=== PATIENT | female | born 1960 | race Caucasian/White ===

== ENCOUNTER 2016-09-14 15:24 | Emergency (ER) | payer OTHER ==
[2015-09-04 14:25] VITALS: BMI 18.5
[~2016-09-14 15:24] MED LIST: ALBUTEROL0.63 MG/3 INH; ELIQUIS5 MG PO; FLUTICASONE PRO16 GM NASAL
[2016-09-14 16:34] LABS: BASOPHILS 0.1 % (0.0-2.0); EOSINOPHILS 1.1 % (0-7); HEMATOCRIT 51.7 % (36.0-48.0); HEMOGLOBIN 17.2 g/dL (12-16); IMMATURE GRANULOCYTES 0.2 % (0-5); LYMPHOCYTES 18.3 % (15-50); MCH 31.3 pg (26.0-34.0); MCHC 33.3 g/dL (31.0-37.0); MCV 94.2 fL (80.0-100.0); MEAN PLATELET VOLUME 12.6 fL (7.4-10.4); MONOCYTES 5.4 % (2-11); NEUTROPHILS 74.9 % (40-80); RBC 5.49 10x6/uL (4.00-5.40); RDW 12.5 % (11.5-14.5); WBC 14.1 10x3/uL (4.8-10.8)
[2016-09-14 16:52] LABS: PLATELET COUNT 153 10x3/uL (130-400)
[2016-09-14 17:09] LABS: ALBUMIN 3.9 g/dL (3.4-5.0); ALKALINE PHOSPHATASE 82 U/L (46-116); ALT (SGPT) 25 U/L (10-68); BILIRUBIN - TOTAL 0.54 mg/dL (0.2-1.3); CALC OSMOLALITY 279 mosm/kg (275-300); CALCIUM 8.9 mg/dL (8.5-10.1); CARBON DIOXIDE 28.8 mmol/L (21.0-32.0); CHLORIDE - SERUM 103 mmol/L (98-107); CREATININE - SERUM 0.7 mg/dL (0.6-1.3); GLUCOSE 82 mg/dL (74-106); POTASSIUM - SERUM 4.7 mmol/L (3.5-5.1); PROTEIN - SERUM 7.4 g/dL (6.4-8.2); SODIUM 141 mmol/L (136-145); UREA NITROGEN 13 mg/dL (7-18); eGFR NON AFRICAN AMERICAN > 90 mL/min (90-120)
[2016-09-14 17:18] LABS: CKMB 1.8 U/L (0.0-3.6); CREATINE KINASE 126 UL (21-215)
[2016-09-14 17:28] LABS: TROPONIN-I < 0.017 ng/mL (0.000-0.060)
[2016-09-14 17:40] LABS: APPEARANCE CLEAR (CLEAR); BACTERIA MODERATE /hpf (NONE SEEN); BILIRUBIN NEGATIVE (NEGATIVE); COLOR YELLOW (YELLOW); GLUCOSE NEGATIVE (NEGATIVE); KETONE NEGATIVE (NEGATIVE); LEUKOCYTE ESTERASE 1+ (NEGATIVE); NITRITE NEGATIVE (NEGATIVE); PROTEIN NEGATIVE (NEGATIVE); RED CELLS - URINE 0-5 /hpf (0-5); SPECIFIC GRAVITY 1.025 (1.005-1.020); UROBILINOGEN NORMAL (NORMAL); WHITE CELLS - URINE 0-5 /hpf (0-5)
[2016-09-14 17:41] LABS: MUCUS <1+ /lpf (NONE SEEN)
== END 2016-09-14 18:50 | disposition home or self-care (01) ==
LOC: D.ER 15:24
PROVIDERS: Emergency Medicine; Nurse Practitioner Family
DX: R07.9 Chest pain, unspecified (principal); J44.9 Chronic obstructive pulmonary disease, unspecified; F17.200 Nicotine dependence, unspecified, uncomplicated

== ENCOUNTER 2016-12-10 15:29 | Emergency (ER) | payer OTHER ==
[2016-12-10 16:26] LABS: BASOPHILS 0.3 % (0-2); EOSINOPHILS 0.3 % (0-7); HEMATOCRIT 45.6 % (36.0-48.0); HEMOGLOBIN 14.9 g/dL (12-16); IMMATURE GRANULOCYTES 0.3 % (0-5); MCH 30.3 pg (26.0-34.0); MCHC 32.7 g/dL (31.0-37.0); MCV 92.9 fL (80.0-100.0); MEAN PLATELET VOLUME 13.4 fL (7.4-10.4); MONOCYTES 5.4 % (2-11); NEUTROPHILS 82.7 % (40-80); PLATELET COUNT 130 10x3/uL (130-400); RBC 4.91 10x6/uL (4.00-5.40); WBC 7.7 10x3/uL (4.8-10.8)
[2016-12-10 16:47] LABS: ALBUMIN 3.4 g/dL (3.4-5.0); ALKALINE PHOSPHATASE 79 U/L (46-116); ALT (SGPT) 14 U/L (10-68); BILIRUBIN - TOTAL 0.58 mg/dL (0.2-1.3); CALCIUM 8.6 mg/dL (8.5-10.1); CARBON DIOXIDE 23.4 mmol/L (21.0-32.0); CHLORIDE - SERUM 103 mmol/L (98-107); CREATININE - SERUM 0.8 mg/dL (0.6-1.3); POTASSIUM - SERUM 4.7 mmol/L (3.5-5.1); PROTEIN - SERUM 6.4 g/dL (6.4-8.2); SODIUM 141 mmol/L (136-145); UREA NITROGEN 14 mg/dL (7-18); eGFR NON AFRICAN AMERICAN 78 mL/min (90-120)
[2016-12-10 16:49] LABS: CALC OSMOLALITY 283 mosm/kg (275-300); GLUCOSE 126 mg/dL (74-106); TROPONIN-I < 0.017 ng/mL (0.000-0.060)
== END 2016-12-10 18:20 | disposition home or self-care (01) ==
LOC: D.ER 15:29
PROVIDERS: Emergency Medicine
DX: R06.00 Dyspnea, unspecified (principal); J20.9 Acute bronchitis, unspecified; J44.9 Chronic obstructive pulmonary disease, unspecified; J45.909 Unspecified asthma, uncomplicated; F17.200 Nicotine dependence, unspecified, uncomplicated

== ENCOUNTER → 2016-12-22 09:39 | Outpatient (CLI) | payer OTHER ==
[2015-09-04 14:25] VITALS: BMI 18.5
[2016-12-22 11:03] LABS: CREATININE - SERUM 0.9 mg/dL (0.6-1.3)
== END | disposition home or self-care (01) ==
LOC: D.RT 09:39
PROVIDERS: Internal Medicine Pulmonary Disease
DX: I26.99 Other pulmonary embolism without acute cor pulmonale (principal); R91.8 Other nonspecific abnormal finding of lung field

== ENCOUNTER → 2017-04-21 10:11 | Outpatient (CLI) | payer OTHER ==
[2015-09-04 14:25] VITALS: BMI 18.5
[2017-04-21 11:00] LABS: ALBUMIN 4.2 g/dL (3.4-5.0); BILIRUBIN - DIRECT 0.07 mg/dL (0.00-0.30); BILIRUBIN - INDIRECT 0.43 mg/dL (0.00-1.00); BILIRUBIN - TOTAL 0.5 mg/dL (0.2-1.3); PROTEIN - SERUM 7.8 g/dL (6.4-8.2)
== END | disposition home or self-care (01) ==
LOC: D.NM 09:00 → D.LAB 10:00 → D.US 10:30 → D.LAB 04-30 08:30
PROVIDERS: Internal Medicine Gastroenterology
DX: R10.9 Unspecified abdominal pain (principal); R11.0 Nausea

== ENCOUNTER 2017-07-16 06:06 | Day surgery (SDC) | payer OTHER ==
[~2017-07-16] VITALS: Ht 167.6 cm; Wt 45.4 kg
[~2017-07-16 06:06] MED LIST changes: +BREO ELLIPTA 21 EACH; +INCRUSE ELLI62.5 MCG INH
[2017-07-16 06:47] LABS: HEMOGLOBIN 15.1 g/dL (12-16); MCH 31.4 pg (26.0-34.0); MCHC 33.6 g/dL (31.0-37.0); MCV 93.6 fL (80.0-100.0); MEAN PLATELET VOLUME 12.1 fL (7.4-10.4); RBC 4.81 10x6/uL (4.00-5.40); RDW 12.7 % (11.5-14.5); WBC 6.2 10x3/uL (4.8-10.8)
[2017-07-16] MEDS ORDERED: ALBUTEROL0.63 MG/3 INH (08:15)
[2017-07-16 08:21] VITALS: BP 136/62; Ht 167.6 cm; Wt 45.4 kg
--- NOTE | 2017-07-16 12:21 | NUR ---
1215--IV DC'D, PT UP TO DRESS AT THIS TIME. EPIFANIO RN
--- NOTE | 2017-07-16 12:54 | NUR ---
1240--DISCHARGE INSTRUCTIONS GIVEN, PT VERBALIZES UNDERSTANDING. PT OFF UNIT VIA MELINDA. EPIFANIO ARNOLD
--- NOTE | 2017-09-01 13:13 | OP ---
PATIENT NAME: SHARON BLANTON MEDICAL RECORD: [id number] :58 LOCATION:[facility] ADMISSION DATE: SURGEON: BRONSON KANG MD DATE OF OPERATION: 07/16/2017 PREOPERATIVE DIAGNOSIS: Hyperpharyngeal mass. POSTOPERATIVE DIAGNOSIS: Hyperpharyngeal mass. PROCEDURE: Direct laryngoscopy with biopsy. SURGEON: Bronson Kang MD ANESTHESIA: General orotracheal. BLOOD LOSS: 1 cc. SPECIMENS: Multiple biopsies from the left side of hypopharynx. DESCRIPTION OF PROCEDURE: She was brought to the operating room and placed in supine position, sedated and intubated by anesthesia with a 6.0 tube. The table was turned to 90 degrees. Head drape was applied and she was positioned for laryngoscopy. Plastic tooth guard was used to protect the maxilla. Kleinsasser J laryngoscope was used to examine the hypopharynx. The oral cavity, lateral pharyngeal whittington, palate, base of tongue, vallecula, epiglottis down to the supraglottic larynx and cords, laryngeal surface of the epiglottis and the piriforms and post-cricoid area, everything was unremarkable except the left piriform. The mass was at the superior aspect of the left piriform and appeared to be originating laterally on my exam in the clinic and indeed it did appear to be. She did not have much tonsil tissue superiorly, but this really appeared to be almost lingual tonsillar tissue laterally, it was pedunculated down into the superior piriform on the left side, she did not have the same thing on the right side at all, but careful examination in that area showed that this was the soft mass that had seen in the clinic. Multiple biopsies were taken with biting a 4 mm cup forceps. There was minimal bleeding there and I took several biopsies debulking the area and the biopsy seemed consistent with that as well. The laryngoscope was removed and the plastic tooth guard was removed over the maxilla and she was repositioned, table was turned back. She was awakened, extubated, and transported to recovery in good condition. COMPLICATIONS: No complications. TRANSINT:[id number] Voice Confirmation ID: [id number] DOCUMENT ID: [id number] BRONSON KANG MD at 1313 CC: [id number] DICTATION DATE: 07/20/17 1432 OPERATIONS AND MAINTENANCE TECHNICIAN: 07/20/17 1542 [facility] 07/16/17 [place] [address] [place] [address]
--- NOTE | 2017-09-01 13:13 | HP ---
PATIENT: CHERI BLANTON MEDICAL RECORD: [id number] ACCOUNT: [id number] LOCATION:D.ALEN : 58 ADMISSION DATE: 07/16/17 HISTORY AND PHYSICAL EXAMINATION HISTORY: Cheri is a 56-year-old female who has been noted to have a left-sided hypopharyngeal mass. She is being admitted for laryngoscopy and possible biopsy. PAST MEDICAL HISTORY: Includes reactive airway disease and reflux. PAST SURGICAL HISTORY: Includes EGD. CURRENT MEDICATIONS: Albuterol, famotidine, and tramadol. ALLERGIES: No known drug allergies. PHYSICAL EXAMINATION: FACE: Normal and symmetric. No lesions. EYES: Sclerae and conjunctivae are normal. EARS: Canals and TMs are normal. NOSE: No mass, polyps, or drainage. ORAL CAVITY AND OROPHARYNX: Normal. NECK: No masses. No adenopathy. CHEST: Clear. CARDIOVASCULAR: Regular rate and rhythm. No murmur. EXTREMITIES: Normal. Laryngoscopy reveals soft-appearing fullness in the left superior piriform and lateral pharyngeal wall area. CT of the neck shows the same asymmetry, but no indication if this is vascular. IMPRESSION: Left hypopharyngeal mass. PLAN: Direct laryngoscopy and possible biopsy depending on findings. TRANSINT:[id number] Voice Confirmation ID: [id number] DOCUMENT ID: [id number] SARAHI GRAY MD at 1313 CC: [id number] DICTATION DATE: 07/15/17 1349 CERTIFIED GENETIC COUNSELOR: 07/15/17 1634 [facility] 07/16/17 [place] [address]
== END 2017-07-16 12:40 | disposition home or self-care (01) ==
LOC: D.OPS 06:06 → D.PAN 08:45 → D.OPS 09:30 → D.PAN 09:30 → D.OPS 12:40
PROVIDERS: Anesthesiology
DX: J39.2 Other diseases of pharynx (principal); K21.9 Gastro-esophageal reflux disease without esophagitis; J45.909 Unspecified asthma, uncomplicated; Z01.812 Encounter for preprocedural laboratory examination; F17.200 Nicotine dependence, unspecified, uncomplicated; J44.9 Chronic obstructive pulmonary disease, unspecified

== ENCOUNTER 2017-09-06 05:05 | Day surgery (SDC) | payer OTHER ==
[~2017-09-06] VITALS: Ht 167.6 cm; Wt 44.5 kg
[2017-09-06 05:49] LABS: HEMATOCRIT 44.4 % (36.0-48.0); HEMOGLOBIN 14.7 g/dL (12-16); MCH 31.7 pg (26.0-34.0); MCHC 33.1 g/dL (31.0-37.0); MCV 95.9 fL (80.0-100.0); MEAN PLATELET VOLUME 12.9 fL (7.4-10.4); RBC 4.63 10x6/uL (4.00-5.40); RDW 12.5 % (11.5-14.5); WBC 6.7 10x3/uL (4.8-10.8)
[2017-09-06 06:19] VITALS: BP 99/51; Ht 167.6 cm; Wt 44.5 kg
[2017-09-06] MEDS ORDERED: HYDROCODON-ACE1 EAC7 PO (08:44)
== END 2017-09-06 13:00 | disposition home or self-care (01) ==
LOC: D.OPS 05:05 → D.PAN 08:00 → D.OPS 13:00
PROVIDERS: Anesthesiology
DX: K82.8 Other specified diseases of gallbladder (principal); K80.20 Calculus of gallbladder without cholecystitis without obstruction; J44.9 Chronic obstructive pulmonary disease, unspecified; K21.9 Gastro-esophageal reflux disease without esophagitis; Z01.812 Encounter for preprocedural laboratory examination

== ENCOUNTER 2017-10-28 17:32 | Inpatient (IN) | payer OTHER ==
[~2017-10-28] VITALS: Ht 167.6 cm; Wt 45.4 kg
--- NOTE | ~2017-10-28 | CN ---
PATIENT NAME:SHARON BLANTON MEDICAL RECORD: [id number] : 58 LOCATION:D.MS Heart2213 ADMIT DATE: 10/28/17 ACCOUNT: [id number] CONSULTING PHYSICIAN: SHAWNA LANDRUM MD REFERRING PHYSICIAN: DIMAS KRAFT DO DATE OF CONSULTATION: 10/30/2017 CARDIOLOGY CONSULTATION ADMITTING DIAGNOSES: 1. Chest pain. 2. COPD. 3. Pneumonia. 4. Shortness of breath, dyspnea on exertion. HISTORY OF PRESENT ILLNESS: Ms. Blanton presents with shortness of breath, dyspnea on exertion, has severe COPD, found to have pneumonia as well. She is having episodes of chest pain. Her EKG is with no changes. Troponin is normal. Her chest pain is atypical. It is in the center of her chest radiating to her right upper abdominal area, some pain in her right arm, worsening with cough, worsening with deep inspiration. PHYSICAL EXAMINATION: GENERAL APPEARANCE: Well-nourished, well-developed, appears stated age. Level of distress, comfortable. PSYCHIATRIC: Mental status, alert, normal affect. Orientation, oriented to time, place and person. EYES: Lids and conjunctiva, noninjected. No discharge, no pallor. ENT: Lips, teeth, gums, normal dentition. Oropharynx, no cyanosis, no pallor. NECK: Carotid arteries, bilateral normal upstroke, no bruits, no thrills. JUGULAR VEINS: No jugular venous pressure or distention. CERVICAL LYMPH NODES: Nontender, nonenlarged. THYROID: Not enlarged. Nontender. No nodules. LUNGS: Respiratory effort, unlabored. CHEST: Normal curvature. No thoracic deformity. No chest wall tenderness. Percussion, resonant. Auscultation, clear. No wheezes, no rales, no rhonchi. CARDIOVASCULAR: Precordial exam, nondisplaced. No heaves or pericardial thrills. Rate and rhythm, regular. Heart sounds, normal S1, normal S2. No S3, no gallop, no rub. Systolic murmur, not heard. Diastolic murmur, not heard. EXTREMITIES: No cyanosis, no edema. Peripheral pulses, full and equal in all extremities, except as noted. No bruits appreciated. ABDOMEN: Soft, nondistended. Normal aorta. No bruit. Nontender. No masses. Liver, nontender, no hepatomegaly. Spleen, nontender, no splenomegaly. MUSCULOSKELETAL: No joint tenderness. No joint swelling. No erythema. NEUROLOGICAL: Normal gait, normal strength, normal tone. SKIN: Warm and dry. OVERALL IMPRESSION: Chest pain is noncardiac in etiology, most likely musculoskeletal secondary to her coughing. No other cardiac workup treatment is necessary. TRANSINT:[id number] Voice Confirmation ID: [id number] DOCUMENT ID: [id number] CONSULT REPORT [id number] SHARON BLANTON, SHAWNA BILLINGSLEY at 1202 CC: [id number] DICTATION DATE: 10/30/17 0847 DIE CAST ENGINEER: 10/30/17 1118 ADM IN [place] [id number] [place] [address]
--- NOTE | ~2017-10-28 | EC ---
PATIENT:SHARON BLANTON DATE OF SERVICE: 10/28/17 SEX: F MEDICAL RECORD: [id number] DATE OF : 58 LOCATION:D.MS [place] AGE OF PATIENT: 56 ADMISSION DATE: 10/28/17 REFERRING PHYSICIAN: INTERPRETING PHYSICIAN: SHAWNA STARK MD ECHOCARDIOGRAM REPORT ECHO CHARGES 5 ECHO LIMITED DATE: CLINICAL DIAGNOSIS: SOB/PNEUMONIA HX OF COPD AND ASTHMA ECHOCARDIOGRAPHIC MEASUREMENTS (adult normal given) AC root (d.<3.7cm) 3.3 cm LV Septum d (<1.2 cm> 1.3 cm Valve Excursion 1.6 cm LV Septum (systole) 1.5 cm Left Atria (s.<4.0cm> 3.9 cm LVPW d(<1.2cm) 1.3 cm RV (d.<2.3cm) 3.8 cm LVPW (sytole) 1.9 cm LV diastole(<5.6CM) 3.6 cm MV E-F(>70mm/sec) cm LV systole 1.9 cm LVOT Diameter cm MV exc.(>10mm) cm Est.ejection fraction (50-75%) % DOPPLER: LVIT cm/sec A cm/sec E cm/sec LA cm/sec RVSP mmHg LVOT cm/sec AOP1/2T m/s Asc. Ao cm/sec RVOT cm/sec RA cm/sec PA cm/sec AV Gradient Peak mmHg AV Mean mmHg AV Area cm MV Gradient Peak mmHg MV Mean mmHg MV Area cm COMMENTS: Parimutuel Cashier: Candi BURGOS Daily Sales Audit Clerk: 1 Dr. Stark TAPE# PACS Pericardial Effusion N DATE OF SERVICE: 10/30/2017 FINDINGS: 1. Left ventricular chamber size is within normal limits. Left ventricular systolic function is normal. Overall ejection fraction is estimated at 65%. 2. Left atrium is within normal limits at 3.9 cm. Right atrium and right ventricle chamber sizes are mildly dilated. 3. Valvular structures have normal structure and motion. 4. Doppler interrogation only reveals mild tricuspid regurgitation. No other valvular insufficiency or stenosis. Pulmonary systolic pressure is normal, ECHOCARDIOGRAM REPORT [id number] SHARON BLANTON estimated at 30 mmHg. 5. No evidence of pericardial effusion or left ventricular thrombus. TRANSINT:[id number] Voice Confirmation ID: [id number] DOCUMENT ID: [id number] 11/04/2017 Edited to correct date of service, dmmelania. SHAWNA STARK MD at 1140 CC: [id number] DICTATION DATE: 10/31/17 1219 MULTIFOLD OPERATOR: 10/31/17 1745 [facility] IN 11/02/17 [place] [id number] [place] [id number]
[~2017-10-28 17:32] MED LIST changes: +HYDROCODON-ACE1 EAC7 PO
[2017-10-28 18:28] LABS: HEMATOCRIT 45.3 % (36.0-48.0); HEMOGLOBIN 14.7 g/dL (12-16); MCH 30.9 pg (26.0-34.0); MCHC 32.5 g/dL (31.0-37.0); MCV 95.4 fL (80.0-100.0); MEAN PLATELET VOLUME 12.6 fL (7.4-10.4); PLATELET COUNT 185 10x3/uL (130-400); RBC 4.75 10x6/uL (4.00-5.40); RDW 12.6 % (11.5-14.5)
[2017-10-28 18:43] LABS: ALBUMIN 2.5 g/dL (3.4-5.0); ANION GAP 7.9 mmol/L (8-16); BILIRUBIN - TOTAL 0.53 mg/dL (0.2-1.3); CALCIUM 8.5 mg/dL (8.5-10.1); CREATININE - SERUM 0.9 mg/dL (0.6-1.3)
[2017-10-28 18:45] LABS: POTASSIUM - SERUM 2.9 mmol/L (3.5-5.1)
[2017-10-28 18:59] LABS: LYMPHOCYTES 5 % (15-50); MONOCYTES 1 % (2-11); NEUTROPHILS 90 % (40-80); PLATELET ESTIMATE NORMAL
[2017-10-28 19:31] LABS: MAGNESIUM - SERUM 1.8 mg/dL (1.8-2.4); TROPONIN-I 0.023 ng/mL (0.000-0.060)
[2017-10-28 19:59] LABS: APPEARANCE CLEAR (CLEAR); BILIRUBIN NEGATIVE (NEGATIVE); COLOR DK YELLOW (YELLOW); GLUCOSE NEGATIVE (NEGATIVE); KETONE SMALL mg/dL (NEGATIVE); NITRITE NEGATIVE (NEGATIVE); PROTEIN TRACE mg/dL (NEGATIVE); UROBILINOGEN NORMAL (NORMAL)
[2017-10-28 20:01] LABS: BACTERIA FEW /hpf (NONE SEEN); MUCUS <1+ /lpf (NONE SEEN); RED CELLS - URINE 0-5 /hpf (0-5); WHITE CELLS - URINE 0-5 /hpf (0-5)
[2017-10-29] VITALS (7 sets, daily range): BP systolic 94–134; BP diastolic 54–78; Ht 167.6 cm; Wt 45.4 kg
[2017-10-29] MEDS ORDERED: IBUPROFEN800 MG PO (00:15)
[2017-10-30 00:32] VITALS: BP 106/48
[2017-10-30 04:00] VITALS: BP 94/44
[2017-10-30 06:27] LABS: BASOPHILS 0.1 % (0-2); EOSINOPHILS 0 % (0-7); HEMOGLOBIN 12.6 g/dL (12-16); IMMATURE GRANULOCYTES 3.2 % (0-5); LYMPHOCYTES 5.7 % (15-50); MCH 30.4 pg (26.0-34.0); MCHC 31.5 g/dL (31.0-37.0); MCV 96.6 fL (80.0-100.0); MEAN PLATELET VOLUME 12.7 fL (7.4-10.4); MONOCYTES 4.3 % (2-11); NEUTROPHILS 86.7 % (40-80); PLATELET COUNT 178 10x3/uL (130-400); RBC 4.14 10x6/uL (4.00-5.40); RDW 12.8 % (11.5-14.5)
[2017-10-30 06:33] LABS: WBC 13.7 10x3/uL (4.8-10.8)
[2017-10-30 06:54] LABS: ALBUMIN 2.3 g/dL (3.4-5.0); ALKALINE PHOSPHATASE 87 U/L (46-116); ALT (SGPT) 11 U/L (10-68); BILIRUBIN - TOTAL 0.19 mg/dL (0.2-1.3); CALCIUM 8.6 mg/dL (8.5-10.1); CARBON DIOXIDE 36.7 mmol/L (21.0-32.0); CHLORIDE - SERUM 97 mmol/L (98-107); CREATININE - SERUM 0.8 mg/dL (0.6-1.3); GLUCOSE 135 mg/dL (74-106); MAGNESIUM - SERUM 1.7 mg/dL (1.8-2.4); PHOSPHOROUS 3.6 mg/dL (2.5-4.9); POTASSIUM - SERUM 3.6 mmol/L (3.5-5.1); SODIUM 140 mmol/L (136-145); eGFR NON AFRICAN AMERICAN 78 mL/min (90-120)
[2017-10-30 06:56] LABS: CALC OSMOLALITY 282 mosm/kg (275-300); PROTEIN - SERUM 2.7 g/dL (6.4-8.2); TROPONIN-I < 0.017 ng/mL (0.000-0.060); UREA NITROGEN 17 mg/dL (7-18)
[2017-10-30 08:03] VITALS: BP 107/50
[2017-10-30 12:16] VITALS: BP 101/51
[2017-10-30 16:14] VITALS: BP 117/57
[2017-10-30 21:40] VITALS: BP 110/53
[2017-10-31 02:38] VITALS: BP 119/61
[2017-10-31 05:22] LABS: BASOPHILS 0.1 % (0-2); EOSINOPHILS 0 % (0-7); HEMATOCRIT 39.7 % (36.0-48.0); HEMOGLOBIN 12.6 g/dL (12-16); IMMATURE GRANULOCYTES 4.4 % (0-5); LYMPHOCYTES 4.5 % (15-50); MCH 30.9 pg (26.0-34.0); MCHC 31.7 g/dL (31.0-37.0); MCV 97.3 fL (80.0-100.0); MEAN PLATELET VOLUME 12.3 fL (7.4-10.4); MONOCYTES 3.9 % (2-11); NEUTROPHILS 87.1 % (40-80); PLATELET COUNT 164 10x3/uL (130-400); RBC 4.08 10x6/uL (4.00-5.40); WBC 15.4 10x3/uL (4.8-10.8)
[2017-10-31 05:26] LABS: ALBUMIN 2.1 g/dL (3.4-5.0); ALKALINE PHOSPHATASE 81 U/L (46-116); CALC OSMOLALITY 284 mosm/kg (275-300); CALCIUM 8.4 mg/dL (8.5-10.1); CHLORIDE - SERUM 101 mmol/L (98-107); CREATININE - SERUM 0.6 mg/dL (0.6-1.3); GLUCOSE 119 mg/dL (74-106); MAGNESIUM - SERUM 1.6 mg/dL (1.8-2.4); PHOSPHOROUS 3.5 mg/dL (2.5-4.9); POTASSIUM - SERUM 3.9 mmol/L (3.5-5.1); SODIUM 142 mmol/L (136-145); UREA NITROGEN 16 mg/dL (7-18); eGFR NON AFRICAN AMERICAN > 90 mL/min (90-120)
[2017-10-31 05:29] VITALS: BP 116/66
[2017-10-31 05:30] LABS: ALT (SGPT) 18 U/L (10-68)
[2017-10-31 08:06] VITALS: BP 113/63
[2017-10-31 12:12] VITALS: BP 99/45
[2017-10-31 16:27] VITALS: BP 105/58
[2017-10-31 20:00] VITALS: BP 114/57
[2017-11-01] VITALS: BP 116/55
[2017-11-01 04:59] LABS: BASOPHILS 0.2 % (0-2); EOSINOPHILS 0 % (0-7); HEMATOCRIT 40.5 % (36.0-48.0); HEMOGLOBIN 12.9 g/dL (12-16); IMMATURE GRANULOCYTES 5.2 % (0-5); LYMPHOCYTES 4.8 % (15-50); MCH 30.7 pg (26.0-34.0); MCHC 31.9 g/dL (31.0-37.0); MCV 96.4 fL (80.0-100.0); MEAN PLATELET VOLUME 12.2 fL (7.4-10.4); MONOCYTES 3.4 % (2-11); NEUTROPHILS 86.4 % (40-80); PLATELET COUNT 160 10x3/uL (130-400); RDW 13.2 % (11.5-14.5); WBC 12.2 10x3/uL (4.8-10.8)
[2017-11-01 06:00] VITALS: BP 116/63
[2017-11-01 08:45] VITALS: BP 121/61
[2017-11-01 13:11] VITALS: BP 115/49
[2017-11-01 16:44] VITALS: BP 103/47
[2017-11-01 20:00] VITALS: BP 117/54
[2017-11-02 04:00] VITALS: BP 115/62
[2017-11-02] MEDS ORDERED: IPRAT-ALBUT 0.5-3 ML INH (06:37)
[2017-11-02] MEDS ORDERED: ALBUTEROL2.5 MG/3 M INH (06:37)
[2017-11-02] MEDS ORDERED: BROVANA15 MCG/2 M INH (06:37)
[2017-11-02] MEDS ORDERED: DALIRESP500 MCG PO (06:38)
[2017-11-02] MEDS ORDERED: PULMICORT0.5 MG/21 UPD (06:38)
[2017-11-02] MEDS ORDERED: XANAX0.25 MG PO (06:38)
[2017-11-02] MEDS ORDERED: SINGULAIR10 MG PO (06:38)
[2017-11-02] MEDS ORDERED: STERAPRED DS 1210 MG PO (06:39)
[2017-11-02] MEDS ORDERED: LEVAQUIN750 MG PO (06:40)
[2017-11-02 08:55] VITALS: BP 93/48
== END 2017-11-02 17:51 | disposition home or self-care (01) | DRG 194 ==
LOC: D.ER 17:32 → D.MS 21:51 → D.EDHOLD 21:51 → D.MS 22:56
PROVIDERS: Emergency Medicine; Family Medicine; Internal Medicine Pulmonary Disease; Nurse Practitioner Family
DX: J18.9 Pneumonia, unspecified organism (principal); J44.1 Chronic obstructive pulmonary disease with (acute) exacerbation; Z68.1 Body mass index [BMI] 19.9 or less, adult; I27.20 Pulmonary hypertension, unspecified; I08.1 Rheumatic disorders of both mitral and tricuspid valves; E87.6 Hypokalemia; F41.9 Anxiety disorder, unspecified; J32.9 Chronic sinusitis, unspecified; Z87.891 Personal history of nicotine dependence; R63.6 Underweight

== ENCOUNTER → 2018-03-31 13:45 | Outpatient (CLI) | payer OTHER ==
[2017-10-29 14:07] VITALS: BMI 16.1
[~2018-03-31 13:45] MED LIST changes: +ALBUTEROL2.5 MG/3 M INH; +BROVANA15 MCG/2 M INH; +DALIRESP500 MCG PO; +IBUPROFEN800 MG PO; +IPRAT-ALBUT 0.5-3 ML INH; +LEVAQUIN750 MG PO; +PULMICORT0.5 MG/21 UPD; +SINGULAIR10 MG PO; +STERAPRED DS 1210 MG PO; +XANAX0.25 MG PO
== END | disposition home or self-care (01) ==
LOC: D.RT 13:45
DX: Z87.01 Personal history of pneumonia (recurrent) (principal); J44.9 Chronic obstructive pulmonary disease, unspecified

== ENCOUNTER 2018-10-07 21:34 | Inpatient (IN) | payer OTHER ==
[~2018-10-07] VITALS: Ht 167.6 cm; Wt 45.4 kg
[2018-10-07 22:15] LABS: BASOPHILS 0 % (0-2); EOSINOPHILS 0 % (0-7); HEMATOCRIT 46.4 % (36.0-48.0); HEMOGLOBIN 15.6 g/dL (12-16); IMMATURE GRANULOCYTES 0.7 % (0-5); LYMPHOCYTES 5.5 % (15-50); MCH 31.4 pg (26.0-34.0); MCHC 33.6 g/dL (31.0-37.0); MCV 93.4 fL (80.0-100.0); MEAN PLATELET VOLUME 12.7 fL (7.4-10.4); MONOCYTES 8.9 % (2-11); NEUTROPHILS 84.9 % (40-80); RBC 4.97 10x6/uL (4.00-5.40); RDW 12.7 % (11.5-14.5); WBC 8.7 10x3/uL (4.8-10.8)
[2018-10-07 22:18] LABS: PLATELET COUNT 88 10x3/uL (130-400)
[2018-10-07 22:28] LABS: PLATELET ESTIMATE DECREASED
[2018-10-07 22:51] LABS: ALBUMIN 3.5 g/dL (3.4-5.0); ALKALINE PHOSPHATASE 81 U/L (46-116); ALT (SGPT) 30 U/L (10-68); BILIRUBIN - TOTAL 0.38 mg/dL (0.2-1.3); CALC OSMOLALITY 279 mosm/kg (275-300); CALCIUM 8.1 mg/dL (8.5-10.1); CARBON DIOXIDE 26.5 mmol/L (21.0-32.0); CHLORIDE - SERUM 100 mmol/L (98-107); CREATININE - SERUM 0.5 mg/dL (0.6-1.3); GLUCOSE 95 mg/dL (74-106); PRO BNP 1161 pg/mL (0-125); PROTEIN - SERUM 7.2 g/dL (6.4-8.2); SODIUM 139 mmol/L (136-145); UREA NITROGEN 18 mg/dL (7-18); eGFR NON AFRICAN AMERICAN > 90 mL/min (90-120)
[2018-10-07 22:55] LABS: TROPONIN-I < 0.017 ng/mL (0.000-0.060)
[2018-10-07 23:26] VITALS: BP 111/54
[2018-10-07 23:45] LABS: APPEARANCE CLEAR (CLEAR); BILIRUBIN NEGATIVE (NEGATIVE); COLOR YELLOW (YELLOW); GLUCOSE NEGATIVE (NEGATIVE); KETONE LARGE mg/dL (NEGATIVE); NITRITE NEGATIVE (NEGATIVE); PROTEIN TRACE mg/dL (NEGATIVE); UDS - AMPHET NEGATIVE QUAL (NEGATIVE); UDS - BARB NEGATIVE QUAL (NEGATIVE); UDS - BENZO NEGATIVE QUAL (NEGATIVE); UDS - COCAINE NEGATIVE QUAL (NEGATIVE); UDS - OPIATE NEGATIVE QUAL (NEGATIVE); UDS - PCP NEGATIVE QUAL (NEGATIVE); UDS - THC POSITIVE QUAL (NEGATIVE); UROBILINOGEN NORMAL (NORMAL); WHITE CELLS - URINE NSEEN /hpf (0-5)
--- NOTE | 2018-10-08 | NUR ---
2ND IV 20 GA TO LEFT AC
[2018-10-08 00:27] VITALS: BP 104/47
--- NOTE | 2018-10-08 00:27 | NUR ---
REPORT CALLED TO KALYAN NULL, CALL LIGHT WITHIN REACH, WILL CONTINUE TO MONITOR.
--- NOTE | 2018-10-08 00:36 | NUR ---
PT TO CTA AND CT TO TRANSPORT PT TO ROOM. PT STABLE AT THIS TIME.
--- NOTE | 2018-10-08 01:10 | NUR ---
PT ARRIVED TO FLOOR FROM ER VIA STRETCHER, ACCOMPANIED BY STAFF FROM CT. VITAL SIGNS STABLE. OXYGEN 3L/NC. REVIEWED HISTORY AND HOME MEDS. ASSESSMENT COMPLETE PER FLOW-SHEET. PT RESTING QUIETLY. ZITHROMAX INFUSING. TELEMETRY PLACED ON PT. NO OTHER NEEDS. WILL CONTINUE TO MONITOR.
[2018-10-08 01:55] VITALS: BP 134/54; BMI 16.1
[2018-10-08] MEDS ORDERED: INCRUSE ELLI62.5 MCG INH (02:07)
[2018-10-08] MEDS ORDERED: ALBUTEROL SULF8.5 GM INH (02:10)
[2018-10-08] MEDS ORDERED: ZOFRAN ODT4 MG/UDTAB PO (02:12)
[2018-10-08 05:10] VITALS: BP 110/50
--- NOTE | 2018-10-08 08:02 | NUR ---
PT AAOX4 RESP EVEN AND NONLABORED, NO SIGNS OF DISTRESS NOTED, SITTING UP EATING BREAKFAST, NO NEEDS EXPRESSED AT THIS TIME, CL IN REACH
[2018-10-08 08:37] VITALS: BMI 16.1
--- NOTE | 2018-10-08 10:00 | NUR ---
CABLE WIRER SHOWING ST 107 PER TECH.
--- NOTE | 2018-10-08 12:00 | NUR ---
PT UPSET YELLING OUT THE ROOM "THESE BLACK PEOPLE LAZY" PT UPSET ABOUT THE DR NOT PRESCIBING HER WHAT SHE WANTS
--- NOTE | 2018-10-08 13:07 | MORECARE ---
CASE MANAGEMENT DISCHARGE SUMMARY PATIENT: SHARON BLANTON UNIT: [id number] ADM DATE: 10/07/18 AGE: 57 : 58 SEX: F ROOM/BED: D.1204 AUTHOR: ERICKA WARREN PHYSICIAN: REFERRING PHYSICIAN: LAVINIA ABBOTT MD DATE OF SERVICE: 10/08/18 Discharge Plan Patient Name: SHARON BLANTON Facility: [facility]:[place] : 1960 Planned Disposition: Anticipated Discharge Date: Discharge Date: Expected LOS: Initial Reviewer: [email or web address] Initial Review Date: 10/08/2018 Generated: 10/08/18 2:06 pm Patient Name: SHARON BLANTON Page [phone] at 1307 All edits/amendments must be made on the electronic document DICTATION DATE: 10/08/18 1306 BUSPERSON: MAGNO 10/08/18 1306 RPT#: [id number] DC DATE: STATUS: ADM IN [facility] [address] [place] [address] END OF REPORT
[2018-10-08 13:39] VITALS: Ht 167.6 cm; Wt 45.4 kg
[2018-10-08 18:55] VITALS: BP 125/74; BP 134/74
[2018-10-08 20:00] VITALS: BP 112/61
--- NOTE | 2018-10-08 20:47 | NUR ---
PATIENT RESTING IN BED WITH NO S/S OF DISTRESS. ADMINISTERED MEDS PER ORDERS. PATIENT DENIES NEEDS AT THIS TIME. BED IN LOWEST POSITION AND CALL LIGHT WITHIN REACH. WILL CONTINUE TO MONITOR.
[2018-10-09] VITALS: BP 103/51
[2018-10-09 04:00] VITALS: BP 103/50
[2018-10-09 05:41] LABS: BASOPHILS 0 % (0-2); EOSINOPHILS 0 % (0-7); HEMATOCRIT 42.6 % (36.0-48.0); IMMATURE GRANULOCYTES 0.3 % (0-5); MCH 30.7 pg (26.0-34.0); MCHC 32.9 g/dL (31.0-37.0); MCV 93.4 fL (80.0-100.0); MEAN PLATELET VOLUME 12.7 fL (7.4-10.4); MONOCYTES 6.4 % (2-11); NEUTROPHILS 89.3 % (40-80); PLATELET COUNT 92 10x3/uL (130-400); RBC 4.56 10x6/uL (4.00-5.40); RDW 12.6 % (11.5-14.5); WBC 7.5 10x3/uL (4.8-10.8)
[2018-10-09 06:33] LABS: ALBUMIN 2.9 g/dL (3.4-5.0); ALKALINE PHOSPHATASE 79 U/L (46-116); BILIRUBIN - TOTAL 0.15 mg/dL (0.2-1.3); CALC OSMOLALITY 288 mosm/kg (275-300); CALCIUM 8.2 mg/dL (8.5-10.1); CHLORIDE - SERUM 104 mmol/L (98-107); CREATININE - SERUM 0.6 mg/dL (0.6-1.3); GLUCOSE 105 mg/dL (74-106); POTASSIUM - SERUM 3.7 mmol/L (3.5-5.1); PROTEIN - SERUM 6.1 g/dL (6.4-8.2); SODIUM 144 mmol/L (136-145); UREA NITROGEN 17 mg/dL (7-18); eGFR NON AFRICAN AMERICAN > 90 mL/min (90-120)
[2018-10-09 06:37] LABS: ALT (SGPT) 41 U/L (10-68); CARBON DIOXIDE 34.1 mmol/L (21.0-32.0)
--- NOTE | 2018-10-09 08:09 | NUR ---
PT AAOX4 RESP EVEN AND NONALBORED, NO SIGNS OF DISTRESS NOTED, SITTING UP IN BED EATIN BREAKFAST, NO QUESTIONS OR CONCERNS EXPRESSED AT THIS TIME, CL IN REACH
[2018-10-09 09:10] VITALS: BP 106/53
--- NOTE | 2018-10-09 12:39 | NUR ---
DROPLET ISOLATION PRECAUTIONS IN PLACE. RESTING QUIETLY IN BED. CALL LIGHT WITHIN REACH.
[2018-10-09 19:35] VITALS: BP 130/55
--- NOTE | 2018-10-09 19:45 | NUR ---
ASSITED THE PATIENT WITH PUTTING ON CLEAN GOWN AND FIXED ALARM ON IV PUMP. GUEST AT BEDSIDE. PATIENT DENIES OTHER NEEDS AT THIS TIME. BED IN LOWEST POSITION AND CALL LIGHT WITHIN REACH. ENCOURAGED THE PATIENT TO CALL IF SHE HAS NEEDS. WILL CONTINUE TO MONITOR.
[2018-10-09 20:23] VITALS: BP 105/52
[2018-10-10] VITALS: BP 95/40
[2018-10-10 05:51] VITALS: BP 97/51
[2018-10-10 06:26] LABS: ALBUMIN 2.6 g/dL (3.4-5.0); ALKALINE PHOSPHATASE 89 U/L (46-116); ALT (SGPT) 34 U/L (10-68); CALC OSMOLALITY 292 mosm/kg (275-300); CALCIUM 7.6 mg/dL (8.5-10.1); CARBON DIOXIDE 34.1 mmol/L (21.0-32.0); CHLORIDE - SERUM 107 mmol/L (98-107); CREATININE - SERUM 0.6 mg/dL (0.6-1.3); GLUCOSE 128 mg/dL (74-106); POTASSIUM - SERUM 3.5 mmol/L (3.5-5.1); PROTEIN - SERUM 5.5 g/dL (6.4-8.2); SODIUM 147 mmol/L (136-145); UREA NITROGEN 11 mg/dL (7-18); eGFR NON AFRICAN AMERICAN > 90 mL/min (90-120)
[2018-10-10 06:29] LABS: BASOPHILS 0.2 % (0-2); EOSINOPHILS 0 % (0-7); HEMOGLOBIN 12.9 g/dL (12-16); IMMATURE GRANULOCYTES 0.2 % (0-5); LYMPHOCYTES 6.8 % (15-50); MCH 30.6 pg (26.0-34.0); MCHC 32.3 g/dL (31.0-37.0); MEAN PLATELET VOLUME 12.5 fL (7.4-10.4); MONOCYTES 4.8 % (2-11); PLATELET COUNT 88 10x3/uL (130-400); RBC 4.21 10x6/uL (4.00-5.40); RDW 12.9 % (11.5-14.5)
[2018-10-10 08:44] VITALS: BP 113/51
[2018-10-10 09:05] LABS: PLATELET ESTIMATE DECREASED
--- NOTE | 2018-10-10 12:32 | MORECARE ---
CASE MANAGEMENT DISCHARGE SUMMARY PATIENT: SHARON BLANTON UNIT: [id number] ADM DATE: 10/08/18 AGE: 57 : 58 SEX: F ROOM/BED: D.1204 AUTHOR: ERICKA WARREN PHYSICIAN: REFERRING PHYSICIAN: LAVINIA ABBOTT MD DATE OF SERVICE: 10/10/18 Discharge Plan Patient Name: SHARON BLANTON Facility: [facility]:[place] : 1960 Planned Disposition: Home Anticipated Discharge Date: Discharge Date: Expected LOS: Initial Reviewer: [email or web address] Initial Review Date: 10/08/2018 Generated: 10/10/18 1:31 pm Comments DCP- Discharge Planning Updated by [email or web address]: Nichole Jacobo on 10/10/18 11:[address] Patient Name: SHARON BLANTON Admission Status: ER Accout number: [id number] Admission Date: 10-08-2018 : 1960 Admission Diagnosis: Attending: LAVINIA ABBOTT Current LOS: 2 Anticipated DC Date: Planned Disposition: Home Primary Insurance: [employer] MANAGED MEDICAID Discharge Planning Comments: CM MET WITH PATIENT ABOUT DC PLANNING/NEEDS. STATES HAS 02 AND NEBULIZER AT HOME. PLANS TO DC TO HOME. OFFERED HH BUT PATIENT DECLINES AT THIS TIME. SHE SAID SHE COULD USE A CANE OR WALKER IF SHE QUALIFIES. CM WILL FOLLOW AND ASSIST NEEDED WITH DC PLANNING/NEEDS. Commercial Subcontractor: Nichole Jacobo DCPIA - Discharge Planning Initial Assessment Updated by [email or web address]: Nichole Jacobo on 10/10/18 12:24 pm * Is the patient Alert and Oriented? Yes * PCP GUZMAN * Pharmacy [facility] * Preadmission Environment Home Alone * ADLs Independent * Equipment Nebulizer Oxygen * List name and contact numbers for known caregivers / representatives who currently or will assist patient after discharge: SISTER CHAMBERS, * Community resources currently utilized None * Additional services required to return to the preadmission environment? No * Can the patient safely return to the preadmission environment? Yes * Has this patient been hospitalized within the prior 30 days at any hospital? No Last DP export: 10/08/18 12:06 p Patient Name: SHARON BLANTON Page [id number] at 1232 All edits/amendments must be made on the electronic document DICTATION DATE: 10/10/18 123 DEALERSHIP MANAGER: MAGNO 10/10/18 1231 RPT#: [id number] DC DATE: STATUS: ADM IN [facility] [address] [place] [address] END OF REPORT
[2018-10-10 13:00] VITALS: BP 117/65
[2018-10-10 15:57] VITALS: BP 115/59
[2018-10-10 20:00] VITALS: BP 118/53
--- NOTE | 2018-10-10 20:11 | NUR ---
PATIENT RESTING IN BED AND DENIES NEEDS AT THIS TIME. ADMINISTERED MEDS PER ORDERS. NO S/S OF DISTRESS. BED IN LOWEST POSITION AND CALL LIGHT WITHIN REACH. ENCOURAGED THE PATIENT TO CALL IF SHE HAS NEEDS. WILL CONTINUE TO MONITOR.
[2018-10-11] VITALS: BP 123/64
[2018-10-11 04:30] VITALS: BP 125/58
[2018-10-11 07:24] LABS: BASOPHILS 0.4 % (0-2); EOSINOPHILS 0 % (0-7); HEMOGLOBIN 13.8 g/dL (12-16); IMMATURE GRANULOCYTES 1.1 % (0-5); MCH 30.5 pg (26.0-34.0); MCHC 32.1 g/dL (31.0-37.0); MCV 95.1 fL (80.0-100.0); NEUTROPHILS 69.5 % (40-80); PLATELET COUNT 95 10x3/uL (130-400); RBC 4.52 10x6/uL (4.00-5.40); RDW 12.8 % (11.5-14.5); WBC 4.5 10x3/uL (4.8-10.8)
[2018-10-11 07:51] LABS: ALBUMIN 3.1 g/dL (3.4-5.0); ALKALINE PHOSPHATASE 84 U/L (46-116); ALT (SGPT) 83 U/L (10-68); AMYLASE - SERUM 85 U/L (25-115); BILIRUBIN - TOTAL 0.18 mg/dL (0.2-1.3); CALC OSMOLALITY 289 mosm/kg (275-300); CALCIUM 7.6 mg/dL (8.5-10.1); CARBON DIOXIDE 33.2 mmol/L (21.0-32.0); CHLORIDE - SERUM 102 mmol/L (98-107); CREATININE - SERUM 0.8 mg/dL (0.6-1.3); GLUCOSE 116 mg/dL (74-106); LIPASE 178 U/L (73-393); POTASSIUM - SERUM 3.5 mmol/L (3.5-5.1); PROTEIN - SERUM 6.5 g/dL (6.4-8.2); SODIUM 145 mmol/L (136-145); UREA NITROGEN 13 mg/dL (7-18); eGFR NON AFRICAN AMERICAN 78 mL/min (90-120)
[2018-10-11 09:01] VITALS: BP 142/71
--- NOTE | 2018-10-11 10:11 | NUR ---
Regular diet with 79% average po intake Pt reporting abd pain Plans for CT A/P today per GI Will follow up
--- NOTE | 2018-10-11 11:18 | EC ---
PATIENT:SHARON BLANTON DATE OF SERVICE: 10/08/18 SEX: F MEDICAL RECORD: [id number] DATE OF : 58 LOCATION:D.M3 D.120 AGE OF PATIENT: 57 ADMISSION DATE: 10/08/18 REFERRING PHYSICIAN: INTERPRETING PHYSICIAN: SHAWNA STARK MD ECHOCARDIOGRAM REPORT ECHO CHARGES 4 ECHO COMPLETE Date: 10/09/18 CLINICAL DIAGNOSIS: DYSPNEA HX OF COPD ECHOCARDIOGRAPHIC MEASUREMENTS (adult normal given) AC root (d.<3.7cm) 3.2 cm LV Septum d (<1.2 cm> 1.0 cm Valve Excursion 1.3 cm LV Septum (systole) 1.2 cm Left Atria (s.<4.0cm> 3.9 cm LVPW d(<1.2cm) 1.2 cm RV (d.<2.3cm) 4.0 cm LVPW (sytole) 1.4 cm LV diastole(<5.6CM) 3.5 cm MV E-F(>70mm/sec) cm LV systole 2.4 cm LVOT Diameter 1.6 cm MV exc.(>10mm) 1.4 cm Est.ejection fraction (50-75%) % DOPPLER: LVIT cm/sec A 84.0 cm/sec E 98.0 cm/sec LA cm/sec RVSP 27 mmHg LVOT 118 cm/sec AOP1/2T m/s Asc. Ao 191 cm/sec RVOT cm/sec RA cm/sec PA cm/sec AV Gradient Peak 14.65mmHg AV Mean 6.99 mmHg AV Area 1.4 cm MV Gradient Peak 5.60 mmHg MV Mean 1.69 mmHg MV Area cm COMMENTS: Spiral Binder: Candi BURGOS Frozen Yogurt Maker: 1 Dr. Stark TAPE# PACS Pericardial Effusion N DATE OF SERVICE: 10/09/2018 FINDINGS: 1. Left ventricular chamber size is within normal limits. Left ventricular systolic function is normal. Overall ejection fraction is estimated at 60%. 2. Left atrium, right atrium, and right ventricular chamber sizes are within normal limit. 3. Valvular structures have normal structure and motion. 4. Doppler interrogation reveals [id number] tricuspid regurgitation. No other valvular insufficiency or stenosis. ECHOCARDIOGRAM REPORT [id number] SHARON BLANTON 5. No evidence of pericardial effusion or left ventricular thrombus. TRANSINT:[id number] Voice Confirmation ID: [id number] DOCUMENT ID: [id number] SHAWNA STARK MD at 1118 CC: [id number] DICTATION DATE: 10/09/18 1319 GRIPPER MACHINE OPERATOR: 10/09/18 1352 ADM IN [facility] [address] [place] [address]
[2018-10-11 12:08] VITALS: BP 85/52
[2018-10-11 15:26] VITALS: BP 144/60
--- NOTE | 2018-10-11 19:50 | NUR ---
PATIENT RESTING IN BED AND DENIES NEEDS AT THIS TIME. BED IN LOWEST POSITION AND CALL LIGHT WITHIN REACH. ENCOURAGED THE PATIENT TO CALL IF SHE HAS NEEDS. WILL CONTINUE TO MONITOR.
[2018-10-11 20:31] VITALS: BP 90/63
[2018-10-12] VITALS: BP 116/62
[2018-10-12 05:42] VITALS: BP 125/60
--- NOTE | 2018-10-12 07:00 | NUR ---
RESTING QUIETLY IN BED, ALERT, DENIES PAIN AT THIS TIME, NO S/S DISTRESS. CALL LIGHT AT HAND, INSTRUCTED TO CALL WITH NEEDS.
[2018-10-12 08:14] LABS: HEMATOCRIT 41.1 % (36.0-48.0); HEMOGLOBIN 13.3 g/dL (12-16); MCH 30.5 pg (26.0-34.0); MCHC 32.4 g/dL (31.0-37.0); MCV 94.3 fL (80.0-100.0); MEAN PLATELET VOLUME 12.6 fL (7.4-10.4); PLATELET COUNT 82 10x3/uL (130-400); RBC 4.36 10x6/uL (4.00-5.40); RDW 12.7 % (11.5-14.5); WBC 4.9 10x3/uL (4.8-10.8)
[2018-10-12 08:27] LABS: ALBUMIN 2.9 g/dL (3.4-5.0); ALKALINE PHOSPHATASE 83 U/L (46-116); ALT (SGPT) 93 U/L (10-68); BILIRUBIN - TOTAL 0.23 mg/dL (0.2-1.3); CALC OSMOLALITY 289 mosm/kg (275-300); CALCIUM 7.7 mg/dL (8.5-10.1); CARBON DIOXIDE 36.9 mmol/L (21.0-32.0); CHLORIDE - SERUM 103 mmol/L (98-107); CREATININE - SERUM 0.6 mg/dL (0.6-1.3); GLUCOSE 85 mg/dL (74-106); SODIUM 146 mmol/L (136-145); UREA NITROGEN 13 mg/dL (7-18); eGFR NON AFRICAN AMERICAN > 90 mL/min (90-120)
[2018-10-12 08:29] LABS: POTASSIUM - SERUM 2.9 mmol/L (3.5-5.1)
[2018-10-12 09:08] LABS: LYMPHOCYTES 53 % (15-50); MONOCYTES 9 % (2-11); NEUTROPHILS 32 % (40-80); PLATELET ESTIMATE DECREASED; ROULEAUX OCC
[2018-10-12 09:21] VITALS: BP 123/67
[2018-10-12] MEDS ORDERED: TAMIFLU75 MG PO (10:38)
[2018-10-12] MEDS ORDERED: LEVAQUIN750 MG PO (10:39)
[2018-10-12] MEDS ORDERED: PREDNISONE20 MG PO (10:39)
--- NOTE | 2018-10-12 12:47 | MORECARE ---
CASE MANAGEMENT DISCHARGE SUMMARY PATIENT: SHARON BLANTON UNIT: [id number] ADM DATE: 10/08/18 AGE: 57 : 58 SEX: F ROOM/BED: D.1204 AUTHOR: ERICKA WARREN PHYSICIAN: REFERRING PHYSICIAN: LAVINIA ABBOTT MD DATE OF SERVICE: 10/12/18 Discharge Plan Patient Name: SHARON BLANTON Facility: [facility]:[place] : 1960 Planned Disposition: Home Anticipated Discharge Date: Discharge Date: Expected LOS: Initial Reviewer: [email or web address] Initial Review Date: 10/08/2018 Generated: 10/12/18 1:47 pm Comments DCP- Discharge Planning Updated by [email or web address]: Nichole Jacobo on 10/12/18 11:[address] Patient Name: SHARON BLANTON Admission Status: ER Accout number: [id number] Admission Date: 10-08-2018 : 1960 Admission Diagnosis:SHORTNESS OF BREATH Attending: LAVINIA ABBOTT Current LOS: 4 Anticipated DC Date: Planned Disposition: Home Primary Insurance: [employer] MANAGED MEDICAID Discharge Planning Comments: WHEN PATIENT IS READY FOR DISHCARGE I WILL CALL [employer] SERVICE AT [phone]. PAYMENT HAS BEEN APPROVED BY [employer]. PATIENT AD[address]ESS [address] [place] [id number] CM WILL FOLLOW AND ASSISTAS NEEDED WITH DC PLANNING/NEEDS. Flight Control Specialist: Nichole Jacobo DCP- Discharge Planning Updated by [email or web address]: Nichole Jacobo on 10/10/18 11:[address] Patient Name: SHARON BLANTON Admission Status: ER Accout number: [id number] Admission Date: 10-08-2018 : 1960 Admission Diagnosis: Attending: LAVINIA ABBOTT Current LOS: 2 Anticipated DC Date: Planned Disposition: Home Primary Insurance: [employer] MANAGED MEDICAID Discharge Planning Comments: CM MET WITH PATIENT ABOUT DC PLANNING/NEEDS. STATES HAS 02 AND NEBULIZER AT HOME. PLANS TO DC TO HOME. OFFERED HH BUT PATIENT DECLINES AT THIS TIME. SHE SAID SHE COULD USE A CANE OR WALKER IF SHE QUALIFIES. CM WILL FOLLOW AND ASSIST NEEDED WITH DC PLANNING/NEEDS. Flight Control Specialist: Nichole Jacobo DCPIA - Discharge Planning Initial Assessment Updated by [email or web address]: Nichole Jacobo on 10/10/18 12:24 pm * Is the patient Alert and Oriented? Yes * PCP THOMAS * Pharmacy [facility] * Preadmission Environment Home Alone * ADLs Independent * Equipment Nebulizer Oxygen * List name and contact numbers for known caregivers / representatives who currently or will assist patient after discharge: SISTER CHAMBERS, * Community resources currently utilized None * Additional services required to return to the preadmission environment? No * Can the patient safely return to the preadmission environment? Yes * Has this patient been hospitalized within the prior 30 days at any hospital? No Last DP export: 10/10/18 11:32 a Patient Name: SHARON BLANTON Page 51789 at 1247 All edits/amendments must be made on the electronic document DICTATION DATE: 10/12/186 ESTATE TAX EXAMINER: MAGNO 10/12/18 1246 RPT#: [id number] DC DATE: STATUS: ADM IN [facility] [address] [place] [address] END OF REPORT
[2018-10-12 13:59] VITALS: BP 151/84
--- NOTE | 2018-10-12 14:41 | NUR ---
MORNING LABS REVEALED K+ OF 2.9, 20 MEQ KCL ADMIN X [address] AKERS NOTIFIED, NO NEW ORDERS NOTED AND TO CONTINUE WITH DISCHARGE ORDERED.
--- NOTE | 2018-10-12 15:17 | NUR ---
DISCHARGE TEACHING DONE, PATIENT INSTRUCTED TO MAKE F/U APPT WITH PCP FOR 1 WEEK AND TO REMIND PCP TO CHECK POTASSIUM LEVEL. SALINE LOCK DC'D, TELEMETRY REMOVED. NEW MED TEACHING DONE, NEW RX CALLED TO PHARMACY, PT INSTRUCTED TO GO TO PHARMACY TO GET MEDS, PT VOICED UNDERSTANDING. [facility] CALLED FOR TRANSPORT HOME.
[2018-10-14 14:20] LABS: PLT AB - HLA CLASS 1 Negative (Negative); PLT AB - IIb IIIa Positive (Negative); PLT AB - Ia IIa Negative (Negative); PLT AB - Ib IX Negative (Negative)
--- NOTE | 2018-10-14 16:48 | MORECARE ---
CASE MANAGEMENT DISCHARGE SUMMARY PATIENT: SHARON BLANTON UNIT: [id number] ADM DATE: 10/08/18 AGE: 57 : 58 SEX: F ROOM/BED: D.1204 AUTHOR: ERICKA WARREN PHYSICIAN: REFERRING PHYSICIAN: LAVINIA ABBOTT MD DATE OF SERVICE: 10/14/18 Discharge Plan Patient Name: SHARON BLANTON Facility: [facility]:[place] : 1960 Planned Disposition: Home Anticipated Discharge Date: Discharge Date: 10/12/2018 Expected LOS: Initial Reviewer: [email or web address] Initial Review Date: 10/08/2018 Generated: 10/14/18 5:48 pm Comments DCP- Discharge Planning Updated by [email or web address]: Nichole Jacobo on 10/12/18 11:[address] Patient Name: SHARON BLANTON Admission Status: ER Accout number: [id number] Admission Date: 10-08-2018 : 1960 Admission Diagnosis:SHORTNESS OF BREATH Attending: LAVINIA ABBOTT Current LOS: 4 Anticipated DC Date: Planned Disposition: Home Primary Insurance: [employer] MANAGED MEDICAID Discharge Planning Comments: WHEN PATIENT IS READY FOR DISHCARGE I WILL CALL [employer] SERVICE AT [phone]. PAYMENT HAS BEEN APPROVED BY [employer]. PATIENT AD[address]ESS [address] [address] CM WILL FOLLOW AND ASSISTAS NEEDED WITH DC PLANNING/NEEDS. Sofa Cover Inspector: Nichole Jacobo DCP- Discharge Planning Updated by [email or web address]: Nichole Jacobo on 10/10/18 11:[address] Patient Name: SHARON BLANTON Admission Status: ER Accout number: [id number] Admission Date: 10-08-2018 : 1960 Admission Diagnosis: Attending: LAVINIA ABBOTT Current LOS: 2 Anticipated DC Date: Planned Disposition: Home Primary Insurance: [employer] MANAGED MEDICAID Discharge Planning Comments: CM MET WITH PATIENT ABOUT DC PLANNING/NEEDS. STATES HAS 02 AND NEBULIZER AT HOME. PLANS TO DC TO HOME. OFFERED HH BUT PATIENT DECLINES AT THIS TIME. SHE SAID SHE COULD USE A CANE OR WALKER IF SHE QUALIFIES. CM WILL FOLLOW AND ASSIST NEEDED WITH DC PLANNING/NEEDS. Sofa Cover Inspector: Nichole Odalis DCPIA - Discharge Planning Initial Assessment Updated by [email or web address]: Nichole Jacobo on 10/10/18 12:24 pm * Is the patient Alert and Oriented? Yes * PCP THOMAS * Pharmacy [facility] * Preadmission Environment Home Alone * ADLs Independent * Equipment Nebulizer Oxygen * List name and contact numbers for known caregivers / representatives who currently or will assist patient after discharge: SISTER CHAMBERS, * Community resources currently utilized None * Additional services required to return to the preadmission environment? No * Can the patient safely return to the preadmission environment? Yes * Has this patient been hospitalized within the prior 30 days at any hospital? No Last DP export: 10/12/18 11:47 a Patient Name: SHARON BLANTON Page [id number] at 1648 All edits/amendments must be made on the electronic document DICTATION DATE: 10/14/181647 COORDINATOR SKILL TRAINING PROGRAM: MAGNO 10/14/181647 RPT#: [id number] DC DATE:10/12/18 STATUS: DIS IN [facility] [address] [place] [address] END OF REPORT
== END 2018-10-12 15:20 | disposition home or self-care (01) | DRG 190 ==
LOC: D.ER 21:34 → OBSVTIME 23:10 → D.EDHOLD 23:10 → D.M3 23:22
PROVIDERS: Family Medicine; Family Medicine Adult Medicine; Internal Medicine Gastroenterology; ADMIT Family Medicine
DX: J44.0 Chronic obstructive pulmonary disease with (acute) lower respiratory infection (principal); J18.9 Pneumonia, unspecified organism; F17.213 Nicotine dependence, cigarettes, with withdrawal; B37.0 Candidal stomatitis; J10.1 Influenza due to other identified influenza virus with other respiratory manifestations; J20.9 Acute bronchitis, unspecified; F41.9 Anxiety disorder, unspecified; F32.9 Major depressive disorder, single episode, unspecified; D69.6 Thrombocytopenia, unspecified; I27.20 Pulmonary hypertension, unspecified; J30.9 Allergic rhinitis, unspecified; N30.90 Cystitis, unspecified without hematuria

== ENCOUNTER 2018-10-14 14:35 | Inpatient (IN) | payer OTHER ==
[2018-10-14] VITALS: BP 145/60
[~2018-10-14] VITALS: Ht 167.6 cm; Wt 45.4 kg
[~2018-10-14 14:35] MED LIST changes: +ALBUTEROL SULF8.5 GM INH; +PREDNISONE20 MG PO; +TAMIFLU75 MG PO; +ZOFRAN ODT4 MG/UDTAB PO
[2018-10-14 15:29] LABS: BASOPHILS 0 % (0-2); EOSINOPHILS 0 % (0-7); HEMATOCRIT 46.2 % (36.0-48.0); HEMOGLOBIN 15.3 g/dL (12-16); IMMATURE GRANULOCYTES 0.9 % (0-5); LYMPHOCYTES 8.2 % (15-50); MCH 30.9 pg (26.0-34.0); MCHC 33.1 g/dL (31.0-37.0); MCV 93.3 fL (80.0-100.0); MEAN PLATELET VOLUME 12.5 fL (7.4-10.4); MONOCYTES 5.4 % (2-11); NEUTROPHILS 85.5 % (40-80); RBC 4.95 10x6/uL (4.00-5.40); RDW 12.7 % (11.5-14.5)
[2018-10-14 15:30] LABS: PLATELET COUNT 161 10x3/uL (130-400)
[2018-10-14 15:39] LABS: APTT 26.7 SECONDS (22.8-39.4); PROTIME 12.7 SECONDS (11.6-15.0)
[2018-10-14 15:40] LABS: D-DIMER-QUANTITATIVE 0.42 ug/mLFEU (0.20-0.54)
[2018-10-14 15:46] LABS: ALBUMIN 3.4 g/dL (3.4-5.0); ALKALINE PHOSPHATASE 76 U/L (46-116); ALT (SGPT) 123 U/L (10-68); BILIRUBIN - TOTAL 0.41 mg/dL (0.2-1.3); CALC OSMOLALITY 282 mosm/kg (275-300); CALCIUM 8.5 mg/dL (8.5-10.1); CARBON DIOXIDE 38.2 mmol/L (21.0-32.0); CHLORIDE - SERUM 99 mmol/L (98-107); CREATININE - SERUM 0.6 mg/dL (0.6-1.3); GLUCOSE 121 mg/dL (74-106); POTASSIUM - SERUM 3.9 mmol/L (3.5-5.1); SODIUM 142 mmol/L (136-145); UREA NITROGEN 9 mg/dL (7-18); eGFR NON AFRICAN AMERICAN > 90 mL/min (90-120)
[2018-10-14 15:59] LABS: CKMB 2.1 U/L (0.0-3.6); CREATINE KINASE 63 UL (21-215); LIPASE 102 U/L (73-393); PRO BNP 445 pg/mL (0-125); TROPONIN-I < 0.017 ng/mL (0.000-0.060)
[2018-10-14 16:20] VITALS: BP 127/48
[2018-10-14 16:44] LABS: APPEARANCE CLEAR (CLEAR); BILIRUBIN NEGATIVE (NEGATIVE); COLOR YELLOW (YELLOW); GLUCOSE NEGATIVE (NEGATIVE); KETONE NEGATIVE (NEGATIVE); NITRITE NEGATIVE (NEGATIVE); PROTEIN NEGATIVE (NEGATIVE); SPECIFIC GRAVITY 1.005 (1.005-1.020); UROBILINOGEN NORMAL (NORMAL)
[2018-10-14 17:46] VITALS: BP 101/81
--- NOTE | 2018-10-14 18:55 | MORECARE ---
CASE MANAGEMENT DISCHARGE SUMMARY PATIENT: SHARON BLANTON UNIT: [id number] ADM DATE: 10/14/18 AGE: 57 : 58 SEX: F [facility] AUTHOR: ERICKA WARREN PHYSICIAN: REFERRING PHYSICIAN: LARS AKERS MD DATE OF SERVICE: 10/14/18 Discharge Plan Patient Name: SHARON BLANTON Facility: [facility]:[place] : 1960 Planned Disposition: Anticipated Discharge Date: 10/16/18 Discharge Date: Expected LOS: 2 Initial Reviewer: [email or web address] Initial Review Date: 10/14/2018 Generated: 10/14/18 7:55 pm Patient Name: SHARON BLANTON Page 86504 at 1855 All edits/amendments must be made on the electronic document DICTATION DATE: 10/14/181853 AIRPORT MAINTENANCE LABORER: MAGNO 10/14/181853 RPT#: [id number] DC DATE: STATUS: ADM IN [facility] [address] [place] [address] END OF REPORT
--- NOTE | 2018-10-14 19:12 | MORECARE ---
CASE MANAGEMENT DISCHARGE SUMMARY PATIENT: SHARON BLANTON UNIT: [id number] ADM DATE: 10/14/18 AGE: 57 : 58 SEX: F ROOM/BED: D.1207 AUTHOR: ERICKA WARREN PHYSICIAN: REFERRING PHYSICIAN: LARS AKERS MD DATE OF SERVICE: 10/14/18 Discharge Plan Patient Name: SHARON BLANTON Facility: [facility]:[place] : 1960 Planned Disposition: Anticipated Discharge Date: 10/16/18 Discharge Date: Expected LOS: 2 Initial Reviewer: [email or web address] Initial Review Date: 10/14/2018 Generated: 10/14/18 8:12 pm DCPIA - Discharge Planning Initial Assessment Updated by [email or web address]: Odessa Shepard on 10/14/18 7:09 pm * Is the patient Alert and Oriented? Yes * How many steps to enter\exit or inside your home? 19 * PCP Goes to [facility]. Dr. Romero is listed on her card but she stated she has never seen him before. * Preadmission Environment Home Alone * ADLs Independent * Equipment Nebulizer Oxygen * List name and contact numbers for known caregivers / representatives who currently or will assist patient after discharge: Juliette Amador - [facility] [phone] * Verbal permission to speak to the caregivers and representatives has been obtained from the patient. Yes * Community resources currently utilized None * Additional services required to return to the preadmission environment? No * Can the patient safely return to the preadmission environment? Yes * Has this patient been hospitalized within the prior 30 days at any hospital? Yes Last DP export: 10/14/18 5:55 pm Patient Name: SHARON BLANTON Page [id number] at 1912 All edits/amendments must be made on the electronic document DICTATION DATE: 10/14/181910 VENDOR MANAGEMENT SPECIALIST: MAGNO 10/14/181910 RPT#: [id number] DC DATE: STATUS: ADM IN [facility] [address] [place] [address] END OF REPORT
--- NOTE | 2018-10-14 19:21 | MORECARE ---
CASE MANAGEMENT DISCHARGE SUMMARY PATIENT: SHARON BLANTON UNIT: [id number] ADM DATE: 10/14/18 AGE: 57 : 58 SEX: F ROOM/BED: D.1207 AUTHOR: ERICKA WARREN PHYSICIAN: REFERRING PHYSICIAN: LARS AKERS MD DATE OF SERVICE: 10/14/18 Discharge Plan Patient Name: SHARON BLANTON Facility: [facility]:[place] : 1960 Planned Disposition: Anticipated Discharge Date: 10/16/18 Discharge Date: Expected LOS: 2 Initial Reviewer: [email or web address] Initial Review Date: 10/14/2018 Generated: 10/14/18 8:21 pm DCP- Discharge Planning Updated by [email or web address]: Odessa Shepard on 10/14/18 6:[address] Patient Name: SHARON BLANTON Admission Status: ER Accout number: [id number] Admission Date: 10-14-2018 : 1960 Admission Diagnosis: Attending: LARS AKERS Current LOS: 1 Anticipated DC Date: 10-16-2018 Planned Disposition: Primary Insurance: [employer] MANAGED MEDICAID Discharge Planning Comments: CM met with patient to complete initial dc planning assessment. CM educated patient on the CM role and verbal consent given by patient to complete assessment. Patient lives at home alone. At discharge patient plans to return home alone and feels this is a safe discharge. CM discussed availability of home health, rehab services, and medical equipment. She would like a walker at discharge. She also requested multiple times for a ride home and kept saying we paid for her taxi on Wednesday to get her home. CM explained to her that she needed to try to find a way home prior to discharge. She said she didn't have anyone to help her and that she gets around by the [employer] bus. She also stated the [employer] bus goes close to her apartment. Cm will notify floor case packer that transportation will be an issue at discharge. CM will continue to follow and will assist as needed with dc plans/needs. Plant Operations Manager: Odessa Shepard RN, [facility] DCPIA - Discharge Planning Initial Assessment Updated by [email or web address]: Odessa Shepard on 10/14/18 7:09 pm * Is the patient Alert and Oriented? Yes * How many steps to enter\exit or inside your home? 19 * [facility]ero is listed on her card but she stated she has never seen him before. * Preadmission Environment Home Alone * ADLs Independent * Equipment Nebulizer Oxygen * List name and contact numbers for known caregivers / representatives who currently or will assist patient after discharge: Juliette Amador - [facility] [phone] * Verbal permission to speak to the caregivers and representatives has been obtained from the patient. Yes * Community resources currently utilized None * Additional services required to return to the preadmission environment? No * Can the patient safely return to the preadmission environment? Yes * Has this patient been hospitalized within the prior 30 days at any hospital? Yes Last DP export: 10/14/18 6:12 pm Patient Name: SHARON BLANTON Page 45570 at 192 All edits/amendments must be made on the electronic document DICTATION DATE: 10/14/181919 PRODUCT SUPPORT SALES REPRESENTATIVE: MAGNO 10/14/181919 RPT#: [id number] DC DATE: STATUS: ADM IN [facility] [address] [place] [address] END OF REPORT
--- NOTE | 2018-10-14 19:34 | MORECARE ---
CASE MANAGEMENT DISCHARGE SUMMARY PATIENT: SHARON BLANTON UNIT: [id number] ADM DATE: 10/14/18 AGE: 57 : 58 SEX: F ROOM/BED: D.1207 AUTHOR: ERICKA WARREN PHYSICIAN: REFERRING PHYSICIAN: LARS AKERS MD DATE OF SERVICE: 10/14/18 Discharge Plan Patient Name: SHARON BLANTON Facility: [facility]:[place] : 1960 Planned Disposition: Anticipated Discharge Date: 10/16/18 Discharge Date: Expected LOS: 2 Initial Reviewer: [email or web address] Initial Review Date: 10/14/2018 Generated: 10/14/18 8:33 pm DCP- Discharge Planning Updated by [email or web address]: Odessa Shepard on 10/14/18 6:[address] Patient Name: SHARON BLANTON Admission Status: ER Accout number: [id number] Admission Date: 10-14-2018 : 1960 Admission Diagnosis: Attending: LARS AKERS Current LOS: 1 Anticipated DC Date: 10-16-2018 Planned Disposition: Primary Insurance: [employer] MANAGED MEDICAID Discharge Planning Comments: CM met with patient to complete initial dc planning assessment. CM educated patient on the CM role and verbal consent given by patient to complete assessment. Patient lives at home alone. At discharge patient plans to return home alone and feels this is a safe discharge. CM discussed availability of home health, rehab services, and medical equipment. She would like a walker at discharge. She also requested multiple times for a ride home and kept saying we paid for her taxi on Wednesday to get her home. CM explained to her that she needed to try to find a way home prior to discharge. She said she didn't have anyone to help her and that she gets around by the [employer] bus. She also stated the [employer] bus goes close to her apartment. Cm will notify floor casework manager that transportation will be an issue at discharge. CM will continue to follow and will assist as needed with dc plans/needs. Tire Bagger: Odessa Shepard RN, [facility] DCPIA - Discharge Planning Initial Assessment Updated by [email or web address]: Odessa Shepard on 10/14/18 7:09 pm * Is the patient Alert and Oriented? Yes * How many steps to enter\exit or inside your home? 19 * [facility] Romero is listed on her card but she stated she has never seen him before. * Preadmission Environment Home Alone * ADLs Independent * Equipment Nebulizer Oxygen * List name and contact numbers for known caregivers / representatives who currently or will assist patient after discharge: Juliette Amador - [facility] [phone] * Verbal permission to speak to the caregivers and representatives has been obtained from the patient. Yes * Community resources currently utilized None * Additional services required to return to the preadmission environment? No * Can the patient safely return to the preadmission environment? Yes * Has this patient been hospitalized within the prior 30 days at any hospital? Yes Last DP export: 10/14/18 6:21 pm Patient Name: SHARON BLANTON Page 70341 at 1934 All edits/amendments must be made on the electronic document DICTATION DATE: 10/14/181932 EQUIPMENT LEAD: MAGNO 10/14/181932 RPT#: [id number] DC DATE: STATUS: ADM IN [facility] [address] [place] [address] END OF REPORT
--- NOTE | 2018-10-14 19:45 | NUR ---
PT ARRIVED TO FLOOR VIA WHEELCHAIR FROM ER. PT ON 3L NC. RR-EVEN AND UNLABORED. CRACKLES HEARD IN UPPER LOBES. PT ALERT AND ORIENTED X4 NO S/S OF DISTRESS. PT SITTING UP IN BEDSIDE RECLINER. BED LOW CALL LIGHT WITHIN REACH. WILL CONTINUE TO MONITOR.
[2018-10-14 20:00] VITALS: BP 150/62
[2018-10-14 21:41] VITALS: BP 100/50
[2018-10-15 04:00] VITALS: BP 139/69
[2018-10-15 07:12] LABS: BASOPHILS 0 % (0-2); EOSINOPHILS 0 % (0-7); HEMATOCRIT 43.6 % (36.0-48.0); HEMOGLOBIN 14.3 g/dL (12-16); IMMATURE GRANULOCYTES 1.2 % (0-5); LYMPHOCYTES 9.8 % (15-50); MCH 30.4 pg (26.0-34.0); MCHC 32.8 g/dL (31.0-37.0); MCV 92.6 fL (80.0-100.0); MEAN PLATELET VOLUME 12.1 fL (7.4-10.4); MONOCYTES 3.8 % (2-11); NEUTROPHILS 85.2 % (40-80); PLATELET COUNT 168 10x3/uL (130-400); RBC 4.71 10x6/uL (4.00-5.40); RDW 12.4 % (11.5-14.5)
[2018-10-15 07:23] LABS: WBC 6.5 10x3/uL (4.8-10.8)
[2018-10-15 07:50] LABS: CALC OSMOLALITY 280 mosm/kg (275-300); CALCIUM 8.5 mg/dL (8.5-10.1); CARBON DIOXIDE 34.5 mmol/L (21.0-32.0); CHLORIDE - SERUM 100 mmol/L (98-107); CREATININE - SERUM 0.6 mg/dL (0.6-1.3); GLUCOSE 122 mg/dL (74-106); POTASSIUM - SERUM 4.1 mmol/L (3.5-5.1); SODIUM 140 mmol/L (136-145); eGFR NON AFRICAN AMERICAN > 90 mL/min (90-120)
--- NOTE | 2018-10-15 07:50 | NUR ---
RECIEVED BEDSIDE REPORT. AM ROUNDS COMPLETED. VSS, AAOX3. PT SITTING UP IN CHAIR WITH EYES OPEN. NO S/S OF DISTRESS, RR EVEN AND UNLABORED. PT REQUESTED FOR BANANA. BANANA ORDERED. PT DENIES ANY FURTHER NEEDS AT THIS TIME. WILL CPOC. CL IN REACH.
[2018-10-15 07:51] LABS: UREA NITROGEN 15 mg/dL (7-18)
[2018-10-15 07:58] VITALS: BP 150/79
--- NOTE | 2018-10-15 09:00 | NUR ---
PT REFUSED TELEMETRY. STATES HER HEART IS FINE AND IT MAKES HER UNCOMFORTABLE.
[2018-10-15 13:00] VITALS: Ht 167.6 cm; Wt 45.4 kg
[2018-10-15 13:34] VITALS: BP 148/73
--- NOTE | 2018-10-15 14:00 | NUR ---
PT STATES SHE HAS BEEN 'POOPING" ALL DAY. STATES SHE HAD THREE BM IN THE PAST 4 HRS. NOTIFIED PT PICKING TABLE WORKER, STEFFANY. STEFFANY ORDERED C-DIFF AND TOXIN. PT CURRENTLY SITTING IN COUCH. DENIES ANY FURTHER NEEDS AT THIS TIME. WILL CTM. CL IN REACH, BED IN LOW. SR UP X2.
[2018-10-15 16:00] VITALS: BP 148/68
--- NOTE | 2018-10-15 18:00 | NUR ---
PT C/O HEADACHE. PO MOTRIN GIVEN AT THIS TIME. WILL CTM. CL IN REACH, BED IN LOW. SR UP X2.
--- NOTE | 2018-10-15 19:00 | NUR ---
PT OUT OF ROON AMBULATING
--- NOTE | 2018-10-15 19:25 | NUR ---
PT IN ROOM UP TO CHAIR WITH NO NOTED DISTRESS LUNGS CLEAR DENIES PAIN SKIN WARM AND DRY AND PULSES ARE PEDALLY PRESENT. PT PRESENTS WITH NUMEROUS QUESTIONS AND I ANSWERED THEM AND PROVIDED EDUCATION ON POTASSIUM TREATMENTS. CALL LIGHT IS IN REACH
[2018-10-15 20:20] VITALS: BP 109/63
[2018-10-15 22:19] LABS: APPEARANCE CLEAR (CLEAR); BILIRUBIN NEGATIVE (NEGATIVE); COLOR YELLOW (YELLOW); GLUCOSE 250 mg/dL (NEGATIVE); KETONE NEGATIVE (NEGATIVE); NITRITE NEGATIVE (NEGATIVE); PROTEIN NEGATIVE (NEGATIVE); SPECIFIC GRAVITY 1.015 (1.005-1.020); UROBILINOGEN NORMAL (NORMAL)
--- NOTE | 2018-10-15 22:57 | NUR ---
PT NOTED SLEEPING IN CHAIR .. BED OFFERED AND PT REFUSED
[2018-10-16 00:36] VITALS: BP 123/75
--- NOTE | 2018-10-16 02:26 | NUR ---
I AGREE WITH AGRICULTURAL ENGINEERING TEACHER ASSESSMENT THIS SHIFT.
[2018-10-16 04:57] VITALS: BP 100/62
[2018-10-16 06:53] LABS: BASOPHILS 0.1 % (0-2); EOSINOPHILS 0 % (0-7); HEMATOCRIT 41.8 % (36.0-48.0); HEMOGLOBIN 13.7 g/dL (12-16); IMMATURE GRANULOCYTES 1.4 % (0-5); LYMPHOCYTES 11.2 % (15-50); MCH 30.2 pg (26.0-34.0); MCHC 32.8 g/dL (31.0-37.0); MCV 92.1 fL (80.0-100.0); MEAN PLATELET VOLUME 11.3 fL (7.4-10.4); MONOCYTES 9.8 % (2-11); NEUTROPHILS 77.5 % (40-80); PLATELET COUNT 173 10x3/uL (130-400); RBC 4.54 10x6/uL (4.00-5.40); RDW 12.6 % (11.5-14.5)
[2018-10-16 06:56] LABS: WBC 10.7 10x3/uL (4.8-10.8)
--- NOTE | 2018-10-16 07:10 | NUR ---
INITIAL ROUNDING, PATIENT AWAKE AND SITTING IN BEDSIDE CHAIR, ALERT AND ON ROOM AIR AT THIS TIME. SHE COMPLAINS OF A HEADACHE AND "CONGESTION IN MY CHEST FEELING". PATIENT IS SHORT OF BREATH WHEN TALKING, SHE WAS ENCOURAGED TO PUT HER O2 BACK ON, SHE STATES "I WILL IN A LITTLE WHILE"
[2018-10-16 07:17] LABS: CALC OSMOLALITY 279 mosm/kg (275-300); CALCIUM 7.9 mg/dL (8.5-10.1); CARBON DIOXIDE 32.9 mmol/L (21.0-32.0); CHLORIDE - SERUM 102 mmol/L (98-107); CREATININE - SERUM 0.5 mg/dL (0.6-1.3); GLUCOSE 119 mg/dL (74-106); SODIUM 139 mmol/L (136-145); UREA NITROGEN 15 mg/dL (7-18); eGFR NON AFRICAN AMERICAN > 90 mL/min (90-120)
[2018-10-16] MEDS ORDERED: PREDNISONE20 MG PO (07:39)
[2018-10-16 08:51] VITALS: BP 121/74
[2018-10-16] MEDS ORDERED: MUCINEX DM ER1 EAC1 PO (09:06)
[2018-10-16] MEDS ORDERED: TESSALON PERLE100 MG PO (09:06)
--- NOTE | 2018-10-16 10:01 | NUR ---
CALLED AND SPOKE TO [facility] IN THE PHARMACY, REQUESTING ALL THE MORNING MEDS FOR THE PATIENT THAT WERE DUE AT 0900
--- NOTE | 2018-10-16 10:16 | NUR ---
REMOVED THE PATIENTS IV FROM HER LOWER LEFT ARM, CATH TIP INTACT. PATIENT IS CALLING FOR A RIDE HOME
--- NOTE | 2018-10-16 11:46 | NUR ---
THE PATIENT WAS SEEN IN THE NUTRITION ROOM GATHERING SODAS, AND JELLOS AND PUTTING THEM IN HER TO GO BAG, SHE WAS INSTRUCTED NOT TO GO BACK IN THERE THAT IT WAS FOR STAFF ONLY.
--- NOTE | 2018-10-16 11:53 | MORECARE ---
CASE MANAGEMENT DISCHARGE SUMMARY PATIENT: SHARON BLANTON UNIT: [id number] ADM DATE: 10/14/18 AGE: 57 : 58 SEX: F ROOM/BED: D.1207 AUTHOR: ERICKA WARREN PHYSICIAN: REFERRING PHYSICIAN: LARS AKERS MD DATE OF SERVICE: 10/16/18 Discharge Plan Patient Name: SHARON BLANTON Facility: [facility]:[place] : 1960 Planned Disposition: Home Anticipated Discharge Date: 10/16/18 Discharge Date: Expected LOS: 2 Initial Reviewer: [email or web address] Initial Review Date: 10/14/2018 Generated: 10/16/18 12:52 pm DCP- Discharge Planning Updated by [email or web address]: Odessa Shepard on 10/14/18 6:[address] Patient Name: SHARON BLANTON Admission Status: ER Accout number: [id number] Admission Date: 10-14-2018 : 1960 Admission Diagnosis: Attending: LARS AKERS Current LOS: 1 Anticipated DC Date: 10-16-2018 Planned Disposition: Primary Insurance: [employer] MANAGED MEDICAID Discharge Planning Comments: CM met with patient to complete initial dc planning assessment. CM educated patient on the CM role and verbal consent given by patient to complete assessment. Patient lives at home alone. At discharge patient plans to return home alone and feels this is a safe discharge. CM discussed availability of home health, rehab services, and medical equipment. She would like a walker at discharge. She also requested multiple times for a ride home and kept saying we paid for her taxi on Wednesday to get her home. CM explained to her that she needed to try to find a way home prior to discharge. She said she didn't have anyone to help her and that she gets around by the [employer] bus. She also stated the [employer] bus goes close to her apartment. Cm will notify floor case managers that transportation will be an issue at discharge. CM will continue to follow and will assist as needed with dc plans/needs. Production Lead: Odessa Shepard RN, [facility] DCPIA - Discharge Planning Initial Assessment Updated by [email or web address]: Odessa Shepard on 10/14/18 7:09 pm * Is the patient Alert and Oriented? Yes * How many steps to enter\exit or inside your home? 19 * [facility] Romero is listed on her card but she stated she has never seen him before. * Preadmission Environment Home Alone * ADLs Independent * Equipment Nebulizer Oxygen * List name and contact numbers for known caregivers / representatives who currently or will assist patient after discharge: Juliette Amador - [facility] - [phone] * Verbal permission to speak to the caregivers and representatives has been obtained from the patient. Yes * Community resources currently utilized None * Additional services required to return to the preadmission environment? No * Can the patient safely return to the preadmission environment? Yes * Has this patient been hospitalized within the prior 30 days at any hospital? Yes Last DP export: 10/14/18 6:34 pm Patient Name: SHARON BLANTON Page 45608 at 1153 All edits/amendments must be made on the electronic document DICTATION DATE: 10/16/18 1152 BELLHOP CAPTAIN: MAGNO 10/16/18 1152 RPT#: [id number] DC DATE: STATUS: ADM IN [facility] [address] [place] [address] END OF REPORT
--- NOTE | 2018-10-16 11:59 | MORECARE ---
CASE MANAGEMENT DISCHARGE SUMMARY PATIENT: SHARON BLANTON UNIT: [id number] ADM DATE: 10/14/18 AGE: 57 : 58 SEX: F ROOM/BED: D.1207 AUTHOR: ERICKA WARREN PHYSICIAN: REFERRING PHYSICIAN: LARS AKERS MD DATE OF SERVICE: 10/16/18 Discharge Plan Patient Name: SHARON BLANTON Facility: [facility]:[place] : 1960 Planned Disposition: Home Anticipated Discharge Date: 10/16/18 Discharge Date: Expected LOS: 2 Initial Reviewer: [email or web address] Initial Review Date: 10/14/2018 Generated: 10/16/18 12:59 pm Comments DCP- Discharge Planning Updated by [email or web address]: Aura Kaur on 10/16/18 10:[address] PRIMARY NURSE REPORTS THE PATIENT'S MULTIPLE DRUM SANDER WILL BE PROVIDING TRANSPORTATION TO HOME. DCP- Discharge Planning Updated by [email or web address]: Odessa Shepard on 10/14/18 6:[address] Patient Name: SHARON BLANTON Admission Status: ER Accout number: [id number] Admission Date: 10-14-2018 : 1960 Admission Diagnosis: Attending: LARS AKERS Current LOS: 1 Anticipated DC Date: 10-16-2018 Planned Disposition: Primary Insurance: [employer] MANAGED MEDICAID Discharge Planning Comments: CM met with patient to complete initial dc planning assessment. CM educated patient on the CM role and verbal consent given by patient to complete assessment. Patient lives at home alone. At discharge patient plans to return home alone and feels this is a safe discharge. CM discussed availability of home health, rehab services, and medical equipment. She would like a walker at discharge. She also requested multiple times for a ride home and kept saying we paid for her taxi on Wednesday to get her home. CM explained to her that she needed to try to find a way home prior to discharge. She said she didn't have anyone to help her and that she gets around by the [employer] bus. She also stated the [employer] bus goes close to her apartment. Cm will notify floor director of casework services that transportation will be an issue at discharge. CM will continue to follow and will assist as needed with dc plans/needs. Rough Planer Tender: Odessa Shepard RN, [facility] DCPIA - Discharge Planning Initial Assessment Updated by [email or web address]: Odessa Shepard on 10/14/18 7:09 pm * Is the patient Alert and Oriented? Yes * How many steps to enter\exit or inside your home? 19 * [facility] Romero is listed on her card but she stated she has never seen him before. * Preadmission Environment Home Alone * ADLs Independent * Equipment Nebulizer Oxygen * List name and contact numbers for known caregivers / representatives who currently or will assist patient after discharge: Juliette Amador - [facility] [phone] * Verbal permission to speak to the caregivers and representatives has been obtained from the patient. Yes * Community resources currently utilized None * Additional services required to return to the preadmission environment? No * Can the patient safely return to the preadmission environment? Yes * Has this patient been hospitalized within the prior 30 days at any hospital? Yes Last DP export: 10/16/18 10:52 am Patient Name: SHARON BLANTON Page 01255 at 1159 All edits/amendments must be made on the electronic document DICTATION DATE: 10/16/18 1159 GRILL COOK: MAGNO 10/16/18 1159 RPT#: [id number] DC DATE: STATUS: ADM IN [facility] [address] [place] [address] END OF REPORT
--- NOTE | 2018-10-16 12:48 | NUR ---
THE PATIENT WAS ESCORTED DOWNSTAIRS WHERE HER [employer] AIRCRAFT STRUCTURAL REPAIRER PICKED HER UP. I REQESTED THAT THE PATIENT LEAVE THE BAG OF LINENS HERE, EXPLAINED TO HER THEY WERE NOT DISPOSABLE, AND REUSED. SHE AGREED AND LEFT THEM HERE.
--- NOTE | 2018-10-18 09:53 | MORECARE ---
CASE MANAGEMENT DISCHARGE SUMMARY PATIENT: SHARON BLANTON UNIT: [id number] ADM DATE: 10/14/18 AGE: 57 : 58 SEX: F ROOM/BED: D.1207 AUTHOR: ERICKA WARREN PHYSICIAN: REFERRING PHYSICIAN: LARS AKERS MD DATE OF SERVICE: 10/18/18 Discharge Plan Patient Name: SHARON BLANTON Facility: [facility]:[place] : 1960 Planned Disposition: Home Anticipated Discharge Date: 10/16/18 Discharge Date: 10/16/2018 Expected LOS: 2 Initial Reviewer: [email or web address] Initial Review Date: 10/14/2018 Generated: 10/18/18 10:52 am Comments DCP- Discharge Planning Updated by [email or web address]: Aura Kaur on 10/16/18 10:[address] PRIMARY NURSE REPORTS THE PATIENT'S CIVIL DRAFTING TECHNICIAN WILL BE PROVIDING TRANSPORTATION TO HOME. DCP- Discharge Planning Updated by [email or web address]: Odessa Shepard on 10/14/18 6:[address] Patient Name: SHARON BLANTON Admission Status: ER Accout number: [id number] Admission Date: 10-14-2018 : 1960 Admission Diagnosis: Attending: LARS AKERS Current LOS: 1 Anticipated DC Date: 10-16-2018 Planned Disposition: Primary Insurance: [facility] [employer] MEDICA[employer] Discharge Planning Comments: CM met with patient to complete initial dc planning assessment. CM educated patient on the CM role and verbal consent given by patient to complete assessment. Patient lives at home alone. At discharge patient plans to return home alone and feels this is a safe discharge. CM discussed availability of home health, rehab services, and medical equipment. She would like a walker at discharge. She also requested multiple times for a ride home and kept saying we paid for her taxi on Wednesday to get her home. CM explained to her that she needed to try to find a way home prior to discharge. She said she didn't have anyone to help her and that she gets around by the [employer] bus. She also stated the [employer] bus goes close to her apartment. Cm will notify floor disability case manager that transportation will be an issue at discharge. CM will continue to follow and will assist as needed with dc plans/needs. Recording Studio Intern: Odessa Shepard RN, [facility] DCPIA - Discharge Planning Initial Assessment Updated by [email or web address]: Odessa Shepard on 10/14/18 7:09 pm * Is the patient Alert and Oriented? Yes * How many steps to enter\exit or inside your home? 19 * [facility] Romero is listed on her card but she stated she has never seen him before. * Preadmission Environment Home Alone * ADLs Independent * Equipment Nebulizer Oxygen * List name and contact numbers for known caregivers / representatives who currently or will assist patient after discharge: Juliette Amador - [facility] [phone] * Verbal permission to speak to the caregivers and representatives has been obtained from the patient. Yes * Community resources currently utilized None * Additional services required to return to the preadmission environment? No * Can the patient safely return to the preadmission environment? Yes * Has this patient been hospitalized within the prior 30 days at any hospital? Yes Last DP export: 10/16/18 10:59 am Patient Name: SHARON BLANTON Page 78907 at 0953 All edits/amendments must be made on the electronic document DICTATION DATE: 10/18/18951 NEW AUTOS DELIVERY DRIVER: MAGNO 10/18/18951 RPT#: [id number] DC DATE:10/16/18 STATUS: DIS IN [facility] [address] [place] [address] END OF REPORT
== END 2018-10-16 14:32 | disposition home or self-care (01) | DRG 202 ==
LOC: D.ER 14:35 → D.EDHOLD 18:14 → D.M3 18:54
PROVIDERS: Family Medicine; ADMIT Internal Medicine Nephrology; ATTEND Internal Medicine Nephrology
DX: J20.9 Acute bronchitis, unspecified (principal); J44.1 Chronic obstructive pulmonary disease with (acute) exacerbation; F17.213 Nicotine dependence, cigarettes, with withdrawal; B37.0 Candidal stomatitis; J44.0 Chronic obstructive pulmonary disease with (acute) lower respiratory infection; J10.1 Influenza due to other identified influenza virus with other respiratory manifestations; R91.8 Other nonspecific abnormal finding of lung field; F32.9 Major depressive disorder, single episode, unspecified; F41.9 Anxiety disorder, unspecified; I27.20 Pulmonary hypertension, unspecified; J30.9 Allergic rhinitis, unspecified; I08.1 Rheumatic disorders of both mitral and tricuspid valves; Z86.711 Personal history of pulmonary embolism

== ENCOUNTER → 2019-04-13 15:01 | Outpatient (CLI) | payer OTHER ==
[2018-10-15 13:00] VITALS: BMI 16.1
[~2019-04-13 15:01] MED LIST changes: +MUCINEX DM ER1 EAC1 PO; +TESSALON PERLE100 MG PO
== END | disposition home or self-care (01) ==
LOC: D.RT 03-16 13:00 → D.RAD 03-16 14:00
PROVIDERS: ATTEND Internal Medicine Pulmonary Disease
DX: J44.9 Chronic obstructive pulmonary disease, unspecified (principal)

== ENCOUNTER 2019-05-30 14:14 | Inpatient (IN) | payer OTHER ==
[~2019-05-30] VITALS: Ht 167.6 cm; Wt 42.6 kg
[2019-05-30 14:35] VITALS: BP 119/42
[2019-05-30 14:59] VITALS: BP 123/66
[2019-05-30 15:05] LABS: BASOPHILS 0.2 % (0-2); EOSINOPHILS 0.1 % (0-7); HEMATOCRIT 42.6 % (36.0-48.0); HEMOGLOBIN 13.4 g/dL (12-16); IMMATURE GRANULOCYTES 0.9 % (0-5); LYMPHOCYTES 7.4 % (15-50); MCHC 31.5 g/dL (31.0-37.0); MCV 95.5 fL (80.0-100.0); MEAN PLATELET VOLUME 12.1 fL (7.4-10.4); MONOCYTES 3.7 % (2-11); NEUTROPHILS 87.7 % (40-80); RBC 4.46 10x6/uL (4.00-5.40); RDW 13.4 % (11.5-14.5); WBC 18.6 10x3/uL (4.8-10.8)
[2019-05-30 15:11] LABS: PLATELET COUNT 212 10x3/uL (130-400)
[2019-05-30 15:19] LABS: INR 1.13 (0.85-1.17)
[2019-05-30 15:20] LABS: APTT 34.7 SECONDS (22.8-39.4)
[2019-05-30 15:25] LABS: ALKALINE PHOSPHATASE 116 U/L (46-116); ALT (SGPT) 14 U/L (10-68); CALC OSMOLALITY 290 mosm/kg (275-300); CALCIUM 9.1 mg/dL (8.5-10.1); CHLORIDE - SERUM 95 mmol/L (98-107); CREATININE - SERUM 0.7 mg/dL (0.6-1.3); GLUCOSE 101 mg/dL (74-106); POTASSIUM - SERUM 3.1 mmol/L (3.5-5.1); PROTEIN - SERUM 8.2 g/dL (6.4-8.2); SODIUM 145 mmol/L (136-145); UREA NITROGEN 18 mg/dL (7-18); eGFR NON AFRICAN AMERICAN > 90 mL/min (90-120)
[2019-05-30 15:28] LABS: CARBON DIOXIDE 48.1 mmol/L (21.0-32.0)
[2019-05-30 15:37] LABS: CKMB 0.6 U/L (0.0-3.6); CREATINE KINASE 24 UL (21-215); PRO BNP 229 pg/mL (0-125); TROPONIN-I < 0.017 ng/mL (0.000-0.060)
[2019-05-30 16:27] VITALS: BP 126/60
--- NOTE | 2019-05-30 16:28 | NUR ---
RESTING UPRIGHT IN BED. WATCHING TV. NAD NOTED.
[2019-05-30 17:48] VITALS: BP 121/62
--- NOTE | 2019-05-30 17:48 | NUR ---
C/O HECTOR. MED WITH PRN ORDERS
--- NOTE | 2019-05-30 18:03 | NUR ---
REPORT CALLED TO CATALINA LEWIS BY SBAR FORMAT
--- NOTE | 2019-05-30 18:30 | NUR ---
TRANSPORTED TO ROOM # 2239, CONDITION STABLE
--- NOTE | 2019-05-30 18:36 | NUR ---
RECEIVED FROM ER, ALERT AND ORIENTED. NO C/O PAIN. NO S/S OF ACUTE DISTRESS NOTED. IV TO LEFT HAND, SL. SITE PATENT WITHOUT REDNESS OR SWELLING. DENIES ANY NEEDS AT THIS TIME. CALL LIGHT IN REACH. WILL CONTINUE TO MONITOR.
--- NOTE | 2019-05-30 19:30 | NUR ---
IN BED WITH TELEVISION ON, NO S/S OF ANY ACUTE DISTRESS. ABLE TO VOICE ALL NEEDS. IV TO LEFT HAND IS NO LONGER PATENT, RESITED TO RIGHT FOREARM WITH FLUIDS AT KVO, DENIES ANY PAIN AT THIS TIME. WILL NOTE ANY CHANGE.
--- NOTE | 2019-05-30 20:30 | NUR ---
NURSING STAFF TIMES TWO ATTEMPTED TO GET PLACE TELEMETRY UNIT ON PT, SHE WAS ADAMANT THAT SHE WOULD NOT WEAR IT UNTIL SHE GOT ONE FULL NIGHTS REST, THE UNIT WAS TOO HEAVY FOR HER EVEN AFTER ATTEMPTS TO GIVE HER THE KO AND GOWN WITH POCKET FOR IT.
[2019-05-30 21:13] VITALS: BP 98/48
[2019-05-31] VITALS (7 sets, daily range): BP systolic 89–109; BP diastolic 47–84; Ht 167.6 cm; Wt 42.6 kg
--- NOTE | 2019-05-31 02:41 | NUR ---
I have reviewed this patient and I concur with the Shift Assessment completed by the Licensed Practical Nurse today this shift.
--- NOTE | 2019-05-31 05:10 | NUR ---
HAS NOT SLEPT THIS SHIFT, COMPLAINED OF SLIGHT HEADACHE, WHEN STAFF APPROACHED ABOUT TURNING LIGHTS OFF AND MAYBE TRYING TO GET SOME REST, SHE SMILED BIG AND SAID "NO THANK YOU, IM OK NOW". TRIED TO EDUCATE ON THE IMPORTANCE OF REST, BUT WAS UNSUCCESSFUL. WILL NOTE ANY CHANGE.
[2019-05-31 06:03] LABS: BASOPHILS 0.1 % (0-2); EOSINOPHILS 0.1 % (0-7); HEMATOCRIT 37.3 % (36.0-48.0); HEMOGLOBIN 11.6 g/dL (12-16); IMMATURE GRANULOCYTES 1.1 % (0-5); LYMPHOCYTES 5.3 % (15-50); MCH 29.4 pg (26.0-34.0); MCHC 31.1 g/dL (31.0-37.0); MCV 94.7 fL (80.0-100.0); MEAN PLATELET VOLUME 11.7 fL (7.4-10.4); MONOCYTES 2.2 % (2-11); NEUTROPHILS 91.2 % (40-80); PLATELET COUNT 188 10x3/uL (130-400); RBC 3.94 10x6/uL (4.00-5.40); RDW 13.3 % (11.5-14.5); WBC 15.7 10x3/uL (4.8-10.8)
[2019-05-31 06:21] LABS: ALBUMIN 2.6 g/dL (3.4-5.0); ALKALINE PHOSPHATASE 99 U/L (46-116); ALT (SGPT) 13 U/L (10-68); BILIRUBIN - TOTAL 0.28 mg/dL (0.2-1.3); CALC OSMOLALITY 281 mosm/kg (275-300); CALCIUM 8.2 mg/dL (8.5-10.1); CHLORIDE - SERUM 96 mmol/L (98-107); GLUCOSE 135 mg/dL (74-106); PROTEIN - SERUM 6.7 g/dL (6.4-8.2); SODIUM 140 mmol/L (136-145); UREA NITROGEN 15 mg/dL (7-18)
[2019-05-31 07:11] LABS: CREATININE - SERUM 0.5 mg/dL (0.6-1.3); POTASSIUM - SERUM 4.2 mmol/L (3.5-5.1); eGFR NON AFRICAN AMERICAN > 90 mL/min (90-120)
[2019-05-31 07:16] LABS: CARBON DIOXIDE 47.9 mmol/L (21.0-32.0)
--- NOTE | 2019-05-31 16:22 | MORECARE ---
CASE MANAGEMENT DISCHARGE SUMMARY PATIENT: SHARON BLANTON UNIT: [id number] ADM DATE: 05/30/19 AGE: 58 : 58 SEX: F ROOM/BED: D.2238 AUTHOR: ERICKA WARREN PHYSICIAN: REFERRING PHYSICIAN: CARLEEN SO MD DATE OF SERVICE: 05/31/19 Discharge Plan Patient Name: SHARON BLANTON Facility: [facility]:[place] : 1960 Planned Disposition: Home Anticipated Discharge Date: Discharge Date: Expected LOS: Initial Reviewer: [email or web address] Initial Review Date: 05/31/2019 Generated: 05/31/19 5:21 pm Comments DCP- Discharge Planning Updated by [email or web address]: Etelvina Augustine on 05/31/19 3:[address] Patient Name: SHARON BLANTON Admission Status: ER Accout number: [id number] Admission Date: 05-30-2019 : 1960 Admission Diagnosis: Attending: CARLEEN SO Current LOS: 1 Anticipated DC Date: Planned Disposition: Home Primary Insurance: [employer]ED [employer]ICAID Discharge Planning Comments: CM met with patient to complete initial dc planning assessment. CM educated patient on the CM role and verbal consent given by patient to complete assessment. Patient lives at home alone. At discharge patient plans to return and feels this is a safe discharge. CM discussed availability of home health, rehab services, and medical equipment. Patient declines need for home health or DME. States she has a pamphlet for private care and will call them herself when ready. I informed her that she may qualify for Medicaid to pay some private care, she states she will call them when she is ready. States she will need a ride home. States she rides the [employer] bus, but does not have her Medicaid number. States she either rides the [employer] or walks where she needs to go. States she uses Dr. Gurrola as her primary doctor. States they have Dr. Romero listed as my doctor, but I have never seen him. CM will continue to follow and will assist as needed with dc plans/needs. Environmental Sustainability Manager: Etelvina Augustine DCPIA - Discharge Planning Initial Assessment Updated by [email or web address]: Etelvina Augustine on 05/31/19 4:17 pm * Is the patient Alert and Oriented? Yes * PCP Dr. Gurrola * Pharmacy [facility] on [place] * Preadmission Environment Home Alone * ADLs Independent * Equipment Nebulizer Other Oxygen Walker * List name and contact numbers for known caregivers / representatives who currently or will assist patient after discharge: Juliette Amador - sister [phone] * Verbal permission to speak to the caregivers and representatives has been obtained from the patient. Yes * Community resources currently utilized None * Additional services required to return to the preadmission environment? No * Can the patient safely return to the preadmission environment? Yes * Has this patient been hospitalized within the prior 30 days at any hospital? No Patient Name: SHARON BLANTON Page 61803 at 1622 All edits/amendments must be made on the electronic document DICTATION DATE: 05/31/191620 PROCESS CONTROLS TECHNICIAN: MAGNO 05/31/191620 RPT#: [id number] [place] DATE: STATUS: ADM IN [facility] [address] [place] [address] END OF REPORT
--- NOTE | 2019-05-31 17:22 | NUR ---
OT NOTE: PT COMPLETED IN ROOM AND ADL MOB WITH SBA. PT COMPLETED UE AROM. PT COMPLETED HYGIENE TASK WITH SET UP. THANK YOU, JULIA GARCIA
[2019-06-01 04:41] VITALS: BP 108/63
[2019-06-01 06:45] LABS: BASOPHILS 0.1 % (0-2); EOSINOPHILS 0 % (0-7); HEMATOCRIT 37.9 % (36.0-48.0); HEMOGLOBIN 11.6 g/dL (12-16); IMMATURE GRANULOCYTES 2.7 % (0-5); LYMPHOCYTES 3.8 % (15-50); MCH 29.4 pg (26.0-34.0); MCHC 30.6 g/dL (31.0-37.0); MCV 95.9 fL (80.0-100.0); MONOCYTES 3.9 % (2-11); NEUTROPHILS 89.5 % (40-80); PLATELET COUNT 209 10x3/uL (130-400); RBC 3.95 10x6/uL (4.00-5.40); RDW 13.5 % (11.5-14.5); WBC 18.5 10x3/uL (4.8-10.8)
[2019-06-01 07:01] LABS: ALBUMIN 2.4 g/dL (3.4-5.0); ALKALINE PHOSPHATASE 98 U/L (46-116); ALT (SGPT) 12 U/L (10-68); BILIRUBIN - TOTAL 0.23 mg/dL (0.2-1.3); CALC OSMOLALITY 282 mosm/kg (275-300); CALCIUM 8.2 mg/dL (8.5-10.1); CHLORIDE - SERUM 98 mmol/L (98-107); CREATININE - SERUM 0.6 mg/dL (0.6-1.3); GLUCOSE 125 mg/dL (74-106); POTASSIUM - SERUM 4.5 mmol/L (3.5-5.1); PROTEIN - SERUM 6.8 g/dL (6.4-8.2); SODIUM 141 mmol/L (136-145); UREA NITROGEN 16 mg/dL (7-18); eGFR NON AFRICAN AMERICAN > 90 mL/min (90-120)
[2019-06-01 07:29] LABS: CARBON DIOXIDE 43.5 mmol/L (21.0-32.0)
--- NOTE | 2019-06-01 07:35 | NUR ---
PT SITTING UP IN BED RECIEVING BREATHING TREATMENT. RESP SHALLOW AT THIS TIME. O2 @ 4L NC. DENIES PAIN AT THIS TIME. SALINE LOC TO RIGHT FOREARM, SITE WITHOUT REDNESS OR EDEMA. PT DENIES FURTHER NEEDS AT THIS TIME. CL WITHIN REACH. ENCOURAGED TO CALL WITH NEEDS. CONTINUE POC
[2019-06-01 08:43] VITALS: BP 93/42
[2019-06-01 12:54] VITALS: BP 125/55
--- NOTE | 2019-06-01 14:47 | NUR ---
PT HAS RED/PURPLE BRUISES ON HER SACRUM. RECOMMENDED PROTECTING WITH MEPILEX SACRAL DRESSING. PT IS AMBULATORY AND CAN POSITION/REPOSITION HERSELF IN BED SO SHE WAS INSTRUCTED TO DO SO FREQUENTLY. SHE VOICED UNDERSTANDING. WOUND CARE WILL MONITOR.
[2019-06-01 18:45] VITALS: BP 124/74
[2019-06-01 20:00] VITALS: BP 131/62
--- NOTE | 2019-06-01 20:00 | NUR ---
A/O WITH NO SIGNS OF ACUTE DISTRESS. IV TO THE RIGHT FOREARM WITH NO REDNESS OR SWELLING AND NC @4L. MEPILEX PAD TO THE COCCYX. DENIES PAIN OR OTHER NEEDS AT THIS TIME. CONTINUE WITH PLAN OF CARE.
[2019-06-02] VITALS: BP 95/42
[2019-06-02 04:00] VITALS: BP 106/40
[2019-06-02 06:24] LABS: BASOPHILS 0.1 % (0-2); EOSINOPHILS 0 % (0-7); HEMATOCRIT 42.7 % (36.0-48.0); HEMOGLOBIN 13.1 g/dL (12-16); LYMPHOCYTES 5.6 % (15-50); MCH 29.8 pg (26.0-34.0); MCHC 30.7 g/dL (31.0-37.0); MEAN PLATELET VOLUME 11.9 fL (7.4-10.4); MONOCYTES 4.4 % (2-11); NEUTROPHILS 84.9 % (40-80); PLATELET COUNT 210 10x3/uL (130-400); RDW 13.7 % (11.5-14.5)
[2019-06-02 06:32] LABS: WBC 11.2 10x3/uL (4.8-10.8)
[2019-06-02 06:47] LABS: ALBUMIN 2.6 g/dL (3.4-5.0); ALKALINE PHOSPHATASE 111 U/L (46-116); ALT (SGPT) 15 U/L (10-68); BILIRUBIN - TOTAL 0.16 mg/dL (0.2-1.3); CALC OSMOLALITY 282 mosm/kg (275-300); CALCIUM 8.5 mg/dL (8.5-10.1); CHLORIDE - SERUM 101 mmol/L (98-107); CREATININE - SERUM 0.6 mg/dL (0.6-1.3); GLUCOSE 107 mg/dL (74-106); POTASSIUM - SERUM 4.9 mmol/L (3.5-5.1); PROTEIN - SERUM 6.6 g/dL (6.4-8.2); SODIUM 141 mmol/L (136-145); UREA NITROGEN 17 mg/dL (7-18); eGFR NON AFRICAN AMERICAN > 90 mL/min (90-120)
[2019-06-02 06:58] LABS: CARBON DIOXIDE 43.6 mmol/L (21.0-32.0)
[2019-06-02 08:47] VITALS: BP 132/63
--- NOTE | 2019-06-02 10:05 | MORECARE ---
CASE MANAGEMENT DISCHARGE SUMMARY PATIENT: SHARON BLANTON UNIT: [id number] ADM DATE: 05/30/19 AGE: 58 : 58 SEX: F ROOM/BED: D.2238 AUTHOR: ERICKA WARREN PHYSICIAN: REFERRING PHYSICIAN: CARLEEN SO MD DATE OF SERVICE: 06/02/19 Discharge Plan Patient Name: SHARON BLANTON Facility: [facility]:[place] : 1960 Planned Disposition: Home Anticipated Discharge Date: Discharge Date: Expected LOS: Initial Reviewer: [id number] Initial Review Date: 05/31/2019 Generated: 06/02/19 11:04 am Comments DCP- Discharge Planning Updated by [email or web address]: Etelvina Augustine on 05/31/19 3:[address] Patient Name: SHARON BLANTON Admission Status: ER Accout number: [id number] Admission Date: 05-30-2019 : 1960 Admission Diagnosis: Attending: CARLEEN SO Current LOS: 1 Anticipated DC Date: Planned Disposition: Home Primary Insurance: [employer] Discharge Planning Comments: CM met with patient to complete initial dc planning assessment. CM educated patient on the CM role and verbal consent given by patient to complete assessment. Patient lives at home alone. At discharge patient plans to return and feels this is a safe discharge. CM discussed availability of home health, rehab services, and medical equipment. Patient declines need for home health or DME. States she has a pamphlet for private care and will call them herself when ready. I informed her that she may qualify for Medicaid to pay some private care, she states she will call them when she is ready. States she will need a ride home. States she rides the [employer] bus, but does not have her Medicaid number. States she either rides the [employer] or walks where she needs to go. States she uses Dr. Gurrola as her primary doctor. States they have Dr. Romero listed as my doctor, but I have never seen him. CM will continue to follow and will assist as needed with dc plans/needs. Floor Cashier: Etelvina Augustine DCPIA - Discharge Planning Initial Assessment Updated by [email or web address]: Etelvina Augustine on 05/31/19 4:17 pm * Is the patient Alert and Oriented? Yes * PCP Dr. Gurrola * Pharmacy [facility] on [place] * Preadmission Environment Home Alone * ADLs Independent * Equipment Nebulizer Other Oxygen Walker * List name and contact numbers for known caregivers / representatives who currently or will assist patient after discharge: Juliette Amador - sister [phone] * Verbal permission to speak to the caregivers and representatives has been obtained from the patient. Yes * Community resources currently utilized None * Additional services required to return to the preadmission environment? No * Can the patient safely return to the preadmission environment? Yes * Has this patient been hospitalized within the prior 30 days at any hospital? No External Providers [facility] Contact Date: Service Request Date: Service Type: Resolution: Reviewer: Comments: Last DP export: 05/31/19 3:22 Patient Name: SHARON BLANTON Page [id number] at 1005 All edits/amendments must be made on the electronic document DICTATION DATE: 06/02/19 100 COFFEE SUPERVISOR: MAGNO 06/02/191003 RPT#: [id number] DC DATE: STATUS: ADM IN [facility] [address] [place] [address] END OF REPORT
--- NOTE | 2019-06-02 12:23 | NUR ---
OT NOTE: PT PERFORMED BED MOB INDEP; AMB TO AND FROM BATHROOM WITHOUT ASSIST; TOILETING WITH SBA; ABLE TO HIRA GOWN WITH SET UP; ABLE TO HIRA SOCKS WITH SET UP; AMB WITH GAIT BELT AND CGA TO IMPROVE FUNCTIONAL ENDURANCE. PT ABLE TO AMB APPROX 120 FT WITH 2 REST BREAKS. 02 DROPPED TO MID 80S BUT PT ABLE TO RECOUP QUICKLY WITH CUES FOR PURSED LIP BREATHING. EDUCATED AND PT ABLE TO DEMONSTRATE UE/LE EXS TO IMPROVE FUNCTIONAL ENDURANCE AND STRENGTH. KATHERIN QUEVEDO, OTR/L
--- NOTE | 2019-06-02 13:03 | NUR ---
Nutrition ofllow-up: Diet: Regular as tolerated PO intake 100, 75, 80% of last 3 meals. Pt reports appetite has improved with steroids. She reports her weight was 100# about a year ago. Pt states her weight is usually ~94-95#. Labs reviewed Pt is now assessed with moderate malnutrition of chronic illness R/T COPD AEB: 1. observed loss of subcutaneous fat, muscle loss to all extremeties clavical, scapula wasting; temporal wasting. 2. weight loss of ~10% over the last year; however, pt is not a good historian and is unsure of how much weight has been lost. Will continue to provide food choices and honor food preferences. Will offer nutritional supplements. RDN following.
[2019-06-02 13:13] VITALS: BP 132/55
--- NOTE | 2019-06-02 13:24 | NUR ---
PT SITTING UP ON SIDE OF BED, ALERT AND ORIENTED WITH NO S/S OF DISTRESS AT THIS TIME. CURRENTLY RCVING 4L VIA NC. IV LOCATED TO RIGHT FOREARM CURRENTLY SL. DENIES NEEDS AT THIS TIME, WILL CONT TO MONITOR.
--- NOTE | 2019-06-02 15:00 | MORECARE ---
CASE MANAGEMENT DISCHARGE SUMMARY PATIENT: SHARON BLANTON UNIT: [id number] ADM DATE: 05/30/19 AGE: 58 : 58 SEX: F ROOM/BED: D.2238 AUTHOR: ERICKA WARREN PHYSICIAN: REFERRING PHYSICIAN: CARLEEN SO MD DATE OF SERVICE: 06/02/19 Discharge Plan Patient Name: SHARON BLANTON Facility: [facility]:[place] : 1960 Planned Disposition: Home Anticipated Discharge Date: Discharge Date: Expected LOS: Initial Reviewer: [email or web address] Initial Review Date: 05/31/2019 Generated: 06/02/19 3:59 pm Comments DCP- Discharge Planning Updated by [email or web address]: Etelvina Oleajose on 06/02/19 1:[address] CM met with patient in room per request. She has her portable oxygen in the room. She would like to have a taxi to her home. I spoke with Aura Grissom, patient lives at [address] [place] [address] and taxi is approved when ready for discharge. Patient does not have any family or friends that can pick her up or any money for a taxi. CM will cotninue to follow and assist with discharge planning/needs. DCP- Discharge Planning Updated by [email or web address]: Etelvina Augustine on 05/31/19 3:[address] Patient Name: SHARON BLANTON Admission Status: ER Accout number: [id number] Admission Date: 05-30-2019 : 1960 Admission Diagnosis: Attending: CARLEEN SO Current LOS: 1 Anticipated DC Date: Planned Disposition: Home Primary Insurance: [employer]GED MEDICA[employer] Discharge Planning Comments: CM met with patient to complete initial dc planning assessment. CM educated patient on the CM role and verbal consent given by patient to complete assessment. Patient lives at home alone. At discharge patient plans to return and feels this is a safe discharge. CM discussed availability of home health, rehab services, and medical equipment. Patient declines need for home health or DME. States she has a pamphlet for private care and will call them herself when ready. I informed her that she may qualify for Medicaid to pay some private care, she states she will call them when she is ready. States she will need a ride home. [facility] she rides the [employer] bus, but does not have her Medicaid number. States she either rides the [employer] or walks where she needs to go. States she uses Dr. Gurrola as her primary doctor. States they have Dr. Romero listed as my doctor, but I have never seen him. CM will continue to follow and will assist as needed with dc plans/needs. Nurse Ortho: Etelvina Augustine DCPIA - Discharge Planning Initial Assessment Updated by [email or web address]: Etelvina Augustine on 05/31/19 4:17 pm * Is the patient Alert and Oriented? Yes * PCP Dr. Gurrola * Pharmacy [facility] on [place] * Preadmission Environment Home Alone * ADLs Independent * Equipment Nebulizer Other Oxygen Walker * List name and contact numbers for known caregivers / representatives who currently or will assist patient after discharge: Juliette Amador - sister [phone] * Verbal permission to speak to the caregivers and representatives has been obtained from the patient. Yes * Community resources currently utilized None * Additional services required to return to the preadmission environment? No * Can the patient safely return to the preadmission environment? Yes * Has this patient been hospitalized within the prior 30 days at any hospital? No Last DP export: 06/02/19 9:05 Patient Name: SHARON BLANTON Page [id number] at 1500 All edits/amendments must be made on the electronic document DICTATION DATE: 06/02/191458 NET TRAINER: MAGNO 06/02/191458 RPT#: [id number] DC DATE: STATUS: ADM IN [facility] [address] [place] [address] END OF REPORT
--- NOTE | 2019-06-02 16:26 | NUR ---
PT REPORTS HAVING MULTIPLE LOOSE STOOLS, REQUESTING SOMETHING TO TAKE. CONTACTED FREYA BELLAMY WHO INSTRUCTED ME TO ORDER A ONE TIME DOSE OF IMMODIUM AND DC STOOL SOFTENERS. DENIES OTHER NEEDS, WILL CONT TO MONITOR.
[2019-06-02 16:57] VITALS: BP 140/53
[2019-06-02 20:00] VITALS: BP 124/56
[2019-06-03] VITALS (7 sets, daily range): BP systolic 100–170; BP diastolic 44–88
[2019-06-03 05:17] LABS: BASOPHILS 0.1 % (0-2); EOSINOPHILS 0 % (0-7); HEMATOCRIT 39.9 % (36.0-48.0); HEMOGLOBIN 12.1 g/dL (12-16); IMMATURE GRANULOCYTES 5.8 % (0-5); LYMPHOCYTES 12.1 % (15-50); MCH 29.3 pg (26.0-34.0); MCHC 30.3 g/dL (31.0-37.0); MCV 96.6 fL (80.0-100.0); MEAN PLATELET VOLUME 11.8 fL (7.4-10.4); MONOCYTES 13.5 % (2-11); NEUTROPHILS 68.5 % (40-80); PLATELET COUNT 208 10x3/uL (130-400); RBC 4.13 10x6/uL (4.00-5.40); RDW 13.9 % (11.5-14.5); WBC 9.9 10x3/uL (4.8-10.8)
[2019-06-03 05:38] LABS: ALBUMIN 2.3 g/dL (3.4-5.0); ALKALINE PHOSPHATASE 113 U/L (46-116); ALT (SGPT) 12 U/L (10-68); BILIRUBIN - TOTAL 0.14 mg/dL (0.2-1.3); CALC OSMOLALITY 283 mosm/kg (275-300); CALCIUM 8.1 mg/dL (8.5-10.1); CHLORIDE - SERUM 102 mmol/L (98-107); CREATININE - SERUM 0.6 mg/dL (0.6-1.3); GLUCOSE 92 mg/dL (74-106); POTASSIUM - SERUM 4.2 mmol/L (3.5-5.1); PROTEIN - SERUM 5.9 g/dL (6.4-8.2); SODIUM 141 mmol/L (136-145); UREA NITROGEN 21 mg/dL (7-18); eGFR NON AFRICAN AMERICAN > 90 mL/min (90-120)
[2019-06-03 05:40] LABS: CARBON DIOXIDE 43.9 mmol/L (21.0-32.0)
--- NOTE | 2019-06-03 10:01 | NUR ---
PT ALERT X 4. EXPIRATORY WHEEZES TO LEFT SIDE, 3L O2 PER NC. IV TO RIGHT WRIST, PATENT, DRESSING CDI. PT REPORTING HEADACHE, MEDICATED PER ORDERS, WILL MONITOR. BED LOW, CALL LIGHT IN REACH. NO OTHER NEEDS AT THIS TIME.
[2019-06-04 00:21] VITALS: BP 105/67
[2019-06-04 04:45] VITALS: BP 130/45
[2019-06-04 06:21] LABS: BASOPHILS 0.2 % (0-2); EOSINOPHILS 0.1 % (0-7); HEMATOCRIT 40.1 % (36.0-48.0); HEMOGLOBIN 12.1 g/dL (12-16); LYMPHOCYTES 21.6 % (15-50); MCH 28.9 pg (26.0-34.0); MCHC 30.2 g/dL (31.0-37.0); MCV 95.9 fL (80.0-100.0); MEAN PLATELET VOLUME 11.4 fL (7.4-10.4); MONOCYTES 11.6 % (2-11); NEUTROPHILS 60.5 % (40-80); PLATELET COUNT 190 10x3/uL (130-400); RBC 4.18 10x6/uL (4.00-5.40); RDW 14.3 % (11.5-14.5); WBC 9.6 10x3/uL (4.8-10.8)
[2019-06-04 06:31] LABS: ALBUMIN 2.4 g/dL (3.4-5.0); ALKALINE PHOSPHATASE 104 U/L (46-116); BILIRUBIN - TOTAL 0.21 mg/dL (0.2-1.3); CALCIUM 7.9 mg/dL (8.5-10.1); CARBON DIOXIDE 38.6 mmol/L (21.0-32.0); CHLORIDE - SERUM 102 mmol/L (98-107); CREATININE - SERUM 0.5 mg/dL (0.6-1.3); POTASSIUM - SERUM 4.4 mmol/L (3.5-5.1); PROTEIN - SERUM 5.6 g/dL (6.4-8.2); SODIUM 140 mmol/L (136-145); UREA NITROGEN 16 mg/dL (7-18); eGFR NON AFRICAN AMERICAN > 90 mL/min (90-120)
[2019-06-04 06:33] LABS: ALT (SGPT) 22 U/L (10-68); CALC OSMOLALITY 277 mosm/kg (275-300); GLUCOSE 70 mg/dL (74-106)
[2019-06-04 08:25] VITALS: BP 113/51; BP 136/72
--- NOTE | 2019-06-04 09:14 | NUR ---
PT ALERT X 4. BREATH SOUNDS CLEAR BILAT, 3L O2 PER NC. IV TO RIGHT FOREARM, PATENT, DRESSING CDI. PT REPORTING NO PAIN AT THIS TIME. BED LOW, CALL LIGHT IN REACH. NO OTHER NEEDS AT THIS TIME.
[2019-06-04 12:38] VITALS: BP 116/53
[2019-06-04 16:09] VITALS: BP 124/60
[2019-06-04 21:09] VITALS: BP 122/55
[2019-06-05 00:53] VITALS: BP 116/62
[2019-06-05 04:47] VITALS: BP 124/64
[2019-06-05 05:50] LABS: ALBUMIN 2.6 g/dL (3.4-5.0); ALKALINE PHOSPHATASE 111 U/L (46-116); BILIRUBIN - TOTAL 0.16 mg/dL (0.2-1.3); CALC OSMOLALITY 278 mosm/kg (275-300); CALCIUM 8.2 mg/dL (8.5-10.1); CHLORIDE - SERUM 99 mmol/L (98-107); CREATININE - SERUM 0.5 mg/dL (0.6-1.3); GLUCOSE 85 mg/dL (74-106); POTASSIUM - SERUM 4.8 mmol/L (3.5-5.1); PROTEIN - SERUM 5.9 g/dL (6.4-8.2); SODIUM 140 mmol/L (136-145); UREA NITROGEN 16 mg/dL (7-18); eGFR NON AFRICAN AMERICAN > 90 mL/min (90-120)
[2019-06-05 06:09] LABS: BASOPHILS 0 % (0-2); EOSINOPHILS 0.1 % (0-7); HEMATOCRIT 37.8 % (36.0-48.0); HEMOGLOBIN 11.9 g/dL (12-16); IMMATURE GRANULOCYTES 3.5 % (0-5); LYMPHOCYTES 14.7 % (15-50); MCH 30.1 pg (26.0-34.0); MCHC 31.5 g/dL (31.0-37.0); MCV 95.5 fL (80.0-100.0); MEAN PLATELET VOLUME 12.2 fL (7.4-10.4); MONOCYTES 9.5 % (2-11); NEUTROPHILS 72.2 % (40-80); PLATELET COUNT 214 10x3/uL (130-400); RBC 3.96 10x6/uL (4.00-5.40); RDW 14.4 % (11.5-14.5); WBC 11.5 10x3/uL (4.8-10.8)
[2019-06-05 06:29] LABS: ALT (SGPT) 28 U/L (10-68)
[2019-06-05 06:30] LABS: CARBON DIOXIDE 40.9 mmol/L (21.0-32.0)
--- NOTE | 2019-06-05 07:41 | NUR ---
PT RESTING IN BED. NO SIGNS OF DISTRESS. IV TO LEFT FORARM PATENT NO REDNESS OR TENDERNESS. ON 3L NC. DENIES ANY FURTHER NEED AT THIS TIME. CALL LIGHT IN REACH. BED LOW POSITION. NO FAMILY AT BEDSIDE AT THIS TIME.
[2019-06-05 08:01] VITALS: BP 127/68
[2019-06-05 09:21] LABS: APPEARANCE CLEAR (CLEAR); BILIRUBIN NEGATIVE (NEGATIVE); COLOR YELLOW (YELLOW); GLUCOSE NEGATIVE (NEGATIVE); KETONE NEGATIVE (NEGATIVE); NITRITE NEGATIVE (NEGATIVE); PROTEIN NEGATIVE (NEGATIVE); SPECIFIC GRAVITY 1.015 (1.005-1.020); UROBILINOGEN NORMAL (NORMAL)
[2019-06-05] MEDS ORDERED: DALIRESP500 MCG PO (11:49)
[2019-06-05] MEDS ORDERED: MUCINEX600 MG PO (11:49)
[2019-06-05] MEDS ORDERED: LEVAQUIN750 MG PO (11:50)
[2019-06-05] MEDS ORDERED: PREDNISONE10 MG PO (12:38)
--- NOTE | 2019-06-05 13:16 | MORECARE ---
CASE MANAGEMENT DISCHARGE SUMMARY PATIENT: SHARON BLANTON UNIT: [id number] ADM DATE: 05/30/19 AGE: 58 : 58 SEX: F ROOM/BED: D.2238 AUTHOR: ERICKA WARREN PHYSICIAN: REFERRING PHYSICIAN: CARLEEN SO MD DATE OF SERVICE: 06/05/19 Discharge Plan Patient Name: SHARON BLANTON Facility: [facility]:[place] : 1960 Planned Disposition: Home Anticipated Discharge Date: Discharge Date: Expected LOS: Initial Reviewer: [email or web address] Initial Review Date: 05/31/2019 Generated: 06/05/19 2:15 pm Comments DCP- Discharge Planning Updated by [email or web address]: Etelvina Augustine on 06/05/19 12:[address] Patient Name: SHARON BLANTON Encounter No: [id number] : 1960 Primary Insurance: [facility] MANAGED MEDICAID Anticipated DC Date: Planned Disposition: Home External Planned Provider: : DCP follow-up note: Patient and family in agreement with discharge plan. No changes to plan. She has her portable oxygen in the room. Taxi for ride home has been approved by Aura Grissom, nurse to call for taxi when ready for discharge. Case management will follow and assist as needed. Etelvina Fawn DCP- Discharge Planning Updated by [email or web address]: Etelvina Fawn on 06/02/19 1:[address] CM met with patient in room per request. She has her portable oxygen in the room. She would like to have a taxi to her home. I spoke with Aura Grissom, patient lives at [address] [place] [address] and taxi is approved when ready for discharge. Patient does not have any family or friends that can pick her up or any money for a taxi. CM will cotninue to follow and assist with discharge planning/needs. DCP- Discharge Planning Updated by [email or web address]: Etelvina Fawn on 05/31/19 3:[address] Patient Name: SHARON BLANTON Admission Status: ER Accout number: [id number] Admission Date: 05-30-2019 : 1960 Admission Diagnosis: Attending: CARLEEN SO Current LOS: 1 Anticipated DC Date: Planned Disposition: Home Primary Insurance: [employer] Discharge Planning Comments: CM met with patient to complete initial dc planning assessment. CM educated patient on the CM role and verbal consent given by patient to complete assessment. Patient lives at home alone. At discharge patient plans to return and feels this is a safe discharge. CM discussed availability of home health, rehab services, and medical equipment. Patient declines need for home health or DME. States she has a pamphlet for private care and will call them herself when ready. I informed her that she may qualify for Medicaid to pay some private care, she states she will call them when she is ready. States she will need a ride home. States she rides the [employer] bus, but does not have her Medicaid number. States she either rides the [employer] or walks where she needs to go. States she uses Dr. Gurrola as her primary doctor. States they have Dr. Romero listed as my doctor, but I have never seen him. CM will continue to follow and will assist as needed with dc plans/needs. Tenant Coordinator: Etelvina Augustine DCPIA - Discharge Planning Initial Assessment Updated by [email or web address]: Etelvina Augustine on 05/31/19 4:17 pm * Is the patient Alert and Oriented? Yes * PCP Dr. Gurrola * Pharmacy [facility] on [place] * Preadmission Environment Home Alone * ADLs Independent * Equipment Nebulizer Other Oxygen Walker * List name and contact numbers for known caregivers / representatives who currently or will assist patient after discharge: Juliette Amador - sister [phone] * Verbal permission to speak to the caregivers and representatives has been obtained from the patient. Yes * Community resources currently utilized None * Additional services required to return to the preadmission environment? No * Can the patient safely return to the preadmission environment? Yes * Has this patient been hospitalized within the prior 30 days at any hospital? No Last DP export: 06/02/19 2:00 Patient Name: SHARON BLANTON Page 68151 at 1316 All edits/amendments must be made on the electronic document DICTATION DATE: 06/05/19 1312 [place]ITH: MAGNO 06/05/19 1313 RPT#: [id number] DC DATE: STATUS: ADM IN [facility] [address] [place] [address] END OF REPORT
[2019-06-05 13:22] VITALS: BP 145/61
--- NOTE | 2019-06-05 13:48 | NUR ---
I have reviewed this patient and I concur with the Shift Assessment completed by the Licensed Practical Nurse today this shift.
--- NOTE | 2019-06-05 15:20 | NUR ---
DISCHARGE INSTRUCTIONS GIVEN. SEEMS TO UNDERSTAND INSTRUCTIONS. IV OUT TIP INTACT. LEFT WITH HOSPITAL STAFF TO GO HOME IN TAXI RIDE. NO SIGNS OF DISTRESS UPON LEAVING.
--- NOTE | 2019-06-05 20:36 | NUR ---
OT NOTE: PT COMPLETED GROOMING WITH SPV. PT COMPLETED ADL MOB WITHH SPV/SBA. PT COMPLETED TOILETING TASKS WITH SPV/SBA. THANK YOU, JULIA GARCIA
--- NOTE | 2019-06-07 09:45 | MORECARE ---
CASE MANAGEMENT DISCHARGE SUMMARY PATIENT: SHARON BLANTON UNIT: [id number] ADM DATE: 05/30/19 AGE: 58 : 58 SEX: F ROOM/BED: D.2238 AUTHOR: ERICKA WARREN PHYSICIAN: REFERRING PHYSICIAN: CARLEEN SO MD DATE OF SERVICE: 06/07/19 Discharge Plan Patient Name: SHARON BLANTON Facility: [facility]:[place] : 1960 Planned Disposition: Home Anticipated Discharge Date: Discharge Date: 06/05/2019 Expected LOS: Initial Reviewer: [email or web address] Initial Review Date: 05/31/2019 Generated: 06/07/19 10:45 am Comments DCP- Discharge Planning Updated by [email or web address]: Etelvina Augustine on 06/05/19 12:[address] Patient Name: SHARON BLANTON Encounter No: [id number] : 1960 Primary Insurance: [facility] MEDICAID Anticipated DC Date: Planned Disposition: Home External Planned Provider: : DCP follow-up note: Patient and family in agreement with discharge plan. No changes to plan. She has her portable oxygen in the room. Taxi for ride home has been approved by Aura Grissom, nurse to call for taxi when ready for discharge. Case management will follow and assist as needed. Etelvina Augustine DCP- Discharge Planning Updated by [id number]: Etelvina Augustine on 06/02/19 1:[address] CM met with patient in room per request. She has her portable oxygen in the room. She would like to have a taxi to her home. I spoke with Aura Grissom, patient lives at [address] [place] [address] and taxi is approved when ready for discharge. Patient does not have any family or friends that can pick her up or any money for a taxi. CM will cotninue to follow and assist with discharge planning/needs. DCP- Discharge Planning Updated by [email or web address]: Etelvina Augustine on 05/31/19 3:[address] Patient Name: SHARON BLANTON Admission Status: ER Accout number: [id number] Admission Date: 05-30-2019 : 1960 Admission Diagnosis: Attending: CARLEEN SO Current LOS: 1 Anticipated DC Date: Planned Disposition: Home Primary Insurance: [employer] Discharge Planning Comments: CM met with patient to complete initial dc planning assessment. CM educated patient on the CM role and verbal consent given by patient to complete assessment. Patient lives at home alone. At discharge patient plans to return and feels this is a safe discharge. CM discussed availability of home health, rehab services, and medical equipment. Patient declines need for home health or DME. States she has a pamphlet for private care and will call them herself when ready. I informed her that she may qualify for Medicaid to pay some private care, she states she will call them when she is ready. States she will need a ride home. States she rides the [employer] bus, but does not have her Medicaid number. States she either rides the [employer] or walks where she needs to go. States she uses Dr. Gurrola as her primary doctor. States they have Dr. Romero listed as my doctor, but I have never seen him. CM will continue to follow and will assist as needed with dc plans/needs. Certified Medical Biller: Etelvina Augustine DCPIA - Discharge Planning Initial Assessment Updated by [email or web address]: Etelvina Augustine on 05/31/19 4:17 pm * Is the patient Alert and Oriented? Yes * PCP Dr. Gurrola * Pharmacy [facility] on [place] * Preadmission Environment Home Alone * ADLs Independent * Equipment Nebulizer Other Oxygen Walker * List name and contact numbers for known caregivers / representatives who currently or will assist patient after discharge: Juliette Amador - sister [phone] * Verbal permission to speak to the caregivers and representatives has been obtained from the patient. Yes * Community resources currently utilized None * Additional services required to return to the preadmission environment? No * Can the patient safely return to the preadmission environment? Yes * Has this patient been hospitalized within the prior 30 days at any hospital? No Last DP export: 06/05/19 12:15 Patient Name: SHARON BLANTON Page [id number] Electronically Signed by ERICKA [facility] [place] on 06/07/19 at 0945 All edits/amendments must be made on the electronic document DICTATION DATE: 06/07/19944 PHARMACY ORDER ENTRY TECHNICIAN: MAGNO 06/07/19944 RPT#: [id number] DC DATE:06/05/19 STATUS: DIS IN [facility] [address] [place] [address] END OF REPORT
== END 2019-06-05 15:21 | disposition home or self-care (01) | DRG 177 ==
LOC: D.ER 14:14 → D.MS 17:27
PROVIDERS: Family Medicine; Internal Medicine Nephrology; ADMIT Emergency Medicine; ATTEND Emergency Medicine
DX: J15.6 Pneumonia due to other Gram-negative bacteria (principal); J96.22 Acute and chronic respiratory failure with hypercapnia; J96.21 Acute and chronic respiratory failure with hypoxia; E44.0 Moderate protein-calorie malnutrition; Z68.1 Body mass index [BMI] 19.9 or less, adult; J13 Pneumonia due to Streptococcus pneumoniae; E87.6 Hypokalemia; J43.9 Emphysema, unspecified; I27.20 Pulmonary hypertension, unspecified; I34.0 Nonrheumatic mitral (valve) insufficiency; F41.9 Anxiety disorder, unspecified; D72.829 Elevated white blood cell count, unspecified

== ENCOUNTER 2019-09-25 00:48 | Inpatient (IN) | payer OTHER ==
[~2019-09-25] VITALS: Ht 167.6 cm; Wt 45.0 kg
[2019-09-25] VITALS (7 sets, daily range): BP systolic 100–109; BP diastolic 46–71; BMI 16.1
--- NOTE | ~2019-09-25 | HEMODYNAMI ---
PATIENT:SHARON BLANTON MEDICAL RECORD: [id number] : 58 LOCATION:[facility] D.2140 [facility]# [id number] ADMISSION DATE: 09/25/19 Generatedon:09/27/201910:05 Patient name: SHARON BLANTON Patient #: [id number] : 1960 Date of study: 09/27/2019 Page: Of Hemodynamic Procedure Report Patient Data Patient Demographics Procedure consent was obtained First Name: SHARON Gender: Female Last Name: HARVINDER : 1960 Middle Initial: ANNETTA Age: 58 year(s) Patient #: [id number] Race: SSN: [id number] Additional ID: [id number] Contact details Address: [address] [place] [address] State: [place] City: [place] Zip code: [address] Past Medical History Allergies: No known allergies Admission Admission Data Admission Date: 09/25/2019 Admission Time: 12:21 Arrival Date: 09/25/2019 Arrival Time: 12:21 Admit Source: Other Insurance Payor: Private Room #: D.2140 health insurance [facility] #: [id number] Height (in.): 65.75 BSA: 1.48 (m2) Height (cm.): 167 BMI: 16.14 (kg/m2) Weight (lbs.): 99.21 Weight (kg.): 45 Lab Results Lab Result Date: 09/27/2019 Lab Result Time: 0:00 Biochemistry Name Units Result Min Max BUN mg/dl 7 --(*---)-- 7 18 Creatinine mg/dl 0.4 *-(----)-- 0.6 1.3 eGFR ml/min 90 --(*---)-- 90 120 NONAFRICAN CBC Name Units Result Min Max Hemoglobin g/dl 10.7 *-(----)-- 13.5 17.5 Procedure Procedure Types Cath Procedure Diagnostic Procedure LHC C w/Coronaries Sedation Charges Moderate Sedation up to 15 minutes Procedure Description Procedure Date Procedure Date: 09/27/2019 Procedure Start Time: 9:50 Procedure End Time: 10:03 Procedure Staff Name Function Angelito Stark MD Performing Physician Margo Chavez RT Monitor Beckie Warner RT Scrub Jame Almaraz RN Nurse Procedure Data Cath Procedure Fluoroscopy Diagnostic fluoroscopy Total fluoroscopy Time: 1.1 time: 1.1 min min Diagnostic fluoroscopy Total fluoroscopy dose: 268 dose: 268 mGy mGy Contrast Material Contrast Material Type Amount (ml) Isovue 300 38 Entry Location Entry Primary Successful Side Size Upsize Upsize Entry Closure Lyon ccessful Closure Location (Fr) 1 (Fr) 2 (Fr) Remarks Device Remarks Radial Right 6 Fr Mechanical artery Short Compression Estimated blood loss: 5 ml Diagnostic catheters Device Type Used For End Catheter Placement DIAGNOSTIC [place] 110cm 5 Multi-vessel Fr catheter ([id number]) Angiography Procedure Complications No complications Procedure Medications Medication Administration Route Dosage 0.9% NaCl I.V. 100 ml/hr Oxygen etCO2 Nasal cannula 2 l/min Heparin Flush Bag added to field 2 bags (1000units/500ml NS) Lidocaine 2% added to field 20 Radial Cocktail added to field 1 syringe (Verapamil 2mg/Nitro 400mcg/Heparin 1500units) Versed I.V. 1 mg Fentanyl I.V. 50 mcg Fentanyl I.V. 25 mcg Versed I.V. 0.5 mg Radial Cocktail I.A. 1 syringe (Verapamil 2mg/Nitro 400mcg/Heparin 1500units) Hemodynamics Rest BSA: 1.48 (m2) HGB: 10.7 (g/dl) O2 Consumption: Estimated: 153.39 (ml/min) O2 Co nsumption indexed: Estimated:103.64 (ml/min/m) Heart Rate: 93 (bpm) Pressure Samples Time Site Value (mmHg) Purpose Heart Use Rate(bpm) 9:57 LV 50/12,12 Snapshot 104 Snapshots Pre Cath Intra NCS Post Cath Vital Signs Time Heart Resp SPO2 etCO2 NIBP Rhythm Pain Sedation Rate (ipm) (%) (mmHg) (mmHg) Status Level (bpm) 9:18:57 95 34 95 0 No Cuff NSR 0 (11) 10(A) , No pain 9:22:57 90 31 93 0 No Cuff NSR 0 (11) 10(A) , No pain 9:27:13 91 30 96 0 105/53(78) NSR 0 (11) 10(A) , No pain 9:31:15 92 30 95 0 97/53(67) NSR 0 (11) 10(A) , No pain 9:35:14 89 26 95 0 86/49(63) NSR 0 (11) 10(A) , No pain 9:39:14 87 27 94 0 85/41(63) NSR 0 (11) 10(A) , No pain 9:43:11 88 30 94 0 87/49(73) NSR 0 (11) 10(A) , No pain 9:47:09 86 27 94 0 91/50(68) NSR 0 (11) 10(A) , No pain 9:51:09 87 26 94 0 87/50(70) NSR 0 (11) 9(A) , No pain 9:55:06 88 28 94 0 92/50(65) NSR 0 (11) 9(A) , No pain 9:59:06 95 24 92 0 85/45(60) NSR 0 (11) 9(A) , No pain 10:03:01 93 25 93 0 98/50(66) NSR 0 (11) 10(A) , No pain Medications Time Medication Route Dose Verified Delivered Reason Notes Effectiveness by by 9:31:14 0.9% NaCl I.V. 100 Jame Jame Per ml/hr Rufina Almaraz physician CATALINA RN 9:31:24 Oxygen etCO2 2 l/min Jame Jame for low 02 Nasal Lorigan Lorigan sats cannula RN RN 9:31:35 Heparin Flush added 2 bags Jame Jame used for Bag to Lorigan Lorigan procedure (1000units/500ml field ARNOLD RN NS) 9:31:46 Lidocaine 2% added 20ml Jame Jame for local to vial Lorigan Lorigan anesthetic field ARNOLD RN 9:31:57 Radial Cocktail added 1 Jame Jame used for (Verapamil to syringe Lorigan Lorigan procedure 2mg/Nitro field ARNOLD RN 400mcg/Heparin 1500units) 9:45:57 Versed I.V. 1 mg Jame Jame for sedation Rufina Almaraz RN, RN 9:46:05 Fentanyl I.V. 50 mcg Jame Jame for sedation Lorigan Lorigan RN RN 9:50:30 Fentanyl I.V. 25 mcg Jame Kilgore for sedation Rufina Almaraz RN RN 9:50:38 Versed I.V. 0.5 mg Jame Jame for sedation Rufina Almaraz RN RN 9:56:58 Radial Cocktail I.A. 1 Jame Eaton for (Verapamil syringe Rufina Stark MD vasodilation 2mg/Nitro RN 400mcg/Heparin 1500units) Procedure Log Time Note 8:34:16 Informed consent obtained and on chart 8:34:24 Procedure Status Urgent Heart Cath (IP). 8:34:25 Beckie Warner RT(R) sent for patient. Start room use. 8:34:25 Time tracking: Regular hours (M-F 7:00 - 5:00) 8:34:27 Plan of Care:Hemodynamics will remain stable., Cardiac rhythm will remain stable., Comfort level will be maintained., Respiratory function will remain adequate., Patient/ family verbilizes understanding of procedure., Procedure tolerated without complication., Recovers from procedure without complications.. 8:34:34 H&P Date Dictated: 09/25/2019 Within 30 days and on chart.. 8:35:17 Patient allergic to No known allergies 8:45:24 Arrival Date: 09/25/2019 12:21:00 PM 8:45:45 Insurance Payor : Private health insurance 8:45:47 Admit Source: Other 8:45:53 Patient Height : 65.75 inches 8:45:56 Patient Weight : 99.21 lbs 8:46:57 Lab Result : Hemoglobin 10.7 g/dl 8:46:57 Lab Result : eGFR NONAFRICAN 90 ml/min 8:46:57 Lab Result : BUN 7 mg/dl 8:46:57 Lab Result : Creatinine 0.4 mg/dl 9:18:03 Patient received from Med II to CCL 2 Alert and oriented. Tansferred to table in Supine position. 9:18:05 Warm blankets applied, and dorothy hugger turned on for patient comfort. 9:18:07 Correct patient and procedure confirmed by team. 9:18:07 ECG and BP/O2 sat monitors applied to patient. 9:18:08 Baseline sample Acquired. 9:18:08 Vital chart was started 9:18:15 Rhythm: sinus rhythm 9:18:16 Full Disclosure recording started 9:18:17 Pre-procedure instructions explained to patient. 9:18:18 Pre-op teaching completed and patient verbalized understanding. 9:18:20 Family in patients room. 9:18:21 Patient NPO since Midnight. 9:18:35 Is the patient allergic to Iodine/contrast media? No. 9:18:36 Was the patient premedicated? Yes 9:18:43 Is patient on blood thinner?No 9:18:44 Patient diabetic? No. 9:18:54 Previous problem with sedation/anesthesia? No ? 9:18:57 Snore? Yes 9:18:58 Sleep apnea? No 9:18:59 Deviated septum? No 9:19:10 Opens mouth fully? Yes 9:19:11 Sticks out tongue? Yes 9:19:17 Airway obstruction? Yes COPD 9:19:32 Dentures? No ? 9:24:24 Pre procedure: right dorsailis pedis pulse 1+ Palpable, but thready & weak; easily obliterated 9:24:27 Pre procedure: left dorsailis pedis pulse 1+ Palpable, but thready & weak; easily obliterated 9:24:30 Patient pain scale 0/10 ?. 9:26:16 patient states she told her nurse her IV didn't feel right; Nurse told her it was working; IV found to be infiltrated 9:27:02 IV started by Jame Almaraz RN inleft forearm with a 22 gauge IV catheter with 0.9% NaCl at KVO. 9:27:06 Lab results completed and on chart. 9:31:14 0.9% NaCl 100 ml/hr I.V. was administered by Jame Almaraz RN; Per physician; Verbal order read back and verified. 9:31:24 Oxygen 2 l/min etCO2 Nasal cannula was administered by Jame Almaraz RN; for low 02 sats; Verbal order read back and verified. 9:31:35 Heparin Flush Bag (1000units/500ml NS) 2 bags added to field was administered by Jame Almaraz RN; used for procedure; Verbal order read back and verified. 9:31:46 Lidocaine 2% 20ml vial added to field was administered by Jame Almaraz RN; for local anesthetic; Verbal order read back and verified. 9:31:57 Radial Cocktail (Verapamil 2mg/Nitro 400mcg/Heparin 1500units) 1 syringe added to field was administered by Jame Almaraz RN; used for procedure; Verbal order read back and verified. 9:33:07 Risk of Mortality: 2.4 9:33:11 Risk of blood transfusion: 8.9 9:33:15 Risk of BEAN: 4.5 9:33:19 Right Radial & Right Groin area was prepped with chlora-prep and draped in sterile fashion 9:33:20 Alarms reviewed by R. N. 9:33:20 Sharps counted by scrub and verified by R.N. 9:38:29 1) 90+ Normal kidney functon but urine findings or structural abnormalities or genetic trait point to kidney disease. 9:38:33 Maximum allowable contrast dose (3.7 X eGFR X 0.75)249 ml. 9:44:39 Physician arrived 9:44:40 --------ALL STOP TIME OUT------ 9:44:41 Final Timeout: patient, procedure, and site verified with staff and physician. All members of the team are in agreement. 9:44:46 Right Radial & Right Groin site verified by team. 9:44:49 Fire Safety Assessment: A--An alcohol-based skin anteseptic being used preoperatively., C--Open oxygen or nitrous oxide is being used., D--An ESU, laser, or fiber-optic light is being used. 9:44:52 Physical assessment completed. ASA score P 2 - A patient with mild systemic disease as per Angelito Stark MD. 9:44:56 Sedation plan: IV Moderate Sedation Medication:Versed, Fentanyl 9:45:57 Versed 1 mg I.V. was administered by Jame Almaraz RN; for sedation; Verbal order read back and verified. 9:46:05 Fentanyl 50 mcg I.V. was administered by Jame Almaraz RN; for sedation; Verbal order read back and verified. 9:50:30 Fentanyl 25 mcg I.V. was administered by Jame Almaraz RN; for sedation; Verbal order read back and verified. 9:50:38 Versed 0.5 mg I.V. was administered by Jame Almaraz RN; for sedation; Verbal order read back and verified. 9:50:53 Procedure started. 9:50:56 Local anesthetic to right radial artery with Lidocaine 2% by Angelito Stark MD.INITIAL ACCESS ONLY 9:50:58 Use device set Radial Dx or PCI 9:50:59 ACIST Syringe (81383) opened to sterile field. 9:50:59 Medline Cath Pack ([id number]) opened to sterile field. 9:51:00 Bag Decanter (2001S) opened to sterile field. 9:51:00 ACIST Hand Control (54374) opened to sterile field. 9:51:00 ACIST Manifold (81709) opened to sterile field. 9:51:01 Tegaderm 4 x 4 (1626W) opened to sterile field. 9:51:02 MBrace Wrist Support ([id number]) opened to sterile field. 9:51:04 SHEATH 6FR RAIN (8640239) opened to sterile field. 9:51:05 EMERALD Guide Wire (292-778) opened to sterile field. 9:55:46 A 6 Fr Short sheath was inserted into the Right Radial artery 9:56:14 A DIAGNOSTIC [place] 110cm 5 Fr catheter (161888) was advanced over the wire and used for Multi-vessel Angiography. 9:56:58 Radial Cocktail (Verapamil 2mg/Nitro 400mcg/Heparin 1500units) 1 syringe I.A. was administered by Angelito Stark MD; for vasodilation; Verbal order read back and verified. 9:57:15 LV hemodynamics recorded. 9:57:35 LV gram done using PEREZ 9:57:38 Injector settings: Ml/sec: 5, Volume: 15, 9:58:10 EF : 55 % 9:58:21 LCA angiography performed. 9:58:23 Injector settings: Ml/sec: 3, Volume: 6, 9:59:09 RCA angiography performed. 9:59:15 Injector settings: Ml/sec: 3, Volume: 6, 9:59:18 Catheter removed. 9:59:22 ZEPHYR REGULAR TR BAND (144460) opened to sterile field. 9:59:32 Sheath removed intact; hemostasis achieved with Mechanical Compression to the Right Radial artery. 9:59:34 Procedure ended.(Physican Out) 10:00:33 Fluoroscopy time 01.10 minutes. 10:00:37 Fluoroscopy dose: 268 mGy 10:00:37 Flurop Dose total: 268 10:00:44 Dose Area Product 65333 mGy/cm. 10:00:48 Contrast amount:Isovue 300 38ml. 10:00:58 Maximum allowable dose exceeded? No. 10:00:59 Sharps counted by scrub and verified by R.N. 10:01:01 [place] band inflated with 10cc of air. 10:01:03 Insertion/operative site no bleeding no hematoma. 10:01:09 Post right radial artery:stable 10:01:10 Post Procedure Pulses reassessed and unchanged 10:01:16 Post procedure rhythm: unchanged. 10:01:18 Estimated blood loss: 5 ml 10:01:20 Post procedure instruction explained to patient.Patient verbalizes understanding. 10:01:20 Patient needs reinforcement of post procedure teaching. 10:02:46 Procedure type changed to Cath procedure, Diagnostic procedure, LHC, [facility] w/Coronaries, Sedation Charges, Moderate Sedation up to 15 minutes 10:02:48 Procedure and supply charges have been captured, reviewed, submitted and are correct. 10:02:52 Procedure Complication : No complications 10:02:55 Vital chart was stopped 10:03:01 [facility] Findings: mild to moderate CAD (<70%) 10:03:02 Operative report dictated upon procedure completion. 10:03:03 See physician's report for complete and final results. 10:03:30 Report given to [facility] II. 10:03:33 Patient transfered to Med II with Stretcher. 10:03:35 Procedure ended. 10:03:35 Full Disclosure recording stopped 10:03:45 End room use (Document Last) 10:04:31 End room use (Document Last) 10:04:52 End room use (Document Last) Device Usage Item Name Manufacture Quantity Catalog Hospital Part Current Minima l Lot# / Number Charge Number Stock Stock Serial# Code ACIST Acist 1 02897 [id number] [id number] [id number] 20 Syringe Medical (26122) Systems Inc Medline Medline 1 [id number] 14216 679287 5 Cath Pack ([id number]) Bag Microtek 1 040525 86544 655829 5 Decanter Medical Inc. () ACIST Hand Acist 1 94449 128631 689398 762839 5 Control Medical (46363) Systems Inc ACIST Acist 1 15100 492995 070098 612933 5 Manifold Medical (90083) Systems Inc Tegaderm 4 3M 1 1626W 871260 690626 659679 5 x 4 (1626W) MBrace Advanced 1 140-0250-00 958741 81584 415124 5 Wrist Vascular Support Dynamics ([id number]) SHEATH 6FR Cardinal 1 2508184 643543 2944364 992172 5 RAIN Health (4451922) EMERALD Cardinal 1 998-672 831912 081135 540959 5 Guide Wire Health (273-883) DIAGNOSTIC Terumo 1 40-3183 242583 581735 607623 5 [place] 110cm 5 Fr catheter (965912) ZEPHYR Cardinal 1 448502 508902 7350095 444694 5 REGULAR TR Health BAND (691384) Signature Audit Galloway Stage Time Signature Unsigned Intra-Procedure 09/27/2019 Margo Chavez 10:04:31 AM RT(R) Intra-Procedure 09/27/2019 Jame 10:04:52 AM Rufina ARNOLD Intra-Procedure 09/27/2019 Angelito Stark 10:05:19 AM Signatures Performing Physician : Signature : Angelito Stark MD Date : Time : Monitor : Margo Chavez RT Signature : Date : Time : Nurse : Jame Almaraz Signature : RN Date : Time : [facility] [address] [place] [address]
[~2019-09-25 00:48] MED LIST changes: +MUCINEX600 MG PO; +PREDNISONE10 MG PO; +PROTONIX40 MG PO; +STERAPRED DS 1010 MG PO; +XANAX0.5 MG PO
[2019-09-25 01:27] LABS: BASOPHILS 0.2 % (0-2); EOSINOPHILS 0 % (0-7); HEMATOCRIT 37.9 % (36.0-48.0); HEMOGLOBIN 11.8 g/dL (12-16); IMMATURE GRANULOCYTES 0.5 % (0-5); LYMPHOCYTES 10.3 % (15-50); MCH 29.4 pg (26.0-34.0); MCHC 31.1 g/dL (31.0-37.0); MCV 94.5 fL (80.0-100.0); MEAN PLATELET VOLUME 10.2 fL (7.4-10.4); MONOCYTES 19.7 % (2-11); NEUTROPHILS 69.3 % (40-80); RBC 4.01 10x6/uL (4.00-5.40); RDW 13.9 % (11.5-14.5); WBC 4.4 10x3/uL (4.8-10.8)
[2019-09-25 01:29] LABS: PLATELET COUNT 119 10x3/uL (130-400)
[2019-09-25 01:35] LABS: APTT 27.8 SECONDS (22.8-39.4); CALC OSMOLALITY 284 mosm/kg (275-300); CALCIUM 8.1 mg/dL (8.5-10.1); CHLORIDE - SERUM 95 mmol/L (98-107); CREATININE - SERUM 0.5 mg/dL (0.6-1.3); GLUCOSE 98 mg/dL (74-106); INR 0.82 (0.85-1.17); PROTIME 11.3 SECONDS (11.6-15.0); SODIUM 142 mmol/L (136-145); UREA NITROGEN 18 mg/dL (7-18); eGFR NON AFRICAN AMERICAN > 90 mL/min (90-120)
[2019-09-25 01:54] LABS: ALBUMIN 2.3 g/dL (3.4-5.0); ALKALINE PHOSPHATASE 94 U/L (30-120); ALT (SGPT) 34 U/L (10-68); BILIRUBIN - TOTAL 0.31 mg/dL (0.2-1.3); CKMB 0.4 U/L (0.0-3.6); CREATINE KINASE 27 UL (21-215); LIPASE 112 U/L (73-393); MAGNESIUM - SERUM 1.7 mg/dL (1.8-2.4); PRO BNP 342 pg/mL (0-125); PROTEIN - SERUM 6.5 g/dL (6.4-8.2)
[2019-09-25 01:56] LABS: CARBON DIOXIDE 49.4 mmol/L (21.0-32.0); TROPONIN-I < 0.017 ng/mL (0.000-0.060)
[2019-09-25 03:14] LABS: BILIRUBIN NEGATIVE (NEGATIVE); GLUCOSE NEGATIVE (NEGATIVE); KETONE NEGATIVE (NEGATIVE); NITRITE NEGATIVE (NEGATIVE); SPECIFIC GRAVITY 1.015 (1.005-1.020); UROBILINOGEN NORMAL (NORMAL)
[2019-09-25 03:15] LABS: BACTERIA FEW /hpf (NEGATIVE); EPITHELIAL CELLS 0-5 /hpf (0-5); RED CELLS - URINE 0-5 /hpf (0-5); WHITE CELLS - URINE 0-5 /hpf (NEGATIVE); YEAST OCC /hpf (NONE SEEN)
[2019-09-25 03:16] LABS: UDS - AMPHET NEGATIVE QUAL (NEGATIVE); UDS - BARB NEGATIVE QUAL (NEGATIVE); UDS - BENZO POSITIVE QUAL (NEGATIVE); UDS - COCAINE NEGATIVE QUAL (NEGATIVE); UDS - OPIATE POSITIVE QUAL (NEGATIVE); UDS - PCP NEGATIVE QUAL (NEGATIVE); UDS - THC NEGATIVE QUAL (NEGATIVE)
--- NOTE | 2019-09-25 08:56 | NUR ---
PT WAITING FOR ADMISSION BED. SITTING UP IN BED, WAITING FOR BREAKFAST TRAY. UPDRAFT TREATMENT GIVEN PER RT. OXYGEN AT 3 LITERS. MED REC REVIEWED WITH PT.
--- NOTE | 2019-09-25 12:42 | NUR ---
REPORT CALLED TO [facility] ON [facility] 2.
--- NOTE | 2019-09-25 14:16 | NUR ---
PT'S BUTTOCK RED AND EXCORIATED. MEPILEX PLACED ON BUTTOCK.
--- NOTE | 2019-09-25 15:53 | NUR ---
RM COMPLETED ADMISSION ASSESSMENT.
--- NOTE | 2019-09-25 17:06 | NUR ---
PT WANTING TESSALON PERLE. CALLED AND SPOKE WITH DR. JUARES AND HE STATES TO ORDER TESSALON PERLE 200MG QH8P. I VERBALIZED UNDERSTANDING.
--- NOTE | 2019-09-25 19:24 | NUR ---
RECEIVED UP IN BED WITH EYES OPEN AND HOB ELEVATED. O2@ 3 LITERS PER N/C. IV TO LT FA WITH NS INFUSING AT 75CC/HR. UP AD RENALDO TO B/R. WILL BE NPO AFTER MN. DENIES ANY NEEDS AT THIS TIME.
[2019-09-26] VITALS: BP 140/50
[2019-09-26 04:21] VITALS: BP 108/53
[2019-09-26 06:09] LABS: BASOPHILS 0.5 % (0-2); EOSINOPHILS 0.5 % (0-7); HEMATOCRIT 33.8 % (36.0-48.0); HEMOGLOBIN 10.1 g/dL (12-16); LYMPHOCYTES 18.9 % (15-50); MCHC 29.9 g/dL (31.0-37.0); MEAN PLATELET VOLUME 10.7 fL (7.4-10.4); MONOCYTES 16.3 % (2-11); NEUTROPHILS 62.8 % (40-80); PLATELET COUNT 119 10x3/uL (130-400); RBC 3.48 10x6/uL (4.00-5.40); RDW 14.4 % (11.5-14.5); WBC 3.9 10x3/uL (4.8-10.8)
[2019-09-26 06:32] LABS: CALCIUM 7.1 mg/dL (8.5-10.1); CHLORIDE - SERUM 104 mmol/L (98-107); CREATININE - SERUM 0.5 mg/dL (0.6-1.3); GLUCOSE 89 mg/dL (74-106); MAGNESIUM - SERUM 1.8 mg/dL (1.8-2.4); POTASSIUM - SERUM 3.8 mmol/L (3.5-5.1); SODIUM 145 mmol/L (136-145); eGFR NON AFRICAN AMERICAN > 90 mL/min (90-120)
[2019-09-26 06:45] LABS: MCV 97.1 fL (80.0-100.0)
--- NOTE | 2019-09-26 07:14 | NUR ---
PT AWAKE AND ORIENTED, SITTING IN BED SIPPING HOT TEA. NO COMPALITNS OR COCNERNS THIS MORNING, STTATES SHE'S VERY HOPEFUL TO LEAVE FOR REHAB TODAY. ASSURED PT I WOULD KEEP HER UPDATED OF THE PROGRESS AND ASSIST HER GETTING READY SHOULD THE TIME COME FOR HER TO LEAVE TODAY. NO FAMILY AT BEDSIDE, CL IN REACH, SRX2, ALL QUESTIONS ANSWRED TO THE BES TO FMY ABILITY.
[2019-09-26 07:29] LABS: CALC OSMOLALITY 285 mosm/kg (275-300); UREA NITROGEN 8 mg/dL (7-18)
[2019-09-26 07:30] LABS: CARBON DIOXIDE 43.6 mmol/L (21.0-32.0)
[2019-09-26 10:14] VITALS: BP 101/47
--- NOTE | 2019-09-26 11:02 | CN ---
PATIENT NAME:SHARON BLANTON MEDICAL RECORD: [id number] : 58 LOCATION:D.M2 D.2140 ADMIT DATE: 09/25/19 ACCOUNT: [id number] CONSULTING PHYSICIAN: SHAWNA LANDRUM MD REFERRING PHYSICIAN: LARS AKERS MD DATE OF CONSULTATION: 09/25/2019 DIAGNOSES: 1. Chest pain. 2. Shortness of breath. 3. Smoking. 4. COPD. 5. Shortness of breath. HISTORY OF PRESENT ILLNESS: Mrs. Blanton presents with chest pain, shortness of breath. She was recently in hospital with pneumonia. She does have severe COPD. She has not had a history of ischemic heart disease, but she has not had workup for ischemic heart disease in the past. Her chest pain is fairly typical for angina, it is a dull aching pressure band-like sensation across the anterior chest radiating to her jaw. It is not positional, not worse with a deep breath. She has not had a cough or sputum production. She has felt more short of breath as well. PHYSICAL EXAMINATION: CONSTITUTIONAL/GENERAL APPEARANCE: Well nourished, well developed, appears stated age. EYES: Lids and conjunctivae noninjected. No discharge. No pallor. ENT: Lips within normal limit. No cyanosis. No pallor. NECK: Carotid arteries, bilateral normal upstroke. No bruits. No thrills. No jugular venous pressure or distention. CERVICAL LYMPH NODES: Nontender. Nonenlarged. THYROID: Not enlarged. No nodules. CARDIOVASCULAR: Precordial exam, nondisplaced. No heaves or pericardial thrills. Rate and rhythm, regular. Heart sounds, normal S1, normal S2. No S3, no gallop, no rub. Systolic murmur, not heard. Diastolic murmur, not heard. RESPIRATORY: Respiratory effort, unlabored. Normal curvature. No thoracic deformity. No chest wall tenderness. Percussion, resonant. Auscultation, clear. No wheezes, no rales, no rhonchi. ABDOMEN: Soft, nondistended, nontender. No abdominal pain, no vomiting and normal appetite. MUSCULOSKELETAL: No joint tenderness, normal gait, normal tone. SKIN: Warm and dry. OVERALL IMPRESSION: Chest pain compatible with angina. At this time, we will risk stratify with stress testing Cardiolite imaging. Further care depends upon findings of the stress test. TRANSINT:[id number] Voice Confirmation ID: [id number] DOCUMENT ID: [id number] CONSULT REPORT [id number] SHARON BLANTON JEFFREY MD at 1102 CC: [id number] DICTATION DATE: 09/25/19 0947 SODA DRIER FEEDER: 09/25/19 1435 ADM IN [place] [id number] [place] [address]
[2019-09-26 14:41] VITALS: BP 105/63
[2019-09-26 15:05] VITALS: Ht 167.6 cm; Wt 45.0 kg
[2019-09-26 17:49] VITALS: BP 111/55
--- NOTE | 2019-09-26 19:15 | NUR ---
REPORT RECEIVED, WILL CONTINUE POC. PATIENT IS AAOX4, SITTING IN HIGH FOWLERS POSITION. NO S/S OF DISTRESS OBSERVED, RR EVEN AND UNLABORED ON 3L NC. PIV TO LT FA INFUSING NS @ 75ML/HR. PATIENT DENIES NEEDS AT THIS TIME. CL IN REACH, BED LOCKED AND LOWERED. WILL CTM.
[2019-09-26 20:00] VITALS: BP 95/50
[2019-09-27 00:17] VITALS: BP 128/59
--- NOTE | 2019-09-27 03:00 | NUR ---
I have reviewed this patient and I concur with the Shift Assessment completed by the Licensed Practical Nurse today this shift.
[2019-09-27 04:00] VITALS: BP 108/60
[2019-09-27 05:54] LABS: BASOPHILS 0 % (0-2); EOSINOPHILS 1.6 % (0-7); HEMATOCRIT 36.1 % (36.0-48.0); HEMOGLOBIN 10.7 g/dL (12-16); IMMATURE GRANULOCYTES 0.8 % (0-5); LYMPHOCYTES 18.7 % (15-50); MCH 29.2 pg (26.0-34.0); MCHC 29.6 g/dL (31.0-37.0); MCV 98.4 fL (80.0-100.0); MEAN PLATELET VOLUME 10.8 fL (7.4-10.4); NEUTROPHILS 63.9 % (40-80); PLATELET COUNT 131 10x3/uL (130-400); RBC 3.67 10x6/uL (4.00-5.40); RDW 14.2 % (11.5-14.5); WBC 3.7 10x3/uL (4.8-10.8)
[2019-09-27 06:25] LABS: CALC OSMOLALITY 285 mosm/kg (275-300); CALCIUM 7.3 mg/dL (8.5-10.1); CHLORIDE - SERUM 105 mmol/L (98-107); CREATININE - SERUM 0.4 mg/dL (0.6-1.3); GLUCOSE 73 mg/dL (74-106); POTASSIUM - SERUM 3.9 mmol/L (3.5-5.1); SODIUM 145 mmol/L (136-145); UREA NITROGEN 7 mg/dL (7-18); eGFR NON AFRICAN AMERICAN > 90 mL/min (90-120)
[2019-09-27 06:45] LABS: CARBON DIOXIDE 41.4 mmol/L (21.0-32.0)
[2019-09-27 09:00] VITALS: BP 111/61
--- NOTE | 2019-09-27 15:33 | MORECARE ---
CASE MANAGEMENT DISCHARGE SUMMARY PATIENT: SHARON BLANTON UNIT: [id number] ADM DATE: 09/25/19 AGE: 58 : 58 SEX: F ROOM/BED: D.2140 AUTHOR: ERICKA WARREN PHYSICIAN: REFERRING PHYSICIAN: LARS AKERS MD DATE OF SERVICE: 09/27/19 Discharge Plan Patient Name: SHARON BLANTON Facility: [facility]:[place] : 1960 Planned Disposition: Home Anticipated Discharge Date: Discharge Date: Expected LOS: Initial Reviewer: [email or web address] Initial Review Date: 09/27/2019 Generated: 09/27/19 4:32 pm Patient Name: SHARON BLANTON Page 15518 at 1533 All edits/amendments must be made on the electronic document DICTATION DATE: 09/27/19 153 EMAIL MARKETING INTERN: MAGNO 09/27/19 1532 RPT#: [id number] DC DATE: STATUS: ADM IN [facility] [address] [place] [address] END OF REPORT
--- NOTE | 2019-09-27 15:40 | MORECARE ---
CASE MANAGEMENT DISCHARGE SUMMARY PATIENT: SHARON BLANTON UNIT: [id number] ADM DATE: 09/25/19 AGE: 58 : 58 SEX: F ROOM/BED: D.2140 AUTHOR: ERICKA WARREN PHYSICIAN: REFERRING PHYSICIAN: LARS AKERS MD DATE OF SERVICE: 09/27/19 Discharge Plan Patient Name: SHARON BLANTON Facility: [facility]:[place] : 1960 Planned Disposition: Home Anticipated Discharge Date: Discharge Date: Expected LOS: Initial Reviewer: [email or web address] Initial Review Date: 09/27/2019 Generated: 09/27/19 4:40 pm DCPIA - Discharge Planning Initial Assessment Updated by [email or web address]: Gerardo Martins on 09/27/19 3:36 pm * Is the patient Alert and Oriented? Yes * How many steps to enter\exit or inside your home? 17 * PCP [facility] REPORTS GOING TO BOTH [facility] AND [facility] LOCATIONS * Pharmacy [facility] * Preadmission Environment Home Alone * ADLs Independent * Equipment Nebulizer Oxygen Walker * Other Equipment HOME AND PORTABLE OXYGEN - [facility] * List name and contact numbers for known caregivers / representatives who currently or will assist patient after discharge: REYES PANDEY, SISTER, * Verbal permission to speak to the caregivers and representatives has been obtained from the patient. N/A * Community resources currently utilized None * Please name any agencies selected above. NONE * Additional services required to return to the preadmission environment? No * Can the patient safely return to the preadmission environment? Yes * Has this patient been hospitalized within the prior 30 days at any hospital? Yes Last DP export: 09/27/19 2:33 p Patient Name: SHARON BLANTON Page 18405 at 1540 All edits/amendments must be made on the electronic document DICTATION DATE: 09/27/19 1540 RECEIVER STOCKER: MAGNO 09/27/19 1540 RPT#: [id number] DC DATE: STATUS: ADM IN [facility] [address] [place] [address] END OF REPORT
--- NOTE | 2019-09-27 15:48 | MORECARE ---
CASE MANAGEMENT DISCHARGE SUMMARY PATIENT: SHARON BLANTON UNIT: [id number] ADM DATE: 09/25/19 AGE: 58 : 58 SEX: F ROOM/BED: D.9794 AUTHOR: KELVIN,DOC PHYSICIAN: REFERRING PHYSICIAN: LARS AKERS MD DATE OF SERVICE: 09/27/19 Discharge Plan Patient Name: SHARON BLANTON Facility: [facility]:[place] : 1960 Planned Disposition: Home Anticipated Discharge Date: Discharge Date: Expected LOS: Initial Reviewer: [id number] Initial Review Date: 09/27/2019 Generated: 09/27/19 4:48 pm Comments DCP- Discharge Planning Updated by [email or web address]: Gerardo Martins on 09/27/19 2:[address] Patient Name: SHARON BLANTON Admission Status: ER Accout number: [id number] Admission Date: 09-25-2019 : 1960 Admission Diagnosis: Attending: LARS AKERS Current LOS: 2 Anticipated DC Date: Planned Disposition: Home Primary Insurance: NOVASYS MANAGED MEDICAID Discharge Planning Comments: CM MET WITH PT IN ROOM TO DISCUSS DISCHARGE PLANNING AND NEEDS. PT REPORTS LIVING AT HOME INDEPENDENTLY AND ALONE. PT HAS NO MEDICAL EQUIPMENT AND NO OUTSIDE SERVICES ASSISTING IN THE HOME. CM DISCUSSED AVAILABILITY OF HOME HEALTH, REHAB SERVICES AND MEDICAL EQUIPMENT. PT DENIES DISCHARGE NEEDS, REPORTS SHE DOES NOT KNOW HOW SHE WILL BE GETTING HOME, STATES THE HOSPITAL HAS GIVEN HER A TAXI IN THE PAST. CM EXPLAINED THAT THE HOSPITAL HAS VERY LIMITED RESOURCES AND ASKED HOW PT GOT HOME LAST VISIT, PT STATES HER HOSPITAL ORDERLY PICKED HER UP. CM DISCUSSED DEVELOPING A PERSONAL SUPPORT SYSTEM FOR TIMES WHEN PT NEEDS ASSISTANCE. PT DENIES HAVING MONEY FOR TAXI CAB HOME. SHE MAY CALL HER HOSPITAL ORDERLY TO SEE IF THEY WILL PICK HER UP BUT STATES THE DOCTOR SAYS SHE WILL BE HERE FOR A "MINUTE". CM EXPLAINED IT IS NOT TOO EARLY TO BE PLANNING FOR PT'S DISCHARGE. PT REPORTS UNDERSTANDING. PT WOULD LIKE TO HAVE PERSONAL CARE AT HOME. CM EXPLAINED APPLICATION PROCESS AT DEPARTMENT OF HUMAN SERVICES, ALSO PROVIDED PT WITH [facility] [employer] ON AGING CONTACT INFOMATION AND DISCUSSED THAT SANG PROGRAM MAY BE AVAILABLE AND INSTRUCTED PT TO CALL THE AREA AGENCY ON AGING. PT STATES SHE WILL DO THIS. PT PROVIDED HER CUSTOMER SERVICE NUMBER FOR INSURANCE FOR CM TO CHECK TO SEE IF PT HAS TRANSPORATION BENEFIT; CM CALLED [phone], 4 TIMES AND RECEIVED NO ANSWER. PT NOTIFIED. PT PLANS TO DISCHARGE HOME, DENIES DISCHARGE NEEDS OTHER THAN TRANSPORATATION HOME. PT PLANS TO CALL HER HOSPITAL ORDERLY TO SEE IF HE WILL PICK HER UP. CM TO CONTINUE TO FOLLOW AND ASSIST NEEDED. Loadmaster: Gerardo Martins DCPIA - Discharge Planning Initial Assessment Updated by [id number]: Gerardo Martins on 09/27/19 3:36 pm * Is the patient Alert and Oriented? Yes * How many steps to enter\\exit or inside your home? 17 * PCP [facility] [place] REPORTS GOING TO BOTH [facility] AND [facility] LOCATIONS * Pharmacy [facility] * Preadmission Environment Home Alone * ADLs Independent * Equipment Nebulizer Oxygen Walker * Other Equipment HOME AND PORTABLE OXYGEN - [facility] * List name and contact numbers for known caregivers / representatives who currently or will assist patient after discharge: REYES PANDEY, SISTER, * Verbal permission to speak to the caregivers and representatives has been obtained from the patient. N/A * Community resources currently utilized None * Please name any agencies selected above. NONE * Additional services required to return to the preadmission environment? No * Can the patient safely return to the preadmission environment? Yes * Has this patient been hospitalized within the prior 30 days at any hospital? Yes Last DP export: 09/27/19 2:40 p Patient Name: SHARON BLANTON Page 52001 at 1548 All edits/amendments must be made on the electronic document DICTATION DATE: 09/27/19 1548 STORAGE MANAGEMENT CONSULTANT: MAGNO 09/27/19 1548 RPT#: [id number] SC DATE: STATUS: ADM IN [facility] [address] [place] [address] END OF REPORT
[2019-09-27 16:10] VITALS: BP 98/55
--- NOTE | 2019-09-27 16:32 | MORECARE ---
CASE MANAGEMENT DISCHARGE SUMMARY PATIENT: SHARON BLANTON UNIT: [id number] ADM DATE: 09/25/19 AGE: 58 : 58 SEX: F ROOM/BED: D.7728 AUTHOR: KELVIN,DOC PHYSICIAN: REFERRING PHYSICIAN: LARS AKERS MD DATE OF SERVICE: 09/27/19 Discharge Plan Patient Name: SHARON BLANTON Facility: [facility]:[place] : 1960 Planned Disposition: Home Anticipated Discharge Date: Discharge Date: Expected LOS: Initial Reviewer: [email or web address] Initial Review Date: 09/27/2019 Generated: 09/27/19 5:32 pm Comments DCP- Discharge Planning Updated by [email or web address]: Gerardo Lisa on 09/27/19 3:[address] Patient Name: SHARON BLANTON Admission Status: ER Accout number: [id number] Admission Date: 09-25-2019 : 1960 Admission Diagnosis: Attending: LRAS AKERS Current LOS: 2 Anticipated DC Date: Planned Disposition: Home Primary Insurance: NOVASYS MANAGED MEDICAID Discharge Planning Comments: CM MET WITH PT IN ROOM TO DISCUSS DISCHARGE PLANNING AND NEEDS. PT REPORTS LIVING AT HOME INDEPENDENTLY AND ALONE. PT HAS NO MEDICAL EQUIPMENT AND NO OUTSIDE SERVICES ASSISTING IN THE HOME. CM DISCUSSED AVAILABILITY OF HOME HEALTH, REHAB SERVICES AND MEDICAL EQUIPMENT. PT DENIES DISCHARGE NEEDS, REPORTS SHE DOES NOT KNOW HOW SHE WILL BE GETTING HOME, STATES THE HOSPITAL HAS GIVEN HER A TAXI IN THE PAST. CM EXPLAINED THAT THE HOSPITAL HAS VERY LIMITED RESOURCES AND ASKED HOW PT GOT HOME LAST VISIT, PT STATES HER DIRECTOR OF PARKS AND RECREATION PICKED HER UP. CM DISCUSSED DEVELOPING A PERSONAL SUPPORT SYSTEM FOR TIMES WHEN PT NEEDS ASSISTANCE. PT DENIES HAVING MONEY FOR TAXI CAB HOME. SHE MAY CALL HER DIRECTOR OF PARKS AND RECREATION TO SEE IF THEY WILL PICK HER UP BUT STATES THE DOCTOR SAYS SHE WILL BE HERE FOR A "MINUTE". CM EXPLAINED IT IS NOT TOO EARLY TO BE PLANNING FOR PT'S DISCHARGE. PT REPORTS UNDERSTANDING. PT WOULD LIKE TO HAVE PERSONAL CARE AT HOME. CM EXPLAINED APPLICATION PROCESS AT DEPARTMENT OF HUMAN SERVICES, ALSO PROVIDED PT WITH [facility] [employer] ON AGING CONTACT INFOMATION AND DISCUSSED THAT SANG PROGRAM MAY BE AVAILABLE AND INSTRUCTED PT TO CALL THE AREA AGENCY ON AGING. PT STATES SHE WILL DO THIS. PT PROVIDED HER CUSTOMER SERVICE NUMBER FOR INSURANCE FOR CM TO CHECK TO SEE IF PT HAS TRANSPORATION BENEFIT; CM CALLED [phone], 4 TIMES AND RECEIVED NO ANSWER. PT NOTIFIED. PT PLANS TO DISCHARGE HOME, DENIES DISCHARGE NEEDS OTHER THAN TRANSPORATATION HOME. PT PLANS TO CALL HER DIRECTOR OF PARKS AND RECREATION TO SEE IF HE WILL PICK HER UP. CM TO CONTINUE TO FOLLOW AND ASSIST NEEDED. Technical Support Representative: Gerardo Lisa Appended by Gerardo Lisa on 09/27/2019 16:26 GROUND CONTROL APPROACH TECHNICIAN: CM CALLED PT'S INSURANCE COMPANY, , SPOKE TO ROBERT WHO INFORMED CM THAT PT HAS NO TRANSPORATION BENEFITS WITH [employer]. REFERENCE # [id number]. CM CALLED MAURICE WITH [facility] [employer] WHO PROVIDED PT'S ACTIVE [place] [employer] MEDCAID NUMBER OF [id number]. CM CALLED MEDICAID TRANSPORTATION, , SPOKE TO RONALDO WHO ADVISED THAT PT DOES HAVE TRANSPORATION BENEFIT OF 4 TRIPS PER YEAR AND HAS USED NONE THIS YEAR. CM PROVIDED PT WITH HER MEDICAID NUMBER, MEDICAID TRANSPORATION NUMBER AND NOTIFED SHE HAS 4 TRIPS PER YEAR THAT SHE CAN USE. PT REPORTS UNDERSTANDING AND DENIES FURTHER DISCHARGE NEEDS AT THIS TIME. IF PT IS NOT ABLE TO GET HER DIRECTOR OF PARKS AND RECREATION TO PICK HER UP AT [facility], CM WILL CALL MEDICAID TRANSPORTATION (WEEKDAYS 8AM TO 4:30PM) TO SCHEDULE TRANSPORTATION HOME AT DISCHARGE. CM TO CONTINUE TO FOLLOW AND ASSIST IF NEEDED. GERARDO LISA, CASE MANAGEMENT DCPIA - Discharge Planning Initial Assessment Updated by [email or web address]: Gerardo Lisa on 09/27/19 3:36 pm * Is the patient Alert and Oriented? Yes * How many steps to enter\\exit or inside your home? 17 * PCP [facility] REPORTS GOING TO BOTH [facility] AND [facility] LOCATIONS * Pharmacy [place] * Preadmission Environment Home Alone * ADLs Independent * Equipment Nebulizer Oxygen Walker * Other Equipment HOME AND PORTABLE OXYGEN - [facility] * List name and contact numbers for known caregivers / representatives who currently or will assist patient after discharge: REYES PANDEY, SISTER, * Verbal permission to speak to the caregivers and representatives has been obtained from the patient. N/A * Community resources currently utilized None * Please name any agencies selected above. NONE * Additional services required to return to the preadmission environment? No * Can the patient safely return to the preadmission environment? Yes * Has this patient been hospitalized within the prior 30 days at any hospital? Yes Last DP export: 09/27/19 2:49 p Patient Name: SHARON BLANTON Page [id number] at 1632 All edits/amendments must be made on the electronic document DICTATION DATE: 09/27/191631 JEWEL STRINGER: MAGNO 09/27/19 163 RPT#: [id number] DC DATE: STATUS: ADM IN [facility] [address] [place] [address] END OF REPORT
--- NOTE | 2019-09-27 19:49 | NUR ---
EVENING ROUNDS COMPLETED. VSS, AA0X4, BED SITTING UP AT BEDSIDE. NO S/S OF RT DISTRESS. PT REFUSED ABG'S STATES SHE FEELS FINE AND SHE IS NOT IN DISTRESS. DR. AKERS NOTIFIED. PT DENIES ANY FURTHER NEEDS FOR COMFORT CARE. WILL CTM. CL WITHIN REACH.
[2019-09-27 22:20] VITALS: BP 123/64
[2019-09-28 02:08] VITALS: BP 108/57
[2019-09-28 06:41] VITALS: BP 143/64
[2019-09-28 06:41] LABS: BASOPHILS 0 % (0-2); EOSINOPHILS 1.9 % (0-7); HEMATOCRIT 35.8 % (36.0-48.0); HEMOGLOBIN 10.4 g/dL (12-16); IMMATURE GRANULOCYTES 0.7 % (0-5); LYMPHOCYTES 13.6 % (15-50); MCH 28.7 pg (26.0-34.0); MCHC 29.1 g/dL (31.0-37.0); MCV 98.9 fL (80.0-100.0); MONOCYTES 12.4 % (2-11); NEUTROPHILS 71.4 % (40-80); RBC 3.62 10x6/uL (4.00-5.40); RDW 14.2 % (11.5-14.5)
[2019-09-28 06:42] LABS: CALCIUM 7.8 mg/dL (8.5-10.1); CHLORIDE - SERUM 103 mmol/L (98-107); CREATININE - SERUM 0.4 mg/dL (0.6-1.3); GLUCOSE 82 mg/dL (74-106); SODIUM 142 mmol/L (136-145); eGFR NON AFRICAN AMERICAN > 90 mL/min (90-120)
[2019-09-28 06:46] LABS: PLATELET COUNT 175 10x3/uL (130-400); WBC 5.8 10x3/uL (4.8-10.8)
[2019-09-28 06:58] LABS: CALC OSMOLALITY 282 mosm/kg (275-300); POTASSIUM - SERUM 4.6 mmol/L (3.5-5.1); UREA NITROGEN 14 mg/dL (7-18)
[2019-09-28 07:03] LABS: CARBON DIOXIDE 42.4 mmol/L (21.0-32.0)
[2019-09-28 08:48] VITALS: BP 107/53
[2019-09-28 12:00] VITALS: BP 152/62
--- NOTE | 2019-09-28 13:00 | NUR ---
PT REQUESTED IV BE REMOVED FROM LEFT WRIST AREA DUE TO SORENESS AND ALSO PUMP STARTS ALARMING WHEN HER HAND IS BENT. IV REMOVED FROM LEFT WRIST WITHOUT DIFFICULTY. RESTARTED IN RIGHT FOREARM X 1 ATTEMPT WITH 22 GAUGE. PT TOLERATED WELL WITHOUT COMPLAINTS.
--- NOTE | 2019-09-28 15:16 | NUR ---
Nutrition Follow-up: Pt not eating well. C/o nausea and diarrhea. Spoke with nurse Floyd who reports Dr. Garcia concerned about protein and wants her on a supplements. Pt refusing supplements. Diet: Cardiac PO intake: 25-50% today No new wt; last wt: 100# (09/26) Labs noted: Ca 7.8, Alb 1.9 Meds noted: Lomitil, Zofran, Albuterol -Will provide milkshakes for additional calories/protein; continue to discuss/encourage nutrition supplements. -Monitor wt. -RD following.
[2019-09-28 16:00] VITALS: BP 122/54
[2019-09-28 20:00] VITALS: BP 101/45
--- NOTE | 2019-09-28 23:59 | NUR ---
PT STATES SHE WOKE UP FROM A BAD DREAM. PT APPEAR RESTLESS AND ANXIOUS. PRN 0.5MG XANAX GIVEN. PT VOICED THANKS. WILL CTM. CL WITHIN REACH.
[2019-09-29] VITALS: BP 101/49
[2019-09-29 07:13] LABS: BASOPHILS 0 % (0-2); HEMATOCRIT 33.8 % (36.0-48.0); HEMOGLOBIN 9.7 g/dL (12-16); IMMATURE GRANULOCYTES 0.6 % (0-5); LYMPHOCYTES 14.9 % (15-50); MCH 28.6 pg (26.0-34.0); MCHC 28.7 g/dL (31.0-37.0); MCV 99.7 fL (80.0-100.0); MEAN PLATELET VOLUME 10.4 fL (7.4-10.4); MONOCYTES 9.7 % (2-11); NEUTROPHILS 71.8 % (40-80); PLATELET COUNT 172 10x3/uL (130-400); RBC 3.39 10x6/uL (4.00-5.40); RDW 14.1 % (11.5-14.5)
[2019-09-29 09:13] LABS: CALCIUM 7.8 mg/dL (8.5-10.1); CHLORIDE - SERUM 106 mmol/L (98-107); CREATININE - SERUM 0.4 mg/dL (0.6-1.3); GLUCOSE 82 mg/dL (74-106); POTASSIUM - SERUM 4.7 mmol/L (3.5-5.1); SODIUM 149 mmol/L (136-145); eGFR NON AFRICAN AMERICAN > 90 mL/min (90-120)
[2019-09-29 09:18] LABS: CALC OSMOLALITY 293 mosm/kg (275-300); UREA NITROGEN 9 mg/dL (7-18)
[2019-09-29 09:23] LABS: CARBON DIOXIDE 45.1 mmol/L (21.0-32.0)
[2019-09-29 10:04] VITALS: BP 96/60
[2019-09-29 12:50] VITALS: BP 143/57
--- NOTE | 2019-09-29 14:36 | ST ---
PATIENT:SHARON BLANTON MEDICAL RECORD: [id number] SEX: F [facility] ORDER #: ADMISSION DATE: 09/25/19 AGE OF PATIENT: 58 REFERRING PHYSICIAN: INTERPRETING PHYSICIAN: SHAWNA LANDRUM MD DATE OF SERVICE: 09/26/2019 PROCEDURE: Nuclear stress test. INDICATION: Angina, shortness of breath. She was exercised on standard Lexiscan protocol with 33 mCi of sestamibi injected at peak stress, 11 mCi used previously for rest images. FINDINGS: Gated SPECT reveals preserved ejection fraction at 72% with good wall motioning and thickening and brightening throughout all segments. SPECT imaging: Cardiolite was used as myocardial perfusion agent. There is reversibility inferiorly, apically, and septally. This includes the basal, mid, apical, inferior segments, the apex itself, apical septal, mid septal, basal septal. The degree of reversibility is moderate. The amount of myocardium involved is large. OVERALL IMPRESSION: This is an intermediate to high risk nuclear stress test with large area of reversible ischemia inferiorly, apically, and septally suggestive of hemodynamically significant coronary artery disease. TRANSINT:[id number] Voice Confirmation ID: [id number] DOCUMENT ID: [id number] SHAWNA LANDRUM MD at 1436 CC: [id number] DICTATION DATE: 09/26/19 1122 WOOD REPATCHER: 09/27/19 0623 ADM IN [place] [id number] [place] [address]
--- NOTE | 2019-09-29 14:36 | OP ---
PATIENT NAME: SHARON BLANTON MEDICAL RECORD: [id number] :58 LOCATION:D.M2 D.2140 ADMISSION DATE:09/25/19 SURGEON: SHAWNA LANDRUM MD DATE OF OPERATION: 09/27/2019 PROCEDURES: 1. Left heart catheterization. 2. Selective coronary angiography. 3. Left ventriculogram. INDICATIONS: Chest pain and abnormal nuclear stress test. PROCEDURE IN DETAIL: After informed consent was obtained and after detailed explanation of risks, benefits as well as alternative therapies, the patient elected to proceed with angiogram and heart catheterization. The right radial area was prepped and draped in normal sterile fashion. Right radial artery was cannulated via modified Seldinger technique with placement of 5-American sheath. All catheters exchanged through this sheath. FINDINGS: Left ventriculogram was performed in standard 30-degree PEREZ view reveals good cardiac wall motion and ejection fraction of 65%. SELECTIVE CORONARY ANGIOGRAPHY: Left main, left anterior descending, left circumflex, right coronary artery are all smooth-walled vessels with no angiographic evidence of coronary artery disease. OVERALL IMPRESSION: 1. No angiographic evidence of coronary artery disease. 2. Normal left heart pressures. 3. Normal left ventricular systolic function. Chest pain is noncardiac in etiology. Stress test was false positive. TRANSINT:[id number] Voice Confirmation ID: [id number] DOCUMENT ID: [id number] SHAWNA LANDRUM MD at 1436 CC: [id number] DICTATION DATE: 09/27/19 1004 TRANSFORMER MOLDER: 09/27/19 1350 [place] [address]
--- NOTE | 2019-09-29 14:36 | EC ---
PATIENT:SHARON BLANTON DATE OF SERVICE: 09/25/19 SEX: F MEDICAL RECORD: [id number] DATE OF : 58 LOCATION:D.M2 D.214 AGE OF PATIENT: 58 ADMISSION DATE: 09/25/19 REFERRING PHYSICIAN: INTERPRETING PHYSICIAN: SHAWNA STARK MD ECHOCARDIOGRAM REPORT ECHO CHARGES 4 ECHO COMPLETE Date: 09/25/19 CLINICAL DIAGNOSIS: CP ECHOCARDIOGRAPHIC MEASUREMENTS (adult normal given) AC root (d.<3.7cm) 3.0 cm LV Septum d (<1.2 cm> 0.9 cm Valve Excursion 1.7 cm LV Septum (systole) 1.3 cm Left Atria (s.<4.0cm> 3.7 cm LVPW d(<1.2cm) 0.9 cm RV (d.<2.3cm) 3.2 cm LVPW (sytole) 1.2 cm LV diastole(<5.6CM) 4.8 cm MV E-F(>70mm/sec) cm LV systole 2.7 cm LVOT Diameter 2.0 cm MV exc.(>10mm) cm Est.ejection fraction (50-75%) % DOPPLER: LVIT cm/sec A 73 cm/sec E 114 cm/sec LA cm/sec RVSP 20.0 mmHg LVOT 115 cm/sec AOP1/2T m/s Asc. Ao 147 cm/sec RVOT cm/sec RA cm/sec PA cm/sec AV Gradient Peak 8.6 mmHg AV Mean 4.2 mmHg AV Area 2.7 cm MV Gradient Peak 4.9 mmHg MV Mean 1.9 mmHg MV Area cm COMMENTS: Advertising Account Executive: Driss [facility] Psychiatric Nurse Practitioner: 1 Dr. Stark TAPE# PACS Pericardial Effusion N DATE OF SERVICE: ECHOCARDIOGRAM FINDINGS: 1. Left ventricular chamber size is within normal limits. Left ventricular systolic function is normal at 60%. 2. Left atrium, right atrium, and right ventricular chamber sizes are within normal limits. 3. Valvular structures have normal structure and motion. ECHOCARDIOGRAM REPORT [id number] SHARON BLANTON 4. Doppler interrogation reveals mild mitral regurgitation, no other valvular insufficiency or stenosis. Pulmonary systolic pressure is normal estimated at 20 mmHg. 5. No evidence of pericardial effusion or left ventricular thrombus. TRANSINT:[id number] Voice Confirmation ID: [id number] DOCUMENT ID: [id number] SHAWNA STARK MD at 1436 CC: [id number] DICTATION DATE: 09/26/19 1045 SUPERVISOR SPECIALTY PLANT: 09/26/19 1139 ADM IN [place] [id number] [place] [id number]
--- NOTE | 2019-09-29 16:52 | MORECARE ---
CASE MANAGEMENT DISCHARGE SUMMARY PATIENT: SHARON BLANTON UNIT: [id number] ADM DATE: 09/25/19 AGE: 58 : 58 SEX: F ROOM/BED: D.5842 AUTHOR: KELVIN,DOC PHYSICIAN: REFERRING PHYSICIAN: LARS AKERS MD DATE OF SERVICE: 09/29/19 Discharge Plan Patient Name: SHARON BLANTON Facility: [facility]:[place] : 1960 Planned Disposition: Home with Home Health Anticipated Discharge Date: Discharge Date: Expected LOS: Initial Reviewer: [email or web address] Initial Review Date: 09/27/2019 Generated: 09/29/19 5:52 pm DCP- Discharge Planning Updated by [email or web address]: Gerardo Lisa on 09/27/19 3:[address] Patient Name: SHARON BLANTON Admission Status: ER Accout number: [id number] Admission Date: 09-25-2019 : 1960 Admission Diagnosis: Attending: LARS AKERS Current LOS: 2 Anticipated DC Date: Planned Disposition: Home Primary Insurance: NOVASYS MANAGED MEDICAID Discharge Planning Comments: CM MET WITH PT IN ROOM TO DISCUSS DISCHARGE PLANNING AND NEEDS. PT REPORTS LIVING AT HOME INDEPENDENTLY AND ALONE. PT HAS NO MEDICAL EQUIPMENT AND NO OUTSIDE SERVICES ASSISTING IN THE HOME. CM DISCUSSED AVAILABILITY OF HOME HEALTH, REHAB SERVICES AND MEDICAL EQUIPMENT. PT DENIES DISCHARGE NEEDS, REPORTS SHE DOES NOT KNOW HOW SHE WILL BE GETTING HOME, STATES THE HOSPITAL HAS GIVEN HER A TAXI IN THE PAST. CM EXPLAINED THAT THE HOSPITAL HAS VERY LIMITED RESOURCES AND ASKED HOW PT GOT HOME LAST VISIT, PT STATES HER TAKER OFF PICKED HER UP. CM DISCUSSED DEVELOPING A PERSONAL SUPPORT SYSTEM FOR TIMES WHEN PT NEEDS ASSISTANCE. PT DENIES HAVING MONEY FOR TAXI CAB HOME. SHE MAY CALL HER TAKER OFF TO SEE IF THEY WILL PICK HER UP BUT STATES THE DOCTOR SAYS SHE WILL BE HERE FOR A "MINUTE". CM EXPLAINED IT IS NOT TOO EARLY TO BE PLANNING FOR PT'S DISCHARGE. PT REPORTS UNDERSTANDING. PT WOULD LIKE TO HAVE PERSONAL CARE AT HOME. CM EXPLAINED APPLICATION PROCESS AT DEPARTMENT OF HUMAN SERVICES, ALSO PROVIDED PT WITH [facility] [employer] ON AGING CONTACT INFOMATION AND DISCUSSED THAT SANG PROGRAM MAY BE AVAILABLE AND INSTRUCTED PT TO CALL THE AREA AGENCY ON AGING. PT STATES SHE WILL DO THIS. PT PROVIDED HER CUSTOMER SERVICE NUMBER FOR INSURANCE FOR CM TO CHECK TO SEE IF PT HAS TRANSPORATION BENEFIT; CM CALLED [phone], 4 TIMES AND RECEIVED NO ANSWER. PT NOTIFIED. PT PLANS TO DISCHARGE HOME, DENIES DISCHARGE NEEDS OTHER THAN TRANSPORATATION HOME. PT PLANS TO CALL HER TAKER OFF TO SEE IF HE WILL PICK HER UP. CM TO CONTINUE TO FOLLOW AND ASSIST NEEDED. Bridge Painter: Gerardo Lisa Appended by Gerardo Lisa on 09/27/2019 16:26 PIGMENT MAKING SUPERVISOR: CM CALLED PT'S INSURANCE COMPANY, , SPOKE TO ROBERT WHO INFORMED CM THAT PT HAS NO TRANSPORATION BENEFITS WITH [employer]. REFERENCE # [id number]. CM CALLED MAURICE WITH [employer] WHO PROVIDED PT'S ACTIVE [place] [employer] MEDCAID NUMBER OF [id number]. CM CALLED MEDICAID TRANSPORTATION, , SPOKE TO RONALDO WHO ADVISED THAT PT DOES HAVE TRANSPORATION BENEFIT OF 4 TRIPS PER YEAR AND HAS USED NONE THIS YEAR. CM PROVIDED PT WITH HER MEDICAID NUMBER, MEDICAID TRANSPORATION NUMBER AND NOTIFED SHE HAS 4 TRIPS PER YEAR THAT SHE CAN USE. PT REPORTS UNDERSTANDING AND DENIES FURTHER DISCHARGE NEEDS AT THIS TIME. IF PT IS NOT ABLE TO GET HER TAKER OFF TO PICK HER UP AT [facility], CM WILL CALL MEDICAID TRANSPORTATION (WEEKDAYS 8AM TO 4:30PM) TO SCHEDULE TRANSPORTATION HOME AT DISCHARGE. CM TO CONTINUE TO FOLLOW AND ASSIST IF NEEDED. GERARDO LISA, CASE MANAGEMENT DCPIA - Discharge Planning Initial Assessment Updated by [email or web address]: Gerardo Lisa on 09/27/19 3:36 pm * Is the patient Alert and Oriented? Yes * How many steps to enter\\exit or inside your home? 17 * PCP [facility] [place] REPORTS GOING TO [facility]OTH [facility] AND [facility] LOCATIONS * Pharmacy [facility] * Preadmission Environment Home Alone * ADLs Independent * Equipment Nebulizer Oxygen Walker * Other Equipment HOME AND PORTABLE OXYGEN - [facility] * List name and contact numbers for known caregivers / representatives who currently or will assist patient after discharge: REYES PANDEY, SISTER, * Verbal permission to speak to the caregivers and representatives has been obtained from the patient. N/A * Community resources currently utilized None * Please name any agencies selected above. NONE * Additional services required to return to the preadmission environment? No * Can the patient safely return to the preadmission environment? Yes * Has this patient been hospitalized within the prior 30 days at any hospital? Yes Coverage Notice Reviewer: [id number] Delma Lisa Notice Issued Date-Time: 09/29/2019 13:40 Notice Type: IM Discharge Notice Notice Delivered To: Patient Relationship to Patient: Propulsion Systems Engineer Name: Delivery Method: HAND - Hand Delivered Brigette Days: Prior Verbal Notification: Recipient Understood Notice: Yes Recipient Signature: Yes Med Rec Note Co-signed by Attending: Coverage Notice Comment: ANY HOME HEALTH PROVIDER Last DP export: 09/27/19 3:32 p Patient Name: SHARON BLANTON Page [id number] at 1652 All edits/amendments must be made on the electronic document DICTATION DATE: 09/29/191651 PLANT PRODUCTION MANAGER: MAGNO 09/29/191651 RPT#: [id number] DC DATE: STATUS: ADM IN [facility] [address] [place] [address] END OF REPORT
--- NOTE | 2019-09-29 17:02 | MORECARE ---
CASE MANAGEMENT DISCHARGE SUMMARY PATIENT: SHARON BLANTON UNIT: [id number] ADM DATE: 09/25/19 AGE: 58 : 58 SEX: F ROOM/BED: D.2142 AUTHOR: ERICKA WARREN PHYSICIAN: REFERRING PHYSICIAN: LARS AKERS MD DATE OF SERVICE: 09/29/19 Discharge Plan Patient Name: SHARON BLANTON Facility: [facility]:[place] : 1960 Planned Disposition: Home with Home Health Anticipated Discharge Date: Discharge Date: Expected LOS: Initial Reviewer: [id number] Initial Review Date: 09/27/2019 Generated: 09/29/19 6:02 pm DCP- Discharge Planning Updated by [id number]: Gerardo Lisa on 09/29/19 3:[address] Patient Name: SHARON BLANTON Encounter No: [id number] : 1960 Primary Insurance: [facility] MANAGED MEDICAID Anticipated DC Date: Planned Disposition: Home with Home Health External Planned Provider: ANY HOME HEALTH PROVIDER DCP follow-up note: CM SPOKE TO PT ABOUT GOING TO REHAB. CM EXPLAINED REHAB PROVIDERS, LOCATIONS AND SERVICES. PT REFUSES INPATIENT AND HALF-WAY REHAB. PT STATES SHE WILL GO HOME AND WILL ACCEPT HOME HEALTH WITH NO PROVIDER PREFERENCE. CHOICE SIGNED WITH REFUSAL OF REHAB SERVICES NOTED. CM PROVIDED PT WITH [facility] ON AGING PHONE NUMBER AND BROCHURE TO CONTACT FOR POSSIBLE MEDICAID COVERED CAREGIVER SERVICES IN THE HOME. PT DENIES FURTHER NEEDS. PT REFUSES REHAB, WILL ACCEPT HOME HEALTH. CM TO ARRANGE HOME HEALTH FOR PT'S DISCHARGE HOME WITH PHYSICIAN AGREEMENT AND HOME HEALTH ORDERS. IF PT IS NOT ABLE TO GET HER POWER OPERATOR TO PICK HER UP AT [facility], CM WILL CALL MEDICAID TRANSPORTATION (WEEKDAYS 8AM TO 4:30PM) TO SCHEDULE TRANSPORTATION HOME AT DISCHARGE. CM TO CONTINUE TO FOLLOW AND ASSIST IF NEEDED. VADIM GALAN DCP- Discharge Planning Updated by [id number]: Gerardo Lisa on 09/27/19 3:[address] Patient Name: SHARON BLANTON Admission Status: ER Accout number: [id number] Admission Date: 09-25-2019 : 1960 Admission Diagnosis: Attending: LARS AKERS Current LOS: 2 Anticipated DC Date: Planned Disposition: Home Primary Insurance: [employer] MANAGED MEDICAID Discharge Planning Comments: CM MET WITH PT IN ROOM TO DISCUSS DISCHARGE PLANNING AND NEEDS. PT REPORTS LIVING AT HOME INDEPENDENTLY AND ALONE. PT HAS NO MEDICAL EQUIPMENT AND NO OUTSIDE SERVICES ASSISTING IN THE HOME. CM DISCUSSED AVAILABILITY OF HOME HEALTH, REHAB SERVICES AND MEDICAL EQUIPMENT. PT DENIES DISCHARGE NEEDS, REPORTS SHE DOES NOT KNOW HOW SHE WILL BE GETTING HOME, STATES THE HOSPITAL HAS GIVEN HER A TAXI IN THE PAST. CM EXPLAINED THAT THE HOSPITAL HAS VERY LIMITED RESOURCES AND ASKED HOW PT GOT HOME LAST VISIT, PT STATES HER POWER OPERATOR PICKED HER UP. CM DISCUSSED DEVELOPING A PERSONAL SUPPORT SYSTEM FOR TIMES WHEN PT NEEDS ASSISTANCE. PT DENIES HAVING MONEY FOR TAXI CAB HOME. SHE MAY CALL HER POWER OPERATOR TO SEE IF THEY WILL PICK HER UP BUT STATES THE DOCTOR SAYS SHE WILL BE HERE FOR A "MINUTE". CM EXPLAINED IT IS NOT TOO EARLY TO BE PLANNING FOR PT'S DISCHARGE. PT REPORTS UNDERSTANDING. PT WOULD LIKE TO HAVE PERSONAL CARE AT HOME. CM EXPLAINED APPLICATION PROCESS AT DEPARTMENT OF HUMAN SERVICES, ALSO PROVIDED PT WITH [facility] ON AGING CONTACT INFOMATION AND DISCUSSED THAT SANG PROGRAM MAY BE AVAILABLE AND INSTRUCTED PT TO CALL THE AREA AGENCY ON AGING. PT STATES SHE WILL DO THIS. PT PROVIDED HER CUSTOMER SERVICE NUMBER FOR INSURANCE FOR CM TO CHECK TO SEE IF PT HAS TRANSPORATION BENEFIT; CM CALLED [phone], 4 TIMES AND RECEIVED NO ANSWER. PT NOTIFIED. PT PLANS TO DISCHARGE HOME, DENIES DISCHARGE NEEDS OTHER THAN TRANSPORATATION HOME. PT PLANS TO CALL HER POWER OPERATOR TO SEE IF HE WILL PICK HER UP. CM TO CONTINUE TO FOLLOW AND ASSIST NEEDED. Broadcast Systems Engineer: Gerardo Lisa Appended by Gerardo Lisa on 09/27/2019 16:26 TRUANT OFFICER: CM CALLED PT'S INSURANCE COMPANY, , SPOKE TO ROBERT WHO INFORMED CM THAT PT HAS NO TRANSPORATION BENEFITS WITH [employer]. REFERENCE # [id number]. CM CALLED MAURICE WITH [employer] WHO PROVIDED PT'S ACTIVE AR WORKS MEDCAID NUMBER OF [id number]. CM CALLED MEDICAID TRANSPORTATION, , SPOKE TO RONALDO WHO ADVISED THAT PT DOES HAVE TRANSPORATION BENEFIT OF 4 TRIPS PER YEAR AND HAS USED NONE THIS YEAR. CM PROVIDED PT WITH HER MEDICAID NUMBER, MEDICAID TRANSPORATION NUMBER AND NOTIFED SHE HAS 4 TRIPS PER YEAR THAT SHE CAN USE. PT REPORTS UNDERSTANDING AND DENIES FURTHER DISCHARGE NEEDS AT THIS TIME. IF PT IS NOT ABLE TO GET HER POWER OPERATOR TO PICK HER UP AT [facility], CM WILL CALL MEDICAID TRANSPORTATION (WEEKDAYS 8AM TO 4:30PM) TO SCHEDULE TRANSPORTATION HOME AT DISCHARGE. CM TO CONTINUE TO FOLLOW AND ASSIST IF NEEDED. GERARDO LISA, CASE MANAGEMENT DCPIA - Discharge Planning Initial Assessment Updated by [id number]: Gerardo Lisa on 09/27/19 3:36 pm * Is the patient Alert and Oriented? Yes * How many steps to enter\\exit or inside your home? 17 * PCP [facility], [place] REPORTS GOING TO BOTH [facility] LOCATIONS * Pharmacy [place] * Preadmission Environment Home Alone * ADLs Independent * Equipment Nebulizer Oxygen Walker * Other Equipment HOME AND PORTABLE OXYGEN - [facility] * List name and contact numbers for known caregivers / representatives who currently or will assist patient after discharge: REYES PANDEY, SISTER, * Verbal permission to speak to the caregivers and representatives has been obtained from the patient. N/A * Community resources currently utilized None * Please name any agencies selected above. NONE * Additional services required to return to the preadmission environment? No * Can the patient safely return to the preadmission environment? Yes * Has this patient been hospitalized within the prior 30 days at any hospital? Yes Coverage Notice Reviewer: [id number] - Gerardo Lisa Notice Issued Date-Time: 09/29/2019 13:40 Notice Type: IM Discharge Notice Notice Delivered To: Patient Relationship to Patient: Inspector Screen Printing Name: Delivery Method: HAND - Hand Delivered Brigette Days: Prior Verbal Notification: Recipient Understood Notice: Yes Recipient Signature: Yes Med Rec Note Co-signed by Attending: Coverage Notice Comment: ANY HOME HEALTH PROVIDER Last DP export: 09/29/19 3:52 p Patient Name: SHARON BLANTON Page 10831 at 1702 All edits/amendments must be made on the electronic document DICTATION DATE: 09/29/191701 WELDER APPRENTICE GAS: MAGNO 09/29/191701 RPT#: [id number] DC DATE: STATUS: ADM IN [facility] [address] [facility] [place] [address] END OF REPORT
[2019-09-29 17:34] VITALS: BP 108/58
--- NOTE | 2019-09-29 19:10 | NUR ---
BEDSIDE REPORT RECEIVED FROM DAY SHIFT, PT CARE ASSUMED. INTRODUCED SELF AND WROTE NAME ON BOARD. ASSISTED PT OFF BEDSIDE COMMODE AND BACK INTO BED. AAOX4, DENIES ANY NEEDS AT THIS TIME. BED IN LOWEST POSITION, SR X2, CALL LIGHT WITHIN REACH. WILL CONTINUE TO MONITOR.
[2019-09-29 20:00] VITALS: BP 107/49
[2019-09-30] VITALS: BP 105/56
[2019-09-30 04:30] VITALS: BP 114/58
[2019-09-30 06:12] LABS: BASOPHILS 0.2 % (0-2); EOSINOPHILS 2.3 % (0-7); HEMATOCRIT 33.4 % (36.0-48.0); HEMOGLOBIN 9.6 g/dL (12-16); IMMATURE GRANULOCYTES 0.3 % (0-5); LYMPHOCYTES 10.7 % (15-50); MCH 28.7 pg (26.0-34.0); MCHC 28.7 g/dL (31.0-37.0); MEAN PLATELET VOLUME 10.6 fL (7.4-10.4); MONOCYTES 9.5 % (2-11); PLATELET COUNT 172 10x3/uL (130-400); RBC 3.34 10x6/uL (4.00-5.40); RDW 14.2 % (11.5-14.5)
[2019-09-30 06:21] LABS: WBC 6.6 10x3/uL (4.8-10.8)
[2019-09-30 06:37] LABS: CALC OSMOLALITY 281 mosm/kg (275-300); CALCIUM 8.2 mg/dL (8.5-10.1); CHLORIDE - SERUM 104 mmol/L (98-107); CREATININE - SERUM 0.4 mg/dL (0.6-1.3); GLUCOSE 83 mg/dL (74-106); POTASSIUM - SERUM 5.2 mmol/L (3.5-5.1); SODIUM 143 mmol/L (136-145); UREA NITROGEN 8 mg/dL (7-18); eGFR NON AFRICAN AMERICAN > 90 mL/min (90-120)
[2019-09-30 06:38] LABS: CARBON DIOXIDE 42.6 mmol/L (21.0-32.0)
--- NOTE | 2019-09-30 07:20 | NUR ---
pt received awake and alert in bed. fresh blankets given per request. bsc emptied and charted.
[2019-09-30 09:12] VITALS: BP 105/53; BP 159/83
[2019-09-30 13:23] VITALS: BP 104/48
[2019-09-30 17:06] VITALS: BP 127/56
--- NOTE | 2019-09-30 19:10 | NUR ---
BEDSIDE REPORT RECEIVED FROM DAY SHIFT, PT CARE ASSUMED. WROTE NAME ON BOARD. PT SITTING UP IN BED, WATCHING TV, AAOX4. REQUESTING CUP OF ICE, PROVIDED. DENIES ANY OTHER NEEDS AT THIS TIME. BED IN LOWEST POSITION, SR X2, CALL LIGHT WITHIN REACH. WILL CONTINUE TO MONITOR.
[2019-09-30 20:00] VITALS: BP 127/65
[2019-10-01] VITALS (7 sets, daily range): BP systolic 99–118; BP diastolic 36–59
--- NOTE | 2019-10-01 07:53 | NUR ---
PT LAYING SUPINE. RR EVEN AND UNLABORED.DENIES NEEDS OR PAIN AT THIS TIME. BED IN LOWEST POSTITION. CALL LIGHT WITHIN REACH. WILL CONTINUE TO MONITOR.
--- NOTE | 2019-10-01 14:59 | NUR ---
I have reviewed this patient and I concur with the Shift Assessment completed by the Licensed Practical Nurse today this shift.
[2019-10-01 17:14] LABS: BASOPHILS 0.1 % (0-2); EOSINOPHILS 1.3 % (0-7); HEMATOCRIT 35.4 % (36.0-48.0); HEMOGLOBIN 10.4 g/dL (12-16); IMMATURE GRANULOCYTES 0.3 % (0-5); LYMPHOCYTES 11.6 % (15-50); MCH 28.9 pg (26.0-34.0); MCHC 29.4 g/dL (31.0-37.0); MCV 98.3 fL (80.0-100.0); MEAN PLATELET VOLUME 10.8 fL (7.4-10.4); MONOCYTES 11.4 % (2-11); NEUTROPHILS 75.3 % (40-80); PLATELET COUNT 174 10x3/uL (130-400); RDW 14.2 % (11.5-14.5)
[2019-10-01 17:39] LABS: CALCIUM 8.2 mg/dL (8.5-10.1); CHLORIDE - SERUM 99 mmol/L (98-107); GLUCOSE 97 mg/dL (74-106); MAGNESIUM - SERUM 1.9 mg/dL (1.8-2.4); POTASSIUM - SERUM 5.1 mmol/L (3.5-5.1); SODIUM 140 mmol/L (136-145)
[2019-10-01 17:40] LABS: CALC OSMOLALITY 279 mosm/kg (275-300); CREATININE - SERUM 0.6 mg/dL (0.6-1.3); UREA NITROGEN 15 mg/dL (7-18); eGFR NON AFRICAN AMERICAN > 90 mL/min (90-120)
[2019-10-01 17:46] LABS: CARBON DIOXIDE 45.8 mmol/L (21.0-32.0)
[2019-10-02 01:21] VITALS: BP 102/47
[2019-10-02 05:21] VITALS: BP 99/48
[2019-10-02 06:35] LABS: BASOPHILS 0 % (0-2); EOSINOPHILS 1.7 % (0-7); HEMATOCRIT 32.5 % (36.0-48.0); HEMOGLOBIN 9.5 g/dL (12-16); IMMATURE GRANULOCYTES 0.4 % (0-5); MCH 28.7 pg (26.0-34.0); MCHC 29.2 g/dL (31.0-37.0); MCV 98.2 fL (80.0-100.0); MEAN PLATELET VOLUME 10.7 fL (7.4-10.4); MONOCYTES 11.7 % (2-11); NEUTROPHILS 73.2 % (40-80); PLATELET COUNT 168 10x3/uL (130-400); RBC 3.31 10x6/uL (4.00-5.40); RDW 14.4 % (11.5-14.5)
[2019-10-02 06:41] LABS: CALCIUM 8.2 mg/dL (8.5-10.1); CHLORIDE - SERUM 103 mmol/L (98-107); CREATININE - SERUM 0.5 mg/dL (0.6-1.3); GLUCOSE 86 mg/dL (74-106); MAGNESIUM - SERUM 1.9 mg/dL (1.8-2.4); POTASSIUM - SERUM 4.9 mmol/L (3.5-5.1); SODIUM 142 mmol/L (136-145); eGFR NON AFRICAN AMERICAN > 90 mL/min (90-120)
[2019-10-02 06:45] LABS: WBC 5.3 10x3/uL (4.8-10.8)
[2019-10-02 07:19] LABS: CALC OSMOLALITY 279 mosm/kg (275-300); CARBON DIOXIDE 42.1 mmol/L (21.0-32.0); UREA NITROGEN 8 mg/dL (7-18)
--- NOTE | 2019-10-02 09:00 | NUR ---
PT A/OX4. PT SOB O2 DROPPED TO 80%. RT CALLED TO ROOM. PT NOW ON 10L HIGHFLOW AND RECIEVED UPDRAFT. EKG DONE. PT COMPLAING OF CHEST PRESSURE. EKG IN CHART. STUDENT NURSE At bedside WILL CONTINUE TO MONITOR.
[2019-10-02 09:01] VITALS: BP 111/51
--- NOTE | 2019-10-02 11:59 | NUR ---
PT SITTING UP IN BED A/OX4 EATING LUNCH. O2-94%. NO S/S OF DISTRESS AT THIS TIME. BED LOW CALL LIGHT WITHIN REACH. WILL CONTINUE TO MONITOR.
[2019-10-02 16:46] VITALS: BP 106/45
[2019-10-02 20:23] VITALS: BP 112/56
[2019-10-03 00:11] VITALS: BP 99/41
[2019-10-03 05:03] VITALS: BP 112/51
[2019-10-03 06:11] LABS: BASOPHILS 0.1 % (0-2); EOSINOPHILS 1.4 % (0-7); HEMATOCRIT 30.2 % (36.0-48.0); IMMATURE GRANULOCYTES 0.3 % (0-5); LYMPHOCYTES 12.3 % (15-50); MCH 28.8 pg (26.0-34.0); MCHC 29.8 g/dL (31.0-37.0); MCV 96.8 fL (80.0-100.0); MEAN PLATELET VOLUME 10.7 fL (7.4-10.4); MONOCYTES 9.7 % (2-11); NEUTROPHILS 76.2 % (40-80); PLATELET COUNT 164 10x3/uL (130-400); RBC 3.12 10x6/uL (4.00-5.40); RDW 14.5 % (11.5-14.5)
[2019-10-03 06:20] LABS: CALC OSMOLALITY 282 mosm/kg (275-300); CALCIUM 8.5 mg/dL (8.5-10.1); CHLORIDE - SERUM 103 mmol/L (98-107); CREATININE - SERUM 0.5 mg/dL (0.6-1.3); GLUCOSE 79 mg/dL (74-106); MAGNESIUM - SERUM 1.9 mg/dL (1.8-2.4); SODIUM 143 mmol/L (136-145); UREA NITROGEN 10 mg/dL (7-18); eGFR NON AFRICAN AMERICAN > 90 mL/min (90-120)
[2019-10-03 06:24] LABS: WBC 7.4 10x3/uL (4.8-10.8)
[2019-10-03 06:37] LABS: CARBON DIOXIDE 42.4 mmol/L (21.0-32.0)
--- NOTE | 2019-10-03 07:44 | NUR ---
RECIEVED REPORT. PATIENT IS SITTING UP IN BED, ALERT AND AWAKE , DENIES ANY NEEDS AT THIS TIME.
[2019-10-03 08:36] VITALS: BP 121/54
[2019-10-03 11:47] VITALS: BP 112/60
--- NOTE | 2019-10-03 15:05 | NUR ---
Nutrition Follow-up: Nausea improving. Continues to have diarrhea. Ate 100% of breakfast this AM; ~50% of lunch. Diet: Cardiac No new wt; last wt: 100# (09/26) Labs reviewed Meds noted: Lomotil, Protonix -Continue current diet as tolerated. -[place] food preferences within diet restrictions. -Monitor wt. -RD following.
--- NOTE | 2019-10-03 19:28 | NUR ---
EVENING ROUNDS COMPLETE. PT SITTING UP ON SIDE OF BED. NO SIGNS OF DISTRESS. PT DENIES ANY NEEDS AT THIS TIME. CONT PULSE OX ON READING 93% WITH PT ON 5L OF O2 VIA HF NC. CL IN REACH, BED IN LOWEST POSITION.
--- NOTE | 2019-10-03 19:36 | NUR ---
PT C/O HEADACHE AND ANXIETY. PRN TYLENOL AND XANAX GIVEN AT THIS TIME. CL IN REACH, BED IN LOWEST POSITION
[2019-10-03 20:50] VITALS: BP 106/44
[2019-10-04 00:09] VITALS: BP 109/51
[2019-10-04 06:24] VITALS: BP 115/58
[2019-10-04 07:03] LABS: BASOPHILS 0.3 % (0-2); EOSINOPHILS 1.6 % (0-7); HEMATOCRIT 33.9 % (36.0-48.0); HEMOGLOBIN 10.1 g/dL (12-16); IMMATURE GRANULOCYTES 0.1 % (0-5); LYMPHOCYTES 12.7 % (15-50); MCH 29.2 pg (26.0-34.0); MCHC 29.8 g/dL (31.0-37.0); MEAN PLATELET VOLUME 10.7 fL (7.4-10.4); MONOCYTES 12.6 % (2-11); NEUTROPHILS 72.7 % (40-80); PLATELET COUNT 191 10x3/uL (130-400); RBC 3.46 10x6/uL (4.00-5.40); RDW 14.8 % (11.5-14.5)
[2019-10-04 07:19] LABS: CALC OSMOLALITY 277 mosm/kg (275-300); CALCIUM 8.6 mg/dL (8.5-10.1); CHLORIDE - SERUM 101 mmol/L (98-107); CREATININE - SERUM 0.4 mg/dL (0.6-1.3); GLUCOSE 83 mg/dL (74-106); MAGNESIUM - SERUM 2.1 mg/dL (1.8-2.4); POTASSIUM - SERUM 4.4 mmol/L (3.5-5.1); SODIUM 141 mmol/L (136-145); UREA NITROGEN 8 mg/dL (7-18); eGFR NON AFRICAN AMERICAN > 90 mL/min (90-120)
[2019-10-04 07:42] LABS: CARBON DIOXIDE 44.2 mmol/L (21.0-32.0)
--- NOTE | 2019-10-04 07:42 | NUR ---
PT RECEIVED SITTING UP IN BED, AWAKE AND ALERT. ASKING FOR FLONASE. WHILE OXYGEN REMOVED GETTING SPRAY, PULSE OX DOWN TO 66%. REPLACED NC AND BACK UP TO 97%.
[2019-10-04 09:32] VITALS: BP 108/57
[2019-10-04 13:37] VITALS: BP 134/63
[2019-10-04 16:00] VITALS: BP 127/60
[2019-10-04 21:33] VITALS: BP 114/46
--- NOTE | 2019-10-04 22:30 | NUR ---
PT STATES SHE IS FEELING ANXIOUS, AND SHE IS HAVING A HEADACHE OF 8/10. XANAX AND TYLENOL GIVEN, ALONGSIDE TESSALON PERLE FOR COUGH. PT VOICED THANKS. WILL CTM. CL WITHIN REACH.
[2019-10-05] VITALS: BP 131/51
[2019-10-05 04:00] VITALS: BP 104/54
[2019-10-05 07:07] LABS: BASOPHILS 0.3 % (0-2); EOSINOPHILS 1.3 % (0-7); HEMATOCRIT 32.4 % (36.0-48.0); HEMOGLOBIN 9.7 g/dL (12-16); IMMATURE GRANULOCYTES 0.1 % (0-5); LYMPHOCYTES 12.3 % (15-50); MCH 29.1 pg (26.0-34.0); MCHC 29.9 g/dL (31.0-37.0); MCV 97.3 fL (80.0-100.0); MEAN PLATELET VOLUME 10.8 fL (7.4-10.4); MONOCYTES 14.4 % (2-11); NEUTROPHILS 71.6 % (40-80); PLATELET COUNT 209 10x3/uL (130-400); RBC 3.33 10x6/uL (4.00-5.40); RDW 14.7 % (11.5-14.5); WBC 7.5 10x3/uL (4.8-10.8)
[2019-10-05 07:08] LABS: CALC OSMOLALITY 281 mosm/kg (275-300); CALCIUM 8.9 mg/dL (8.5-10.1); CHLORIDE - SERUM 101 mmol/L (98-107); CREATININE - SERUM 0.5 mg/dL (0.6-1.3); GLUCOSE 78 mg/dL (74-106); POTASSIUM - SERUM 4.4 mmol/L (3.5-5.1); SODIUM 143 mmol/L (136-145); UREA NITROGEN 8 mg/dL (7-18); eGFR NON AFRICAN AMERICAN > 90 mL/min (90-120)
--- NOTE | 2019-10-05 07:10 | NUR ---
PT RECEIVED SITTING ON SIDE OF BED, AWAKE AND ALERT. CONT PULSE OX IN PLACE.
[2019-10-05 07:14] LABS: CARBON DIOXIDE 42.8 mmol/L (21.0-32.0)
--- NOTE | 2019-10-05 08:53 | MORECARE ---
CASE MANAGEMENT DISCHARGE SUMMARY PATIENT: SHARON BLANTON UNIT: [id number] ADM DATE: 09/25/19 AGE: 58 : 58 SEX: F ROOM/BED: D.2147 AUTHOR: ERICKA WARREN PHYSICIAN: REFERRING PHYSICIAN: LARS AKERS MD DATE OF SERVICE: 10/05/19 Discharge Plan Patient Name: SHARON BLANTON Facility: [facility]:[place] : 1960 Planned Disposition: Home with Home Health Anticipated Discharge Date: Discharge Date: Expected LOS: Initial Reviewer: [id number] Initial Review Date: 09/27/2019 Generated: 10/05/19 9:53 am DCP- Discharge Planning Updated by [id number]: Gerardo Lisa on 09/29/19 3:[address] Patient Name: SHARON BLANTON Encounter No: [id number] : 1960 Primary Insurance: [facility]ID Anticipated DC Date: Planned Disposition: Home with Home Health External Planned Provider: ANY HOME HEALTH PROVIDER DCP follow-up note: CM SPOKE TO PT ABOUT GOING TO REHAB. CM EXPLAINED REHAB PROVIDERS, LOCATIONS AND SERVICES. PT REFUSES INPATIENT AND INTERMEDIATE REHAB. PT STATES SHE WILL GO HOME AND WILL ACCEPT HOME HEALTH WITH NO PROVIDER PREFERENCE. CHOICE SIGNED WITH REFUSAL OF REHAB SERVICES NOTED. CM PROVIDED PT WITH [facility] ON AGING PHONE NUMBER AND BROCHURE TO CONTACT FOR POSSIBLE MEDICAID COVERED CAREGIVER SERVICES IN THE HOME. PT DENIES FURTHER NEEDS. PT REFUSES REHAB, WILL ACCEPT HOME HEALTH. CM TO ARRANGE HOME HEALTH FOR PT'S DISCHARGE HOME WITH PHYSICIAN AGREEMENT AND HOME HEALTH ORDERS. IF PT IS NOT ABLE TO GET HER FARM EQUIPMENT MECHANIC TO PICK HER UP AT [facility], CM WILL CALL MEDICAID TRANSPORTATION (WEEKDAYS 8AM TO 4:30PM) TO SCHEDULE TRANSPORTATION HOME AT DISCHARGE. CM TO CONTINUE TO FOLLOW AND ASSIST IF NEEDED. VADIM GALAN DCP- Discharge Planning Updated by [id number]: Gerardo Lisa on 09/27/19 3:[address] Patient Name: SHARON BLANTON Admission Status: ER Accout number: [id number] Admission Date: 09-25-2019 : 1960 Admission Diagnosis: Attending: LARS AKERS Current LOS: 2 Anticipated DC Date: Planned Disposition: Home Primary Insurance: [employer] MANAGED MEDICAID Discharge Planning Comments: CM MET WITH PT IN ROOM TO DISCUSS DISCHARGE PLANNING AND NEEDS. PT REPORTS LIVING AT HOME INDEPENDENTLY AND ALONE. PT HAS NO MEDICAL EQUIPMENT AND NO OUTSIDE SERVICES ASSISTING IN THE HOME. CM DISCUSSED AVAILABILITY OF HOME HEALTH, REHAB SERVICES AND MEDICAL EQUIPMENT. PT DENIES DISCHARGE NEEDS, REPORTS SHE DOES NOT KNOW HOW SHE WILL BE GETTING HOME, STATES THE HOSPITAL HAS GIVEN HER A TAXI IN THE PAST. CM EXPLAINED THAT THE HOSPITAL HAS VERY LIMITED RESOURCES AND ASKED HOW PT GOT HOME LAST VISIT, PT STATES HER FARM EQUIPMENT MECHANIC PICKED HER UP. CM DISCUSSED DEVELOPING A PERSONAL SUPPORT SYSTEM FOR TIMES WHEN PT NEEDS ASSISTANCE. PT DENIES HAVING MONEY FOR TAXI CAB HOME. SHE MAY CALL HER FARM EQUIPMENT MECHANIC TO SEE IF THEY WILL PICK HER UP BUT STATES THE DOCTOR SAYS SHE WILL BE HERE FOR A "MINUTE". CM EXPLAINED IT IS NOT TOO EARLY TO BE PLANNING FOR PT'S DISCHARGE. PT REPORTS UNDERSTANDING. PT WOULD LIKE TO HAVE PERSONAL CARE AT HOME. CM EXPLAINED APPLICATION PROCESS AT DEPARTMENT OF HUMAN SERVICES, ALSO PROVIDED PT WITH [facility] ON AGING CONTACT INFOMATION AND DISCUSSED THAT SANG PROGRAM MAY BE AVAILABLE AND INSTRUCTED PT TO CALL THE AREA AGENCY ON AGING. PT STATES SHE WILL DO THIS. PT PROVIDED HER CUSTOMER SERVICE NUMBER FOR INSURANCE FOR CM TO CHECK TO SEE IF PT HAS TRANSPORATION BENEFIT; CM CALLED [phone], 4 TIMES AND RECEIVED NO ANSWER. PT NOTIFIED. PT PLANS TO DISCHARGE HOME, DENIES DISCHARGE NEEDS OTHER THAN TRANSPORATATION HOME. PT PLANS TO CALL HER FARM EQUIPMENT MECHANIC TO SEE IF HE WILL PICK HER UP. CM TO CONTINUE TO FOLLOW AND ASSIST NEEDED. Sales Representative Aircraft: Gerardo Lisa Appended by Gerardo Lisa on 09/27/2019 16:26 PIPE PROCESSOR: CM CALLED PT'S INSURANCE COMPANY, , SPOKE TO ROBERT WHO INFORMED CM THAT PT HAS NO TRANSPORATION BENEFITS WITH [employer]. REFERENCE # [id number]. CM CALLED MAURICE WITH [employer] WHO PROVIDED PT'S ACTIVE AR WORKS MEDCAID NUMBER OF [id number]. CM CALLED MEDICAID TRANSPORTATION, , SPOKE TO RONALDO WHO ADVISED THAT PT DOES HAVE TRANSPORATION BENEFIT OF 4 TRIPS PER YEAR AND HAS USED NONE THIS YEAR. CM PROVIDED PT WITH HER MEDICAID NUMBER, MEDICAID TRANSPORATION NUMBER AND NOTIFED SHE HAS 4 TRIPS PER YEAR THAT SHE CAN USE. PT REPORTS UNDERSTANDING AND DENIES FURTHER DISCHARGE NEEDS AT THIS TIME. IF PT IS NOT ABLE TO GET HER FARM EQUIPMENT MECHANIC TO PICK HER UP AT [facility], CM WILL CALL MEDICAID TRANSPORTATION (WEEKDAYS 8AM TO 4:30PM) TO SCHEDULE TRANSPORTATION HOME AT DISCHARGE. CM TO CONTINUE TO FOLLOW AND ASSIST IF NEEDED. GERARDO LISA, CASE MANAGEMENT DCPIA - Discharge Planning Initial Assessment Updated by [id number]: Gerardo Lisa on 09/27/19 3:36 pm * Is the patient Alert and Oriented? Yes * How many steps to enter\\exit or inside your home? 17 * PCP [facility], [place] REPORTS GOING TO BOTH [facility] AND [facility] LOCATIONS * Pharmacy [place] * Preadmission Environment Home Alone * ADLs Independent * Equipment Nebulizer Oxygen Walker * Other Equipment HOME AND PORTABLE OXYGEN - [facility] * List name and contact numbers for known caregivers / representatives who currently or will assist patient after discharge: REYES PANDEY, SISTER, * Verbal permission to speak to the caregivers and representatives has been obtained from the patient. N/A * Community resources currently utilized None * Please name any agencies selected above. NONE * Additional services required to return to the preadmission environment? No * Can the patient safely return to the preadmission environment? Yes * Has this patient been hospitalized within the prior 30 days at any hospital? Yes External Providers External Provider: [facility] Next Contact Date: 10/05/2019 Service Request Date: Service Type: Resolution: Reviewer: Comments: Coverage Notice Reviewer: [id number] - Gerardo Lisa Notice Issued Date-Time: 09/29/2019 13:40 Notice Type: IM Discharge Notice Notice Delivered To: Patient Relationship to Patient: Director Of Optimization Name: Delivery Method: HAND - Hand Delivered Brigette Days: Prior Verbal Notification: Recipient Understood Notice: Yes Recipient Signature: Yes Med Rec Note Co-signed by Attending: Coverage Notice Comment: ANY HOME HEALTH PROVIDER Last DP export: 09/29/19 4:02 p Patient Name: SHARON BLANTON Page 22684 at 0853 All edits/amendments must be made on the electronic document DICTATION DATE: 10/05/19 0853 RETAIL STORE ASSOCIATE: DM 10/05/1954 RPT#: [id number] DC DATE: STATUS: ADM IN [facility] [address] [place] [address] END OF REPORT
--- NOTE | 2019-10-05 09:08 | MORECARE ---
CASE MANAGEMENT DISCHARGE SUMMARY PATIENT: SHARON BLANTON UNIT: [id number] ADM DATE: 09/25/19 AGE: 58 : 58 SEX: F ROOM/BED: D.2140 AUTHOR: KELVIN,DOC PHYSICIAN: REFERRING PHYSICIAN: LARS AKERS MD DATE OF SERVICE: 10/05/19 Discharge Plan Patient Name: SHARNO BLANTON Facility: [facility]:[place] : 1960 Planned Disposition: Home with Home Health Anticipated Discharge Date: Discharge Date: Expected LOS: Initial Reviewer: [id number] Initial Review Date: 09/27/2019 Generated: 10/05/19 10:07 am Comments DCP- Discharge Planning Updated by [id number]: Gerardo Lisa on 10/05/19 8:[address] Patient Name: SHARON BLANTON Encounter No: [id number] : 1960 Primary Insurance: [employer] MANAGED MEDICAID Anticipated DC Date: Planned Disposition: Home with Home Health External Planned Provider: [facility] DCP follow-up note: CM CALLED [facility], , SPOKE TO TIARA AND PROVIDED REFERRAL INFORMATION, FAXED [facility]FERRAL TO [facility] AT [phone]. TIARA TO RUN PT'S INSURANCE TO CONFIRM INSURANCE NETWORK STATUS. CM WAITING INSURANCE CONFIRMATION FOR HOME HEALTH SERVICES FROM TIARA OF [facility]. Gerardo Lisa CASE MANAGEMENT DCP- Discharge Planning Updated by [id number]: Gerardo Lisa on 09/29/19 3:[address] Patient Name: SHARON BLANTON Encounter No: [id number] : 1960 Primary Insurance: [employer] MANAGED MEDICAID Anticipated DC Date: Planned Disposition: Home with Home Health External Planned Provider: ANY HOME HEALTH PROVIDER DCP follow-up note: CM SPOKE TO PT ABOUT GOING TO REHAB. CM EXPLAINED REHAB PROVIDERS, LOCATIONS AND SERVICES. PT REFUSES INPATIENT AND GROUP HOME REHAB. PT STATES SHE WILL GO HOME AND WILL ACCEPT HOME HEALTH WITH NO PROVIDER PREFERENCE. CHOICE SIGNED WITH REFUSAL OF REHAB SERVICES NOTED. CM PROVIDED PT WITH AREA AGENCY ON AGING PHONE NUMBER AND BROCHURE TO CONTACT FOR POSSIBLE MEDICAID COVERED CAREGIVER SERVICES IN THE HOME. PT DENIES FURTHER NEEDS. PT REFUSES REHAB, WILL ACCEPT HOME HEALTH. CM TO ARRANGE HOME HEALTH FOR PT'S DISCHARGE HOME WITH PHYSICIAN AGREEMENT AND HOME HEALTH ORDERS. IF PT IS NOT ABLE TO GET HER SENIOR LIVING SALES COUNSELOR TO PICK HER UP AT [facility], CM WILL CALL MEDICAID TRANSPORTATION (WEEKDAYS 8AM TO 4:30PM) TO SCHEDULE TRANSPORTATION HOME AT DISCHARGE. CM TO CONTINUE TO FOLLOW AND ASSIST IF NEEDED. GERARDO LISA, CASE MANAGEMENT DCP- Discharge Planning Updated by [id number]: Gerardo Lisa on 09/27/19 3:[address] Patient Name: SHARON BLANTON Admission Status: ER Accout number: [id number] Admission Date: 09-25-2019 : 1960 Admission Diagnosis: Attending: LARS AKERS Current LOS: 2 Anticipated DC Date: Planned Disposition: Home Primary Insurance: [employer] MANAGED MEDICAID Discharge Planning Comments: CM MET WITH PT IN ROOM TO DISCUSS DISCHARGE PLANNING AND NEEDS. PT REPORTS LIVING AT HOME INDEPENDENTLY AND ALONE. PT HAS NO MEDICAL EQUIPMENT AND NO OUTSIDE SERVICES ASSISTING IN THE HOME. CM DISCUSSED AVAILABILITY OF HOME HEALTH, REHAB SERVICES AND MEDICAL EQUIPMENT. PT DENIES DISCHARGE NEEDS, REPORTS SHE DOES NOT KNOW HOW SHE WILL BE GETTING HOME, STATES THE HOSPITAL HAS GIVEN HER A TAXI IN THE PAST. CM EXPLAINED THAT THE HOSPITAL HAS VERY LIMITED RESOURCES AND ASKED HOW PT GOT HOME LAST VISIT, PT STATES HER SENIOR LIVING SALES COUNSELOR PICKED HER UP. CM DISCUSSED DEVELOPING A PERSONAL SUPPORT SYSTEM FOR TIMES WHEN PT NEEDS ASSISTANCE. PT DENIES HAVING MONEY FOR TAXI CAB HOME. SHE MAY CALL HER SENIOR LIVING SALES COUNSELOR TO SEE IF THEY WILL PICK HER UP BUT STATES THE DOCTOR SAYS SHE WILL BE HERE FOR A "MINUTE". CM EXPLAINED IT IS NOT TOO EARLY TO BE PLANNING FOR PT'S DISCHARGE. PT REPORTS UNDERSTANDING. PT WOULD LIKE TO HAVE PERSONAL CARE AT HOME. CM EXPLAINED APPLICATION PROCESS AT DEPARTMENT OF HUMAN SERVICES, ALSO PROVIDED PT WITH AREA AGENCY ON AGING CONTACT INFOMATION AND DISCUSSED THAT SANG PROGRAM MAY BE AVAILABLE AND INSTRUCTED PT TO CALL THE AREA AGENCY ON AGING. PT STATES SHE WILL DO THIS. PT PROVIDED HER CUSTOMER SERVICE NUMBER FOR INSURANCE FOR CM TO CHECK TO SEE IF PT HAS TRANSPORATION BENEFIT; CM CALLED [phone], 4 TIMES AND RECEIVED NO ANSWER. PT NOTIFIED. PT PLANS TO DISCHARGE HOME, DENIES DISCHARGE NEEDS OTHER THAN TRANSPORATATION HOME. PT PLANS TO CALL HER SENIOR LIVING SALES COUNSELOR TO SEE IF HE WILL PICK HER UP. CM TO CONTINUE TO FOLLOW AND ASSIST NEEDED. Electric Appliance Installer: Gerardo Lisa Appended by Gerardo Lisa on 09/27/2019 16:26 PHYSICAL DESIGN ENGINEER: CM CALLED PT'S INSURANCE COMPANY, , SPOKE TO ROBERT WHO INFORMED CM THAT PT HAS NO TRANSPORATION BENEFITS WITH [employer]. REFERENCE # [id number]. CM CALLED MAURICE WITH [employer] WHO PROVIDED PT'S ACTIVE AR WORKS MEDCAID NUMBER OF [id number]. CM CALLED MEDICAID TRANSPORTATION, , SPOKE TO RONALDO WHO ADVISED THAT PT DOES HAVE TRANSPORATION BENEFIT OF 4 TRIPS PER YEAR AND HAS USED NONE THIS YEAR. CM PROVIDED PT WITH HER MEDICAID NUMBER, MEDICAID TRANSPORATION NUMBER AND NOTIFED SHE HAS 4 TRIPS PER YEAR THAT SHE CAN USE. PT REPORTS UNDERSTANDING AND DENIES FURTHER DISCHARGE NEEDS AT THIS TIME. IF PT IS NOT ABLE TO GET HER SENIOR LIVING SALES COUNSELOR TO PICK HER UP AT [facility], CM WILL CALL MEDICAID TRANSPORTATION (WEEKDAYS 8AM TO 4:30PM) TO SCHEDULE TRANSPORTATION HOME AT DISCHARGE. CM TO CONTINUE TO FOLLOW AND ASSIST IF NEEDED. GERARDO LISA, CASE MANAGEMENT DCPIA - Discharge Planning Initial Assessment Updated by [id number]: Gerardo Lisa on 09/27/19 3:36 pm * Is the patient Alert and Oriented? Yes * How many steps to enter\\exit or inside your home? 17 * PCP [facility], [place] REPORTS GOING TO [facility]OTH [facility] LOCATIONS * Pharmacy [place] * Preadmission Environment Home Alone * ADLs Independent * Equipment Nebulizer Oxygen Walker * Other Equipment HOME AND PORTABLE OXYGEN - [facility] * List name and contact numbers for known caregivers / representatives who currently or will assist patient after discharge: REYES PANDEY, SISTER, * Verbal permission to speak to the caregivers and representatives has been obtained from the patient. N/A * Community resources currently utilized None * Please name any agencies selected above. NONE * Additional services required to return to the preadmission environment? No * Can the patient safely return to the preadmission environment? Yes * Has this patient been hospitalized within the prior 30 days at any hospital? Yes Coverage Notice Reviewer: [id number] - Gerardo Lisa Notice Issued Date-Time: 09/29/2019 13:40 Notice Type: IM Discharge Notice Notice Delivered To: Patient Relationship to Patient: Muskrat Trapper Name: Delivery Method: HAND - Hand Delivered Brigette Days: Prior Verbal Notification: Recipient Understood Notice: Yes Recipient Signature: Yes Med Rec Note Co-signed by Attending: Coverage Notice Comment: ANY HOME HEALTH PROVIDER Last DP export: 10/05/19 7:53 a Patient Name: SHARON BLANTON Page 10833 at 0908 All edits/amendments must be made on the electronic document DICTATION DATE: 10/05/19906 RUBY ON RAILS DEVELOPER: MAGNO 10/05/19906 RPT#: [id number] DC DATE: STATUS: ADM IN [facility] [address] [place] [address] END OF REPORT
[2019-10-05 09:09] VITALS: BP 120/61
[2019-10-05 12:34] VITALS: BP 125/77
--- NOTE | 2019-10-05 14:49 | MORECARE ---
CASE MANAGEMENT DISCHARGE SUMMARY PATIENT: SHARON BLANTON UNIT: [id number] ADM DATE: 09/25/19 AGE: 58 : 58 SEX: F ROOM/BED: D.2140 AUTHOR: KELVIN,DOC PHYSICIAN: REFERRING PHYSICIAN: LARS AKERS MD DATE OF SERVICE: 10/05/19 Discharge Plan Patient Name: SHARON BLANTON Facility: [facility]:[place] : 1960 Planned Disposition: Home with Home Health Anticipated Discharge Date: Discharge Date: Expected LOS: Initial Reviewer: [id number] Initial Review Date: 09/27/2019 Generated: 10/05/19 3:49 pm Comments DCP- Discharge Planning Updated by [id number]: Gerardo Lisa on 10/05/19 8:[address] Patient Name: SHARON BLANTON Encounter No: [id number] : 1960 Primary Insurance: NOVASYS MANAGED MEDICAID Anticipated DC Date: Planned Disposition: Home with Home Health External Planned Provider: [facility] DCP follow-up note: CM CALLED [facility], , SPOKE TO TIARA AND PROVIDED REFERRAL INFORMATION, FAXED REFERRAL TO [facility] AT [phone]. TIARA TO RUN PT'S INSURANCE TO CONFIRM INSURANCE NETWORK STATUS. CM WAITING INSURANCE CONFIRMATION FOR HOME HEALTH SERVICES FROM TIARA OF [facility]. Gerardo Lisa CASE MANAGEMENT DCP- Discharge Planning Updated by [id number]: Gerardo Lisa on 09/29/19 3:[address] Patient Name: SHARON BLANTON Encounter No: [id number] : 1960 Primary Insurance: NOVASYS MANAGED MEDICAID Anticipated DC Date: Planned Disposition: Home with Home Health External Planned Provider: ANY HOME HEALTH PROVIDER DCP follow-up note: CM SPOKE TO PT ABOUT GOING TO REHAB. CM EXPLAINED REHAB PROVIDERS, LOCATIONS AND SERVICES. PT REFUSES INPATIENT AND [facility] RE[facility]. PT STATES SHE WILL GO HOME AND WILL ACCEPT HOME HEALTH WITH NO PROVIDER PREFERENCE. CHOICE SIGNED WITH REFUSAL OF REHAB SERVICES NOTED. CM PROVIDED PT WITH [facility] ON AGING PHONE NUMBER AND BROCHURE TO CONTACT FOR POSSIBLE MEDICAID COVERED CAREGIVER SERVICES IN THE HOME. PT DENIES FURTHER NEEDS. PT REFUSES REHAB, WILL ACCEPT HOME HEALTH. CM TO ARRANGE HOME HEALTH FOR PT'S DISCHARGE HOME WITH PHYSICIAN AGREEMENT AND HOME HEALTH ORDERS. IF PT IS NOT ABLE TO GET HER ANTENNA INSTALLER TO PICK HER UP AT [facility], CM WILL CALL MEDICAID TRANSPORTATION (WEEKDAYS 8AM TO 4:30PM) TO SCHEDULE TRANSPORTATION HOME AT DISCHARGE. CM TO CONTINUE TO FOLLOW AND ASSIST IF NEEDED. GERARDO LISA, CASE MANAGEMENT DCP- Discharge Planning Updated by [id number]: Gerardo Lisa on 09/27/19 3:[address] Patient Name: SHARON BLANTON Admission Status: ER Accout number: [id number] Admission Date: 09-25-2019 : 1960 Admission Diagnosis: Attending: LARS AKERS Current LOS: 2 Anticipated DC Date: Planned Disposition: Home Primary Insurance: NOVASYS MANAGED MEDICAID Discharge Planning Comments: CM MET WITH PT IN ROOM TO DISCUSS DISCHARGE PLANNING AND NEEDS. PT REPORTS LIVING AT HOME INDEPENDENTLY AND ALONE. PT HAS NO MEDICAL EQUIPMENT AND NO OUTSIDE SERVICES ASSISTING IN THE HOME. CM DISCUSSED AVAILABILITY OF HOME HEALTH, REHAB SERVICES AND MEDICAL EQUIPMENT. PT DENIES DISCHARGE NEEDS, REPORTS SHE DOES NOT KNOW HOW SHE WILL BE GETTING HOME, STATES THE HOSPITAL HAS GIVEN HER A TAXI IN THE PAST. CM EXPLAINED THAT THE HOSPITAL HAS VERY LIMITED RESOURCES AND ASKED HOW PT GOT HOME LAST VISIT, PT STATES HER ANTENNA INSTALLER PICKED HER UP. CM DISCUSSED DEVELOPING A PERSONAL SUPPORT SYSTEM FOR TIMES WHEN PT NEEDS ASSISTANCE. PT DENIES HAVING MONEY FOR TAXI CAB HOME. SHE MAY CALL HER ANTENNA INSTALLER TO SEE IF THEY WILL PICK HER UP BUT STATES THE DOCTOR SAYS SHE WILL BE HERE FOR A "MINUTE". CM EXPLAINED IT IS NOT TOO EARLY TO BE PLANNING FOR PT'S DISCHARGE. PT REPORTS UNDERSTANDING. PT WOULD LIKE TO HAVE PERSONAL CARE AT HOME. CM EXPLAINED APPLICATION PROCESS AT DEPARTMENT OF HUMAN SERVICES, ALSO PROVIDED PT WITH [facility] ON AGING CONTACT INFOMATION AND DISCUSSED THAT SANG PROGRAM MAY BE AVAILABLE AND INSTRUCTED PT TO CALL THE AREA AGENCY ON AGING. PT STATES SHE WILL DO THIS. PT PROVIDED HER CUSTOMER SERVICE NUMBER FOR INSURANCE FOR CM TO CHECK TO SEE IF PT HAS TRANSPORATION BENEFIT; CM CALLED [phone], 4 TIMES AND RECEIVED NO ANSWER. PT NOTIFIED. PT PLANS TO DISCHARGE HOME, DENIES DISCHARGE NEEDS OTHER THAN TRANSPORATATION HOME. PT PLANS TO CALL HER ANTENNA INSTALLER TO SEE IF HE WILL PICK HER UP. CM TO CONTINUE TO FOLLOW AND ASSIST NEEDED. Medical Clinic Manager: Gerardo Lisa Appended by Gerardo Lisa on 09/27/2019 16:26 CONSERVATOR ARTIFACTS: CM CALLED PT'S INSURANCE COMPANY, , SPOKE TO ROBERT WHO INFORMED CM THAT PT HAS NO TRANSPORATION BENEFITS WITH [employer]. REFERENCE # [id number]. CM CALLED MAURICE WITH [employer] WHO PROVIDED PT'S ACTIVE [employer] WORKS MEDCAID NUMBER OF [id number]. CM CALLED MEDICAID TRANSPORTATION, , SPOKE TO RONALDO WHO ADVISED THAT PT DOES HAVE TRANSPORATION BENEFIT OF 4 TRIPS PER YEAR AND HAS USED NONE THIS YEAR. CM PROVIDED PT WITH HER MEDICAID NUMBER, MEDICAID TRANSPORATION NUMBER AND NOTIFED SHE HAS 4 TRIPS PER YEAR THAT SHE CAN USE. PT REPORTS UNDERSTANDING AND DENIES FURTHER DISCHARGE NEEDS AT THIS TIME. IF PT IS NOT ABLE TO GET HER ANTENNA INSTALLER TO PICK HER UP AT [facility], CM WILL CALL MEDICAID TRANSPORTATION (WEEKDAYS 8AM TO 4:30PM) TO SCHEDULE TRANSPORTATION HOME AT DISCHARGE. CM TO CONTINUE TO FOLLOW AND ASSIST IF NEEDED. GERARDO LISA, CASE MANAGEMENT DCPIA - Discharge Planning Initial Assessment Updated by [id number]: Gerardo Lisa on 09/27/19 3:36 pm * Is the patient Alert and Oriented? Yes * How many steps to enter\\exit or inside your home? 17 * PCP [facility] [place] RE[facility] GOING TO BOTH [facility] AND [facility] LOCATIONS * Pharmacy [facility] * Preadmission Environment Home Alone * ADLs Independent * Equipment Nebulizer Oxygen Walker * Other Equipment HOME AND PORTABLE OXYGEN - [facility] * List name and contact numbers for known caregivers / representatives who currently or will assist patient after discharge: REYES PANDEY, SISTER, * Verbal permission to speak to the caregivers and representatives has been obtained from the patient. N/A * Community resources currently utilized None * Please name any agencies selected above. NONE * Additional services required to return to the preadmission environment? No * Can the patient safely return to the preadmission environment? Yes * Has this patient been hospitalized within the prior 30 days at any hospital? Yes External Providers External Provider: [facility] Next Contact Date: 10/05/2019 Service Request Date: Service Type: Resolution: Reviewer: Comments: Coverage Notice Reviewer: [id number] - Gerardo Lisa Notice Issued Date-Time: 09/29/2019 13:40 Notice Type: IM Discharge Notice Notice Delivered To: Patient Relationship to Patient: School Athletic Director Name: Delivery Method: HAND - Hand Delivered Brigette Days: Prior Verbal Notification: Recipient Understood Notice: Yes Recipient Signature: Yes Med Rec Note Co-signed by Attending: Coverage Notice Comment: ANY HOME HEALTH PROVIDER Last DP export: 10/05/19 8:08 a Patient Name: SHARON BLANTON Page 52206 at 1449 All edits/amendments must be made on the electronic document DICTATION DATE: 10/05/19 1449 SUPERVISOR ASSEMBLING: MAGNO 10/05/19 1449 RPT#: [id number] DC DATE: STATUS: ADM IN [facility] [address] [place] [address] END OF REPORT
--- NOTE | 2019-10-05 15:00 | MORECARE ---
CASE MANAGEMENT DISCHARGE SUMMARY PATIENT: SHARON BLANTON UNIT: [id number] ADM DATE: 09/25/19 AGE: 58 : 58 SEX: F ROOM/BED: D.2140 AUTHOR: KELVIN,DOC PHYSICIAN: REFERRING PHYSICIAN: LARS AKERS MD DATE OF SERVICE: 10/05/19 Discharge Plan Patient Name: SHARON BLANTON Facility: [facility]:[place] : 1960 Planned Disposition: Home with Home Health Anticipated Discharge Date: Discharge Date: Expected LOS: Initial Reviewer: [id number] Initial Review Date: 09/27/2019 Generated: 10/05/19 4:00 pm Comments DCP- Discharge Planning Updated by [id number]: Sorin Lisa on 10/05/19 1:[address] Patient Name: SHARON BLANTON Encounter No: [id number] : 1960 Primary Insurance: NOVASYS MANAGED MEDICAID Anticipated DC Date: Planned Disposition: Home with Home Health External Planned Provider: [facility] DCP follow-up note: CM RECEIVED MESSAGE FROM TIARA OF [facility], THEY ARE NOT IN NETWORK WITH PT'S INSURANCE COMPANY. CM CALLED [facility], , SPOKE TO MISHA, PROVIDED REFERRAL INFORMATION, THEY WILL CHECK WITH INSURANCE TO SEE IF THEY ARE IN NETWORK. CM FAXED REFERRAL INFORMATION TO [facility], . CM WAITING CONFIRMATION THAT [facility] IS IN PATIENTS INSURANCE NETWORK. VADIM Galan DCP- Discharge Planning Updated by [id number]: Sorin Lisa on 10/05/19 8:[address] Patient Name: SHARON BLANTON Encounter No: [id number] : 1960 Primary Insurance: NOVASYS MANAGED MEDICAID Anticipated DC Date: Planned Disposition: Home with Home Health External Planned Provider: [facility] DCP follow-up note: CM CALLED [facility], , SPOKE TO TIARA AND PROVIDED REFERRAL INFORMATION, FAXED REFERRAL TO [facility] AT [phone]. TIARA TO RUN PT'S INSURANCE TO CONFIRM INSURANCE NETWORK STATUS. CM WAITING INSURANCE CONFIRMATION FOR HOME HEALTH SERVICES FROM TIARA [facility]. VADIM Galan DCP- Discharge Planning Updated by [id number]: Sorin Lisa on 09/29/19 3:[address] Patient Name: SHARON BLANTON Encounter No: [id number] : 1960 Primary Insurance: NOVASYS MANAGED MEDICAID Anticipated DC Date: Planned Disposition: Home with Home Health External Planned Provider: ANY HOME HEALTH PROVIDER DCP follow-up note: CM SPOKE TO PT ABOUT GOING TO REHAB. CM EXPLAINED REHAB PROVIDERS, LOCATIONS AND SERVICES. PT REFUSES INPATIENT AND [facility]EN[facility]ENTIARY REHAB. PT STATES SHE WILL GO HOME AND WILL ACCEPT HOME HEALTH WITH NO PROVIDER PREFERENCE. CHOICE SIGNED WITH REFUSAL OF REHAB SERVICES NOTED. CM PROVIDED PT WITH [facility] ON AGING PHONE NUMBER AND BROCHURE TO CONTACT FOR POSSIBLE MEDICAID COVERED CAREGIVER SERVICES IN THE HOME. PT DENIES FURTHER NEEDS. PT REFUSES REHAB, WILL ACCEPT HOME HEALTH. CM TO ARRANGE HOME HEALTH FOR PT'S DISCHARGE HOME WITH PHYSICIAN AGREEMENT AND HOME HEALTH ORDERS. IF PT IS NOT ABLE TO GET HER CLAIM INSPECTOR TO PICK HER UP AT [facility], CM WILL CALL MEDICAID TRANSPORTATION (DAYS 8AM TO 4:30PM) TO SCHEDULE TRANSPORTATION HOME AT DISCHARGE. CM TO CONTINUE TO FOLLOW AND ASSIST IF NEEDED. VADIM GALAN DCP- Discharge Planning Updated by [id number]: Sorin Lisa on 09/27/19 3:[address] Patient Name: SHARON BLANTON Admission Status: ER Accout number: [id number] Admission Date: 09-25-2019 : 1960 Admission Diagnosis: Attending: LARS AKERS Current LOS: 2 Anticipated DC Date: Planned Disposition: Home Primary Insurance: NOVASYS MANAGED MEDICAID Discharge Planning Comments: CM MET WITH PT IN ROOM TO DISCUSS DISCHARGE PLANNING AND NEEDS. PT REPORTS LIVING AT HOME INDEPENDENTLY AND ALONE. PT HAS NO MEDICAL EQUIPMENT AND NO OUTSIDE SERVICES ASSISTING IN THE HOME. CM DISCUSSED AVAILABILITY OF HOME HEALTH, REHAB SERVICES AND MEDICAL EQUIPMENT. PT DENIES DISCHARGE NEEDS, REPORTS SHE DOES NOT KNOW HOW SHE WILL BE GETTING HOME, STATES THE HOSPITAL HAS GIVEN HER A TAXI IN THE PAST. CM EXPLAINED THAT THE HOSPITAL HAS VERY LIMITED RESOURCES AND ASKED HOW PT GOT HOME LAST VISIT, PT STATES HER CLAIM INSPECTOR PICKED HER UP. CM DISCUSSED DEVELOPING A PERSONAL SUPPORT SYSTEM FOR TIMES WHEN PT NEEDS ASSISTANCE. PT DENIES HAVING MONEY FOR TAXI CAB HOME. SHE MAY CALL HER CLAIM INSPECTOR TO SEE IF THEY WILL PICK HER UP BUT STATES THE DOCTOR SAYS SHE WILL BE HERE FOR A "MINUTE". CM EXPLAINED IT IS NOT TOO EARLY TO BE PLANNING FOR PT'S DISCHARGE. PT REPORTS UNDERSTANDING. PT WOULD LIKE TO HAVE PERSONAL CARE AT HOME. CM EXPLAINED APPLICATION PROCESS AT DEPARTMENT OF HUMAN SERVICES, ALSO PROVIDED PT WITH [facility] ON AGING CONTACT INFOMATION AND DISCUSSED THAT SANG PROGRAM MAY BE AVAILABLE AND INSTRUCTED PT TO CALL THE [facility] ON AGING. PT STATES SHE WILL DO THIS. PT PROVIDED HER CUSTOMER SERVICE NUMBER FOR INSURANCE FOR CM TO CHECK TO SEE IF PT HAS TRANSPORATION BENEFIT; CM CALLED [phone], 4 TIMES AND RECEIVED NO ANSWER. PT NOTIFIED. PT PLANS TO DISCHARGE HOME, DENIES DISCHARGE NEEDS OTHER THAN TRANSPORATATION HOME. PT PLANS TO CALL HER CLAIM INSPECTOR TO SEE IF HE WILL PICK HER UP. CM TO CONTINUE TO FOLLOW AND ASSIST NEEDED. Fire Fighter: Sorin Lisa Appended by Sorin Lisa on 09/27/2019 16:26 ASSEMBLY STOCK SUPERVISOR: CM CALLED PT'S INSURANCE COMPANY, , SPOKE TO ROBERT WHO INFORMED CM THAT PT HAS NO TRANSPORATION BENEFITS WITH [employer]. REFERENCE # [id number]. CM CALLED MAURICE WITH [employer] WHO PROVIDED PT'S ACTIVE [employer] WOR[employer] MEDCAID NUMBER OF [id number]. CM CALLED MEDICAID TRANSPORTATION, , SPOKE TO RONALDO WHO ADVISED THAT PT DOES HAVE TRANSPORATION BENEFIT OF 4 TRIPS PER YEAR AND HAS USED NONE THIS YEAR. CM PROVIDED PT WITH HER MEDICAID NUMBER, MEDICAID TRANSPORATION NUMBER AND NOTIFED SHE HAS 4 TRIPS PER YEAR THAT SHE CAN USE. PT REPORTS UNDERSTANDING AND DENIES FURTHER DISCHARGE NEEDS AT THIS TIME. IF PT IS NOT ABLE TO GET HER CLAIM INSPECTOR TO PICK HER UP AT [facility], CM WILL CALL MEDICAID TRANSPORTATION (WEEKDAYS 8AM TO 4:30PM) TO SCHEDULE TRANSPORTATION HOME AT DISCHARGE. CM TO CONTINUE TO FOLLOW AND ASSIST IF NEEDED. SORIN LISA, CASE MANAGEMENT DCPIA - Discharge Planning Initial Assessment Updated by [id number]: Sorin Lisa on 09/27/19 3:36 pm * Is the patient Alert and Oriented? Yes * How many steps to enter\\exit or inside your home? 17 * [facility] GO[facility] TO [facility]OTH [facility] AND [facility] LOCATIONS * Pharmacy [facility] * Preadmission Environment Home Alone * ADLs Independent * Equipment Nebulizer Oxygen Walker * Other Equipment HOME AND PORTABLE OXYGEN - [facility] * List name and contact numbers for known caregivers / representatives who currently or will assist patient after discharge: REYES PANDEY, SISTER, * Verbal permission to speak to the caregivers and representatives has been obtained from the patient. N/A * Community resources currently utilized None * Please name any agencies selected above. NONE * Additional services required to return to the preadmission environment? No * Can the patient safely return to the preadmission environment? Yes * Has this patient been hospitalized within the prior 30 days at any hospital? Yes Coverage Notice Reviewer: [id number] Delma Lisa Notice Issued Date-Time: 09/29/2019 13:40 Notice Type: IM Discharge Notice Notice Delivered To: Patient Relationship to Patient: Pie Dough Roller Name: Delivery Method: HAND - Hand Delivered Brigette Days: Prior Verbal Notification: Recipient Understood Notice: Yes Recipient Signature: Yes Med Rec Note Co-signed by Attending: Coverage Notice Comment: ANY HOME HEALTH PROVIDER Last DP export: 10/05/19 1:49 p Patient Name: SHARON BLANTON Page 93920 at 1500 All edits/amendments must be made on the electronic document DICTATION DATE: 10/05/19 1500 SOFTWARE TEST ENGINEER: MAGNO 10/05/19 1500 RPT#: [id number] DC DATE: STATUS: ADM IN [facility] [address] [place] [address] END OF REPORT
[2019-10-05] MEDS ORDERED: CARDIZEM LA240 MG PO (15:28)
[2019-10-05 16:45] VITALS: BP 101/48
--- NOTE | 2019-10-05 17:27 | MORECARE ---
CASE MANAGEMENT DISCHARGE SUMMARY PATIENT: SHARON BLANTON UNIT: [id number] ADM DATE: 09/25/19 AGE: 58 : 58 SEX: F ROOM/BED: D.2146 AUTHOR: KELVIN,DOC PHYSICIAN: REFERRING PHYSICIAN: LARS AKERS MD DATE OF SERVICE: 10/05/19 Discharge Plan Patient Name: SHARON BLANTON Facility: [facility]:[place] : 1960 Planned Disposition: Home with Home Health Anticipated Discharge Date: 10/06/19 Discharge Date: Expected LOS: 11 Initial Reviewer: [id number] Initial Review Date: 09/27/2019 Generated: 10/05/19 6:26 pm Comments DCP- Discharge Planning Updated by [id number]: Sorin Lisa on 10/05/19 4:[address] Patient Name: SHARON BLANTON Encounter No: [id number] : 1960 Primary Insurance: NOVASYS MANAGED MEDICAID Anticipated DC Date: 10-06-2019 Planned Disposition: Home with Home Health External Planned Provider: [facility] DCP follow-up note: CM RECEIVED CALL FROM MISHA OF [facility]. THEY WILL ACCEPT PT FOR HOME HEALTH, SCHEDULED ADMISSION 10-08-19. FOR DISCHARGE, [facility], . FAX DISCHARGE INFORMATION TO [facility], . Sorin Lisa, CASE MANAGEMENT DCP- Discharge Planning Updated by [id number]: Sorin Lisa on 10/05/19 1:[address] Patient Name: SHARON BLANTON Encounter No: [id number] : 1960 Primary Insurance: NOVASYS MANAGED MEDICAID Anticipated DC Date: Planned Disposition: Home with Home Health External Planned Provider: [facility] DCP follow-up note: CM RECEIVED MESSAGE FROM TIARA [facility], THEY ARE NOT IN NETWORK WITH PT'S INSURANCE COMPANY. CM CALLED [email or web address], , SPOKE TO MISHA, PROVIDED REFERRAL INFORMATION, THEY WILL CHECK WITH INSURANCE TO SEE IF THEY ARE IN NETWORK. CM FAXED REFERRAL INFORMATION TO [employer] [facility], . CM WAITING CONFIRMATION THAT [facility] IS IN PATIENTS INSURANCE NETWORK. VADIM Galan DCP- Discharge Planning Updated by [id number]: Sorin Lisa on 10/05/19 8:[address] Patient Name: SHARON BLANTON Encounter No: [id number] : 1960 Primary Insurance: NOVASYS MANAGED MEDICAID Anticipated DC Date: Planned Disposition: Home with Home Health External Planned Provider: [facility] DCP follow-up note: CM CALLED [facility], , SPOKE TO TIARA AND PROVIDED REFERRAL INFORMATION, FAXED REFERRAL TO [facility] AT [phone]. TIARA TO RUN PT'S INSURANCE TO CONFIRM INSURANCE NETWORK STATUS. CM WAITING INSURANCE CONFIRMATION FOR HOME HEALTH SERVICES FROM TIARA OF [facility]. VADIM Galan DCP- Discharge Planning Updated by [id number]: Sorin Lisa on 09/29/19 3:[address] Patient Name: SHARON BLANTON Encounter No: [id number] : 1960 Primary Insurance: NOVASYS MANAGED MEDICAID Anticipated DC Date: Planned Disposition: Home with Home Health External Planned Provider: ANY HOME HEALTH PROVIDER DCP follow-up note: CM SPOKE TO PT ABOUT GOING TO REHAB. CM EXPLAINED REHAB PROVIDERS, LOCATIONS AND SERVICES. PT REFUSES INPATIENT AND INTERMEDIATE REHAB. PT STATES SHE WILL GO HOME AND WILL ACCEPT HOME HEALTH WITH NO PROVIDER PREFERENCE. CHOICE SIGNED WITH REFUSAL OF REHAB SERVICES NOTED. CM PROVIDED PT WITH [facility] ON AGING PHONE NUMBER AND BROCHURE TO CONTACT FOR POSSIBLE MEDICAID COVERED CAREGIVER SERVICES IN THE HOME. PT DENIES FURTHER NEEDS. PT REFUSES REHAB, WILL ACCEPT HOME HEALTH. CM TO ARRANGE HOME HEALTH FOR PT'S DISCHARGE HOME WITH PHYSICIAN AGREEMENT AND HOME HEALTH ORDERS. IF PT IS NOT ABLE TO GET HER CHIP TESTER TO PICK HER UP AT [facility], CM WILL CALL MEDICAID TRANSPORTATION (WEEKDAYS 8AM TO 4:30PM) TO SCHEDULE TRANSPORTATION HOME AT DISCHARGE. CM TO CONTINUE TO FOLLOW AND ASSIST IF NEEDED. VADIM GALAN DCP- Discharge Planning Updated by [id number]: Sorin Lisa on 09/27/19 3:[address] Patient Name: SHARON BLANTON Admission Status: ER Accout number: [id number] Admission Date: 09-25-2019 : 1960 Admission Diagnosis: Attending: LARS AKERS Current LOS: 2 Anticipated DC Date: Planned Disposition: Home Primary Insurance: [employer] MANAGED MEDICAID Discharge Planning Comments: CM MET WITH PT IN ROOM TO DISCUSS DISCHARGE PLANNING AND NEEDS. PT REPORTS LIVING AT HOME INDEPENDENTLY AND ALONE. PT HAS NO MEDICAL EQUIPMENT AND NO OUTSIDE SERVICES ASSISTING IN THE HOME. CM DISCUSSED AVAILABILITY OF HOME HEALTH, REHAB SERVICES AND MEDICAL EQUIPMENT. PT DENIES DISCHARGE NEEDS, REPORTS SHE DOES NOT KNOW HOW SHE WILL BE GETTING HOME, STATES THE HOSPITAL HAS GIVEN HER A TAXI IN THE PAST. CM EXPLAINED THAT THE HOSPITAL HAS VERY LIMITED RESOURCES AND ASKED HOW PT GOT HOME LAST VISIT, PT STATES HER CHIP TESTER PICKED HER UP. CM DISCUSSED DEVELOPING A PERSONAL SUPPORT SYSTEM FOR TIMES WHEN PT NEEDS ASSISTANCE. PT DENIES HAVING MONEY FOR TAXI CAB HOME. SHE MAY CALL HER CHIP TESTER TO SEE IF THEY WILL PICK HER UP BUT STATES THE DOCTOR SAYS SHE WILL BE HERE FOR A "MINUTE". CM EXPLAINED IT IS NOT TOO EARLY TO BE PLANNING FOR PT'S DISCHARGE. PT REPORTS UNDERSTANDING. PT WOULD LIKE TO HAVE PERSONAL CARE AT HOME. CM EXPLAINED APPLICATION PROCESS AT DEPARTMENT OF HUMAN SERVICES, ALSO PROVIDED PT WITH [facility] ON AGING CONTACT INFOMATION AND DISCUSSED THAT SANG PROGRAM MAY BE AVAILABLE AND INSTRUCTED PT TO CALL THE AREA AGENCY ON AGING. PT STATES SHE WILL DO THIS. PT PROVIDED HER CUSTOMER SERVICE NUMBER FOR INSURANCE FOR CM TO CHECK TO SEE IF PT HAS TRANSPORATION BENEFIT; CM CALLED [phone], 4 TIMES AND RECEIVED NO ANSWER. PT NOTIFIED. PT PLANS TO DISCHARGE HOME, DENIES DISCHARGE NEEDS OTHER THAN TRANSPORATATION HOME. PT PLANS TO CALL HER CHIP TESTER TO SEE IF HE WILL PICK HER UP. CM TO CONTINUE TO FOLLOW AND ASSIST NEEDED. Work Station Support Specialist: Sorin Lisa Appended by Sorin Lisa on 09/27/2019 16:26 BRAIDED BAND ASSEMBLER: CM CALLED PT'S INSURANCE COMPANY, , SPOKE TO ROBERT WHO INFORMED CM THAT PT HAS NO TRANSPORATION BENEFITS WITH [employer]. REFERENCE # [id number]. CM CALLED MAURICE WITH [employer] WHO PROVIDED PT'S ACTIVE [employer] MEDCAID NUMBER OF [id number]. CM CALLED MEDICAID TRANSPORTATION, , SPOKE TO RONALDO WHO ADVISED THAT PT DOES HAVE TRANSPORATION BENEFIT OF 4 TRIPS PER YEAR AND HAS USED NONE THIS YEAR. CM PROVIDED PT WITH HER MEDICAID NUMBER, MEDICAID TRANSPORATION NUMBER AND NOTIFED SHE HAS 4 TRIPS PER YEAR THAT SHE CAN USE. PT REPORTS UNDERSTANDING AND DENIES FURTHER DISCHARGE NEEDS AT THIS TIME. IF PT IS NOT ABLE TO GET HER CHIP TESTER TO PICK HER UP AT [facility], CM WILL CALL MEDICAID TRANSPORTATION (WEEKDAYS 8AM TO 4:30PM) TO SCHEDULE TRANSPORTATION HOME AT DISCHARGE. CM TO CONTINUE TO FOLLOW AND ASSIST IF NEEDED. SORIN LISA, CASE MANAGEMENT DCPIA - Discharge Planning Initial Assessment Updated by [id number]: Sorin Lisa on 09/27/19 3:36 pm * Is the patient Alert and Oriented? Yes * How many steps to enter\\exit or inside your home? 17 * PCP [facility] [place] REPORTS GOING TO [facility]OTH [facility] AND [facility] * Pharmacy [place] * Preadmission Environment Home Alone * ADLs Independent * Equipment Nebulizer Oxygen Walker * Other Equipment HOME AND PORTABLE OXYGEN - [facility] * List name and contact numbers for known caregivers / representatives who currently or will assist patient after discharge: REYES PANDEY, SISTER, * Verbal permission to speak to the caregivers and representatives has been obtained from the patient. N/A * Community resources currently utilized None * Please name any agencies selected above. NONE * Additional services required to return to the preadmission environment? No * Can the patient safely return to the preadmission environment? Yes * Has this patient been hospitalized within the prior 30 days at any hospital? Yes Coverage Notice Reviewer: [id number] - Sorin Lisa Notice Issued Date-Time: 09/29/2019 13:40 Notice Type: IM Discharge Notice Notice Delivered To: Patient Relationship to Patient: Digital Producer Name: Delivery Method: HAND - Hand Delivered Brigette Days: Prior Verbal Notification: Recipient Understood Notice: Yes Recipient Signature: Yes Med Rec Note Co-signed by Attending: Coverage Notice Comment: ANY HOME HEALTH PROVIDER Last DP export: 10/05/19 2:00 p Patient Name: SHARON BLANTON Page 81455 at 1727 All edits/amendments must be made on the electronic document DICTATION DATE: 10/05/191725 COMPOUND MACHINE OPERATOR: MAGNO 10/05/191725 RPT#: [id number] DC DATE: STATUS: ADM IN [facility] [address] [place] [address] END OF REPORT
[2019-10-05 20:00] VITALS: BP 112/54
[2019-10-06 04:00] VITALS: BP 112/56
[2019-10-06 05:14] LABS: BASOPHILS 0.4 % (0-2); EOSINOPHILS 1.5 % (0-7); HEMATOCRIT 32.4 % (36.0-48.0); HEMOGLOBIN 9.5 g/dL (12-16); IMMATURE GRANULOCYTES 0.3 % (0-5); LYMPHOCYTES 16.4 % (15-50); MCH 28.9 pg (26.0-34.0); MCHC 29.3 g/dL (31.0-37.0); MCV 98.5 fL (80.0-100.0); MEAN PLATELET VOLUME 10.7 fL (7.4-10.4); MONOCYTES 10.9 % (2-11); NEUTROPHILS 70.5 % (40-80); PLATELET COUNT 226 10x3/uL (130-400); RBC 3.29 10x6/uL (4.00-5.40); RDW 14.6 % (11.5-14.5); WBC 7.4 10x3/uL (4.8-10.8)
[2019-10-06 05:45] LABS: CALC OSMOLALITY 281 mosm/kg (275-300); CALCIUM 8.8 mg/dL (8.5-10.1); CARBON DIOXIDE 39.8 mmol/L (21.0-32.0); CHLORIDE - SERUM 102 mmol/L (98-107); CREATININE - SERUM 0.5 mg/dL (0.6-1.3); GLUCOSE 90 mg/dL (74-106); MAGNESIUM - SERUM 1.9 mg/dL (1.8-2.4); POTASSIUM - SERUM 4.6 mmol/L (3.5-5.1); SODIUM 142 mmol/L (136-145); UREA NITROGEN 10 mg/dL (7-18); eGFR NON AFRICAN AMERICAN > 90 mL/min (90-120)
--- NOTE | 2019-10-06 08:57 | NUR ---
PAGE INTO DR STEEN FOR DISCHARGE ORDERS ON THIS PAIIENT. PATIENT HAS DC ORDERS FROM PRIMARY. AWAITING CALL BACK.
--- NOTE | 2019-10-06 08:58 | NUR ---
DR STEEN TO STATE HE WILL PUT IN DC ORDERS.
[2019-10-06 10:20] VITALS: BP 101/40
[2019-10-06 13:49] VITALS: BP 111/53
--- NOTE | 2019-10-06 14:48 | NUR ---
Nutrition Follow-up: Eating lunch at time of visit. Eating well. Reports that she continues to have diarrhea. Diet: Cardiac PO intake: 75-100% Wt: 92.6# (10/04); 100# (09/25 - stated) Labs reviewed Meds noted: Lomotil, Protonix -Continue current diet as tolerated. -Need new wt; noted daily wts ordered. -RD following.
[2019-10-06 16:26] VITALS: BP 113/59
--- NOTE | 2019-10-06 18:23 | MORECARE ---
CASE MANAGEMENT DISCHARGE SUMMARY PATIENT: SHARON BLANTON UNIT: [id number] ADM DATE: 09/25/19 AGE: 58 : 58 SEX: F ROOM/BED: D.2147 AUTHOR: KELVIN,DOC PHYSICIAN: REFERRING PHYSICIAN: LARS AKERS MD DATE OF SERVICE: 10/06/19 Discharge Plan Patient Name: SHARON BLANTON Facility: [facility]:[place] : 1960 Planned Disposition: Home with Home Health Anticipated Discharge Date: 10/06/19 Discharge Date: Expected LOS: 11 Initial Reviewer: [id number] Initial Review Date: 09/27/2019 Generated: 10/06/19 7:23 pm Comments DCP- Discharge Planning Updated by [id number]: Sorin Lisa on 10/06/19 5:[address] Patient Name: SHARON BLANTON Encounter No: [id number] : 1960 Primary Insurance: NOVASYS MANAGED MEDICAID Anticipated DC Date: 10-06-2019 Planned Disposition: Home with Home Health External Planned Provider: [facility] DCP follow-up note: CM RECEIVED CALL FROM [facility]. THEY WILL ACCEPT PT FOR HOME HEALTH, PT [facility]. PT WILL NEED TO HAVE APPOINTMENT TO SEE PCP AFTER DISCHARGE. IF THIS APPOINTMENT IS NOT MADE, PT HAS NO DOCTOR TO SIGN HOME HEALTH ORDERS AND [place] WILL NOT BE ABLE TO ADMIT. FOR DISCHARGE, MAKE APPOINTMENT FOR FOLLOW UP WITH PRIMARY CARE PHYSICIAN, [facility] KAT, OF [facility]. NOTIFY [facility], . FAX DISCHARGE INFORMATION TO [facility], . Sorin Lisa, CASE MANAGEMENT DCP- Discharge Planning Updated by [id number]: Sorin Lisa on 10/05/19 4:[address] Patient Name: SHARON BLANTON Encounter No: [id number] : 1960 Primary Insurance: NOVASYS MANAGED MEDICAID Anticipated DC Date: 10-06-2019 Planned Disposition: Home with Home Health External Planned Provider: [facility] DCP follow-up note: CM RECEIVED CALL FROM [facility]. THEY WILL ACCEPT PT FOR HOME HEALTH, SCHEDULED ADMISSION 10-08-19. [facility] DISCHARGE, [facility], . FAX DISCHARGE INFORMATION TO [facility], . Sorin Lisa CASE MANAGEMENT DCP- Discharge Planning Updated by [id number]: Sorin Lisa on 10/05/19 1:[address] Patient Name: SHARON BLANTON Encounter No: [id number] : 1960 Primary Insurance: NOVASYS MANAGED MEDICAID Anticipated DC Date: Planned Disposition: Home with Home Health External Planned Provider: [facility] DCP follow-up note: CM RECEIVED MESSAGE FROM TIARA OF [facility], THEY ARE NOT IN NETWORK WITH PT'S INSURANCE COMPANY. CM CALLED [facility], , SPOKE TO MISHA, PROVIDED REFERRAL INFORMATION, THEY WILL CHECK WITH INSURANCE TO SEE IF THEY ARE IN NETWORK. CM FAXED [facility]FERRAL INFORMATION TO [facility], . CM WAITING CONFIRMATION THAT [facility] IS IN PATIENTS INSURANCE NETWORK. Sorin Lisa CASE MANAGEMENT DCP- Discharge Planning Updated by [id number]: Sorin Lisa on 10/05/19 8:[address] Patient Name: SHARON BLANTON Encounter No: [id number] : 1960 Primary Insurance: NOV[employer]YS MANAGED MEDICAID Anticipated DC Date: Planned Disposition: Home with Home Health External Planned Provider: [facility] DCP follow-up note: CM CALLED [facility], , SPOKE TO TIARA AND PROVIDED REFERRAL INFORMATION, FAXED REFERRAL TO [facility] AT [phone]. TIARA TO RUN PT'S INSURANCE TO CONFIRM INSURANCE NETWORK STATUS. CM WAITING INSURANCE CONFIRMATION FOR HOME HEALTH SERVICES FROM TIARA OF [facility]. Sorin Lisa CASE MANAGEMENT DCP- Discharge Planning Updated by [id number]: Sorin Lisa on 09/29/19 3:[address] Patient Name: SHARON BLANTON Encounter No: [id number] : 1960 Primary Insurance: NOVASYS MANAGED MEDICAID Anticipated DC Date: Planned Disposition: Home with Home Health External Planned Provider: ANY HOME HEALTH PROVIDER DCP follow-up note: CM SPOKE TO PT ABOUT GOING TO REHAB. CM EXPLAINED REHAB PROVIDERS, LOCATIONS AND SERVICES. PT REFUSES [facility] AND [facility]. PT STATES SHE WILL GO HOME AND WILL ACCEPT HOME HEALTH WITH NO PROVIDER PREFERENCE. CHOICE SIGNED WITH REFUSAL OF REHAB SERVICES NOTED. CM PROVIDED PT WITH [facility] [employer] ON [address] 1 PHONE NUMBER AND BROCHURE TO CONTACT FOR POSSIBLE MEDICAID COVERED CAREGIVER SERVICES IN THE HOME. PT DENIES FURTHER NEEDS. PT REFUSES REHAB, WILL ACCEPT HOME HEALTH. CM TO ARRANGE HOME HEALTH FOR PT'S DISCHARGE HOME WITH PHYSICIAN AGREEMENT AND HOME HEALTH ORDERS. IF PT IS NOT ABLE TO GET HER GRANITE INSTALLER TO PICK HER UP AT [facility], CM WILL CALL MEDICAID TRANSPORTATION (WEEKDAYS 8AM TO 4:30PM) TO SCHEDULE TRANSPORTATION HOME AT DISCHARGE. CM TO CONTINUE TO FOLLOW AND ASSIST IF NEEDED. SORIN LISA, CASE MANAGEMENT DCP- Discharge Planning Updated by [id number]: Sorin Lisa on 09/27/19 3:[address] Patient Name: SHARON BLANTON Admission Status: ER Accout number: [id number] Admission Date: 09-25-2019 : 1960 Admission Diagnosis: Attending: LARS AKERS Current LOS: 2 Anticipated DC Date: Planned Disposition: Home Primary Insurance: NOVASYS MANAGED MEDICAID Discharge Planning Comments: CM MET WITH PT IN ROOM TO DISCUSS DISCHARGE PLANNING AND NEEDS. PT REPORTS LIVING AT HOME INDEPENDENTLY AND ALONE. PT HAS NO MEDICAL EQUIPMENT AND NO OUTSIDE SERVICES ASSISTING IN THE HOME. CM DISCUSSED AVAILABILITY OF HOME HEALTH, REHAB SERVICES AND MEDICAL EQUIPMENT. PT DENIES DISCHARGE NEEDS, REPORTS SHE DOES NOT KNOW HOW SHE WILL BE GETTING HOME, STATES THE HOSPITAL HAS GIVEN HER A TAXI IN THE PAST. CM EXPLAINED THAT THE HOSPITAL HAS VERY LIMITED RESOURCES AND ASKED HOW PT GOT HOME LAST VISIT, PT STATES HER GRANITE INSTALLER PICKED HER UP. CM DISCUSSED DEVELOPING A PERSONAL SUPPORT SYSTEM FOR TIMES WHEN PT NEEDS ASSISTANCE. PT DENIES HAVING MONEY FOR TAXI CAB HOME. SHE MAY CALL HER GRANITE INSTALLER TO SEE IF THEY WILL PICK HER UP BUT STATES THE DOCTOR SAYS SHE WILL BE HERE FOR A "MINUTE". CM EXPLAINED IT IS NOT TOO EARLY TO BE PLANNING FOR PT'S DISCHARGE. PT REPORTS UNDERSTANDING. PT WOULD LIKE TO HAVE PERSONAL CARE AT HOME. CM EXPLAINED APPLICATION PROCESS AT DEPARTMENT OF HUMAN SERVICES, ALSO PROVIDED PT WITH [employer] ON [address] CONTACT INFOMATION AND DISCUSSED THAT SANG PROGRAM MAY BE AVAILABLE AND INSTRUCTED PT TO CALL THE [facility] AGENCY ON [place]ING. PT STATES SHE WILL DO THIS. PT PROVIDED HER CUSTOMER SERVICE NUMBER FOR INSURANCE FOR CM TO CHECK TO SEE IF PT HAS TRANSPORATION BENEFIT; CM CALLED [phone], 4 TIMES AND RECEIVED NO ANSWER. PT NOTIFIED. PT PLANS TO DISCHARGE HOME, DENIES DISCHARGE NEEDS OTHER THAN TRANSPORATATION HOME. PT PLANS TO CALL HER GRANITE INSTALLER TO SEE IF HE WILL PICK HER UP. CM TO CONTINUE TO FOLLOW AND ASSIST NEEDED. Prop Making Supervisor: Sorin Lisa Appended by Sorin Lisa on 09/27/2019 16:26 CHILD CUSTODY EVALUATOR: CM CALLED PT'S INSURANCE COMPANY, , SPOKE TO ROBERT WHO INFORMED CM THAT PT HAS NO TRANSPORATION BENEFITS WITH [facility]. REFERENCE # [id number]. CM CALLED MAURICE WITH [email or web address] WHO PROVIDED PT'S [employer] MEDCAID NUMBER OF [id number]. CM CALLED MEDICAID TRANSPORTATION, , SPOKE TO RONALDO WHO ADVISED THAT PT DOES HAVE TRANSPORATION BENEFIT OF 4 TRIPS PER YEAR AND HAS USED NONE THIS YEAR. CM PROVIDED PT WITH HER MEDICAID NUMBER, MEDICAID TRANSPORATION NUMBER AND NOTIFED SHE HAS 4 TRIPS PER YEAR THAT SHE CAN USE. PT REPORTS UNDERSTANDING AND DENIES FURTHER DISCHARGE NEEDS AT THIS TIME. IF PT IS NOT ABLE TO GET HER GRANITE INSTALLER TO PICK HER UP AT [facility], CM WILL CALL MEDICAID TRANSPORTATION (WEEKDAYS 8AM TO 4:30PM) TO SCHEDULE TRANSPORTATION HOME AT DISCHARGE. CM TO CONTINUE TO FOLLOW AND ASSIST IF NEEDED. SORIN LISA, CASE MANAGEMENT DCPIA - Discharge Planning Initial Assessment Updated by [id number]: Sorin Lisa on 09/27/19 3:36 pm * Is the patient Alert and Oriented? Yes * How many steps to enter\\exit or inside your home? 17 * PCP [facility], [place] REPORTS GOING TO BOTH [facility] AND [facility] LOCATIONS * Pharmacy [place] * Preadmission Environment Home Alone * ADLs Independent * Equipment Nebulizer Oxygen Walker * Other Equipment HOME AND PORTABLE OXYGEN - [employer] * List name and contact numbers for known caregivers / representatives who currently or will assist patient after discharge: REYES PANDEY, SISTER, * Verbal permission to speak to the caregivers and representatives has been obtained from the patient. N/A * Community resources currently utilized None * Please name any agencies selected above. NONE * Additional services required to return to the preadmission environment? No * Can the patient safely return to the preadmission environment? Yes * Has this patient been hospitalized within the prior 30 days at any hospital? Yes Coverage Notice Reviewer: [id number] Delma Lisa Notice Issued Date-Time: 09/29/2019 13:40 Notice Type: IM Discharge Notice Notice Delivered To: Patient Relationship to Patient: Record Librarian Name: Delivery Method: HAND - Hand Delivered Brigette Days: Prior Verbal Notification: Recipient Understood Notice: Yes Recipient Signature: Yes Med Rec Note Co-signed by Attending: Coverage Notice Comment: ANY HOME HEALTH PROVIDER Last DP export: 10/05/19 4:27 p Patient Name: SHARON BLANTON Page 74351 at 1823 All edits/amendments must be made on the electronic document DICTATION DATE: 10/06/191822 FLORAL MANAGER: MAGNO 10/06/191822 RPT#: [id number] DC DATE: STATUS: ADM IN [facility] [address] [place] [address] END OF REPORT
--- NOTE | 2019-10-06 19:00 | NUR ---
REPORT RECEIVED. PT RESTING IN BED RR EVEN AND UNLABORED. CONT PULSE OX ON 97%, O2 VIA NC AT 5L. NO S/SX OF DISTRESS OBSERVED. NO NEEDS EXPRESSED. CALL LIGHT IN REACH, WILL CTM.
[2019-10-06 20:00] VITALS: BP 118/59
--- NOTE | 2019-10-06 22:54 | NUR ---
PT CONTINUES TO LAY IN THE EDGE OF THE BED. ENCOURAGED HER TO EITHER MOVE OVER OR TO LET US ASSIST HER IN A MORE SAFE POSITION. PT REFUSES AND STATES "THIS I HOW I SLEEP". CALL LIGHT IN REACH. WILL CTM.
[2019-10-07] VITALS: BP 107/47
--- NOTE | 2019-10-07 00:14 | NUR ---
PIV TO RIGHT FA D/C WITH CATHETER TIP INTACT. NEW PIV STARTED RIGHT FA, X1 ATTEMPT. PT TOLERATED WELL. WILL CTM.
[2019-10-07 04:00] VITALS: BP 102/42
[2019-10-07 05:00] LABS: BASOPHILS 0.3 % (0-2); EOSINOPHILS 1.3 % (0-7); HEMATOCRIT 34.7 % (36.0-48.0); HEMOGLOBIN 10.1 g/dL (12-16); IMMATURE GRANULOCYTES 0.1 % (0-5); LYMPHOCYTES 15.8 % (15-50); MCHC 29.1 g/dL (31.0-37.0); MCV 99.7 fL (80.0-100.0); MEAN PLATELET VOLUME 10.8 fL (7.4-10.4); MONOCYTES 14.8 % (2-11); NEUTROPHILS 67.7 % (40-80); PLATELET COUNT 219 10x3/uL (130-400); RBC 3.48 10x6/uL (4.00-5.40); RDW 14.7 % (11.5-14.5); WBC 7.2 10x3/uL (4.8-10.8)
[2019-10-07 05:29] LABS: CALC OSMOLALITY 279 mosm/kg (275-300); CALCIUM 8.9 mg/dL (8.5-10.1); CHLORIDE - SERUM 101 mmol/L (98-107); CREATININE - SERUM 0.6 mg/dL (0.6-1.3); GLUCOSE 97 mg/dL (74-106); MAGNESIUM - SERUM 1.8 mg/dL (1.8-2.4); POTASSIUM - SERUM 4.4 mmol/L (3.5-5.1); SODIUM 141 mmol/L (136-145); UREA NITROGEN 10 mg/dL (7-18); eGFR NON AFRICAN AMERICAN > 90 mL/min (90-120)
[2019-10-07 05:30] LABS: CARBON DIOXIDE 40.8 mmol/L (21.0-32.0)
--- NOTE | 2019-10-07 05:53 | NUR ---
PT VERY WEAK DURING THE NIGHT. HAVING DIFFICULTY HOLDING HER CUP TO DRINK.
--- NOTE | 2019-10-07 07:36 | NUR ---
PT AWAKE AND ORIENTED, WENT IN ROOM WITH CL ON, PT SENT ME AWAY REQUESTING AID INSTEAD. PT HAD LONG STRINGS OF GREEN SNOT/SPUTUM HANGING FROM HER MOUTH STATING SHE COULDN'T QUITE GET IT OUT. CL IN REACH, SRX2.
[2019-10-07 09:52] VITALS: BP 124/57
--- NOTE | 2019-10-07 11:25 | NUR ---
I have reviewed this patient and I concur with the Shift Assessment completed by the Licensed Practical Nurse today this shift.
[2019-10-07 12:00] VITALS: BP 123/61
--- NOTE | 2019-10-07 14:49 | NUR ---
rehab prescreen: thank you for this eval, pt has noyasys managed medicaid and will require prior auth at this time. however pt is refusing all therapy so unless she decides to participate inthe required amount of therapy that is required we will be unable to accept her. please feel free to reconsult if anything changes. clinical liasion kelseyangel anne lpn
[2019-10-07 17:04] VITALS: BP 101/52
[2019-10-07 20:00] VITALS: BP 114/39
--- NOTE | 2019-10-07 20:06 | NUR ---
REPORT RECEIVED. BESIDE SHIFT REPORT COMPLETE. PT SITTING ON THE EDGE OF THE BED RR EVEN AND UNLABORED NO 6L NC. NO S/SX OF DISTRESS OBSERVED AT THIS TIME. PT DENIES NEEDS, CALL LIGHT IN REACH. WILL CTM.
[2019-10-08] VITALS: BP 104/49
[2019-10-08 04:00] VITALS: BP 102/41
--- NOTE | 2019-10-08 05:16 | NUR ---
ABGs RESULTED BACK. PT AGREED WITH BIPAP AT THIS TIME. PT VERY ANXIOUS BUT TOLERATING. CALL LIGHT IN REACH.
[2019-10-08 05:33] LABS: BASOPHILS 0.4 % (0-2); EOSINOPHILS 2.5 % (0-7); HEMATOCRIT 33.9 % (36.0-48.0); IMMATURE GRANULOCYTES 0.2 % (0-5); LYMPHOCYTES 20.2 % (15-50); MCH 29.2 pg (26.0-34.0); MCHC 29.5 g/dL (31.0-37.0); MCV 98.8 fL (80.0-100.0); MEAN PLATELET VOLUME 10.2 fL (7.4-10.4); MONOCYTES 12.8 % (2-11); NEUTROPHILS 63.9 % (40-80); PLATELET COUNT 246 10x3/uL (130-400); RBC 3.43 10x6/uL (4.00-5.40); RDW 14.5 % (11.5-14.5)
[2019-10-08 05:35] LABS: WBC 4.8 10x3/uL (4.8-10.8)
[2019-10-08 05:55] LABS: CALC OSMOLALITY 278 mosm/kg (275-300); CALCIUM 8.9 mg/dL (8.5-10.1); CARBON DIOXIDE 39.9 mmol/L (21.0-32.0); CHLORIDE - SERUM 101 mmol/L (98-107); CREATININE - SERUM 0.5 mg/dL (0.6-1.3); GLUCOSE 98 mg/dL (74-106); MAGNESIUM - SERUM 1.8 mg/dL (1.8-2.4); POTASSIUM - SERUM 4.2 mmol/L (3.5-5.1); SODIUM 141 mmol/L (136-145); eGFR NON AFRICAN AMERICAN > 90 mL/min (90-120)
[2019-10-08 06:04] LABS: UREA NITROGEN 7 mg/dL (7-18)
[2019-10-08 08:36] VITALS: BP 115/39
--- NOTE | 2019-10-08 09:40 | NUR ---
PT AWAKE AND OREINTED, NO COMLAINTS OR CONCERNS AT THIS TIME. STATES SHE'S FEELING BETTER. DOES NOT ENJOY BIPAP. CL IN REACH, SRX2.
[2019-10-08 12:22] VITALS: BP 108/49
[2019-10-08 17:24] VITALS: BP 111/43
--- NOTE | 2019-10-08 19:27 | NUR ---
REPORT RECEIVED. BEDSIDE SHIFT REPORT COMPLETE. PT UP IN BED IN HIGH-FOWLERS. RR EVEN AND UNLABORED ON NC. PT TALKING ON PHONE. NO S/SX OF DISTRESS OBSERVED AT THIS TIME. NO NEEDS EXPRESSED. SR X2, CALL LIGHT IN REACH. WILL CTM.
[2019-10-08 20:00] VITALS: BP 111/54
[2019-10-09] VITALS (9 sets, daily range): BP systolic 95–146; BP diastolic 45–78
[2019-10-09 06:40] LABS: BASOPHILS 0.4 % (0-2); HEMATOCRIT 32.9 % (36.0-48.0); HEMOGLOBIN 9.9 g/dL (12-16); IMMATURE GRANULOCYTES 0.2 % (0-5); LYMPHOCYTES 22.9 % (15-50); MCH 29.3 pg (26.0-34.0); MCHC 30.1 g/dL (31.0-37.0); MCV 97.3 fL (80.0-100.0); MEAN PLATELET VOLUME 10.4 fL (7.4-10.4); MONOCYTES 16.7 % (2-11); NEUTROPHILS 57.8 % (40-80); PLATELET COUNT 245 10x3/uL (130-400); RBC 3.38 10x6/uL (4.00-5.40); RDW 14.4 % (11.5-14.5); WBC 4.5 10x3/uL (4.8-10.8)
--- NOTE | 2019-10-09 06:46 | NUR ---
PT C/O PAIN TO IV SITE ON RIGHT FA. UNABLE TO FLUSH. D/C WITH CATHETER TIP INTACT. NEW IV SITED TO RIGHT WRIST X1 ATTEMPT.
[2019-10-09 07:03] LABS: CALCIUM 8.7 mg/dL (8.5-10.1); CHLORIDE - SERUM 101 mmol/L (98-107); CREATININE - SERUM 0.4 mg/dL (0.6-1.3); GLUCOSE 82 mg/dL (74-106); MAGNESIUM - SERUM 1.7 mg/dL (1.8-2.4); PHOSPHOROUS 3.7 mg/dL (2.5-4.9); SODIUM 142 mmol/L (136-145); eGFR NON AFRICAN AMERICAN > 90 mL/min (90-120)
[2019-10-09 07:15] LABS: CALC OSMOLALITY 281 mosm/kg (275-300); UREA NITROGEN 12 mg/dL (7-18)
[2019-10-09 07:16] LABS: CARBON DIOXIDE 40.2 mmol/L (21.0-32.0)
--- NOTE | 2019-10-09 07:39 | NUR ---
PT AWAKEA ND ORIENTED, WILL DOING WALKING ROUNDS NOTED PTS O2 WAS IN THE LOW 70S, ALLOWED HER TO FINISH BREATHING TX BUT THEN TOLD HER TO PUT THE BIPAP BACK ON. PT WAS NOT PLEASED BUT COMPLIED. O2 STEADILY CLIMBINIG BACK UP TO LOW 90S. CL INR EACH, SRX2, PT STATES SHE FEELS FINE.
--- NOTE | 2019-10-09 10:35 | NUR ---
PT AWAKE AND ORIENTED, WILL NOT STOP MESSIG WITH BIPAP MACHINE. INFORMED HER IF SHE DIDNT STOP MESSING WITH IT, HER ABGS WOULD NOT IMPOROVE AND SHE WOULD WIND UP IN ICU INTUBATED PER DR. JUARES. PT DID NOT SEEM PLEASED WITH THIS NAD BEGAN TO PANIC, STATES SHE WILL LEAVE IT ON. WILL NOT LEAVE IT ON. CL INR EACH, SRX2. DR. JUARES INFORME.D
--- NOTE | 2019-10-09 11:34 | MORECARE ---
CASE MANAGEMENT DISCHARGE SUMMARY PATIENT: SHARON BLANTON UNIT: [id number] ADM DATE: 09/25/19 AGE: 58 : 58 SEX: F ROOM/BED: D.2144 AUTHOR: KELVIN,ERICKA PHYSICIAN: REFERRING PHYSICIAN: LARS AKERS MD DATE OF SERVICE: 10/09/19 Discharge Plan Patient Name: SHARON BLANTON Facility: [facility]:[place] : 1960 Planned Disposition: Home with Home Health Anticipated Discharge Date: 10/06/19 Discharge Date: Expected LOS: 11 Initial Reviewer: [id number] Initial Review Date: 09/27/2019 Generated: 10/09/19 12:34 pm Comments DCP- Discharge Planning Updated by [id number]: Sorin Lisa on 10/09/19 10:[address] Patient Name: SHARON BLANTON Encounter No: [id number] : 1960 Primary Insurance: NOVLuqitS MANAGED MEDICAID Anticipated DC Date: 10-06-2019 Planned Disposition: Home with Home Health External Planned Provider:[facility] DCP follow-up note: CM RECEIVED ORDER FOR INPATIENT REHAB PRESCREENING. CM MET WITH PT IN ROOM, DISCUSSED INPATIENT REHAB SERVICES, PROVIDERS AND LOCATIONS. CM DISCUSSED NURING HOME PLACEMENT. PT DECLINES REHAB SERVICES PLACEMENT AND DIRECTOR OF REGULATORY AFFAIRS CARE PLACEMENT. PT STATES SHE IS GOING HOME. PT DOES NOT WANT TO LOOSE HER APARTMENT. PT WILL ACCEPT HOME HEALTH WITH [facility]. CM EXPLAINED TO PT SHE HAS NOT SEEN HER PRIMARY DOCTOR SINCE AND WILL HAVE TO AGREE TO GO TO FOLLOW UP APPOINTMENT WITH PRIMARY DOCTOR SOON AFTER DISCHARGE FOR [facility] TO ACCEPT PATIENT. PT AGREES TO TERMS FOR HOME HEALTH. CARE TEAM UPDATED REGARDING DISCHARGE PLAN IN MULTIDISCIPLINARY TEAM MEETING. FOR DISCHARGE, MAKE APPOINTMENT FOR FOLLOW UP WITH PRIMARY CARE PHYSICIAN, [facility]LA[facility] KAT, OF [facility]. NOTIFY [facility], . FAX DISCHARGE INFORMATION TO [facility], . Sorin Lisa CASE MANAGEMENT DCP- Discharge Planning Updated by [id number]: Sorin Lisa on 10/06/19 5:[address] Patient Name: SHARON BLANTON Encounter No: [id number] : 1960 Primary Insurance: NOVASYS MANAGED MEDICAID Anticipated DC Date: 10-06-2019 Planned Disposition: Home with Home Health External Planned Provider: [facility] DCP follow-up note: CM RECEIVED CALL FROM MISHA OF [facility]. THEY WILL ACCEPT PT FOR HOME HEALTH, PT [facility], SINCE [facility]. PT WILL NEED TO HAVE APPOINTMENT TO SEE PCP AFTER DISCHARGE. IF THIS APPOINTMENT IS NOT MADE, PT HAS NO DOCTOR TO SIGN HOME HEALTH ORDERS AND [facility] WILL NOT BE ABLE TO ADMIT. FOR DISCHARGE, MAKE APPOINTMENT FOR FOLLOW UP WITH PRIMARY CARE PHYSICIAN, BLAZE KAT, OF [facility]. NOTIFY [facility], . FAX DISCHARGE INFORMATION TO [facility], . Sorin Lisa, CASE MANAGEMENT DCP- Discharge Planning Updated by [id number]: Sorin Lisa on 10/05/19 4:[address] Patient Name: SHARON BLANTON Encounter No: [id number] : 1960 Primary Insurance: NOVLuqitS MANAGED MEDICAID Anticipated DC Date: 10-06-2019 Planned Disposition: Home with Home Health External Planned Provider: [facility] DCP follow-up note: CM RECEIVED CALL FROM MISHA OF [facility]. THEY WILL ACCEPT PT FOR HOME HEALTH, SCHEDULED ADMISSION 10-08-19. [facility]CHARGE, [facility], . FAX DISCHARGE INFORMATION TO [facility], . Sorin Lisa CASE WILMA DCP- Discharge Planning Updated by [id number]: Sorin Lisa on 10/05/19 1:[address] Patient Name: SHARON BLANTON Encounter No: [id number] : 1960 Primary Insurance: NOVASYS MANAGED MEDICAID Anticipated DC Date: Planned Disposition: Home with Home Health External Planned Provider: [facility] DCP follow-up note: CM RECEIVED MESSAGE FROM TIARA [facility], THEY ARE NOT IN NETWORK WITH PT'S INSURANCE COMPANY. CM CALLED [facility] [place], , SPOKE TO MISHA, PROVIDED REFERRAL INFORMATION, THEY WILL CHECK WITH INSURANCE TO SEE IF THEY ARE IN NETWORK. CM FAXED REFERRAL INFORMATION TO [facility], . CM WAITING CONFIRMATION THAT [facility] IS IN PATIENTS INSURANCE NETWORK. VADIM Galan DCP- Discharge Planning Updated by [id number]: Sorin Lisa on 10/05/19 8:[address] Patient Name: SHARON BLANTON Encounter No: [id number] : 1960 Primary Insurance: NOVASYS MANAGED MEDICAID Anticipated DC Date: Planned Disposition: Home with Home Health External Planned Provider: [facility] DCP follow-up note: CM CALLED [facility], , SPOKE TO TIARA AND PROVIDED REFERRAL INFORMATION, FAXED REFERRAL TO [facility] AT [phone]. TIARA TO RUN PT'S INSURANCE TO CONFIRM INSURANCE NETWORK STATUS. CM WAITING INSURANCE CONFIRMATION FOR HOME HEALTH SERVICES FROM TIARA OF [facility]. VADIM Galan DCP- Discharge Planning Updated by [id number]: Sorin Lisa on 09/29/19 3:[address] Patient Name: SHARON BLANTON Encounter No: [id number] : 1960 Primary Insurance: NOVASYS MANAGED MEDICAID Anticipated DC Date: Planned Disposition: Home with Home Health External Planned Provider: ANY HOME HEALTH PROVIDER DCP follow-up note: CM SPOKE TO PT ABOUT GOING TO REHAB. CM EXPLAINED REHAB PROVIDERS, LOCATIONS AND SERVICES. PT REFUSES INPATIENT AND [facility] REHAB. PT STATES SHE WILL GO HOME AND WILL ACCEPT HOME HEALTH WITH NO PROVIDER PREFERENCE. CHOICE SIGNED WITH REFUSAL OF REHAB SERVICES NOTED. CM PROVIDED PT WITH [facility] ON [place] PHONE NUMBER AND BROCHURE TO CONTACT FOR POSSIBLE MEDICAID COVERED CAREGIVER SERVICES IN THE HOME. PT DENIES FURTHER NEEDS. PT REFUSES REHAB, WILL ACCEPT HOME HEALTH. CM TO ARRANGE HOME HEALTH FOR PT'S DISCHARGE HOME WITH PHYSICIAN AGREEMENT AND HOME HEALTH ORDERS. IF PT IS NOT ABLE TO GET HER BLEACH MAKER TO PICK HER UP AT [facility], CM WILL CALL MEDICAID TRANSPORTATION (WEEKDAYS 8AM TO 4:30PM) TO SCHEDULE TRANSPORTATION HOME AT DISCHARGE. CM TO CONTINUE TO FOLLOW AND ASSIST IF NEEDED. VADIM GALAN DCP- Discharge Planning Updated by [id number]: Sorin Lisa on 09/27/19 3:[address] Patient Name: SHARON BLANTON Admission Status: ER Accout number: [id number] Admission Date: 09-25-2019 : 1960 Admission Diagnosis: Attending: LARS AKERS Current LOS: 2 Anticipated DC Date: Planned Disposition: Home Primary Insurance: NOVASYS MANAGED MEDICAID Discharge Planning Comments: CM MET WITH PT IN ROOM TO DISCUSS DISCHARGE PLANNING AND NEEDS. PT REPORTS LIVING AT HOME INDEPENDENTLY AND ALONE. PT HAS NO MEDICAL EQUIPMENT AND NO OUTSIDE SERVICES ASSISTING IN THE HOME. CM DISCUSSED AVAILABILITY OF HOME HEALTH, REHAB SERVICES AND MEDICAL EQUIPMENT. PT DENIES DISCHARGE NEEDS, REPORTS SHE DOES NOT KNOW HOW SHE WILL BE GETTING HOME, STATES THE HOSPITAL HAS GIVEN HER A TAXI IN THE PAST. CM EXPLAINED THAT THE HOSPITAL HAS VERY LIMITED RESOURCES AND ASKED HOW PT GOT HOME LAST VISIT, PT STATES HER BLEACH MAKER PICKED HER UP. CM DISCUSSED DEVELOPING A PERSONAL SUPPORT SYSTEM FOR TIMES WHEN PT NEEDS ASSISTANCE. PT DENIES HAVING MONEY FOR TAXI CAB HOME. SHE MAY CALL HER BLEACH MAKER TO SEE IF THEY WILL PICK HER UP BUT STATES THE DOCTOR SAYS SHE WILL BE HERE FOR A "MINUTE". CM EXPLAINED IT IS NOT TOO EARLY TO BE PLANNING FOR PT'S DISCHARGE. PT REPORTS UNDERSTANDING. PT WOULD LIKE TO HAVE PERSONAL CARE AT HOME. CM EXPLAINED APPLICATION PROCESS AT DEPARTMENT OF HUMAN SERVICES, ALSO PROVIDED PT WITH [employer] ON [employer] CONTACT INFOMATION AND DISCUSSED THAT SANG PROGRAM MAY BE AVAILABLE AND INSTRUCTED PT TO CALL THE [employer] AGENCY ON AGING. PT STATES SHE WILL DO THIS. PT PROVIDED HER CUSTOMER SERVICE NUMBER FOR INSURANCE FOR CM TO CHECK TO SEE IF PT HAS TRANSPORATION BENEFIT; CM CALLED [phone], 4 TIMES AND RECEIVED NO ANSWER. PT NOTIFIED. PT PLANS TO DISCHARGE HOME, DENIES DISCHARGE NEEDS OTHER THAN TRANSPORATATION HOME. PT PLANS TO CALL HER BLEACH MAKER TO SEE IF HE WILL PICK HER UP. CM TO CONTINUE TO FOLLOW AND ASSIST NEEDED. Supervisor Shell[employer] Farming: Sorin Lisa Appended by Sorin Lisa on 09/27/2019 16:26 SPRING FITTER: CM CALLED PT'S INSURANCE COMPANY, , SPOKE TO ROBERT WHO INFORMED CM THAT PT HAS NO TRANSPORATION BENEFITS WITH [employer]. REFERENCE # [id number]. CM CALLED MAURICE WITH [employer] WHO PROVIDED PT'S ACTIVE [employer] MEDCAID NUMBER OF [id number]. CM CALLED MEDICAID TRANSPORTATION, , SPOKE TO RONALDO WHO ADVISED THAT PT DOES HAVE TRANSPORATION BENEFIT OF 4 TRIPS PER YEAR AND HAS USED NONE THIS YEAR. CM PROVIDED PT WITH HER MEDICAID NUMBER, MEDICAID TRANSPORATION NUMBER AND NOTIFED SHE HAS 4 TRIPS PER YEAR THAT SHE CAN USE. PT REPORTS UNDERSTANDING AND DENIES FURTHER DISCHARGE NEEDS AT THIS TIME. IF PT IS NOT ABLE TO GET HER BLEACH MAKER TO PICK HER UP AT [facility], CM WILL CALL MEDICAID TRANSPORTATION (WEEKDAYS 8AM TO 4:30PM) TO SCHEDULE TRANSPORTATION HOME AT DISCHARGE. CM TO CONTINUE TO FOLLOW AND ASSIST IF NEEDED. SORIN LISA, CASE MANAGEMENT DCPIA - Discharge Planning Initial Assessment Updated by [id number]: Sorin Lisa on 09/27/19 3:36 pm * Is the patient Alert and Oriented? Yes * How many steps to enter\\exit or inside your home? 17 * PCP [facility], [place] REPORTS GOING TO BOTH [facility] * Pharmacy [place] * Preadmission Environment Home Alone * ADLs Independent * Equipment Nebulizer Oxygen Walker * Other Equipment HOME AND PORTABLE OXYGEN - [employer] * List name and contact numbers for known caregivers / representatives who currently or will assist patient after discharge: REYES PANDEY, SISTER, * Verbal permission to speak to the caregivers and representatives has been obtained from the patient. N/A * Community resources currently utilized None * Please name any agencies selected above. NONE * Additional services required to return to the preadmission environment? No * Can the patient safely return to the preadmission environment? Yes * Has this patient been hospitalized within the prior 30 days at any hospital? Yes Coverage Notice Reviewer: [id number] - Sorin Lisa Notice Issued Date-Time: 09/29/2019 13:40 Notice Type: IM Discharge Notice Notice Delivered To: Patient Relationship to Patient: Self Propelled Dredge Operator Name: Delivery Method: HAND - Hand Delivered Brigette Days: Prior Verbal Notification: Recipient Understood Notice: Yes Recipient Signature: Yes Med Rec Note Co-signed by Attending: Coverage Notice Comment: ANY HOME HEALTH PROVIDER Last DP export: 10/06/19 5:23 p Patient Name: SHARON BLANTON Page 90906 at 1134 All edits/amendments must be made on the electronic document DICTATION DATE: 10/09/19 1134 TEMPORARY RECEPTIONIST: MAGNO 10/09/19 1133 RPT#: [id number] DC DATE: STATUS: ADM IN [facility] [address] [place] [address] END OF REPORT
--- NOTE | 2019-10-09 11:44 | NUR ---
I have reviewed this patient and I concur with the Shift Assessment completed by the Licensed Practical Nurse today this shift.
--- NOTE | 2019-10-09 12:39 | NUR ---
PT STILL HAVING DIFFICULTY TOLERATING BIPAP. KEEPS MESSING IWTH IT, THEN DISCONECTING THE TUBING, PANICING AND YELLING FOR HELP. WAS IN ROOM WHEN DR. JUARES TRIED TO EXPLAIN, PT WAS AGITATED AND CONFUSED BY WHAT WAS HAPPENING. CL IN REACH, SRX. ABGS REDRAW AT 1300.
--- NOTE | 2019-10-09 13:00 | NUR ---
Rehab Note- Per CM note from Guilherme the patient is not interested in Acute Inpatient Rehab. Thank you for this referral! Ruth Franco RN Clinical Liaison, [facility] Rehab
--- NOTE | 2019-10-09 14:32 | NUR ---
DR. JUARES WANTS PT TRANSFERED TO ICU FO RINTUBATION. INFORMED HOSPITALIST, PLACED ORDER,. TRANSFERING TO ROOM 2305. INFORMED PT, SHE IS VERY SCARED AND UPSET, BUT COMPLIETN. OFFERED TO CALL PTS FAMILY ANDINFORM THEM OF WHATS HAPPENING. PT DECLINED SAYING SHE DOESN'T WANT THEM TO WORRY SINCE THEY'RE ALL OUT OF STATE. INFOMRED PT SHE WOULD NOT BE ABLE TO SPEAK TO THEM WHEN INTUBATED, PT SAYS THEY CAN JUST CALL MY PHONE. WILL OFFER AGAIN. CL IN REACH,SRX2, PT IS ALERT AND ORIENTED.
--- NOTE | 2019-10-09 14:37 | NUR ---
OT NOTE: NURSING REQUESTED THAT THERAPY HOLD DUE TO DROPPING 02 SATS WHEN PT MOVES. WILL ATTEMPT TOMORROW. KATHERIN QUEVEDO, OTR/L
[2019-10-09 15:00] LABS: % SATURATION 11 % (15-55); IRON 33 ug/dl (35-150); TOTAL IRON BIND CAPACITY 279 ug/dl (260-445); UNSAT IRON BIND CAPACITY 246 ug/dl (150-375)
[2019-10-10] VITALS (24 sets, daily range): BP systolic 80–179; BP diastolic 44–76
[2019-10-10 04:26] LABS: BASOPHILS 0.4 % (0-2); EOSINOPHILS 2.6 % (0-7); HEMATOCRIT 30.1 % (36.0-48.0); HEMOGLOBIN 9.1 g/dL (12-16); IMMATURE GRANULOCYTES 0.4 % (0-5); LYMPHOCYTES 19.6 % (15-50); MCHC 30.2 g/dL (31.0-37.0); MCV 95.9 fL (80.0-100.0); MEAN PLATELET VOLUME 10.5 fL (7.4-10.4); MONOCYTES 16.6 % (2-11); NEUTROPHILS 60.4 % (40-80); PLATELET COUNT 233 10x3/uL (130-400); RBC 3.14 10x6/uL (4.00-5.40); RDW 14.5 % (11.5-14.5); WBC 5.4 10x3/uL (4.8-10.8)
[2019-10-10 04:39] LABS: CALC OSMOLALITY 281 mosm/kg (275-300); CALCIUM 7.9 mg/dL (8.5-10.1); CARBON DIOXIDE 37.6 mmol/L (21.0-32.0); CHLORIDE - SERUM 102 mmol/L (98-107); CREATININE - SERUM 0.5 mg/dL (0.6-1.3); GLUCOSE 84 mg/dL (74-106); POTASSIUM - SERUM 3.6 mmol/L (3.5-5.1); SODIUM 142 mmol/L (136-145); UREA NITROGEN 13 mg/dL (7-18); VANCOMYCIN - TROUGH 22.4 ug/mL (10.0-20.0); eGFR NON AFRICAN AMERICAN > 90 mL/min (90-120)
[2019-10-10 04:59] LABS: MAGNESIUM - SERUM 1.6 mg/dL (1.8-2.4)
--- NOTE | 2019-10-10 08:38 | NUR ---
Nutrition follow-up: Received verbal order from Dr. Garcia to begin TF. Chart reviewed; labs reviewed Wt: 92# Will begin Pulmocare @ 15 ml/hr with increase to goal rate of 40 ml/hr via OGT. Flush with 100 ml H2O q [address] RDN will monitor TF tolerance. Thank you for the consult.
--- NOTE | 2019-10-10 09:00 | NUR ---
DR JUARES AT BEDSIDE. ORDER RECEIVED TO START TUBE FEEDINGS.
--- NOTE | 2019-10-10 12:00 | NUR ---
FAMILY AT BEDSIDE. NO COMPLAINTS NOTED AT THIS TIME
--- NOTE | 2019-10-10 15:57 | NUR ---
PT RESTING IN BED. ORAL CARE PROVIDED. PT TURNED. WILL CONTINUE TO MONITOR
--- NOTE | 2019-10-10 23:00 | NUR ---
REASSESSMENT COMPLETED PER FLOW SHEET WITH NO ACUTE DISTRESS OBSERVED. VSS. CALL LIGHT IN REACH
[2019-10-11] VITALS (24 sets, daily range): BP systolic 96–131; BP diastolic 45–100
--- NOTE | 2019-10-11 01:00 | NUR ---
AWAKE AND ALERT. VSS. CALL LIGHT IN REACH
--- NOTE | 2019-10-11 03:00 | NUR ---
REASSESSMENT COMPLETED PER FLOW SHEET WITH NO ACUTE DISTRESS OBSERVED. VSS. CALL LIGHT IN REACH
[2019-10-11 04:34] LABS: BASOPHILS 0.4 % (0-2); EOSINOPHILS 3.4 % (0-7); HEMATOCRIT 29.9 % (36.0-48.0); HEMOGLOBIN 8.8 g/dL (12-16); IMMATURE GRANULOCYTES 0.8 % (0-5); LYMPHOCYTES 24.1 % (15-50); MCH 28.6 pg (26.0-34.0); MCHC 29.4 g/dL (31.0-37.0); MCV 97.1 fL (80.0-100.0); MEAN PLATELET VOLUME 11.1 fL (7.4-10.4); MONOCYTES 15.3 % (2-11); PLATELET COUNT 226 10x3/uL (130-400); RBC 3.08 10x6/uL (4.00-5.40); WBC 5.3 10x3/uL (4.8-10.8)
[2019-10-11 04:52] LABS: CALC OSMOLALITY 281 mosm/kg (275-300); CALCIUM 7.7 mg/dL (8.5-10.1); CARBON DIOXIDE 31.8 mmol/L (21.0-32.0); CHLORIDE - SERUM 109 mmol/L (98-107); CREATININE - SERUM 0.5 mg/dL (0.6-1.3); GLUCOSE 83 mg/dL (74-106); MAGNESIUM - SERUM 1.8 mg/dL (1.8-2.4); POTASSIUM - SERUM 3.5 mmol/L (3.5-5.1); SODIUM 143 mmol/L (136-145); eGFR NON AFRICAN AMERICAN > 90 mL/min (90-120)
[2019-10-11 04:58] LABS: UREA NITROGEN 8 mg/dL (7-18)
--- NOTE | 2019-10-11 05:00 | NUR ---
AWAKE AND ALERT. VSS. CALL LIGHT IN REACH
--- NOTE | 2019-10-11 09:09 | NUR ---
TUBE FEED STOPPED. OGT ABOUT OUT OF PT MOUTH. WAITING ON DR JUARES TO TELL US TO EXTUBATE PT.
--- NOTE | 2019-10-11 11:23 | NUR ---
PT EXTUBATED. PUT ON O2 AT 4L NC. 94%. SISTER AT BEDSIDE. WILL CONTINUE TO MONITOR.
--- NOTE | 2019-10-11 12:45 | NUR ---
BEDSIDE SWALLOW EVAL. PT TOLERATING ICE CHIPS. SISTER AT BEDSIDE ASSISTING HER. VSS. WILL CONTINUE TO MONITOR.
--- NOTE | 2019-10-11 13:33 | NUR ---
Nutrition follow-up: Pt just extubated; tolerating ice chips labs reviewed WT: 92# RDN following.
--- NOTE | 2019-10-11 15:00 | NUR ---
VSS. PT RESTING QUIETLY. NO NEEDS AT THIS TIME.
--- NOTE | 2019-10-11 17:30 | NUR ---
SWALLOW EVAL DONE. RECOMMENDATIONS PUT IN PER SPEECH THERAPY. O2 SAT 98% ON 4L NC. PT RESTING QUIETLY.
--- NOTE | 2019-10-11 18:24 | NUR ---
PT HAD LARGE SOFT BM ON BEDPAN. PT CLEANED UP THEN REPOSITIONED IN BED. NO OTHER COMPLAINTS OR NEEDS AT THIS TIME.
--- NOTE | 2019-10-11 20:00 | NUR ---
PT HAD LARGE LIQUID BM, COMPLETE CHG BATH AND LINEN CHANGE PROVIDED. PROMINENCES BRIDGED. VSS, NO COMPLAINTS AT THIS TIME, DENIES FURTHER NEEDS. CALL LIGHT WITHIN PT REACH. CPOC.
--- NOTE | 2019-10-11 23:00 | NUR ---
REASSESMENT COMPLETE, NO NEW CHANGES AT THIS TIME. PT REPOSITIONED FOR COMFORT. VSS, NO C/O PAIN AT THIS TIME. COUGH/DB ENCOURAGED. DENIES NEEDS. CALL LIGHT AND BEDSIDE TABLE WITHIN PT REACH. CPOC.
[2019-10-12] VITALS (24 sets, daily range): BP systolic 86–124; BP diastolic 48–83
--- NOTE | 2019-10-12 01:00 | NUR ---
SMALL LIQUID BM, PARTIAL BATH AND LINEN CHANGE PROVIDED. REPOSITIONED FOR COMFORT, PROMINENCES BRIDGED. VSS, DENIES FURTHER NEEDS. CALL LIGHT WITHIN PT REACH. CPOC.
--- NOTE | 2019-10-12 02:53 | NUR ---
REASSESSMENT COMPLETE, NO CHANGES AT THIS TIME. PT REPOSITIONED WITH PROMINENCES BRIDGED. FRESH BEVERAGE TO BEDSIDE. NO C/O PAIN. VSS, CALL LIGHT AND BEDSIDE TABLE WITHIN PT REACH. CPOC.
--- NOTE | 2019-10-12 07:55 | NUR ---
ON BEDPAN HAVING BM.
--- NOTE | 2019-10-12 11:45 | NUR ---
PT EATING LUNCH. VSS. NO COMPLAINTS OR NEEDS AT THIS TIME.
--- NOTE | 2019-10-12 15:45 | NUR ---
DR JUARES ROUNDED. NO NEW ORDERS AT THIS TIME.
--- NOTE | 2019-10-12 17:26 | NUR ---
PT COMPLAINS OF NAUSEA. ZOFRAN GIVEN. WILL CONTINUE TO MONITOR.
--- NOTE | 2019-10-12 19:42 | NUR ---
REPORT RECIEVED AND ROUNDING COMPLETE. PATIENT LAYING IN BED IN LOW FOWLERS POSITION. PATIENT COMPLAINS OF NAUSEA BUT NO MEDS TO BE GIVING AT THIS TIME PER MAR. PATIENT IS WEARING NASAL CANNULA WITH 02 AT 4L. LEFT UPPER ARM PIV WITH NS AT 30ML/HR. PATIENT HAS A FOLY WITH SCANT AMOUNT OF YELLO URINE IN RIVERA BAG. PATIENT STATES SHE HAS NO NEEDS AT THIS TIME. CALL LIGHT WITHIN REACH AND BED IN LOWEST LOCKED POSITION.
--- NOTE | 2019-10-12 21:00 | NUR ---
PATIENT ASKED FOR TYLENOL FOR HEADACHE, TREATED PER OCT. PATIENT RATES PAIN A 7 OUT OF TEN.
--- NOTE | 2019-10-12 23:15 | NUR ---
PATIENT LAYING IN BED IN HIGH FOWLERS PATIENT ASKED FOR ANITRA STATING HER STOMACH IS A LITTLE UPSET. WILL TREAT PER MAR.
[2019-10-13] VITALS (21 sets, daily range): BP systolic 85–114; BP diastolic 43–70
--- NOTE | 2019-10-13 01:00 | NUR ---
PATIENT LAYING IN BED IN HIGH FOWLERS, EYES CLOSED BREATHING EVEN UNLABORED. NO S/SX OF DISTRESS AT THIS TIME.
--- NOTE | 2019-10-13 03:00 | NUR ---
PATIENT HAS NO NEEDS AT THIS TIME. WATCHING T.V NO DISTRESS NOTED. CALL LIGHT WITHIN REACH
--- NOTE | 2019-10-13 05:17 | NUR ---
EYES CLOSED BREATHING EVEN AND UNLABORED. NO DISTRESS NOTED. CALL LIGHT WITHIN REACH.
--- NOTE | 2019-10-13 06:32 | NUR ---
Nutrition follow-up: Diet: regular mechanical soft with thin liquids Pt with some nausea Labs reviewed Wt: 102# NS @ 30 ml/hr RDN following
--- NOTE | 2019-10-13 08:00 | NUR ---
PT SITTING UP IN BED. BREAKFAST TRAY SERVED AND PT IS EATING WITH OUT DIFFICULTY.
--- NOTE | 2019-10-13 09:52 | NUR ---
DR JUARES HERE, DR AKERS HERE. BIPAP ORDERED AFTER ABG'S RESULTED. PT NOT WANTING TO WEAR IT. TEACHING BY THIS RN AND RT. PT AGREABLE.
--- NOTE | 2019-10-13 14:31 | NUR ---
ASSISTED PT TO BSC. PT HAD LG BM. BATH AND LINENS CHANGED. BIPAP PLACED ORDERED PER RT. PT QUIANA WELL.
--- NOTE | 2019-10-13 18:50 | NUR ---
recived report at bedside. pt is a&ox4 and doing a crossword puzzle. she voices no pain or needs at this time. will do full assessment and document. i also voiced to pt that when she wants to go to sleep to use her call light to let me know bc we will need to put her bipap on. pt voiced"but i only have to wear it for 2 hours right?". i voiced that the doctor has ordered for it to be contionus at night. pt voiced"i cant wear it all night long, i just cant do it". i explained and tried to encourage that we will just do our best, even if she can wear it for 4 hours then take a break. her co2 is high so i explained that the bipap would be benificial for her. she once again said"i just cant wear it that long". i once again just told her lets take it one step at a time and see what she can do. she voiced"ok". vitals are stable at this time. bed is low,side raislx2,call light within reach. i will conintue to farhana
--- NOTE | 2019-10-13 21:30 | NUR ---
pt is resting in bed watching tv. vital signs are stable. no needs voiced at this time. bed is low,side railsx2,call light within reach. will continue to monitor
--- NOTE | 2019-10-13 22:17 | NUR ---
pt used call light to inform that she is ready to go to sleep and will put the bipap on. bipap placed on face secure. vital signs are stable. no other needs at this time. bed is low,side raislx2, call light withn reach. will contineu to monitor
--- NOTE | 2019-10-13 23:57 | NUR ---
PT IS SITTING UP IN BED WITH BIAPAP ON DOING A CROSS WORD PUZZEL. NO NEEDS VOICED. VITAL SIGNS ARE STABLE. BED IS LOW,SIDE RAILX2,CALL LIGHT WITHIN REACH. WILL CONTINUE TO MONITOR
[2019-10-14] VITALS (14 sets, daily range): BP systolic 88–131; BP diastolic 41–64
--- NOTE | 2019-10-14 00:20 | NUR ---
pt called via call light and voiced she is nauseas and "can i get something for nausea". pt has zofran 4mg iv prn for n/v. will administer and document on OCT. pt did voice that she has been nauseas all day. vital signs are stable. bed is low,side railsx2,call light within reach. will continue to monitor
--- NOTE | 2019-10-14 02:15 | NUR ---
pt is resting in bed with eye closed. bipap is on. vital signs are stable. bed is low,side raislx2,call light within reach. will continue to monitor
--- NOTE | 2019-10-14 03:45 | NUR ---
PT IS RESTING IN BED WITH EYES CLOSED. VITAL SIGNS ARE STABLE. BED IS LOW,SIDE RAISLX2,CALL LIGHT WIHIN REACH. WILL CONTINUE TO MONITOR
--- NOTE | 2019-10-14 05:27 | NUR ---
PT IS RESTING IN BED WATCHING TV. VOICES NO NEEDS AT THIS TIME OTHER THAN TO TURN HER FAN ON. I CHANGED MEPAPLEX DRESSING TO COCCYX AREA AT THIS TIME. SKIN IS INTACT BUT RED. PT TOLERATED WELL SAYING"IT FEELS SO MUCH BETTER WITH THAT EXTRA CUSHION". VITAL SIGNS ARE STABLE. BED IS LOW,SIDE RAILSX2,CALL LIGHT WIHTIN REACH. WILL CONTINUE TO MONITOR
--- NOTE | 2019-10-14 06:19 | NUR ---
ASSISTED PT UP TO BEDSIDE CAMMODE. PT HAD LARGE VERY SOFT BROWN BM. ASSISTED WITH CLEANING, PERFORMED RIVERA CATHETOR CARE AGAIN. CAHNGED PARTIAL LINENS AND ASSISTED BACK TO BED. PT VOICED"THANK YOU SO MUCH". VITALS REMAIN STABLE. BED IS LOW,SIDE RAISLX2,CALL LIGHT WITHIN REACH. WILL CONTINUE TO MONITOR
--- NOTE | 2019-10-14 07:26 | NUR ---
PT AWAKE AND ALERT. VSS. DENIES PAIN.
--- NOTE | 2019-10-14 09:55 | NUR ---
DR JUARES HERE.
[2019-10-15] VITALS: BP 100/55
[2019-10-15 04:00] VITALS: BP 107/46
[2019-10-15 05:27] LABS: BASOPHILS 0.9 % (0-2); EOSINOPHILS 5.2 % (0-7); HEMATOCRIT 32.2 % (36.0-48.0); HEMOGLOBIN 9.8 g/dL (12-16); IMMATURE GRANULOCYTES 0.9 % (0-5); LYMPHOCYTES 23.5 % (15-50); MCH 29.3 pg (26.0-34.0); MCHC 30.4 g/dL (31.0-37.0); MCV 96.1 fL (80.0-100.0); MEAN PLATELET VOLUME 10.8 fL (7.4-10.4); MONOCYTES 18.5 % (2-11); PLATELET COUNT 212 10x3/uL (130-400); RBC 3.35 10x6/uL (4.00-5.40); RDW 14.9 % (11.5-14.5); WBC 4.6 10x3/uL (4.8-10.8)
[2019-10-15 05:58] LABS: ALBUMIN 2.1 g/dL (3.4-5.0); ALKALINE PHOSPHATASE 83 U/L (30-120); ALT (SGPT) 19 U/L (10-68); BILIRUBIN - TOTAL 0.14 mg/dL (0.2-1.3); CALC OSMOLALITY 288 mosm/kg (275-300); CHLORIDE - SERUM 107 mmol/L (98-107); CREATININE - SERUM 0.6 mg/dL (0.6-1.3); GLUCOSE 90 mg/dL (74-106); POTASSIUM - SERUM 3.2 mmol/L (3.5-5.1); PROTEIN - SERUM 6.5 g/dL (6.4-8.2); SODIUM 146 mmol/L (136-145); UREA NITROGEN 7 mg/dL (7-18); eGFR NON AFRICAN AMERICAN > 90 mL/min (90-120)
[2019-10-15 08:45] VITALS: BP 110/60
--- NOTE | 2019-10-15 09:54 | NUR ---
PT ALERT X 4. BREATH SOUNDS DIMINISHED BILAT, 3L O2 PER NC. IV TO RIGHT UPPER ARM, SALINE LOCKED. PT REPORTING PAIN OF 8/10, WILL CONTINUE TO MONITOR. BED LOW, CALL LIGHT IN REACH. NO OTHER NEEDS AT THIS TIME.
[2019-10-15 12:29] VITALS: BP 114/68
[2019-10-15 16:30] VITALS: BP 120/61
[2019-10-15 20:00] VITALS: BP 126/62
[2019-10-16] VITALS: BP 107/30
[2019-10-16 04:00] VITALS: BP 111/52
[2019-10-16 05:46] LABS: BASOPHILS 0.5 % (0-2); EOSINOPHILS 3.7 % (0-7); HEMOGLOBIN 10.5 g/dL (12-16); IMMATURE GRANULOCYTES 0.8 % (0-5); LYMPHOCYTES 22.2 % (15-50); MCH 28.7 pg (26.0-34.0); MCV 95.6 fL (80.0-100.0); MEAN PLATELET VOLUME 11.2 fL (7.4-10.4); MONOCYTES 14.6 % (2-11); NEUTROPHILS 58.2 % (40-80); PLATELET COUNT 225 10x3/uL (130-400); RBC 3.66 10x6/uL (4.00-5.40); RDW 14.7 % (11.5-14.5)
[2019-10-16 06:13] LABS: ALBUMIN 2.3 g/dL (3.4-5.0); ALKALINE PHOSPHATASE 102 U/L (30-120); ALT (SGPT) 22 U/L (10-68); BILIRUBIN - TOTAL 0.15 mg/dL (0.2-1.3); CALC OSMOLALITY 281 mosm/kg (275-300); CARBON DIOXIDE 38.8 mmol/L (21.0-32.0); CHLORIDE - SERUM 105 mmol/L (98-107); CREATININE - SERUM 0.5 mg/dL (0.6-1.3); GLUCOSE 82 mg/dL (74-106); MAGNESIUM - SERUM 1.6 mg/dL (1.8-2.4); PHOSPHOROUS 3.3 mg/dL (2.5-4.9); POTASSIUM - SERUM 3.7 mmol/L (3.5-5.1); PROTEIN - SERUM 6.6 g/dL (6.4-8.2); SODIUM 143 mmol/L (136-145); UREA NITROGEN 8 mg/dL (7-18); eGFR NON AFRICAN AMERICAN > 90 mL/min (90-120)
[2019-10-16 06:31] LABS: WBC 6.4 10x3/uL (4.8-10.8)
--- NOTE | 2019-10-16 07:00 | NUR ---
LYING IN BED,WITHOUT DISTRESS.CALL LIGHT IN REACH
[2019-10-16 08:39] VITALS: BP 117/57
--- NOTE | 2019-10-16 09:00 | NUR ---
ASSESSMENT PER FLOW SHEET. PATIENT IS WITHOUT DISTRESS. BUTTOCKS WASHED AND DRIED.BUTT PASTE APPLIED,SKIN LIGHT RED AND PEELING.MONITOR FOR NEEDS
--- NOTE | 2019-10-16 10:00 | MORECARE ---
CASE MANAGEMENT DISCHARGE SUMMARY PATIENT: SHARON BLANTON UNIT: [id number] ADM DATE: 09/25/19 AGE: 58 : 58 SEX: F ROOM/BED: D.2226 AUTHOR: KELVIN,DOC PHYSICIAN: REFERRING PHYSICIAN: LARS AKERS MD DATE OF SERVICE: 10/16/19 Discharge Plan Patient Name: SHARON BLANTON Facility[facility] : 1960 Planned Disposition: Home with Home Health Anticipated Discharge Date: 10/06/19 Discharge Date: Expected LOS: 11 Initial Reviewer: [email or web address] Initial Review Date: 09/27/2019 Generated: 10/16/19 10:59 am Comments DCP- Discharge Planning Updated by [email or web address]: Aura Kaur on 10/16/19 8:[address] TRILOGY ORDERED 10/13. PATIENT HAS HOME O2 AND NEBULIZER WITH [facility]. CM SPOKE WITH THE PATIENT. SHE WISHES TO HAVE [facility] PROVIDE THE TRILOGY. PATIENT CHOICE FORM OBTAINED. TC TO [facility]. CM SPOKE W/ TAMMY AT [facility]. SHE HAS THE APPROPRIATE PAPERWORK. [facility]. IT WILL TAKE 48 HRS TO RECEIVE. WHEN AUTH IS OBTAINED, SHE WILL DELIVERY THE EQUIPMENT. DCP- Discharge Planning Updated by [id number]: Sorin Lisa on 10/09/19 10:[address] Patient Name: SHARON BLANTON Encounter No: [id number] : 1960 [facility]: [facility] Anticipated DC Date: 10-06-2019 Planned Disposition: Home with Home Health External Planned Provider:[facility] DCP follow-up note: CM RECEIVED ORDER FOR INPATIENT REHAB PRESCREENING. CM MET WITH PT IN ROOM, DISCUSSED INPATIENT REHAB SERVICES, PROVIDERS AND LOCATIONS. CM DISCUSSED NURING HOME PLACEMENT. PT DECLINES REHAB SERVICES PLACEMENT AND RETIREMENT CARE PLACEMENT. PT STATES SHE IS GOING HOME. PT DOES NOT WANT TO LOOSE HER APARTMENT. PT WILL ACCEPT HOME HEALTH WITH [facility]. CM EXPLAINED TO PT SHE HAS NOT SEEN HER PRIMARY DOCTOR SINCE AND WILL HAVE TO AGREE TO GO TO FOLLOW UP APPOINTMENT WITH PRIMARY DOCTOR SOON AFTER DISCHARGE FOR READING TO ACCEPT PATIENT. PT AGREES TO TERMS FOR HOME HEALTH. CARE TEAM UPDATED REGARDING DISCHARGE PLAN IN MULTIDISCIPLINARY TEAM MEETING. FOR DISCHARGE, MAKE APPOINTMENT FOR FOLLOW UP WITH PRIMARY CARE PHYSICIAN, [facility], OF [facility]. NOTIFY [facility], . FAX DISCHARGE INFORMATION TO [facility], . Sorin Lisa CASE MANAGEMENT DCP- Discharge Planning Updated by [id number]: Sorin Lisa on 10/06/19 5:[address] Patient Name: SHARON BLANTON Encounter No: [id number] : 1960 Primary Insurance: [employer] MA[employer]GED MEDICAID Anticipated DC Date: 10-06-2019 Planned Disposition: Home with Home Health External [facility] follow-up note: CM RECEIVED CALL FROM [facility]. THEY WILL ACCEPT PT FOR HOME HEALTH, PT HAS NOT SEEN HER PRIMARY CARE AT [facility], [place] [place], SINCE 2015. PT WILL NEED TO HAVE APPOINTMENT TO SEE PCP AFTER DISCHARGE. IF THIS APPOINTMENT IS NOT MADE, PT HAS NO DOCTOR TO SIGN HOME HEALTH ORDERS AND READING WILL NOT BE ABLE TO ADMIT. FOR DISCHARGE, MAKE APPOINTMENT FOR FOLLOW UP WITH PRIMARY CARE PHYSICIAN, [facility]LA[facility] KAT, OF [facility]. NOTIFY [facility], . FAX DISCHARGE INFORMATION TO [facility], . Sorin Lisa CASE WILMA DCP- Discharge Planning Updated by [email or web address]: Sorin Lisa on 10/05/19 4:[address] Patient Name: SHARON BLANTON Encounter No: [id number] : 1960 Primary Insurance: [employer] MA[employer]GED MEDICAID Anticipated DC Date: 10-06-2019 Planned Disposition: Home with Home Health External Planned Provider: [facility] DCP follow-up note: CM RECEIVED CALL FROM [facility]. THEY WILL ACCEPT PT FOR HOME HEALTH, SCHEDULED ADMISSION 10-08-19. FOR DISCHARGE, [facility] . FAX DISCHARGE INFORMATION TO [facility], . VADIM Franco DCP- Discharge Planning Updated by [email or web address]: Sorin Lisa on 10/05/19 1:[address] Patient Name: SHARON BLANTON Encounter No: [id number] : 1960 Primary Insurance: [employer] MANAGED MEDICAID Anticipated DC Date: Planned Disposition: Home with Home Health External Planned Provider: [facility] DCP follow-up note: CM RECEIVED MESSAGE FROM TIARA OF [facility], THEY ARE NOT IN NETWORK WITH PT'S INSURANCE COMPANY. CM CALLED [facility], , SPOKE TO MISHA, PROVIDED REFERRAL INFORMATION, THEY WILL CHECK WITH INSURANCE TO SEE IF THEY ARE IN NETWORK. CM FAXED REFERRAL INFORMATION TO [facility], . CM WAITING CONFIRMATION THAT [facility] IS IN PATIENTS INSURANCE NETWORK. Sorin Lisa CASE MANAGEMENT DCP- Discharge Planning Updated by [id number]: Sorin Lisa on 10/05/19 8:[address] Patient Name: SHARON BLANTON Encounter No: [id number] : 1960 Primary Insurance: [employer] MANAGED MEDICAID Anticipated DC Date: Planned Disposition: Home with Home Health External Planned Provider: [facility] DCP follow-up note: CM CALLED [facility], , SPOKE TO TIARA AND PROVIDED REFERRAL INFORMATION, FAXED REFERRAL TO [facility] AT [phone]. TIARA TO RUN PT'S INSURANCE TO CONFIRM INSURANCE NETWORK STATUS. CM WAITING INSURANCE CONFIRMATION FOR HOME HEALTH SERVICES FROM TIARA OF [facility]. Sorin Lisa CASE MANAGEMENT DCP- Discharge Planning Updated by [id number]: Sorin Lisa on 09/29/19 3:[address] Patient Name: SHARON BLANTON Encounter No: [id number] : 1960 Primary Insurance: [employer] MA[employer]GED MEDICAID Anticipated DC Date: Planned Disposition: Home with Home Health External Planned Provider: ANY HOME HEALTH PROVIDER DCP follow-up note: CM SPOKE TO PT ABOUT GOING TO REHAB. CM EXPLAINED REHAB PROVIDERS, LOCATIONS AND SERVICES. PT REFUSES INPATIENT AND DETENTION REHAB. PT STATES SHE WILL GO HOME AND WILL ACCEPT HOME HEALTH WITH NO PROVIDER PREFERENCE. CHOICE SIGNED WITH REFUSAL OF REHAB SERVICES NOTED. CM PROVIDED PT WITH [facility] ON [place] PHONE NUMBER AND BROCHURE TO CONTACT FOR POSSIBLE MEDICAID COVERED CAREGIVER SERVICES IN THE HOME. PT DENIES FURTHER NEEDS. PT REFUSES REHAB, WILL ACCEPT HOME HEALTH. CM TO ARRANGE HOME HEALTH FOR PT'S DISCHARGE HOME WITH PHYSICIAN AGREEMENT AND HOME HEALTH ORDERS. IF PT IS NOT ABLE TO GET HER CYBER ENGINEER TO PICK HER UP AT [facility], CM WILL CALL MEDICAID TRANSPORTATION (WEEKDAYS 8AM TO 4:30PM) TO SCHEDULE TRANSPORTATION HOME AT DISCHARGE. CM TO CONTINUE TO FOLLOW AND ASSIST IF NEEDED. SORIN LISA, CASE MANAGEMENT DCP- Discharge Planning Updated by [id number]: Sorin Lisa on 09/27/19 3:[address] Patient Name: SHARON BLANTON Admission Status: ER Accout number: [id number] Admission Date: 09-25-2019 : 1960 Admission Diagnosis: Attending: LARS AKERS Current LOS: 2 Anticipated DC Date: Planned Disposition: Home Primary Insurance: [employer] MANAGED MEDICAID Discharge Planning Comments: CM MET WITH PT IN ROOM TO DISCUSS DISCHARGE PLANNING AND NEEDS. PT REPORTS LIVING AT HOME INDEPENDENTLY AND ALONE. PT HAS NO MEDICAL EQUIPMENT AND NO OUTSIDE SERVICES ASSISTING IN THE HOME. CM DISCUSSED AVAILABILITY OF HOME HEALTH, REHAB SERVICES AND MEDICAL EQUIPMENT. PT DENIES DISCHARGE NEEDS, REPORTS SHE DOES NOT KNOW HOW SHE WILL BE GETTING HOME, STATES THE HOSPITAL HAS GIVEN HER A TAXI IN THE PAST. CM EXPLAINED THAT THE HOSPITAL HAS VERY LIMITED RESOURCES AND ASKED HOW PT GOT HOME LAST VISIT, PT STATES HER CYBER ENGINEER PICKED HER UP. CM DISCUSSED DEVELOPING A PERSONAL SUPPORT SYSTEM FOR TIMES WHEN PT NEEDS ASSISTANCE. PT DENIES HAVING MONEY FOR TAXI CAB HOME. SHE MAY CALL HER CYBER ENGINEER TO SEE IF THEY WILL PICK HER UP BUT STATES THE DOCTOR SAYS SHE WILL BE HERE FOR A "MINUTE". CM EXPLAINED IT IS NOT TOO EARLY TO BE PLANNING FOR PT'S DISCHARGE. PT REPORTS UNDERSTANDING. PT WOULD LIKE TO HAVE PERSONAL CARE AT HOME. CM EXPLAINED APPLICATION PROCESS AT DEPARTMENT OF HUMAN SERVICES, ALSO PROVIDED PT WITH [facility] AGING CONTACT INFOMATION AND DISCUSSED THAT [employer] MAY BE AVAILABLE AND INSTRUCTED PT TO CALL THE [facility] ON AGING. PT STATES SHE WILL DO THIS. PT PROVIDED HER CUSTOMER SERVICE NUMBER FOR INSURANCE FOR CM TO CHECK TO SEE IF PT HAS TRANSPORATION BENEFIT; CM CALLED [phone], 4 TIMES AND RECEIVED NO ANSWER. PT NOTIFIED. PT PLANS TO DISCHARGE HOME, DENIES DISCHARGE NEEDS OTHER THAN TRANSPORATATION HOME. PT PLANS TO CALL HER CYBER ENGINEER TO SEE IF HE WILL PICK HER UP. CM TO CONTINUE TO FOLLOW AND ASSIST NEEDED. Mold Design Engineer: Sorin Lisa Appended by Sorin Lisa on 09/27/2019 16:26 RN OFFICE: CM CALLED PT'S INSURANCE COMPANY, , SPOKE TO ROBERT WHO INFORMED CM THAT PT HAS NO TRANSPORATION BENEFITS WITH [facility]. REFERENCE # [id number]. CM CALLED MAURICE WITH [employer] WHO PROVIDED PT'S ACTIVE [employer] MEDCAID NUMBER OF [id number]. CM CALLED MEDICAID TRANSPORTATION, , SPOKE TO RONALDO WHO ADVISED THAT PT DOES HAVE TRANSPORATION BENEFIT OF 4 TRIPS PER YEAR AND HAS USED NONE THIS YEAR. CM PROVIDED PT WITH HER MEDICAID NUMBER, MEDICAID TRANSPORATION NUMBER AND NOTIFED SHE HAS 4 TRIPS PER YEAR THAT SHE CAN USE. PT REPORTS UNDERSTANDING AND DENIES FURTHER DISCHARGE NEEDS AT THIS TIME. IF PT IS NOT ABLE TO GET HER CYBER ENGINEER TO PICK HER UP AT [facility], CM WILL CALL MEDICAID TRANSPORTATION (WEEKDAYS 8AM TO 4:30PM) TO SCHEDULE TRANSPORTATION HOME AT DISCHARGE. CM TO CONTINUE TO FOLLOW AND ASSIST IF NEEDED. SORIN LISA, CASE MANAGEMENT DCPIA - Discharge Planning Initial Assessment Updated by [id number]: Sorin Lisa on 09/27/19 3:36 pm * Is the patient Alert and Oriented? Yes * How many steps to enter\\exit or inside your home? 17 * PCP [facility], [facility] REPORTS GOING TO BOTH [facility] AND [facility] LOCATIONS * Pharmacy [facility] * Preadmission Environment Home Alone * ADLs Independent * Equipment Nebulizer Oxygen Walker * Other Equipment HOME AND PORTABLE OXYGEN - [facility] * List name and contact numbers for known caregivers / representatives who currently or will assist patient after discharge: REYES PANDEY, SISTER, * Verbal permission to speak to the caregivers and representatives has been obtained from the patient. N/A * Community resources currently utilized None * Please name any agencies selected above. NONE * Additional services required to return to the preadmission environment? No * Can the patient safely return to the preadmission environment? Yes * Has this patient been hospitalized within the prior 30 days at any hospital? Yes Coverage Notice Reviewer: [id number] - Sorin Lisa Notice Issued Date-Time: 09/29/2019 13:40 Notice Type: IM Discharge Notice Notice Delivered To: Patient Relationship to Patient: Stabilizer Operator Name: Delivery Method: HAND - Hand Delivered Brigette Days: Prior Verbal Notification: Recipient Understood Notice: Yes Recipient Signature: Yes Med Rec Note Co-signed by Attending: Coverage Notice Comment: ANY HOME HEALTH PROVIDER Reviewer: [email or web address] Delma Jones Notice Issued Date-Time: 10/13/2019 10:51 Notice Type: Patient Choice Letter Notice Delivered To: Patient Relationship to Patient: Self Stabilizer Operator Name: Delivery Method: HAND - Hand Delivered Brigette Days: Prior Verbal Notification: Recipient Understood Notice: Yes Recipient Signature: Yes Med Rec Note Co-signed by Attending: Coverage Notice Comment: [facility] FOR DME NEEDS Last DP export: 10/09/19 10:34 a Patient Name: SHARON BLANTON Page [phone] at 1000 All edits/amendments must be made on the electronic document DICTATION DATE: 10/16/19958 SCANNING MANAGER: MAGNO 1960 RPT#: [id number] DC DATE: STATUS: ADM IN [facility] [address] [place] [address] END OF REPORT
[2019-10-16 12:53] VITALS: BP 112/52
[2019-10-16 16:01] VITALS: BP 98/58
--- NOTE | 2019-10-16 19:31 | NUR ---
PT SITTING UP IN BED WITH EYES OPEN CURRENTLY RCVING BREATHING TREATMENT. IV LOCATED TO RIGHT UPPER ARM CURRENTLY SL. NO S/S OF DISTRESS NOTED AT THIS TIME, DENIES NEEDS, WILL CONT TO MONITOR.
--- NOTE | 2019-10-16 19:45 | NUR ---
PT BECOMING VERBALLY UPSET DUE TO HER DIET OF NO BREAD. PT ASKED FOR SANDWICH TO WHICH I OFFERED TO BRING IT TO HER MINUS THE BREAD AND SHE FAROOQ BROWERSING AT ME.
[2019-10-16 20:00] VITALS: BP 93/46
--- NOTE | 2019-10-16 21:57 | NUR ---
HELD PTS CRESENCIO AND DIDNT GIVE HER PRN ATIVAN DUE TO BP OF 93/46 TO WHICH SHE BEGAN CUSSING ME AND STATES "THAT IS HIGH FOR MY BLOOD PRESSURE AND THATS BULLSHIT THAT YOU WONT GIVE ME MY MEDS, YOU JUST DONT WANT TO LET ME HAVE ANYTHING I WANT" INFORMED PT THAT BP IS TOO LOW FOR SAID MEDS AND WE COULD RECHECK HER BP LATER. WILL CONT TO MONITOR.
[2019-10-17] VITALS: BP 98/47
[2019-10-17 04:00] VITALS: BP 123/68
--- NOTE | 2019-10-17 04:00 | NUR ---
INFORMED PT ABOUT ORDER FOR TELEMETRY, PT REFUSED MONITOR.
[2019-10-17 04:30] LABS: BASOPHILS 0.9 % (0-2); EOSINOPHILS 3.2 % (0-7); HEMATOCRIT 34.9 % (36.0-48.0); HEMOGLOBIN 10.4 g/dL (12-16); IMMATURE GRANULOCYTES 0.7 % (0-5); LYMPHOCYTES 29.1 % (15-50); MCH 28.8 pg (26.0-34.0); MCHC 29.8 g/dL (31.0-37.0); MCV 96.7 fL (80.0-100.0); MEAN PLATELET VOLUME 10.9 fL (7.4-10.4); NEUTROPHILS 52.1 % (40-80); PLATELET COUNT 213 10x3/uL (130-400); RBC 3.61 10x6/uL (4.00-5.40); RDW 14.8 % (11.5-14.5); WBC 5.6 10x3/uL (4.8-10.8)
[2019-10-17 05:00] LABS: ALBUMIN 2.3 g/dL (3.4-5.0); ALKALINE PHOSPHATASE 83 U/L (30-120); ALT (SGPT) 18 U/L (10-68); BILIRUBIN - TOTAL 0.18 mg/dL (0.2-1.3); CALC OSMOLALITY 285 mosm/kg (275-300); CALCIUM 8.4 mg/dL (8.5-10.1); CARBON DIOXIDE 38.9 mmol/L (21.0-32.0); CHLORIDE - SERUM 104 mmol/L (98-107); CREATININE - SERUM 0.6 mg/dL (0.6-1.3); GLUCOSE 81 mg/dL (74-106); MAGNESIUM - SERUM 1.7 mg/dL (1.8-2.4); POTASSIUM - SERUM 3.8 mmol/L (3.5-5.1); PROTEIN - SERUM 6.9 g/dL (6.4-8.2); SODIUM 145 mmol/L (136-145); UREA NITROGEN 8 mg/dL (7-18); eGFR NON AFRICAN AMERICAN > 90 mL/min (90-120)
[2019-10-17 05:08] LABS: PHOSPHOROUS 4.6 mg/dL (2.5-4.9)
[2019-10-17 08:41] VITALS: BP 115/51
[2019-10-17 13:03] VITALS: BP 98/62
--- NOTE | 2019-10-17 14:50 | NUR ---
Nutrition follow-up: Pt very unhappy with diet order. Spoke with Dr. Gurrola about liberalizing diet; approved. Visited with pt re: no concentrated sweets RDN negotiated with pt for 2 simple CHO per day - Sprite, 1 piece of fruit. Pt is very happy with diet change. RDN following.
[2019-10-17 18:02] VITALS: BP 102/42
--- NOTE | 2019-10-17 20:56 | NUR ---
PT LYING IN BED AWAKE ALERT AND ORIENTED x4 NO SIGNS OR SYMPTOMS OF DISTRESS NOTED. RESPIRATIONS EVEN AND UNLABORED. PRN PAIN MEDICATION GIVEN FOR 8/10 PAIN LEVEL. PRN COUGH MEDICATION GIVEN FOR COUGH. CONTINENT OF BOWELL AND BLADDER. BOWELL SOUNDS ACTIVE. PT STATES THAT LAST BOWELL MOVEMENT WAS A COUPLE OF DAYS AGO BUT DOESNT REMEMBER THE EXACT DAY. REDDEND BLANCABLE AREA NOTED TO BUTTOCKS. BUTT PASTE APPLIED. TURKEY SANDWHICH GIVEN. CALL LIGHT WITH IN REACH AND BED IS IN ITS LOWEST POSITION. PT ENCOURAGED TO CALL FOR HELP WHEN NEEDED. WILL CONTINUE TO MONITOR
--- NOTE | 2019-10-17 22:39 | NUR ---
TWO THERAPISTS ATTEMPTED TO TALK PT INTO PUTTING BIPAP ON FOR HS. PT YELLS AT BOTH SAYING SHE WILL NOT WEAR BIPAP. SHE DOES NOT "WANT TO ARGUE". EXPLAINED TO PT THAT SHE NEEDS TO WEAR BIPAP DUE TO ELEVATION OF CO2 REQUIRING INTUBATION. PT STATES SHE "DOESN'T CARE" AND PLACES FACE INTO PILLOW AND COVERS HEAD WITH ARM.
--- NOTE | 2019-10-18 03:21 | NUR ---
PT HAS ON BIPAP NO DISTRESS NOTED RESPIRATIONS EVEN AND UNLABORED. CALL LIGHT WITHIN REACH. BED IS IN LOWEST POSTION. FALL RISK PRECAUTIONS
[2019-10-18 04:00] VITALS: BP 98/38
[2019-10-18 06:35] LABS: BASOPHILS 0.4 % (0-2); EOSINOPHILS 2.5 % (0-7); HEMATOCRIT 34.6 % (36.0-48.0); HEMOGLOBIN 10.3 g/dL (12-16); IMMATURE GRANULOCYTES 0.6 % (0-5); LYMPHOCYTES 21.6 % (15-50); MCH 28.9 pg (26.0-34.0); MCHC 29.8 g/dL (31.0-37.0); MCV 97.2 fL (80.0-100.0); MEAN PLATELET VOLUME 11.8 fL (7.4-10.4); MONOCYTES 14.2 % (2-11); NEUTROPHILS 60.7 % (40-80); PLATELET COUNT 223 10x3/uL (130-400); RBC 3.56 10x6/uL (4.00-5.40); RDW 14.9 % (11.5-14.5); WBC 6.8 10x3/uL (4.8-10.8)
[2019-10-18 06:54] LABS: ALBUMIN 2.5 g/dL (3.4-5.0); ALKALINE PHOSPHATASE 78 U/L (30-120); ALT (SGPT) 19 U/L (10-68); BILIRUBIN - TOTAL 0.19 mg/dL (0.2-1.3); CALCIUM 8.3 mg/dL (8.5-10.1); CARBON DIOXIDE 37.1 mmol/L (21.0-32.0); CHLORIDE - SERUM 103 mmol/L (98-107); CREATININE - SERUM 0.5 mg/dL (0.6-1.3); GLUCOSE 76 mg/dL (74-106); MAGNESIUM - SERUM 1.9 mg/dL (1.8-2.4); PHOSPHOROUS 3.8 mg/dL (2.5-4.9); PROTEIN - SERUM 6.7 g/dL (6.4-8.2); SODIUM 142 mmol/L (136-145); eGFR NON AFRICAN AMERICAN > 90 mL/min (90-120)
[2019-10-18 06:56] LABS: CALC OSMOLALITY 282 mosm/kg (275-300); POTASSIUM - SERUM 4.6 mmol/L (3.5-5.1); UREA NITROGEN 15 mg/dL (7-18)
[2019-10-18 09:18] VITALS: BP 94/47
--- NOTE | 2019-10-18 10:18 | MORECARE ---
CASE MANAGEMENT DISCHARGE SUMMARY PATIENT: SHARON BLANTON UNIT: [id number] ADM DATE: 09/25/19 AGE: 58 : 58 SEX: F ROOM/BED: D.2226 AUTHOR: KELVIN,DOC PHYSICIAN: REFERRING PHYSICIAN: LARS AKERS MD DATE OF SERVICE: 10/18/19 Discharge Plan Patient Name: SHARON BLANTON Facility: [facility]:[place] : 1960 Planned Disposition: Home with Home Health Anticipated Discharge Date: 10/06/19 Discharge Date: Expected LOS: 11 Initial Reviewer: [id number] Initial Review Date: 09/27/2019 Generated: 10/18/19 11:18 am Comments DCP- Discharge Planning Updated by [email or web address]: Etelvina Fawn on 10/18/19 9:[address] I spoke with Bogdan today with [facility] and she states she anticipates getting authorization from her insurance today for her Trilogy. She will update me later today after reaching out to insurance company. CM will continue to follow and assist with discharge planning/needs. DCP- Discharge Planning Updated by [id number]: Aura Kaur on 10/16/19 8:[address] TRILOGY ORDERED 10/13. PATIENT HAS HOME O2 AND NEBULIZER WITH [facility]. CM SPOKE WITH THE PATIENT. SHE WISHES TO HAVE [facility] PROVIDE THE TRILOGY. PATIENT CHOICE FORM OBTAINED. TC TO [facility]. CM SPOKE W/ TAMMY AT [facility]. SHE HAS THE APPROPRIATE PAPERWORK. SHE IS SUBMITTING THE REQUEST TO [facility] FOR AUTH. IT WILL TAKE 48 HRS TO RECEIVE. WHEN AUTH IS OBTAINED, SHE WILL DELIVERY THE EQUIPMENT. DCP- Discharge Planning Updated by [id number]: Sorin Lisa on 10/09/19 10:[address] Patient Name: SHARON BLANTON Encounter No: [id number] : 1960 Primary Insurance: [employer]OV[employer] MANAGED MEDICAID Anticipated DC Date: 10-06-2019 Planned Disposition: Home with Home Health External Planned Provider:[facility] DCP follow-up note: CM RECEIVED ORDER FOR INPATIENT REHAB PRESCREENING. CM MET WITH PT IN ROOM, DISCUSSED INPATIENT REHAB SERVICES, PROVIDERS AND LOCATIONS. CM DISCUSSED NURING HOME PLACEMENT. PT DECLINES REHAB SERVICES PLACEMENT AND CLAY [employer]Y PRESS HELPER CARE PLACEMENT. PT STATES SHE IS GOING HOME. PT DOES NOT WANT TO LOOSE HER APARTMENT. PT WILL ACCEPT HOME HEALTH WITH [facility]. CM EXPLAINED TO PT SHE HAS NOT SEEN HER PRIMARY DOCTOR SINCE AND WILL HAVE TO AGREE TO GO TO FOLLOW UP APPOINTMENT WITH PRIMARY DOCTOR SOON AFTER DISCHARGE FOR [facility] TO ACCEPT PATIENT. PT AGREES TO TERMS FOR HOME HEALTH. CARE TEAM UPDATED REGARDING DISCHARGE PLAN IN MULTIDISCIPLINARY TEAM MEETING. FOR DISCHARGE, MAKE APPOINTMENT FOR FOLLOW UP WITH PRIMARY CARE PHYSICIAN, BLAZE [facility], OF [facility]. NOTIFY [facility], . FAX DISCHARGE INFORMATION TO [facility], . [facility] Farnco MANAGEMENT DCP- Discharge Planning Updated by [id number]: Sorin Lisa on 10/06/19 5:[address] Patient Name: SHARON BLANTON Encounter No: [id number] : 1960 Primary Insurance: [employer] MANAGED MEDICAID Anticipated DC Date: 10-06-2019 Planned Disposition: Home with Home Health External Planned Provider: [facility] DCP follow-up note: CM RECEIVED CALL FROM [facility]. THEY WILL ACCEPT PT FOR HOME HEALTH, PT HAS NOT SEEN HER PRIMARY CARE AT [facility], SINCE 2015. PT WILL NEED TO HAVE APPOINTMENT TO SEE PCP AFTER DISCHARGE. IF THIS APPOINTMENT IS NOT MADE, PT HAS NO DOCTOR TO SIGN HOME HEALTH ORDERS AND [facility] WILL NOT BE ABLE TO ADMIT. FOR DISCHARGE, MAKE APPOINTMENT FOR FOLLOW UP WITH PRIMARY CARE PHYSICIAN, BLAZE KAT, OF [facility]. NOTIFY [facility], . FAX DISCHARGE INFORMATION TO [facility], . VADIM Franco DCP- Discharge Planning Updated by [id number]: Sorin Lisa on 10/05/19 4:[address] Patient Name: SHARON BLANTON Encounter No: [id number] : 1960 Primary Insurance: [employer]OV[employer] MANAGED MEDICAID Anticipated DC Date: 10-06-2019 Planned Disposition: Home with Home Health External Planned Provider: [facility] DCP follow-up note: CM RECEIVED CALL FROM [facility]. THEY WILL ACCEPT PT FOR HOME HEALTH, SCHEDULED ADMISSION 10-08-19. [facility] FAX DISCHARGE INFORMATION TO [facility], . VADIM Franco DCP- Discharge Planning Updated by [id number]: Sorin Lisa on 10/05/19 1:[address] Patient Name: SHARON BLANTON Encounter No: [id number] : 1960 Primary Insurance: [employer] MANAGED MEDICAID Anticipated DC Date: Planned Disposition: Home with Home Health External Planned Provider: [facility] DCP follow-up note: CM RECEIVED MESSAGE FROM TIARA OF [facility], THEY ARE NOT IN NETWORK WITH PT'S INSURANCE COMPANY. CM CALLED [facility], , SPOKE TO MISHA, PROVIDED REFERRAL INFORMATION, THEY WILL CHECK WITH INSURANCE TO SEE IF THEY ARE IN NETWORK. CM FAXED REFERRAL INFORMATION TO [facility], . CM WAITING CONFIRMATION THAT [facility] IS IN PATIENTS INSURANCE NETWORK. VADIM Franco DCP- Discharge Planning Updated by [id number]: Sorin Lisa on 10/05/19 8:[address] Patient Name: SHARON BLANTON Encounter No: [id number] : 1960 Primary Insurance: NOV[employer] MANAGED MEDICAID Anticipated DC Date: Planned Disposition: Home with Home Health External Planned Provider: [facility] DCP follow-up note: CM CALLED [facility], , SPOKE TO TIARA AND PROVIDED REFERRAL INFORMATION, FAXED REFERRAL TO [facility] AT [phone]. TIARA TO RUN PT'S INSURANCE TO CONFIRM INSURANCE NETWORK STATUS. CM WAITING INSURANCE CONFIRMATION FOR HOME HEALTH SERVICES FROM TIARA OF [facility]. VADIM Franco DCP- Discharge Planning Updated by [id number]: Sorin Lisa on 09/29/19 3:[address] Patient Name: SHARON BLANTON Encounter No: [id number] : 1960 Primary Insurance: NOVASYS MANAGED MEDICAID Anticipated DC Date: Planned Disposition: Home with Home Health External Planned Provider: ANY HOME HEALTH PROVIDER DCP follow-up note: CM SPOKE TO PT ABOUT GOING TO REHAB. CM EXPLAINED REHAB PROVIDERS, LOCATIONS AND SERVICES. PT REFUSES INPATIENT AND LONGTERM REHAB. PT STATES SHE WILL GO HOME AND WILL ACCEPT HOME HEALTH WITH NO PROVIDER PREFERENCE. CHOICE SIGNED WITH REFUSAL OF REHAB SERVICES NOTED. CM PROVIDED PT WITH [facility] ON [address] PHONE NUMBER AND BROCHURE TO CONTACT FOR POSSIBLE MEDICAID COVERED CAREGIVER SERVICES IN THE HOME. PT DENIES FURTHER NEEDS. PT REFUSES REHAB, WILL ACCEPT HOME HEALTH. CM TO ARRANGE HOME HEALTH FOR PT'S DISCHARGE HOME WITH PHYSICIAN AGREEMENT AND HOME HEALTH ORDERS. IF PT IS NOT ABLE TO GET HER SORTER UPHOLSTERY PARTS TO PICK HER UP AT [facility], CM WILL CALL MEDICAID TRANSPORTATION (DAYS 8AM TO 4:30PM) TO SCHEDULE TRANSPORTATION HOME AT DISCHARGE. CM TO CONTINUE TO FOLLOW AND ASSIST IF NEEDED. SORIN LISA, CASE MANAGEMENT DCP- Discharge Planning Updated by [id number]: Sorin Lisa on 09/27/19 3:[address] Patient Name: SHARON BLANTON Admission Status: ER Accout number: [id number] Admission Date: 09-25-2019 : 1960 Admission Diagnosis: Attending: LARS AKERS Current LOS: 2 Anticipated DC Date: Planned Disposition: Home Primary Insurance: NOV[employer]YS MANAGED MEDICAID Discharge Planning Comments: CM MET WITH PT IN ROOM TO DISCUSS DISCHARGE PLANNING AND NEEDS. PT REPORTS LIVING AT HOME INDEPENDENTLY AND ALONE. PT HAS NO MEDICAL EQUIPMENT AND NO OUTSIDE SERVICES ASSISTING IN THE HOME. CM DISCUSSED AVAILABILITY OF HOME HEALTH, REHAB SERVICES AND MEDICAL EQUIPMENT. PT DENIES DISCHARGE NEEDS, REPORTS SHE DOES NOT KNOW HOW SHE WILL BE GETTING HOME, STATES THE HOSPITAL HAS GIVEN HER A TAXI IN THE PAST. CM EXPLAINED THAT THE HOSPITAL HAS VERY LIMITED RESOURCES AND ASKED HOW PT GOT HOME LAST VISIT, PT STATES HER [employer] PICKED HER UP. CM DISCUSSED DEVELOPING A PERSONAL SUPPORT SYSTEM FOR TIMES WHEN PT NEEDS ASSISTANCE. PT DENIES HAVING MONEY FOR TAXI CAB HOME. SHE MAY CALL HER [employer] PARTS TO SEE IF THEY WILL PICK HER UP BUT STATES THE DOCTOR SAYS SHE WILL BE HERE FOR A "MINUTE". CM EXPLAINED IT IS NOT TOO EARLY TO BE PLANNING FOR PT'S DISCHARGE. PT REPORTS UNDERSTANDING. PT WOULD LIKE TO HAVE PERSONAL CARE AT HOME. CM EXPLAINED APPLICATION PROCESS AT DEPARTMENT OF HUMAN SERVICES, ALSO PROVIDED PT WITH [facility] [employer] ON [address] CONTACT INFOMATION AND DISCUSSED THAT [employer] MAY BE AVAILABLE AND INSTRUCTED PT TO CALL THE [facility] ON [address]. PT STATES SHE WILL DO THIS. PT PROVIDED HER CUSTOMER SERVICE NUMBER FOR INSURANCE FOR CM TO CHECK TO SEE IF PT HAS TRANSPORATION BENEFIT; CM CALLED [phone], 4 TIMES AND RECEIVED NO ANSWER. PT NOTIFIED. PT PLANS TO DISCHARGE HOME, DENIES DISCHARGE NEEDS OTHER THAN TRANSPORATATION HOME. PT PLANS TO CALL HER [employer] TO SEE IF HE WILL PICK HER UP. CM TO CONTINUE TO FOLLOW AND ASSIST NEEDED. Potato Pancake Frier: Sorin Lisa Appended by Sorin Lisa on 09/27/2019 16:26 STEWARDING SUPERVISOR: CM CALLED PT'S INSURANCE COMPANY, , SPOKE TO ROBERT WHO INFORMED CM THAT PT HAS NO TRANSPORATION BENEFITS WITH [employer]. REFERENCE # [id number]. CM CALLED MAURICE WITH [employer] WHO PROVIDED PT'S ACTIVE [employer] MEDCAID NUMBER OF [id number]. CM CALLED MEDICAID TRANSPORTATION, , SPOKE TO RONALDO WHO ADVISED THAT PT DOES HAVE TRANSPORATION BENEFIT OF 4 TRIPS PER YEAR AND HAS USED NONE THIS YEAR. CM PROVIDED PT WITH HER MEDICAID NUMBER, MEDICAID TRANSPORATION NUMBER AND NOTIFED SHE HAS 4 TRIPS PER YEAR THAT SHE CAN USE. PT REPORTS UNDERSTANDING AND DENIES FURTHER DISCHARGE NEEDS AT THIS TIME. IF PT IS NOT ABLE TO GET HER SORTER UPHOLSTERY PARTS TO PICK HER UP AT [facility], CM WILL CALL MEDICAID TRANSPORTATION (WEEKDAYS 8AM TO 4:30PM) TO SCHEDULE TRANSPORTATION HOME AT DISCHARGE. CM TO CONTINUE TO FOLLOW AND ASSIST IF NEEDED. SORIN LISA, CASE MANAGEMENT DCPIA - Discharge Planning Initial Assessment Updated by [id number]: Sorin Lisa on 09/27/19 3:36 pm * Is the patient Alert and Oriented? Yes * How many steps to enter\\exit or inside your home? 17 * PCP [facility], [facility] REPORTS GOING TO [facility]OTH [facility] AND [facility] LOCATIONS * Pharmacy [facility] * Preadmission Environment Home Alone * ADLs Independent * Equipment Nebulizer Oxygen Walker * Other Equipment HOME AND PORTABLE OXYGEN - [facility] * List name and contact numbers for known caregivers / representatives who currently or will assist patient after discharge: REYES PANDEY, SISTER, * Verbal permission to speak to the caregivers and representatives has been obtained from the patient. N/A * Community resources currently utilized None * Please name any agencies selected above. NONE * Additional services required to return to the preadmission environment? No * Can the patient safely return to the preadmission environment? Yes * Has this patient been hospitalized within the prior 30 days at any hospital? Yes Coverage Notice Reviewer: [id number] - Sorin Lisa Notice Issued Date-Time: 09/29/2019 13:40 Notice Type: IM Discharge Notice Notice Delivered To: Patient Relationship to Patient: Adolescent Counselor Name: Delivery Method: HAND - Hand Delivered Brigette Days: Prior Verbal Notification: Recipient Understood Notice: Yes Recipient Signature: Yes Med Rec Note Co-signed by Attending: Coverage Notice Comment: ANY HOME HEALTH PROVIDER Reviewer: [id number] Delma Jones Notice Issued Date-Time: 10/13/2019 10:51 Notice Type: Patient Choice Letter Notice Delivered To: Patient Relationship to Patient: Self Adolescent Counselor Name: Delivery Method: HAND - Hand Delivered Brigette Days: Prior Verbal Notification: Recipient Understood Notice: Yes Recipient Signature: Yes Med Rec Note Co-signed by Attending: Coverage Notice Comment: [facility] FOR DME NEEDS Last DP export: 10/16/19 9:00 am Patient Name: SHARON BLANTON Page [id number] at 1018 All edits/amendments must be made on the electronic document DICTATION DATE: 10/18/19 1018 COOPER APPRENTICE: MAGNO 10/18/19 1018 RPT#: [id number] DC DATE: STATUS: ADM IN [facility] [address] [place] [address] END OF REPORT
--- NOTE | 2019-10-18 11:00 | NUR ---
PT RESTING IN BED. NO SIGNS OF DISTRES. IV TO RIGHT FORARM PATENT NO REDNESS OR TENDERNESS. ON 4L NC. DENIES ANY FURTHER NEED AT THIS TIME. CALL LIGHT IN REACH. BED LOW POSITON. NO FAMILY AT BEDSIDE AT THIS TIME
[2019-10-18 13:06] VITALS: BP 102/39
[2019-10-18 16:56] VITALS: BP 109/66
--- NOTE | 2019-10-18 18:45 | NUR ---
I have reviewed this patient and I concur with the Shift Assessment completed by the Licensed Practical Nurse today this shift.
[2019-10-18 20:00] VITALS: BP 102/58
[2019-10-19] VITALS: BP 96/40
[2019-10-19 04:00] VITALS: BP 117/59
[2019-10-19 05:17] LABS: BASOPHILS 0.4 % (0-2); EOSINOPHILS 2.3 % (0-7); HEMATOCRIT 34.4 % (36.0-48.0); HEMOGLOBIN 10.3 g/dL (12-16); IMMATURE GRANULOCYTES 0.6 % (0-5); LYMPHOCYTES 19.2 % (15-50); MCH 29.1 pg (26.0-34.0); MCHC 29.9 g/dL (31.0-37.0); MCV 97.2 fL (80.0-100.0); MEAN PLATELET VOLUME 11.1 fL (7.4-10.4); MONOCYTES 13.1 % (2-11); NEUTROPHILS 64.4 % (40-80); PLATELET COUNT 244 10x3/uL (130-400); RBC 3.54 10x6/uL (4.00-5.40); WBC 8.2 10x3/uL (4.8-10.8)
[2019-10-19 05:47] LABS: ALBUMIN 2.5 g/dL (3.4-5.0); ALKALINE PHOSPHATASE 78 U/L (30-120); ALT (SGPT) 18 U/L (10-68); BILIRUBIN - TOTAL 0.23 mg/dL (0.2-1.3); CALC OSMOLALITY 288 mosm/kg (275-300); CALCIUM 8.7 mg/dL (8.5-10.1); CHLORIDE - SERUM 103 mmol/L (98-107); CREATININE - SERUM 0.6 mg/dL (0.6-1.3); GLUCOSE 97 mg/dL (74-106); MAGNESIUM - SERUM 1.9 mg/dL (1.8-2.4); PHOSPHOROUS 3.8 mg/dL (2.5-4.9); POTASSIUM - SERUM 4.2 mmol/L (3.5-5.1); PROTEIN - SERUM 7.3 g/dL (6.4-8.2); SODIUM 144 mmol/L (136-145); UREA NITROGEN 17 mg/dL (7-18); eGFR NON AFRICAN AMERICAN > 90 mL/min (90-120)
[2019-10-19 05:55] LABS: CARBON DIOXIDE 40.6 mmol/L (21.0-32.0)
--- NOTE | 2019-10-19 07:10 | NUR ---
PT SITTING UP IN BED WITH BREATHING TREATMENT. RESPIRATIONS SHALLOW, BUT DENIES THIS A NEW "PROBLEM. I ALWAYS BREATH LIKE THIS." O2 @ 4.5L NC IN PLACE. BIPAP AT BEDSIDE. PT REPORTS THAT SHE DID NOT WEAR BIPAP "MUCH" LAST NIGHT SHE FEELS THAT IT IS "SUFFICATING" HER. PT DENIES PAIN AT THIS TIME. SALINE LOC TO RIGHT FOREARM. SITE WITHOUT REDNESS OR EDEMA. PT DENIES FURTHER NEEDS AT THIS TIME. CL WITHIN REACH. CONTINUE POC
--- NOTE | 2019-10-19 08:09 | NUR ---
CALL TO CLIENT HR MANAGER INFORMED OF [place] LEVEL HE STATED TO CALL DR STEEN. CALL TO DR LIDA ROWE STATED THAT WAS NEAR HER NORMAL. IT WAS OK HE WILL SEE HER WITH ROUNDS
[2019-10-19 09:03] VITALS: BP 106/64
--- NOTE | 2019-10-19 09:35 | NUR ---
PT SITTING UP IN BED TALKING ON PHONE. AM MEDICATIONS ADMINISTERED AT THIS TIME. PT VOICES HEADACHE AT THIS TIME. DISCUSSED NEXT TIME TYLENOL COULD BE ADMINISTERED. PT VOICES UNDERSTANDING.
--- NOTE | 2019-10-19 10:30 | NUR ---
PT CONTINUES TO HAVE CO HEADACHE. TYLENOL ADMINISTERED AT THIS TIME PER MD ORDERS. PT RATES PAIN 8/10 AT THIS TIME.
[2019-10-19 12:10] VITALS: BP 132/87
[2019-10-19 17:24] VITALS: BP 119/74
--- NOTE | 2019-10-19 19:55 | NUR ---
PT. IN BED, AAO X 3, RESP EVENAND UNLABORED. LUNGS DEMINISHED, NO DISTRESS NOTED AT THIS TIME. NO C/O PAIN OR DISCOMFORT. NO CONCERNS OR WANTS NOTED. CL IN REACH, SR UP X 2.
[2019-10-19 20:00] VITALS: BP 103/53
[2019-10-20] VITALS: BP 112/63
--- NOTE | 2019-10-20 02:15 | NUR ---
PT HAS TOLD TWO THERAPISTS THAT SHE DOES NOT WANT TO TRY HER NEW TRILOGY. SHE FEELS FINE AND DOES NOT WISH TO PUT IT ON "RIGHT NOW" NURSE NOTIFIED
--- NOTE | 2019-10-20 03:03 | NUR ---
I have reviewed this patient and I concur with the Shift Assessment completed by the Licensed Practical Nurse today this shift.
[2019-10-20 04:00] VITALS: BP 105/61
[2019-10-20 05:58] LABS: MAGNESIUM - SERUM 1.7 mg/dL (1.8-2.4); PHOSPHOROUS 3.4 mg/dL (2.5-4.9)
--- NOTE | 2019-10-20 07:15 | NUR ---
REC'D SITTING ON SIDE OF BED AWAKE AND ALERT. RESP EVEN AND UNLABORED WITH NO DISTRESS NOTED. CAN EXPRESS NEEDS AND WANTS. NO C/O NOTED OR VOICED. ASSESSMENT COMPLETED. C/L IN REACH AT BEDSIDE.
[2019-10-20 08:44] VITALS: BP 108/62
--- NOTE | 2019-10-20 12:01 | MORECARE ---
CASE MANAGEMENT DISCHARGE SUMMARY PATIENT: SHARON BLANTON UNIT: [id number] ADM DATE: 09/25/19 AGE: 58 : 58 SEX: F ROOM/BED: D.2226 AUTHOR: KELVIN,DOC PHYSICIAN: REFERRING PHYSICIAN: LARS AKERS MD DATE OF SERVICE: 10/20/19 Discharge Plan Patient Name: SHARON BLANTON Facility: [facility]:[place] : 1960 Planned Disposition: Home with Home Health Anticipated Discharge Date: 10/06/19 Discharge Date: Expected LOS: 11 Initial Reviewer: [id number] Initial Review Date: 09/27/2019 Generated: 10/20/19 1:00 pm Comments DCP- Discharge Planning Updated by [id number]: Etelvina Augustine on 10/20/19 10:[address] Discharging home today with her Trilogy. I called Misha with [facility] and informed of discharging today, they will put her on the schedule. Home today with [facility]. DCP- Discharge Planning Updated by [email or web address]: Etelvina Augustine on 10/18/19 9:[address] I spoke with Bogdan today with [facility] and she states she anticipates getting authorization from her insurance today for her Trilogy. She will update me later today after reaching out to insurance company. CM will continue to follow and assist with discharge planning/needs. DCP- Discharge Planning Updated by [id number]: Aura Kaur on 10/16/19 8:[address] TRILOGY ORDERED 10/13. PATIENT HAS HOME O2 AND NEBULIZER WITH [facility]. CM SPOKE WITH THE PATIENT. SHE WISHES TO HAVE [facility] PROVIDE THE TRILOGY. PATIENT CHOICE FORM OBTAINED. TC TO [facility]. CM SPOKE W/ TAMMY AT [facility]. SHE HAS THE APPROPRIATE PAPERWORK. SHE IS SUBMITTING THE REQUEST TO [facility] FOR AUTH. IT WILL TAKE 48 HRS TO RECEIVE. WHEN AUTH IS OBTAINED, SHE WILL DELIVERY THE EQUIPMENT. DCP- Discharge Planning Updated by [id number]: Sorin Lisa on 10/09/19 10:[address] Patient Name: SHARON BLANTON Encounter No: [id number] : 1960 Primary Insurance: [employer]ED MEDICAID Anticipated DC Date: 10-06-2019 Planned Disposition: Home with Home Health External Planned Provider:[facility] DCP follow-up note: CM RECEIVED ORDER FOR INPATIENT REHAB PRESCREENING. CM MET WITH PT IN ROOM, DISCUSSED INPATIENT REHAB SERVICES, PROVIDERS AND LOCATIONS. CM DISCUSSED NURING HOME PLACEMENT. PT DECLINES REHAB SERVICES PLACEMENT AND SHOTBLAST OPERATOR CARE PLACEMENT. PT STATES SHE IS GOING HOME. PT DOES NOT WANT TO LOOSE HER APARTMENT. PT WILL ACCEPT HOME HEALTH WITH [facility]. CM EXPLAINED TO PT SHE HAS NOT SEEN HER PRIMARY DOCTOR SINCE AND WILL HAVE TO AGREE TO GO TO FOLLOW UP APPOINTMENT WITH PRIMARY DOCTOR SOON AFTER DISCHARGE FOR [facility] TO ACCEPT PATIENT. PT AGREES TO TERMS FOR HOME HEALTH. CARE TEAM UPDATED REGARDING DISCHARGE PLAN IN MULTIDISCIPLINARY TEAM MEETING. FOR DISCHARGE, MAKE APPOINTMENT FOR FOLLOW UP WITH PRIMARY CARE PHYSICIAN, [facility]. NOTIFY [facility], . FAX DISCHARGE INFORMATION TO [facility], . VADIM Franco MANAGEMENT DCP- Discharge Planning Updated by [id number]: Sorin Lisa on 10/06/19 5:[address] Patient Name: SHARON BLANTON Encounter No: [id number] : 1960 Primary Insurance: [employer]ED MEDICAID Anticipated DC Date: 10-06-2019 Planned Disposition: Home with Home Health External Planned Provider: [facility] DCP follow-up note: CM RECEIVED CALL FROM MISHA OF [facility]. THEY WILL ACCEPT PT FOR HOME HEALTH, PT HAS NOT SEEN HER PRIMARY CARE AT [facility], SINCE 2015. PT WILL NEED TO HAVE APPOINTMENT TO SEE PCP AFTER DISCHARGE. IF THIS APPOINTMENT IS NOT MADE, PT HAS NO DOCTOR TO SIGN HOME HEALTH ORDERS AND [facility] WILL NOT BE ABLE TO ADMIT. FOR DISCHARGE, MAKE APPOINTMENT FOR FOLLOW UP WITH PRIMARY CARE PHYSICIAN, [facility]. NOTIFY [facility], . FAX DISCHARGE INFORMATION TO [facility], . VADIM Franco DCP- Discharge Planning Updated by [id number]: Sorin Lisa on 10/05/19 4:[address] Patient Name: SHARON BLANTON Encounter No: [id number] : 1960 Primary Insurance: [employer]GED MEDICAID Anticipated DC Date: 10-06-2019 Planned Disposition: Home with Home Health External Planned Provider: [facility] DCP follow-up note: CM RECEIVED CALL FROM MISHA OF [facility]. THEY WILL ACCEPT PT FOR HOME HEALTH, SCHEDULED ADMISSION 10-08-19. [facility], [facility] . FAX DISCHARGE INFORMATION TO [facility], . VADIM Franco MANAGEMENT DCP- Discharge Planning Updated by [id number]: Sorin Lisa on 10/05/19 1:[address] Patient Name: SHARON BLANTON Encounter No: [id number] : 1960 Primary Insurance: [employer]ED MEDICAID Anticipated DC Date: Planned Disposition: Home with Home Health External Planned Provider: [facility] DCP follow-up note: CM RECEIVED MESSAGE FROM TIARA OF [facility], THEY ARE NOT IN NETWORK WITH PT'S INSURANCE COMPANY. CM CALLED [facility], , SPOKE TO MISHA, PROVIDED REFERRAL INFORMATION, THEY WILL CHECK WITH INSURANCE TO SEE IF THEY ARE IN NETWORK. CM FAXED REFERRAL INFORMATION TO [facility], . CM WAITING CONFIRMATION THAT [facility] IS IN PATIENTS INSURANCE NETWORK. VADIM Franco DCP- Discharge Planning Updated by [id number]: Sorin Lisa on 10/05/19 8:[address] Patient Name: SHARON BLANTON Encounter No: [id number] : 1960 Primary Insurance: [employer]GED MEDICAID Anticipated DC Date: Planned Disposition: Home with Home Health External Planned Provider: [facility] DCP follow-up note: CM CALLED [facility], , SPOKE TO TIARA AND PROVIDED REFERRAL INFORMATION, FA[facility]ED REFERRAL TO [facility] AT [phone]. TIARA TO RUN PT'S INSURANCE TO CONFIRM INSURANCE NETWORK STATUS. CM WAITING INSURANCE CONFIRMATION FOR HOME HEALTH SERVICES FROM TIARA OF [facility]. Sorin Lisa CASE MANAGEMENT DCP- Discharge Planning Updated by [id number]: Sorin Lisa on 09/29/19 3:[address] Patient Name: SHARON BLANTON Encounter No: [id number] : 1960 Primary Insurance: [employer]GED MEDICAID Anticipated DC Date: Planned Disposition: Home with Home Health External Planned Provider: ANY HOME HEALTH PROVIDER DCP follow-up note: CM SPOKE TO PT ABOUT GOING TO REHAB. CM EXPLAINED REHAB PROVIDERS, LOCATIONS AND SERVICES. PT REFUSES INPATIENT AND HALF-WAY REHAB. PT STATES SHE WILL GO HOME AND WILL ACCEPT HOME HEALTH WITH NO PROVIDER PREFERENCE. CHOICE SIGNED WITH REFUSAL OF REHAB SERVICES NOTED. CM PROVIDED PT WITH [facility] ON [place] PHONE NUMBER AND BROCHURE TO CONTACT FOR POSSIBLE MEDICAID COVERED CAREGIVER SERVICES IN THE HOME. PT DENIES FURTHER NEEDS. PT REFUSES REHAB, WILL ACCEPT HOME HEALTH. CM TO ARRANGE HOME HEALTH FOR PT'S DISCHARGE HOME WITH PHYSICIAN AGREEMENT AND HOME HEALTH ORDERS. IF PT IS NOT ABLE TO GET HER PRESCRIPTIONIST TO PICK HER UP [facility], CM WILL CALL MEDICAID TRANSPORTATION (WEEKDAYS 8AM TO 4:30PM) TO SCHEDULE TRANSPORTATION HOME AT DISCHARGE. CM TO CONTINUE TO FOLLOW AND ASSIST IF NEEDED. SORIN LISA, CASE MANAGEMENT DCP- Discharge Planning Updated by [email or web address]: Sorin Lisa on 09/27/19 3:[address] Patient Name: SHARON BLANTON Admission Status: ER Accout number: [id number] Admission Date: 09-25-2019 : 1960 Admission Diagnosis: Attending: LARS AKERS Current LOS: 2 Anticipated DC Date: Planned Disposition: Home Primary Insurance: [employer] MA[employer]GED MEDICAID Discharge Planning Comments: CM MET WITH PT IN ROOM TO DISCUSS DISCHARGE PLANNING AND NEEDS. PT REPORTS LIVING AT HOME INDEPENDENTLY AND ALONE. PT HAS NO MEDICAL EQUIPMENT AND NO OUTSIDE SERVICES ASSISTING IN THE HOME. CM DISCUSSED AVAILABILITY OF HOME HEALTH, REHAB SERVICES AND MEDICAL EQUIPMENT. PT DENIES DISCHARGE NEEDS, REPORTS SHE DOES NOT KNOW HOW SHE WILL BE GETTING HOME, STATES THE HOSPITAL HAS GIVEN HER A TAXI IN THE PAST. CM EXPLAINED THAT THE HOSPITAL HAS VERY LIMITED RESOURCES AND ASKED HOW PT GOT HOME LAST VISIT, PT STATES HER PRESCRIPTIONIST PICKED HER UP. CM DISCUSSED DEVELOPING A PERSONAL SUPPORT SYSTEM FOR TIMES WHEN PT NEEDS ASSISTANCE. PT DENIES HAVING MONEY FOR TAXI CAB HOME. SHE MAY CALL HER PRESCRIPTIONIST TO SEE IF THEY WILL PICK HER UP BUT STATES THE DOCTOR SAYS SHE WILL BE HERE FOR A "MINUTE". CM EXPLAINED IT IS NOT TOO EARLY TO BE PLANNING FOR PT'S DISCHARGE. PT REPORTS UNDERSTANDING. PT WOULD LIKE TO HAVE PERSONAL CARE AT HOME. CM EXPLAINED APPLICATION PROCESS AT DEPARTMENT OF HUMAN SERVICES, ALSO PROVIDED PT WITH [facility] ON [place]ING CONTACT INFOMATION AND DISCUSSED THAT SANG [employer] MAY BE AVAILABLE AND INSTRUCTED PT TO CALL THE [facility] ON AGING. PT STATES SHE WILL DO THIS. PT PROVIDED HER CUSTOMER SERVICE NUMBER FOR INSURANCE FOR CM TO CHECK TO SEE IF PT HAS TRANSPORATION BENEFIT; CM CALLED [phone], 4 TIMES AND RECEIVED NO ANSWER. PT NOTIFIED. PT PLANS TO DISCHARGE HOME, DENIES DISCHARGE NEEDS OTHER THAN TRANSPORATATION HOME. PT PLANS TO CALL HER PRESCRIPTIONIST TO SEE IF HE WILL PICK HER UP. CM TO CONTINUE TO FOLLOW AND ASSIST NEEDED. Board Finisher: Sorin Lisa Appended by Sorin Lisa on 09/27/2019 16:26 ONLINE FACILITATOR: CM CALLED PT'S INSURANCE COMPANY, , SPOKE TO ROBERT WHO INFORMED CM THAT PT HAS NO TRANSPORATION BENEFITS WITH [facility]. REFERENCE # [id number]. CM CALLED MAURICE WITH [employer] WHO PROVIDED PT'S [employer] MEDCAID NUMBER OF [id number]. CM CALLED MEDICAID TRANSPORTATION, , SPOKE TO RONALDO WHO ADVISED THAT PT DOES HAVE TRANSPORATION BENEFIT OF 4 TRIPS PER YEAR AND HAS USED NONE THIS YEAR. CM PROVIDED PT WITH HER MEDICAID NUMBER, MEDICAID TRANSPORATION NUMBER AND NOTIFED SHE HAS 4 TRIPS PER YEAR THAT SHE CAN USE. PT REPORTS UNDERSTANDING AND DENIES FURTHER DISCHARGE NEEDS AT THIS TIME. IF PT IS NOT ABLE TO GET HER PRESCRIPTIONIST TO PICK HER UP [facility], CM WILL CALL MEDICAID TRANSPORTATION (WEEKDAYS 8AM TO 4:30PM) TO SCHEDULE TRANSPORTATION HOME AT DISCHARGE. CM TO CONTINUE TO FOLLOW AND ASSIST IF NEEDED. SORIN LISA, CASE MANAGEMENT DCPIA - Discharge Planning Initial Assessment Updated by [id number]: Sorin Lisa on 09/27/19 3:36 pm * Is the patient Alert and Oriented? Yes * How many steps to enter\\exit or inside your home? 17 * PCP [facility] [place] REPORTS GOING TO BOTH [facility] AND [facility] LOCATIONS * Pharmacy [facility] * Preadmission Environment Home Alone * ADLs Independent * Equipment Nebulizer Oxygen Walker * Other Equipment HOME AND PORTABLE OXYGEN - [facility] * List name and contact numbers for known caregivers / representatives who currently or will assist patient after discharge: REYES PANDEY, SISTER, * Verbal permission to speak to the caregivers and representatives has been obtained from the patient. N/A * Community resources currently utilized None * Please name any agencies selected above. NONE * Additional services required to return to the preadmission environment? No * Can the patient safely return to the preadmission environment? Yes * Has this patient been hospitalized within the prior 30 days at any hospital? Yes Coverage Notice Reviewer: [email or web address] Delma Lisa Notice Issued Date-Time: 09/29/2019 13:40 Notice Type: IM Discharge Notice Notice Delivered To: Patient Relationship to Patient: Innovation Manager Name: Delivery Method: HAND - Hand Delivered Brigette Days: Prior Verbal Notification: Recipient Understood Notice: Yes Recipient Signature: Yes Med Rec Note Co-signed by Attending: Coverage Notice Comment: ANY HOME HEALTH PROVIDER Reviewer: [id number] Delma Jones Notice Issued Date-Time: 10/13/2019 10:51 Notice Type: Patient Choice Letter Notice Delivered To: Patient Relationship to Patient: Self Innovation Manager Name: Delivery Method: HAND - Hand Delivered Brigette Days: Prior Verbal Notification: Recipient Understood Notice: Yes Recipient Signature: Yes Med Rec Note Co-signed by Attending: Coverage Notice Comment: [facility] FOR DME NEEDS Last DP export: 10/18/19 9:18 am Patient Name: SHARON BLANTON Page [phone] at 1201 All edits/amendments must be made on the electronic document DICTATION DATE: 10/20/19 1200 STROBOSCOPE OPERATOR: DM 10/20/19 1200 RPT#: [id number] DC DATE: STATUS: ADM IN [facility] [address] [place] [address] END OF REPORT
--- NOTE | 2019-10-20 12:45 | NUR ---
I have reviewed this patient and I concur with the Shift Assessment completed by the Licensed Practical Nurse today this shift.
--- NOTE | 2019-10-20 14:14 | NUR ---
DC HOME AT THIS TIME VOICE UNDERSTANDING OF DC ORDERS. IV DC. STABLE CONDITION UPON DEPARTURE.
== END 2019-10-20 14:15 | disposition home health service (06) | DRG 208 ==
LOC: D.ER 00:48 → D.MS 12:21 → D.M2 12:21 → D.ICU 12:21 → D.MS 10-14 14:05
PROVIDERS: Family Medicine; Internal Medicine Interventional Cardiology; Internal Medicine Pulmonary Disease; ADMIT Internal Medicine Nephrology; ATTEND Internal Medicine Nephrology
PROC: B2151ZZ Fluoroscopy of Left Heart using Low Osmolar Contrast (ICD-10-PCS; 2019-09-27)
PROC: 4A023N7 Measurement of Cardiac Sampling and Pressure, Left Heart, Percutaneous Approach (ICD-10-PCS; 2019-09-27)
PROC: B2111ZZ Fluoroscopy of Multiple Coronary Arteries using Low Osmolar Contrast (ICD-10-PCS; principal; 2019-09-27 09:30)
PROC: 5A1945Z Respiratory Ventilation, 24-96 Consecutive Hours (ICD-10-PCS; 2019-10-09)
PROC: 0BH17EZ Insertion of Endotracheal Airway into Trachea, Via Natural or Artificial Opening (ICD-10-PCS; 2019-10-09)
DX: J96.21 Acute and chronic respiratory failure with hypoxia (principal); J18.9 Pneumonia, unspecified organism; J44.1 Chronic obstructive pulmonary disease with (acute) exacerbation; J90 Pleural effusion, not elsewhere classified; D61.818 Other pancytopenia; J96.22 Acute and chronic respiratory failure with hypercapnia; J30.9 Allergic rhinitis, unspecified; I27.29 Other secondary pulmonary hypertension; E87.6 Hypokalemia; Z87.891 Personal history of nicotine dependence; E83.42 Hypomagnesemia; Y95 Nosocomial condition; D50.9 Iron deficiency anemia, unspecified; R00.0 Tachycardia, unspecified

== ENCOUNTER 2019-12-16 10:41 | Inpatient (IN) | payer OTHER ==
[~2019-12-16] VITALS: Ht 167.6 cm; Wt 51.6 kg
[~2019-12-16 10:41] MED LIST changes: +CARDIZEM LA240 MG PO
[2019-12-16 11:24] LABS: BASOPHILS 0.1 % (0-2); EOSINOPHILS 0.1 % (0-7); HEMATOCRIT 49.5 % (36.0-48.0); HEMOGLOBIN 15.9 g/dL (12-16); IMMATURE GRANULOCYTES 0.2 % (0-5); LYMPHOCYTES 8.9 % (15-50); MCH 29.8 pg (26.0-34.0); MCHC 32.1 g/dL (31.0-37.0); MCV 92.7 fL (80.0-100.0); MONOCYTES 7.4 % (2-11); NEUTROPHILS 83.3 % (40-80); PLATELET COUNT 202 10x3/uL (130-400); RBC 5.34 10x6/uL (4.00-5.40); RDW 14.1 % (11.5-14.5); WBC 9.2 10x3/uL (4.8-10.8)
[2019-12-16 11:50] LABS: APTT 23.7 SECONDS (22.8-39.4); INR 0.88 (0.85-1.17); PROTIME 11.9 SECONDS (11.6-15.0)
[2019-12-16 12:03] LABS: ALBUMIN 3.4 g/dL (3.4-5.0); ALKALINE PHOSPHATASE 76 U/L (30-120); ALT (SGPT) 29 U/L (10-68); BILIRUBIN - TOTAL 0.44 mg/dL (0.2-1.3); CALC OSMOLALITY 283 mosm/kg (275-300); CALCIUM 8.6 mg/dL (8.5-10.1); CHLORIDE - SERUM 93 mmol/L (98-107); CKMB 6.4 U/L (0.0-3.6); CREATINE KINASE 511 UL (21-215); CREATININE - SERUM 0.6 mg/dL (0.6-1.3); GLUCOSE 100 mg/dL (74-106); POTASSIUM - SERUM 3.7 mmol/L (3.5-5.1); PRO BNP 78 pg/mL (0-125); PROTEIN - SERUM 8.2 g/dL (6.4-8.2); SODIUM 139 mmol/L (136-145); UREA NITROGEN 29 mg/dL (7-18); eGFR NON AFRICAN AMERICAN > 90 mL/min (90-120)
[2019-12-16 12:04] LABS: CARBON DIOXIDE 40.7 mmol/L (21.0-32.0); TROPONIN-I < 0.017 ng/mL (0.000-0.060)
--- NOTE | 2019-12-16 14:29 | NUR ---
PT AMBULATED TO BED WITH STEADY GAIT. DENIES NEEDS OR PAIN AT THIS TIME. CALL LIGHT WITHIN REACH. IV NOTED TO RIGHT FOREARM, SL AT THE MOMENT. ORIENTED TO ROOM. BED IN LOWEST POSITION. WILL CONTINUE TO MONITOR.
[2019-12-16 14:46] VITALS: BP 100/58; BMI 13.7
[2019-12-16 17:11] VITALS: BP 114/68
--- NOTE | 2019-12-16 17:58 | NUR ---
I CONCUR WITH THIS CLOTH FINISHING RANGE OPERATOR CHIEF ASSESSMENT OF THIS PATIENT.
--- NOTE | 2019-12-16 19:59 | NUR ---
RECEIVED UP IN BED WITH EYES OPEN AND TV ON. ALERT AND ORIENTED X4. UP AD RENALDO TO B/R. O2@ 2 LITERS PER N/C. RESP EVEN AND USING AXILLARY MUSCLES WHEN SPEAKING. IV TO RT FA WITH NS UINFUSING AT 75CC/HR. REPORTED N/V TODAY. NO N/V AT THIS TIME. DENIES ANY NEEDS. REMAINS IN DROPLET ISOLATION.
[2019-12-16 20:37] VITALS: BP 103/61
[2019-12-17 01:06] VITALS: BP 114/69
[2019-12-17 05:22] VITALS: BP 102/47
[2019-12-17 06:55] LABS: BASOPHILS 0 % (0-2); EOSINOPHILS 0 % (0-7); IMMATURE GRANULOCYTES 0.2 % (0-5); LYMPHOCYTES 20.6 % (15-50); MCH 29.5 pg (26.0-34.0); MCHC 30.9 g/dL (31.0-37.0); MEAN PLATELET VOLUME 11.6 fL (7.4-10.4); MONOCYTES 6.2 % (2-11); PLATELET COUNT 171 10x3/uL (130-400); RDW 13.1 % (11.5-14.5)
[2019-12-17 06:56] LABS: HEMATOCRIT 38.8 % (36.0-48.0); MCV 95.3 fL (80.0-100.0); RBC 4.07 10x6/uL (4.00-5.40)
[2019-12-17 07:21] LABS: D-DIMER-QUANTITATIVE 2.06 ug/mLFEU (0.20-0.54)
[2019-12-17 07:37] LABS: C-REACTIVE PROTEIN 0.8 mg/dL (0.0-0.9); CALC OSMOLALITY 276 mosm/kg (275-300); CALCIUM 7.8 mg/dL (8.5-10.1); CARBON DIOXIDE 36.4 mmol/L (21.0-32.0); CHLORIDE - SERUM 100 mmol/L (98-107); CREATININE - SERUM 0.6 mg/dL (0.6-1.3); FERRITIN 260 ng/mL (3-244); GLUCOSE 130 mg/dL (74-106); LDH 162 U/L (81-234); POTASSIUM - SERUM 3.7 mmol/L (3.5-5.1); SODIUM 136 mmol/L (136-145); eGFR NON AFRICAN AMERICAN > 90 mL/min (90-120)
[2019-12-17 07:38] LABS: UREA NITROGEN 20 mg/dL (7-18)
[2019-12-17 08:26] VITALS: BP 126/71
[2019-12-17 12:00] VITALS: BP 100/40
--- NOTE | 2019-12-17 13:40 | HP ---
PATIENT: SHARON BLANTON MEDICAL RECORD: [id number] ACCOUNT: [id number] LOCATION:[address] : 58 ADMISSION DATE: 12/16/19 PCP: ARI GUZMAN MD HISTORY AND PHYSICAL EXAMINATION DATE OF ADMISSION: 12/16/2019 CHIEF COMPLAINT: Shortness of breath, nausea, vomiting, diarrhea times 4 days. HISTORY OF PRESENT ILLNESS: This is a 58-year-old female with a history of oxygen dependent COPD/asthma, followed by Dr. Gurrola. She presented to the ER today with nausea, vomiting, diarrhea for 3-4 days plus worsening shortness of breath. There was a report of fever. She is on home oxygen at 3 liters. In the ER, her pCO2 was 70. Her pO2 was 67. Influenza tests were negative. RSV was negative. Group A strep was positive. COVID-19 is pending. Chest x-ray showed COPD changes; however, a CT of the chest showed left lower lobe airspace disease suspicious for pneumonia. She is admitted. Dr. Gurrola was consulted. PAST MEDICAL HISTORY: COPD, asthma, depression/anxiety, GERD. She had an angiogram on 09/27/2019 that was clear. PAST SURGICAL HISTORY: Appendectomy, tonsillectomy, cholecystectomy, laryngoscopy with a benign mass removed. ALLERGIES: No known drug allergies. HOME MEDICATIONS: Include DuoNeb via nebulizer p.r.n., Singulair 10 mg once a day, Protonix 40 mg once a day, Daliresp 250 mcg once a day, Mucinex 1200 mg twice a day, diltiazem 240 mg once a day, Xanax 0.5 mg twice a day, Incruse Ellipta 2 puffs daily, Ventolin HFA 2 puffs q.4 hours p.r.n., Zofran p.r.n., Breo Ellipta 2 puffs once a morning, Flonase nasal spray. SOCIAL HISTORY: She is single. She lives alone. FAMILY HISTORY: Diabetes and cancer. HABITS: Former smoker. No alcohol, no drugs. REVIEW OF SYSTEMS: GENERAL: No major weight changes. HEENT: No particular sinus or allergy problems. RESPIRATORY: See above history, followed by Dr. Gurrola. CARDIAC: No known coronary disease with clear angiogram on 09/27/2019. GASTROINTESTINAL: Has reflux. GENITOURINARY: No significant problems there. MUSCULOSKELETAL: No significant problems there. NEUROLOGIC: No migraines or seizures. PSYCHIATRIC: She has depression and anxiety. PHYSICAL EXAMINATION: VITAL SIGNS: Temperature 98.2, pulse 114, respirations 12, blood pressure 114/68, O2 sat 95% on supplemental oxygen. She is awake and alert. HEENT: Grossly within normal limits. NECK: Supple. HEART: Regular rate and rhythm. HISTORY AND PHYSICAL [id number] SHARON BLANTON LUNGS: With distant breath sounds, a few scattered wheezes. ABDOMEN: Soft, flat, nontender. EXTREMITIES: No edema. LABORATORY DATA: CBC with a white count 9200, hemoglobin 15.9, hematocrit 49.5. ABG: pH 7.38, pCO2 70.9, pO2 of 67, O2 sat 91%. Basic metabolic panel: Sodium 139, potassium 3.7, chloride 93, CO2 40.7, BUN 29, creatinine 0.6, glucose 100, calcium 8.6, AST 66. Other LFTs were normal. ProBNP 78. Troponin less than 0.017. INR 0.88. Influenza A and B are negative. RSV is negative. Strep swab was positive. COVID-19 is pending. IMAGING: Chest x-ray shows COPD changes. CT of the chest shows COPD changes, left lower lobe airspace disease suspicious for pneumonia. There is an unchanged pulmonary nodule in right lower lobe. ASSESSMENT: 1. Left lower lobe pneumonia, felt to be hospital-acquired. She has had a recent long stay in the hospital. 2. Chronic obstructive pulmonary disease. 3. Rule out COVID-19. 4. Positive strep. PLAN: IV antibiotics, respiratory meds as per Dr. Gurrola. IV fluids. Follow up COVID-19 testing. Other tests and procedures as warranted. TRANSINT:[id number] Voice Confirmation ID: [id number] DOCUMENT ID: [id number] OLESYA JOE MD at 1340 CC: [id number] DICTATION DATE: 12/17/19 1243 GENERAL LABOR FORKLIFT OPERATOR: 12/17/19 1300 ADM IN [facility] [address] [place] [address]
--- NOTE | 2019-12-17 15:00 | NUR ---
IV INFILTRATED. HEATING PACK APPLIED. RESITED X3 TO LEFT FOREARM.
[2019-12-17 16:44] VITALS: BP 108/66
--- NOTE | 2019-12-17 18:12 | NUR ---
I have reviewed this patient and I concur with the Shift Assessment completed by the Licensed Practical Nurse today this shift.
--- NOTE | 2019-12-17 20:56 | NUR ---
RECIEVED UP IN BED WITH EYES OPEN AND TV ON. ALERT AND ORIENTED. UP AD RENALDO TO B/R.IV TO LT FA WITH NS AT 75CC HR. O2@ 3 LITERS PER N/C IN PLACE. REMAINS IN ISOLATION. DENIES ANY NEEDS AT THIS TIME.
[2019-12-18 02:14] VITALS: BP 92/43
[2019-12-18 10:28] VITALS: BP 102/49
[2019-12-18 11:12] VITALS: Ht 167.6 cm; Wt 51.6 kg
--- NOTE | 2019-12-18 13:58 | NUR ---
I have reviewed this patient and I concur with the Shift Assessment completed by the Licensed Practical Nurse today this shift.
--- NOTE | 2019-12-18 14:54 | NUR ---
PT COVID NEGATIVE. PT AND ALL OF BELONGINGS MOVED TO ROOM 2125.
--- NOTE | 2019-12-18 17:48 | NUR ---
CONSENTS FOR EGD TOMORROW SIGNED. PT AWARE TO BE NPO AFTER MIDNIGHT.
[2019-12-18 18:01] VITALS: BP 112/51
[2019-12-18 21:08] VITALS: BP 96/73
[2019-12-18 23:55] VITALS: BP 96/41
[2019-12-19 04:37] VITALS: BP 97/47
[2019-12-19 11:28] VITALS: BP 110/46
[2019-12-19 15:46] VITALS: BP 111/41
[2019-12-19 21:44] VITALS: BP 138/58
[2019-12-20 00:15] VITALS: BP 121/57
[2019-12-20 05:08] VITALS: BP 98/44
[2019-12-20 09:00] VITALS: BP 104/51
[2019-12-20 12:00] VITALS: BP 107/64
--- NOTE | 2019-12-20 12:29 | NUR ---
Nutrition Follow-up: C/o diarrhea. Noted EGD done and CDT ordered. Ate a portion of breakfast this AM and kept some for later. Requesting chocolate milkshake. Diet: Regular Wt: 104.7# (12/19); 100.3# (12/18) Labs noted: Glu 130, Ca 7.8 Meds noted: Protonix, Nystatin, Carafate, NS @ 75, Zofran, Solumedrol, Questran -Encourage PO intake and honor food preferences. -Monitor wt. -RD following.
[2019-12-20 16:00] VITALS: BP 94/41
[2019-12-20 20:00] VITALS: BP 119/65
[2019-12-21 04:00] VITALS: BP 100/40; BP 98/50
[2019-12-21 05:33] LABS: BASOPHILS 0 % (0-2); EOSINOPHILS 0 % (0-7); HEMATOCRIT 40.6 % (36.0-48.0); HEMOGLOBIN 12.5 g/dL (12-16); LYMPHOCYTES 8.6 % (15-50); MCH 29.1 pg (26.0-34.0); MCHC 30.8 g/dL (31.0-37.0); MCV 94.6 fL (80.0-100.0); MEAN PLATELET VOLUME 12.3 fL (7.4-10.4); MONOCYTES 2.6 % (2-11); NEUTROPHILS 87.8 % (40-80); PLATELET COUNT 156 10x3/uL (130-400); RBC 4.29 10x6/uL (4.00-5.40); WBC 5.7 10x3/uL (4.8-10.8)
[2019-12-21 06:22] LABS: CALC OSMOLALITY 282 mosm/kg (275-300); CARBON DIOXIDE 36.9 mmol/L (21.0-32.0); CHLORIDE - SERUM 104 mmol/L (98-107); CREATININE - SERUM 0.5 mg/dL (0.6-1.3); GLUCOSE 144 mg/dL (74-106); POTASSIUM - SERUM 3.6 mmol/L (3.5-5.1); SODIUM 140 mmol/L (136-145); UREA NITROGEN 16 mg/dL (7-18); eGFR NON AFRICAN AMERICAN > 90 mL/min (90-120)
[2019-12-21 07:01] LABS: CALCIUM 6.9 mg/dL (8.5-10.1)
[2019-12-21 09:23] VITALS: BP 111/36
[2019-12-21 12:00] VITALS: BP 112/39
--- NOTE | 2019-12-21 16:25 | NUR ---
RESTS IN BED WITHOUT NEEDS VOICED. CALL LIGHT IN REACH. WILL MONITOR NEEDS.
[2019-12-21 20:00] VITALS: BP 117/35
--- NOTE | 2019-12-21 20:20 | NUR ---
REPORT RECIEVED AND ROUNDING COMPLETE. PATIENT SITTING ON THE SIDE OF HER
--- NOTE | 2019-12-21 20:31 | NUR ---
PATIENT SITTING ON THE SIDE OF HER BED, PATIENT HAS A LEFT FOREARM PIV THAT IS PATENT, ARTIE ASKS NOT TO BE HOOKED UP TO FLUIDS AT THIS TIME SSHE CAN WALK AND NOT DRAG HER POLE AROUND WITH HER. GIFTY STATES SHE IS READY TO GO HOME. NO S/SX OF DISTRESS AT THIS TIME. CALL LIGHT WITHIN REACH AND BED IN LOWEST LOCKED POSITION.
[2019-12-22] VITALS: BP 116/46
--- NOTE | 2019-12-22 00:07 | NUR ---
PATIENT STATES HER PIV VERY PAINFUL, REMOVED LEFT PIV CATH INTACT AND PLACED NEW PIV 20G TO RIGHT FOREARM 3 STICKS
[2019-12-22 04:00] VITALS: BP 92/42
[2019-12-22 05:01] LABS: BASOPHILS 0 % (0-2); EOSINOPHILS 0 % (0-7); HEMATOCRIT 39.9 % (36.0-48.0); HEMOGLOBIN 12.3 g/dL (12-16); IMMATURE GRANULOCYTES 0.8 % (0-5); LYMPHOCYTES 11.9 % (15-50); MCH 28.9 pg (26.0-34.0); MCHC 30.8 g/dL (31.0-37.0); MCV 93.9 fL (80.0-100.0); MEAN PLATELET VOLUME 11.5 fL (7.4-10.4); MONOCYTES 13.9 % (2-11); NEUTROPHILS 73.4 % (40-80); PLATELET COUNT 184 10x3/uL (130-400); RBC 4.25 10x6/uL (4.00-5.40)
[2019-12-22 05:15] LABS: WBC 7.7 10x3/uL (4.8-10.8)
[2019-12-22 05:57] LABS: CALC OSMOLALITY 278 mosm/kg (275-300); CARBON DIOXIDE 36.5 mmol/L (21.0-32.0); CHLORIDE - SERUM 100 mmol/L (98-107); CREATININE - SERUM 0.4 mg/dL (0.6-1.3); GLUCOSE 125 mg/dL (74-106); POTASSIUM - SERUM 3.4 mmol/L (3.5-5.1); SODIUM 138 mmol/L (136-145); UREA NITROGEN 17 mg/dL (7-18); eGFR NON AFRICAN AMERICAN > 90 mL/min (90-120)
[2019-12-22 06:18] LABS: CALCIUM 6.6 mg/dL (8.5-10.1)
[2019-12-22 11:08] VITALS: BP 91/50
[2019-12-22 12:00] VITALS: BP 95/49
[2019-12-22 16:30] VITALS: BP 113/38
--- NOTE | 2019-12-22 19:22 | NUR ---
RECEIVED UP IN BED WITH EYES OPEN AND TV ON. ALERT AND ORIENTED X4. UP AD RENALDO TO B/R. O2 @ 3 LITERS PER N/C. IV TO LT FA SL. C/O EDEMA TO LOWER EXTREMITIES. THIS NURSE UNABLE TO SEE ANY EDEMA. DENIES ANY NEEDS AT THIS TIME.
[2019-12-22 20:00] VITALS: BP 106/53
[2019-12-23 00:01] VITALS: BP 103/42
[2019-12-23 04:00] VITALS: BP 108/74
[2019-12-23 05:56] LABS: HEMATOCRIT 37.8 % (36.0-48.0); HEMOGLOBIN 12.1 g/dL (12-16); LYMPHOCYTES 11.3 % (15-50); MCH 29.7 pg (26.0-34.0); MCV 92.6 fL (80.0-100.0); MEAN PLATELET VOLUME 11.1 fL (7.4-10.4); NEUTROPHILS 81.1 % (40-80); PLATELET COUNT 184 10x3/uL (130-400); RBC 4.08 10x6/uL (4.00-5.40); RDW 12.9 % (11.5-14.5); WBC 6.7 10x3/uL (4.8-10.8)
[2019-12-23 06:13] LABS: CALC OSMOLALITY 272 mosm/kg (275-300); CARBON DIOXIDE 35.4 mmol/L (21.0-32.0); CHLORIDE - SERUM 98 mmol/L (98-107); CREATININE - SERUM 0.5 mg/dL (0.6-1.3); GLUCOSE 144 mg/dL (74-106); SODIUM 134 mmol/L (136-145); UREA NITROGEN 18 mg/dL (7-18); eGFR NON AFRICAN AMERICAN > 90 mL/min (90-120)
[2019-12-23 06:24] LABS: POTASSIUM - SERUM 4.3 mmol/L (3.5-5.1)
[2019-12-23 06:25] LABS: CALCIUM 6.7 mg/dL (8.5-10.1)
[2019-12-23 08:03] VITALS: BP 119/39
[2019-12-23 11:56] VITALS: BP 108/44
[2019-12-23 15:49] VITALS: BP 99/41
[2019-12-23 20:00] VITALS: BP 107/56
[2019-12-24] VITALS: BP 97/44
--- NOTE | 2019-12-24 02:09 | NUR ---
LAYING IN BED WITH EYES OPEN AND TV ON. ALERT AND ORIENTED. NS CONT TO INFUSE AT 75CC/H.
[2019-12-24 04:00] VITALS: BP 99/52
[2019-12-24 06:33] LABS: HEMOGLOBIN 11.9 g/dL (12-16); LYMPHOCYTES 17.6 % (15-50); MCH 29.6 pg (26.0-34.0); MCHC 32.2 g/dL (31.0-37.0); MEAN PLATELET VOLUME 10.9 fL (7.4-10.4); PLATELET COUNT 209 10x3/uL (130-400); RBC 4.02 10x6/uL (4.00-5.40); RDW 13.2 % (11.5-14.5)
[2019-12-24 06:34] LABS: WBC 9.4 10x3/uL (4.8-10.8)
[2019-12-24 06:57] LABS: CALC OSMOLALITY 270 mosm/kg (275-300); CARBON DIOXIDE 37.2 mmol/L (21.0-32.0); CHLORIDE - SERUM 97 mmol/L (98-107); CREATININE - SERUM 0.4 mg/dL (0.6-1.3); GLUCOSE 106 mg/dL (74-106); SODIUM 135 mmol/L (136-145); UREA NITROGEN 15 mg/dL (7-18); eGFR NON AFRICAN AMERICAN > 90 mL/min (90-120)
[2019-12-24 07:07] LABS: CALCIUM 6.6 mg/dL (8.5-10.1); POTASSIUM - SERUM 3.5 mmol/L (3.5-5.1)
--- NOTE | 2019-12-24 07:24 | NUR ---
PT AWAKE AND ORIENTED, LYING IN BED ON RIGHT SIDE WATCHING T/V. NO COMPLAINTS OR CONCERNS, ALL QUESTIONS ANSWERED TO THE BEST OF MY ABILITY. CL IN REACH, SRX2.
[2019-12-24 08:06] VITALS: BP 102/40
--- NOTE | 2019-12-24 09:28 | NUR ---
PT ALERT AND ORIENTED, ON THE PHONE WHEN I ENTERED COMLAINING OF BREAKFAST BEING LATE, NO ONE LISTENING TO HER, GENREALIZED UNHAPPYNESS. WHEN I TRIED TO RECONSILE THESE GRIEVENSES WHEN SHE GOT OFF OF THE PHONE, PT STATED HAPPILY NO SHE'S FINE. TOOK MEDICATIONS WITHOUT DIFFICULTY. CL IN REACH, SRX2.
[2019-12-24 12:08] VITALS: BP 116/46
--- NOTE | 2019-12-24 14:12 | NUR ---
PT AWAKE AND ORIENTED. NO COMPLAINTS OR CONCERNS AT THIS TIME. I/V CHECKED, WORKING WNL. CL IN REACH, SRX2.
--- NOTE | 2019-12-24 14:14 | NUR ---
I have reviewed this patient and I concur with the Shift Assessment completed by the Licensed Practical Nurse today this shift.
[2019-12-24 15:43] VITALS: BP 90/41
--- NOTE | 2019-12-24 17:05 | NUR ---
PT AWAKE AN DORIENTED, NO COMPLAINTS OR CONCERNS AT [facility]. PLEASED TO HAVE GOTTEN ANOTHER DOSE OF LASIX. CL IN REACH, SRX2.
--- NOTE | 2019-12-24 19:15 | NUR ---
BEDSIDE REPORT RECEIVED, PT CARE ASSUMED. INTRODUCED SELF AND WROTE NAME ON BOARD. PT SITTING UP IN BED, AAOX4, WORKING IN WORD SEARCH BOOK. REQUESTING CUP OF ICE, PROVIDED. DENIES PAIN OR ANY OTHER NEEDS AT THIS TIME. BED IN LOWEST, SRX2, CALL LIGHT WITHIN REACH. WILL CTM.
[2019-12-24 20:00] VITALS: BP 113/52
[2019-12-25 00:01] VITALS: BP 117/56
[2019-12-25 04:51] VITALS: BP 100/57
[2019-12-25 05:20] LABS: CALC OSMOLALITY 267 mosm/kg (275-300); CARBON DIOXIDE 39.1 mmol/L (21.0-32.0); CHLORIDE - SERUM 96 mmol/L (98-107); CREATININE - SERUM 0.5 mg/dL (0.6-1.3); GLUCOSE 85 mg/dL (74-106); POTASSIUM - SERUM 3.8 mmol/L (3.5-5.1); SODIUM 134 mmol/L (136-145); UREA NITROGEN 15 mg/dL (7-18); eGFR NON AFRICAN AMERICAN > 90 mL/min (90-120)
[2019-12-25 05:24] LABS: HEMATOCRIT 39.8 % (36.0-48.0); HEMOGLOBIN 12.9 g/dL (12-16); LYMPHOCYTES 16.1 % (15-50); MCH 29.9 pg (26.0-34.0); MCHC 32.4 g/dL (31.0-37.0); MCV 92.1 fL (80.0-100.0); MEAN PLATELET VOLUME 10.5 fL (7.4-10.4); NEUTROPHILS 69.3 % (40-80); PLATELET COUNT 243 10x3/uL (130-400); RBC 4.32 10x6/uL (4.00-5.40)
[2019-12-25 05:28] LABS: WBC 12.4 10x3/uL (4.8-10.8)
[2019-12-25 05:39] LABS: CALCIUM 6.8 mg/dL (8.5-10.1)
--- NOTE | 2019-12-25 07:15 | NUR ---
RECEIVED PT IN BED AAOX4 RESP UNLABORED SKIN W/D DENIES ANY NEEDS OR DISCOMFORT AT THIS TIME WILL CONTINUE TO MONITOR
[2019-12-25 09:09] VITALS: BP 111/55
[2019-12-25 12:00] VITALS: BP 106/30
--- NOTE | 2019-12-25 12:23 | NUR ---
Nutrition Follow-up: Eating better. Ate ~75% of breakfast this AM. C/o some nausea and states "I spit up stuff sometimes". Also c/o feeling bloated. Diet: Regular PO intake: 79% avg x 7 meals Wt: 106.8# (12/24); 104.7# (12/19); 100.3# (12/18) Last BM: 12/23 Labs noted: Na 134, Ca 6.8 Meds noted: Prednisone, Imodium, Protonix, Nystatin, NS @ 75 -Encourage PO intake and honor food preferences. -Monitor wt; noted daily wts ordered. -RD following.
[2019-12-25 16:00] VITALS: BP 100/53
--- NOTE | 2019-12-25 19:20 | NUR ---
RECEIVED REPORT, WILL ASSUME CARE OF PT, SITTING UP IN BED, DENIES ANY NEEDS AT THIS TIME, BED IS LOW, SRX2, CALL LIGHT IN REACH, WILL CONTINUE PLAN OF CARE
[2019-12-25 20:54] VITALS: BP 107/54
--- NOTE | 2019-12-25 22:37 | NUR ---
REFUING BIPAP, WILL NOT EVEN LET RT LEAVE IN ROOM
[2019-12-26 00:30] VITALS: BP 106/45
--- NOTE | 2019-12-26 01:53 | NUR ---
EXPLAINED BENEFITS OF COMPLIANCE TO BIPAP ADMINISTRATION HOWEVER PT CONTINUES TO REFUSE TO WEAR DESPITE. NURSE NOTIFIED
[2019-12-26 06:28] VITALS: BP 96/37
--- NOTE | 2019-12-26 07:20 | NUR ---
RECIEVE REPORT. ALERT AND ORIENTED X4. UP AMBULATING IN [place]. DENIES ANY NEEDS. CONTINUE PLAN OF CARE AND SAFETY PRECAUTIONS.
[2019-12-26 09:02] VITALS: BP 95/44
--- NOTE | 2019-12-26 10:15 | NUR ---
Rehab Note- Acute Inpatient Rehab prescreen order received. The patient has [employer] insurance and will require a PreAuth prior to an acute inpatient rehab stay. She has a pending PT & OT Eval at this time that will be needed for the PreAuth process. Will follow at this time to see her functional mobility at this time. Thank you for this referral! Ruth Franco RN Clinical Liaison, [facility] Rehab
--- NOTE | 2019-12-26 12:24 | NUR ---
LOS 10: Pt has no skin breakdown, but her bottom is red due to diarrhea. Calmoseptine cream has nbeen ordered for protection and comfort. Pt is independent of ADLs. Wound care will monitor.
--- NOTE | 2019-12-26 13:42 | MORECARE ---
CASE MANAGEMENT DISCHARGE SUMMARY PATIENT: SHARON BLANTON UNIT: [id number] ADM DATE: 12/16/19 AGE: 59 : 58 SEX: F ROOM/BED: D.0976 AUTHOR: KELVINDOC PHYSICIAN: REFERRING PHYSICIAN: OLESYA JOE MD DATE OF SERVICE: 12/26/19 Discharge Plan Patient Name: SHARON BLANTON Facility: [facility]:[place] : 1960 Planned Disposition: Home with Home Health Anticipated Discharge Date: Discharge Date: Expected LOS: Initial Reviewer: [email or web address] Initial Review Date: 12/16/2019 Generated: 12/26/19 2:42 pm DCP- Discharge Planning Updated by [email or web address]: Lauryn Saul on 12/22/19 8:[address] DC needs: Physical Therapy with [facility]. Scat transportation [phone] or Taxi services [phone] or [phone]. CM met with patient regarding DC needs/plans. Patient A/O X3. Lives in an apartment, 17 steps w/railing. PCP: Andie Han APRN, [facility]. Pharmacy: [facility], [phone]. DME supplies with [facility]: Trilogy, O2 with portability, RW, Nebulizer, Shower chair. Emergency contact: Juliette Amador (sister out of state) [phone]. HS: [place] [phone]. Patient will require transportation via SCAT or a taxi, if DC'd on W/E. Patient she has no friends or family in [place]. Patient declines Rehab or SNF. Patient would benefit PHYSICAL THERAPY services with her HH. Denies being hospitalized within the past 30 days. Patient has applied for "It's All About You" services. Voice s no other needs at this time. DCPIA - Discharge Planning Initial Assessment Updated by [email or web address]: Anu Jones on 12/26/19 1:38 pm * Is the patient Alert and Oriented? Yes * How many steps to enter\\exit or inside your home? 17 * PCP PHILOMENA HAN * Pharmacy [facility], [phone] * Preadmission Environment Home Alone * ADLs Independent * Other Equipment DME supplies with [facility]: Trilogy, O2 with portability, RW, Nebulizer, Shower chair. * List name and contact numbers for known caregivers / representatives who currently or will assist patient after discharge: Juliette Amador (sister out of state) [phone] * Verbal permission to speak to the caregivers and representatives has been obtained from the patient. Yes * Community resources currently utilized Home Health * Please name any agencies selected above. [facility] * Additional services required to return to the preadmission environment? No * Can the patient safely return to the preadmission environment? Yes * Has this patient been hospitalized within the prior 30 days at any hospital? No Patient Name: SHARON BLANTON Page 11718 at 1342 All edits/amendments must be made on the electronic document DICTATION DATE: 12/26/19 1342 PET TRAINING INSTRUCTOR: MAGNO 12/26/19 1342 RPT#: [id number] DC DATE: STATUS: ADM IN [facility] [address] [place] [address] END OF REPORT
[2019-12-26 14:18] VITALS: BP 108/48
--- NOTE | 2019-12-26 15:48 | NUR ---
ALERT AND ORIENTED X4. SITTING UP IN BED. DENIES ANY NEEDS AT THIS TIME. CONTINUE PLAN OF CARE AND SAFETY PRECAUTIONS.
--- NOTE | 2019-12-26 16:16 | MORECARE ---
CASE MANAGEMENT DISCHARGE SUMMARY PATIENT: SHARON BLANTON UNIT: [id number] ADM DATE: 12/16/19 AGE: 59 : 58 SEX: F ROOM/BED: D.4486 AUTHOR: KELVINDOC PHYSICIAN: REFERRING PHYSICIAN: OLESYA JOE MD DATE OF SERVICE: 12/26/19 Discharge Plan Patient Name: SHARON BLANTON Facility: [facility]:[place] : 1960 Planned Disposition: Home with Home Health Anticipated Discharge Date: Discharge Date: Expected LOS: Initial Reviewer: [email or web address] Initial Review Date: 12/16/2019 Generated: 12/26/19 5:16 pm DCP- Discharge Planning Updated by [email or web address]: Lauryn Saul on 12/22/19 8:[address] DC needs: Physical Therapy with [facility]. Scat transportation [phone] or Taxi services [phone] or [phone]. CM met with patient regarding DC needs/plans. Patient A/O X3. Lives in an apartment, 17 steps w/railing. PCP: Andie Han APRN, [facility]. Pharmacy: [facility], [phone]. DME supplies with [facility]: Trilogy, O2 with portability, RW, Nebulizer, Shower chair. Emergency contact: Julitete Amador (sister out of state) [phone]. HS: [place] [phone]. Patient will require transportation via SCAT or a taxi, if DC'd on W/E. Patient she has no friends or family in [place]. Patient declines Rehab or SNF. Patient would benefit PHYSICAL THERAPY services with her HH. Denies being hospitalized within the past 30 days. Patient has applied for "It's All About You" services. Voice s no other needs at this time. DCPIA - Discharge Planning Initial Assessment Updated by [email or web address]: Anu Jones on 12/26/19 1:38 pm * Is the patient Alert and Oriented? Yes * How many steps to enter\\exit or inside your home? 17 * PCP PHILOMENA HAN * Pharmacy [facility], [phone] * Preadmission Environment Home Alone * ADLs Independent * Other Equipment DME supplies with [facility]: Trilogy, O2 with portability, RW, Nebulizer, Shower chair. * List name and contact numbers for known caregivers / representatives who currently or will assist patient after discharge: Juliette Amador (sister out of state) [phone] * Verbal permission to speak to the caregivers and representatives has been obtained from the patient. Yes * Community resources currently utilized Home Health * Please name any agencies selected above. [facility] * Additional services required to return to the preadmission environment? No * Can the patient safely return to the preadmission environment? Yes * Has this patient been hospitalized within the prior 30 days at any hospital? No Last DP export: 12/26/19 12:42 p Patient Name: SHARON BLANTON Page 77499 at 1616 All edits/amendments must be made on the electronic document DICTATION DATE: 12/26/191615 VERIFICATION REP: MAGNO 12/26/191615 RPT#: [id number] DC DATE: STATUS: ADM IN [facility] [address] [place] [address] END OF REPORT
--- NOTE | 2019-12-26 16:17 | NUR ---
OT NOTE: PT COMPLETED SUPINE TO SIT WITH MIN A. PT COMPLETED STATIC SITTING AT EOB WITH CGA. PT COMPLETED FACE HYGIENE WITH SETUP. PT IS UNSTEADY. [phone] THANK YOU,JULIA GARCIA
--- NOTE | 2019-12-26 16:23 | MORECARE ---
CASE MANAGEMENT DISCHARGE SUMMARY PATIENT: SHARON BLANTON UNIT: [id number] ADM DATE: 12/16/19 AGE: 59 : 58 SEX: F ROOM/BED: D.8326 AUTHOR: ERICKA WARREN PHYSICIAN: REFERRING PHYSICIAN: OLESYA JOE MD DATE OF SERVICE: 12/26/19 Discharge Plan Patient Name: SHARON BLANTON Facility: [facility]:[place] : 1960 Planned Disposition: Home with Home Health Anticipated Discharge Date: Discharge Date: Expected LOS: Initial Reviewer: [email or web address] Initial Review Date: 12/16/2019 Generated: 12/26/19 5:23 pm Comments DCP- Discharge Planning Updated by [id number]: Aura Suarez on 12/26/19 3:[address] Patient Name: SHARON BLANTON Encounter No: [id number] : 1960 Primary Insurance: [employer] INS EXCHANGE Anticipated DC Date: Planned Disposition: Home with Home Health External Planned Provider: : DC needs: Physical Therapy with [facility]. Scat transportation [phone] or Taxi services [phone] or [phone]. CM met with patient regarding DC needs/plans. Patient A/O X3. Lives in an apartment, 17 steps w/railing. PCP: Andie Han APRN, [facility]. Pharmacy: [facility], [phone]. DME supplies with [facility]: Trilogy, O2 with portability, RW, Nebulizer, Shower chair. Emergency contact: Juliette Amador (sister out of state) [phone]. HS: [place] [phone]. Patient will require transportation via SCAT or a taxi, if DC'd on W/E. Patient she has no friends or family in [place]. Patient declines Rehab or SNF. Patient would benefit PHYSICAL THERAPY services with her HH. Denies being hospitalized within the past 30 days. Patient has applied for "It[facility] All About You" services. Voice s no other needs at this time. DCP follow-up note: CM met with pt about DC plan. Patient states she falls a lot, and is not able to care for herself. Spoke with her about the possibility of shelter or NH placement. Patient refused to discuss this plan. Also spoke with pt about IP rehab. Pt in agreement with this plan. ISSAC signed for [facility] IP rehab. Order received for PT, and OT. Spoke with both therapist and their recommendation is IP rehab. Called Ruth with IP rehab to initiate the referral. Authorization pending. Patient states if she is not able to go to rehab she will resume [facility], and [facility] for DME. Patient in agreement with discharge plan. No changes to plan. Case management will follow and assist as needed. Aura Suarez MSN,RN,CM DCP- Discharge Planning Updated by [email or web address]: Lauryn Saul on 12/22/19 8:[address] DC needs: Physical Therapy with [facility]. Scat transportation [phone] or Taxi services [phone] or [phone]. CM met with patient regarding DC needs/plans. Patient A/O X3. Lives in an apartment, 17 steps w/railing. PCP: Andie Han APRN, [facility]. Pharmacy: [facility], [phone]. [facility] supplies with [facility]: Trilogy, O2 with portability, RW, Nebulizer, Shower chair. Emergency contact: Juliette Amador (sister out of state) [phone]. HS: [place] [phone]. Patient will require transportation via SCAT or a taxi, if DC'd on W/E. Patient she has no friends or family in [place]. Patient declines Rehab or SNF. Patient would benefit PHYSICAL THERAPY services with her . Denies being hospitalized within the past 30 days. Patient has applied for "It's All About You" services. Voice s no other needs at this time. DCPIA - Discharge Planning Initial Assessment Updated by [email or web address]: Anu Jones on 12/26/19 1:38 pm * Is the patient Alert and Oriented? Yes * How many steps to enter\\exit or inside your home? 17 * PCP PHILOMENA HAN * [facility], [phone] * Preadmission Environment Home Alone * ADLs Independent * Other Equipment DME supplies with [employer]: Trilogy, O2 with portability, RW, Nebulizer, Shower chair. * List name and contact numbers for known caregivers / representatives who currently or will assist patient after discharge: Juliette Amador (sister out of state) [phone] * Verbal permission to speak to the caregivers and representatives has been obtained from the patient. Yes * Community resources currently utilized Home Health * Please name any agencies selected above. [facility] * Additional services required to return to the preadmission environment? No * Can the patient safely return to the preadmission environment? Yes * Has this patient been hospitalized within the prior 30 days at any hospital? No Last DP export: 12/26/19 3:16 p Patient Name: SHARON BLANTON Page 74165 at 1623 All edits/amendments must be made on the electronic document DICTATION DATE: 12/26/191622 GOLF COURSE RANGER: MAGNO 12/26/191622 RPT#: [id number] DC DATE: STATUS: ADM IN [facility] [address] [place] [address] END OF REPORT
[2019-12-26 18:20] VITALS: BP 103/58
[2019-12-26 20:00] VITALS: BP 113/60
--- NOTE | 2019-12-26 20:28 | NUR ---
HS MEDS GIVEN WITH FRESH ICE WATER. HS SNACK PROVIDED.
--- NOTE | 2019-12-26 22:48 | NUR ---
IV SITED TO RIGHT FOREARM, 20 GUAGE, FIRST ATTEMPT BY LEAH ARNOLD. PT TOLERATED WELL.
--- NOTE | 2019-12-26 22:57 | NUR ---
CALLED TO ROOM, PT STATED THAT HER "NEW IV HURTS" IV FLUSED WITHOUT DIFFICULTY, BUT PT INSISTANT THAT IT BED REMOVED. IV REISTED TO RIGHTMID FOREAR, 22 GUAGE, FIRST ATTEMPT. IV ABX RESUMED.
[2019-12-27] VITALS: BP 100/41
--- NOTE | 2019-12-27 00:50 | NUR ---
I have reviewed this patient and I concur with the Shift Assessment completed by the Licensed Practical Nurse today this shift.
--- NOTE | 2019-12-27 03:25 | NUR ---
RESTING WITH EYES CLOSED, RESPERATIONS EVEN, NO S/S DISTRESS NOTED.
[2019-12-27 04:00] VITALS: BP 118/55
[2019-12-27 04:57] LABS: BASOPHILS 0.1 % (0-2); EOSINOPHILS 0.6 % (0-7); HEMATOCRIT 36.4 % (36.0-48.0); HEMOGLOBIN 11.2 g/dL (12-16); IMMATURE GRANULOCYTES 3.4 % (0-5); LYMPHOCYTES 15.5 % (15-50); MCH 28.9 pg (26.0-34.0); MCHC 30.8 g/dL (31.0-37.0); MCV 93.8 fL (80.0-100.0); MEAN PLATELET VOLUME 10.5 fL (7.4-10.4); MONOCYTES 15.2 % (2-11); NEUTROPHILS 65.2 % (40-80); PLATELET COUNT 252 10x3/uL (130-400); RBC 3.88 10x6/uL (4.00-5.40); RDW 13.1 % (11.5-14.5); WBC 12.8 10x3/uL (4.8-10.8)
--- NOTE | 2019-12-27 07:20 | NUR ---
RECIEVE REPORT. ALERT AND ORIENTED X4. SITTING UP IN BED RECIEVING UPDRAFT TREATMENT. NO SIGNS OF DISTRESS. DENIES ANY NEEDS AT THIS TIME. CONTINUE PLAN OF CARE AND SAFETY PRECAUTIONS.
[2019-12-27 08:58] VITALS: BP 93/44
[2019-12-27 13:21] VITALS: BP 113/51
--- NOTE | 2019-12-27 14:33 | MORECARE ---
CASE MANAGEMENT DISCHARGE SUMMARY PATIENT: SHARON BLANTON UNIT: [id number] ADM DATE: 12/16/19 AGE: 59 : 58 SEX: F ROOM/BED: D.4716 AUTHOR: ERICAK WARREN PHYSICIAN: REFERRING PHYSICIAN: OLESYA JOE MD DATE OF SERVICE: 12/27/19 Discharge Plan Patient Name: SHARON BLANTON Facility: [facility]:[place] : 1960 Planned Disposition: Home with Home Health Anticipated Discharge Date: Discharge Date: Expected LOS: Initial Reviewer: [email or web address] Initial Review Date: 12/16/2019 Generated: 12/27/19 3:32 pm Comments DCP- Discharge Planning Updated by [email or web address]: Aura Suarez on 12/26/19 3:[address] Patient Name: SHARON BLANTON Encounter No: [id number] : 1960 Primary Insurance: [employer] INS EXCHANGE Anticipated DC Date: Planned Disposition: Home with Home Health External Planned Provider: : DC needs: Physical Therapy with [facility]. Scat transportation [phone] or Taxi services [phone] or [phone]. CM met with patient regarding DC needs/plans. Patient A/O X3. Lives in an apartment, 17 steps w/railing. PCP: Andie Han APRN, [facility]. Pharmacy: [facility], [phone]. DME supplies with [facility]: Trilogy, O2 with portability, RW, Nebulizer, Shower chair. Emergency contact: Juliette Amador (sister out of state) [phone]. HS: [place] [phone]. Patient will require transportation via SCAT or a taxi, if DC'd on W/E. Patient she has no friends or family in [place]. Patient declines Rehab or SNF. Patient would benefit PHYSICAL THERAPY services with her HH. Denies being hospitalized within the past 30 days. Patient has applied for "It's All About You" services. Voice s no other needs at this time. DCP follow-up note: CM met with pt about DC plan. Patient states she falls a lot, and is not able to care for herself. Spoke with her about the possibility of custodial or NH placement. Patient refused to discuss this plan. Also spoke with pt about IP rehab. Pt in agreement with this plan. ISSAC signed for [facility] IP rehab. Order received for PT, and OT. Spoke with both therapist and their recommendation is IP rehab. Called Ruth with IP rehab to initiate the referral. Authorization pending. Patient states if she is not able to go to rehab she will resume [facility], and [facility] for D[facility]. Patient in agreement with discharge plan. No changes to plan. Case management will follow and assist as needed. Aura Suarez MSN,RN,CM DCP- Discharge Planning Updated by [email or web address]: Lauryn Saul on 12/22/19 8:[address] DC needs: Physical Therapy with [facility]. Scat transportation [phone] or Taxi services [phone] or [phone]. CM met with patient regarding DC needs/plans. Patient A/O X3. Lives in an apartment, 17 steps w/railing. PCP: Andie Han APRN, [facility]. Pharmacy: [facility], [phone]. [facility]: Trilogy, O2 with portability, RW, Nebulizer, Shower chair. Emergency contact: Juliette Amador (sister out of state) [phone]. HS: [place] [phone]. Patient will require transportation via SCAT or a taxi, if DC'd on W/E. Patient she has no friends or family in [place]. Patient declines Rehab or SNF. Patient would benefit PHYSICAL THERAPY services with her . Denies being hospitalized within the past 30 days. Patient has applied for "It's All About You" services. Voice s no other needs at this time. DCPIA - Discharge Planning Initial Assessment Updated by [email or web address]: Anu Jones on 12/26/19 1:38 pm * Is the patient Alert and Oriented? Yes * How many steps to enter\\exit or inside your home? 17 * PCP PHILOMENA HAN * [facility], [phone] * Preadmission Environment Home Alone * ADLs Independent * Other Equipment DME supplies with [facility]: Trilogy, O2 with portability, RW, Nebulizer, Shower chair. * List name and contact numbers for known caregivers / representatives who currently or will assist patient after discharge: Juliette Amador (sister out of state) [phone] * Verbal permission to speak to the caregivers and representatives has been obtained from the patient. Yes * Community resources currently utilized Home Health * Please name any agencies selected above. [facility] * Additional services required to return to the preadmission environment? No * Can the patient safely return to the preadmission environment? Yes * Has this patient been hospitalized within the prior 30 days at any hospital? No Last DP export: 12/26/19 3:23 p Patient Name: SHARON BLANTON Page 15274 at 1433 All edits/amendments must be made on the electronic document DICTATION DATE: 12/27/191431 VISUALIZATION DEVELOPER: MAGNO 12/27/191431 RPT#: [id number] DC DATE: STATUS: ADM IN [facility] [address] [place] [address] END OF REPORT
--- NOTE | 2019-12-27 17:26 | NUR ---
OT NOTE: PT COMPLETED BED MOB WITH SPV. PT COMPLETED SIT TO STAND WITH SPV. PT COMPLETED ADL MOB WITH RW WITH SPV. PT COMPLETED BUE AROM EXS AT EOB WITH SPV. PT COMPLETED HIRA/DOFF SOCKS WITH SPV. PT COMPLETED FACE HYGIENE WITH SPV. PT EXHIBITED IMPULSIVE BEHAVIOR THAT REQUIRED MOD CUES FOR INCREASED SAFETY. [id number] THANK YOU,JULIA GARCIA
[2019-12-27 18:53] VITALS: BP 100/64
[2019-12-27 20:00] VITALS: BP 105/77
[2019-12-28] VITALS: BP 117/70
[2019-12-28 04:00] VITALS: BP 104/32
--- NOTE | 2019-12-28 04:00 | NUR ---
PARCEL POST WEIGHER AT BED SIDE, VITALS 02 SAT 98% ON RA. BP 104/32.
[2019-12-28 04:54] LABS: BASOPHILS 0.1 % (0-2); EOSINOPHILS 0.6 % (0-7); HEMATOCRIT 35.4 % (36.0-48.0); IMMATURE GRANULOCYTES 4.2 % (0-5); LYMPHOCYTES 13.8 % (15-50); MCH 28.8 pg (26.0-34.0); MCHC 31.1 g/dL (31.0-37.0); MCV 92.7 fL (80.0-100.0); MEAN PLATELET VOLUME 10.5 fL (7.4-10.4); MONOCYTES 13.6 % (2-11); NEUTROPHILS 67.7 % (40-80); PLATELET COUNT 244 10x3/uL (130-400); RBC 3.82 10x6/uL (4.00-5.40); RDW 12.8 % (11.5-14.5); WBC 14.6 10x3/uL (4.8-10.8)
[2019-12-28 05:11] LABS: CALC OSMOLALITY 275 mosm/kg (275-300); CALCIUM 7.1 mg/dL (8.5-10.1); CHLORIDE - SERUM 92 mmol/L (98-107); CREATININE - SERUM 0.6 mg/dL (0.6-1.3); GLUCOSE 86 mg/dL (74-106); MAGNESIUM - SERUM 1.1 mg/dL (1.8-2.4); PHOSPHOROUS 4.7 mg/dL (2.5-4.9); POTASSIUM - SERUM 3.7 mmol/L (3.5-5.1); SODIUM 137 mmol/L (136-145); UREA NITROGEN 21 mg/dL (7-18); eGFR NON AFRICAN AMERICAN > 90 mL/min (90-120)
[2019-12-28 05:23] LABS: CARBON DIOXIDE 40.6 mmol/L (21.0-32.0)
--- NOTE | 2019-12-28 07:37 | NUR ---
ASSESSMENT DONE. DENIES NEEDS
[2019-12-28 09:32] VITALS: BP 109/59
--- NOTE | 2019-12-28 10:07 | NUR ---
I have reviewed this patient and I concur with the Shift Assessment completed by the Licensed Practical Nurse today this shift.
[2019-12-28 13:39] VITALS: BP 105/45
--- NOTE | 2019-12-28 13:52 | MORECARE ---
CASE MANAGEMENT DISCHARGE SUMMARY PATIENT: SHARON BLANTON UNIT: [id number] ADM DATE: 12/16/19 AGE: 59 : 58 SEX: F ROOM/BED: D.1178 AUTHOR: ERICKA WARREN PHYSICIAN: REFERRING PHYSICIAN: OLESYA JOE MD DATE OF SERVICE: 12/28/19 Discharge Plan Patient Name: SHARON BLANTON Facility: [facility]:[place] : 1960 Planned Disposition: Home with Home Health Anticipated Discharge Date: Discharge Date: Expected LOS: Initial Reviewer: [email or web address] Initial Review Date: 12/16/2019 Generated: 12/28/19 2:51 pm DCP- Discharge Planning Updated by [email or web address]: Aura Suarez on 12/26/19 3:[address] Patient Name: SHARON BLANTON Encounter No: [id number] : 1960 Primary Insurance: [employer] INS EXCHANGE Anticipated DC Date: Planned Disposition: Home with Home Health External Planned Provider: : DC needs: Physical Therapy with [facility]. Scat transportation [phone] or Taxi services [phone] or [phone]. CM met with patient regarding DC needs/plans. Patient A/O X3. Lives in an apartment, 17 steps w/railing. PCP: Andie Han APRN, [facility]. Pharmacy: [facility], [phone]. DME supplies with [facility]: Trilogy, O2 with portability, RW, Nebulizer, Shower chair. Emergency contact: Juliette Amador (sister out of state) [phone]. HS: [place] [phone]. Patient will require transportation via SCAT or a taxi, if DC'd on W/E. Patient she has no friends or family in [place]. Patient declines Rehab or SNF. Patient would benefit PHYSICAL THERAPY services with her HH. Denies being hospitalized within the past 30 days. Patient has applied for "It's All About You" services. Voice s no other needs at this time. DCP follow-up note: CM met with pt about DC plan. Patient states she falls a lot, and is not able to care for herself. Spoke with her about the possibility of long-term or NH placement. Patient refused to discuss this plan. Also spoke with pt about IP rehab. Pt in agreement with this plan. ISSAC signed for [facility] IP rehab. Order received for PT, and OT. Spoke with both therapist and their recommendation is IP rehab. Called Ruth with IP rehab to initiate the referral. Authorization pending. Patient states if she is not able to go to rehab she will resume [facility], and [facility] for DME. Patient in agreement with discharge plan. No changes to plan. Case management will follow and assist as needed. Aura Suarez MSN,RN,CM DCP- Discharge Planning Updated by [id number]: Lauryn Saul on 12/22/19 8:[address] DC needs: Physical Therapy with [facility]. Scat transportation [phone] or Taxi services [phone] or [phone]. CM met with patient regarding DC needs/plans. Patient A/O X3. Lives in an apartment, 17 steps w/railing. PCP: Andie Han APRN, [facility]. Pharmacy: [facility], [phone]. [facility]: Trilogy, O2 with portability, RW, Nebulizer, Shower chair. Emergency contact: Juliette Amador (sister out of state) [phone]. HS: [place] [phone]. Patient will require transportation via SCAT or a taxi, if DC'd on W/E. Patient she has no friends or family in [place]. Patient declines Rehab or SNF. Patient would benefit PHYSICAL THERAPY services with her . Denies being hospitalized within the past 30 days. Patient has applied for "It's All About You" services. Voice s no other needs at this time. DCPIA - Discharge Planning Initial Assessment Updated by [email or web address]: Anu Jones on 12/26/19 1:38 pm * Is the patient Alert and Oriented? Yes * How many steps to enter\\exit or inside your home? 17 * PCP PHILOMENA HAN * Pharmacy [facility], [phone] * Preadmission Environment Home Alone * ADLs Independent * Other Equipment DME supplies with [facility]: Trilogy, O2 with portability, RW, Nebulizer, Shower chair. * List name and contact numbers for known caregivers / representatives who currently or will assist patient after discharge: Juliette Amador (sister out of state) [phone] * Verbal permission to speak to the caregivers and representatives has been obtained from the patient. Yes * Community resources currently utilized Home Health * Please name any agencies selected above. [facility] * Additional services required to return to the preadmission environment? No * Can the patient safely return to the preadmission environment? Yes * Has this patient been hospitalized within the prior 30 days at any hospital? No External Providers External Provider: [facility] Next Contact Date: Service Request Date: Service Type: Resolution: Reviewer: Comments: Last DP export: 12/27/19 1:33 p Patient Name: SHARON BLANTON Page 55611 at 1352 All edits/amendments must be made on the electronic document DICTATION DATE: 12/28/19 1351 PREPARATION CENTER COORDINATOR: MAGNO 12/28/19 1351 RPT#: [id number] DC DATE: STATUS: ADM IN [facility] [address] [place] [address] END OF REPORT
[2019-12-28] MEDS ORDERED: CARAFATE1 G PO (14:07)
[2019-12-28] MEDS ORDERED: NYSTATIN5 ML PO (14:07)
[2019-12-28] MEDS ORDERED: CLEOCIN HCL300 MG (14:09)
[2019-12-28] MEDS ORDERED: STERAPRED 5MG 125 MG PO (14:10)
[2019-12-28] MEDS ORDERED: CARDIZEM CD180 MG PO (14:11)
[2019-12-28] MEDS ORDERED: LEVOFLOXACIN500 MG PO (14:14)
--- NOTE | 2019-12-28 14:15 | NUR ---
Rehab Note- Received a fax with [employer] approval. Notified EDDI Chavarria and the patient is just wanting to discharge home at this time refusing to come to [facility] Acute Inpatient Rehb at this time. Thank you for this referral! Ruth Franco RN Clinical Liaison, [facility] Rehab
--- NOTE | 2019-12-28 14:21 | MORECARE ---
CASE MANAGEMENT DISCHARGE SUMMARY PATIENT: SHARON BLANTON UNIT: [id number] ADM DATE: 12/16/19 AGE: 59 : 58 SEX: F ROOM/BED: D.4114 AUTHOR: ERICKA WARREN PHYSICIAN: REFERRING PHYSICIAN: OLESYA JOE MD DATE OF SERVICE: 12/28/19 Discharge Plan Patient Name: SHARON BLANTON Facility: [facility]:[place] : 1960 Planned Disposition: Home with Home Health Anticipated Discharge Date: Discharge Date: Expected LOS: Initial Reviewer: [email or web address] Initial Review Date: 12/16/2019 Generated: 12/28/19 3:20 pm Comments DCP- Discharge Planning Updated by [email or web address]: Aura Suarez on 12/28/19 1:[address] Patient Name: SHARON BLANTON Encounter No: [id number] : 1960 Primary Insurance: [employer] INS EXCHANGE Anticipated DC Date: Planned Disposition: Home with Home Health External Planned Provider: : DCP follow-up note: CM MET WITH PATIENT WITH DR HILTON. PT STATES SHE IS READY TO GO HOME. DR HILTON AND CM VOICED CONCERNS ABOUT HOW WEAK THE PT IS, AND HOW PT STATES SHE WAS NOT AMBULATING WELL. PT STATED SHE IS GETTING UP JUST FINE AND GOING TO THE RESTROOM. PT AMBULATED TO RESTROOM- STILL REQUIRES CUING FOR SAFETY. PT STATED JUST SEND ME HOME WITH HOME HEALTH. CM CALLED LILLY WITH [facility] AT [phone] AND FAXED CLINICALS TO [phone]. Case management will follow and assist as needed. Aura Suarez MSN,RN,CM DCP- Discharge Planning Updated by [email or web address]: Aura Suarez on 12/26/19 3:[address] Patient Name: SHARON BLANTON Encounter No: [id number] : 1960 Primary Insurance: [employer] INS EXCHANGE Anticipated DC Date: Planned Disposition: Home with Home Health External Planned Provider: : DC needs: Physical Therapy with [facility]. Scat transportation [phone] or Taxi services [phone] or [phone]. CM met with patient regarding DC needs/plans. Patient A/O X3. Lives in an apartment, 17 steps w/railing. PCP: Ora Mo APRN HS. Pharmacy: [facility], [phone]. DME supplies with [employer]: Trilogy, O2 with portability, RW, Nebulizer, Shower chair. Emergency contact: Juliette Amador (sister out of state) [phone]. HS: [place] [phone]. Patient will require transportation via [place] or a taxi, if DC'd on W/E. Patient she has no friends or family in [place]. Patient declines Rehab or SNF. Patient would benefit PHYSICAL THERAPY services with her . Denies being hospitalized within the past 30 days. Patient has applied for "[facility]" services. Voice s no other needs at this time. DCP follow-up note: CM met with pt about DC plan. Patient states she falls a lot, and is not able to care for herself. Spoke with her about the possibility of [facility]cc or NH placement. Patient refused to discuss this plan. Also spoke with pt about IP rehab. Pt in agreement with this plan. [facility]AC signed for [facility] IP rehab. Order received for PT, and OT. Spoke with both therapist and their recommendation is IP rehab. Called Ruth with IP rehab to initiate the referral. Authorization pending. Patient states if she is not able to go to rehab she will resume [facility], and [facility] for DME. Patient in agreement with discharge plan. No changes to plan. Case management will follow and assist as needed. Aura Suarez MSN,RN,CM DCP- Discharge Planning Updated by [email or web address]: Lauryn Saul on 12/22/19 8:[address] DC needs: Physical Therapy with [facility]. [employer]at transportation [phone] or Taxi services [phone] or [phone]. CM met with patient regarding DC needs/plans. Patient A/O X3. Lives in an apartment, 17 steps w/railing. PCP: Ora Mo APRN . Pharmacy: [facility], [phone]. DME supplies with [employer]: Trilogy, O2 with portability, RW, Nebulizer, Shower chair. Emergency contact: Juliette Amador (sister out of [facility]) [phone]. HS: [place] [phone]. Patient will require transportation via [place] or a taxi, if DC'd on W/E. Patient she has no friends or family in [place]. Patient declines Rehab or SNF. Patient would benefit PHYSICAL THERAPY services with her HH. Denies being hospitalized within the past 30 days. Patient has applied for "[facility]" services. Voice s no other needs at this time. DCPIA - Discharge Planning Initial Assessment Updated by [email or web address]: Anu Jones on 12/26/19 1:38 pm * Is the patient Alert and Oriented? Yes * How many steps to enter\\exit or inside your home? 17 * PCP PHILOMENA HAN * Pharmacy [facility], [phone] * Preadmission Environment Home Alone * ADLs Independent * Other Equipment DME supplies with [employer]: Trilogy, O2 with portability, RW, Nebulizer, Shower chair. * List name and contact numbers for known caregivers / representatives who currently or will assist patient after discharge: Juliette Amador (sister out of state) [phone] * Verbal permission to speak to the caregivers and representatives has been obtained from the patient. Yes * Community resources currently utilized Home Health * Please name any agencies selected above. [facility] * Additional services required to return to the preadmission environment? No * Can the patient safely return to the preadmission environment? Yes * Has this patient been hospitalized within the prior 30 days at any hospital? No Last DP export: 12/28/19 12:52 p Patient Name: SHARON BLANTON Page [id number] at 1421 All edits/amendments must be made on the electronic document DICTATION DATE: 12/28/191419 BOILER WASHER: MAGNO 12/28/191419 RPT#: [id number] DC DATE: STATUS: ADM IN [facility] [address] [place] [address] END OF REPORT
--- NOTE | 2019-12-28 14:55 | NUR ---
DC GIVEN TO PT
--- NOTE | 2019-12-28 16:25 | NUR ---
DC HOME PER TAXI
--- NOTE | 2019-12-29 09:08 | MORECARE ---
CASE MANAGEMENT DISCHARGE SUMMARY PATIENT: SHARON BLANTON UNIT: [id number] ADM DATE: 12/16/19 AGE: 59 : 58 SEX: F ROOM/BED: D.2781 AUTHOR: ERICKA WARREN PHYSICIAN: REFERRING PHYSICIAN: OLESYA JOE MD DATE OF SERVICE: 12/29/19 Discharge Plan Patient Name: SHARON BLANTON Facility: [facility]:[place] : 1960 Planned Disposition: Home with Home Health Anticipated Discharge Date: Discharge Date: 12/28/2019 Expected LOS: Initial Reviewer: [email or web address] Initial Review Date: 12/16/2019 Generated: 12/29/19 10:08 am Comments DCP- Discharge Planning Updated by [email or web address]: Aura Suarez on 12/28/19 1:[address] Patient Name: SHARON BLANTON Encounter No: [id number] : 1960 Primary Insurance: [employer] INS EXCHANGE Anticipated DC Date: Planned Disposition: Home with Home Health External Planned Provider: : DCP follow-up note: CM MET WITH PATIENT WITH DR HILTON. PT STATES SHE IS READY TO GO HOME. DR HILTON AND CM VOICED CONCERNS ABOUT HOW WEAK THE PT IS, AND HOW PT STATES SHE WAS NOT AMBULATING WELL. PT STATED SHE IS GETTING UP JUST FINE AND GOING TO THE RESTROOM. PT AMBULATED TO RESTROOM- STILL REQUIRES CUING FOR SAFETY. PT STATED JUST SEND ME HOME WITH HOME HEALTH. CM CALLED LILLY WITH [facility] AT [phone] AND FAXED CLINICALS TO [phone]. Case management will follow and assist as needed. Aura Suarez MSN,RN,CM DCP- Discharge Planning Updated by [email or web address]: Aura Suarez on 12/26/19 3:[address] Patient Name: SHARON BLANTON Encounter No: [id number] : 1960 Primary Insurance: [employer] INS EXCHANGE Anticipated DC Date: Planned Disposition: Home with Home Health External Planned Provider: : DC needs: Physical Therapy with [facility]. Scat transportation [phone] or Taxi services [phone] or [phone]. CM met with patient regarding DC needs/plans. Patient A/O X3. Lives in an apartment, 17 steps w/railing. PCP: Ora Mo APRN . Pharmacy: [facility], [phone]. DME supplies with [employer]: Trilogy, O2 with portability, RW, Nebulizer, Shower chair. Emergency contact: Juliette Amador (sister out of state) [phone]. HS: [place] [phone]. Patient will require transportation via [place] or a taxi, if DC'd on W/E. Patient she has no friends or family in [place]. Patient declines Rehab or SNF. Patient would benefit PHYSICAL THERAPY services with her HH. Denies being hospitalized within the past 30 days. Patient has applied for "[facility]" services. Voice s no other needs at this time. DCP follow-up note: CM met with pt about DC plan. Patient states she falls a lot, and is not able to care for herself. Spoke with her about the possibility of long-term or NH placement. Patient refused to discuss this plan. Also spoke with pt about IP rehab. Pt in agreement with this plan. [facility] signed for [facility] IP rehab. Order received for PT, and OT. Spoke with both therapist and their recommendation is IP rehab. Called Ruth with IP rehab to initiate the referral. Authorization pending. Patient states if she is not able to go to rehab she will resume [facility], and [facility] for DME. Patient in agreement with discharge plan. No changes to plan. Case management will follow and assist as needed. Aura BERGERON,RN,CM DCP- Discharge Planning Updated by [email or web address]: Lauryn Saul on 12/22/19 8:[address] DC needs: Physical Therapy with [facility]. Scat transportation [phone] or Taxi services [phone] or [phone]. CM met with patient regarding DC needs/plans. Patient A/O X3. Lives in an apartment, 17 steps w/railing. PCP: Ora Mo APRN . [facility], [phone]. DME supplies with [employer]: Trilogy, O2 with portability, RW, Nebulizer, Shower chair. Emergency contact: Juliette Amador (sister out of [facility]) [phone]. HS: [place] [phone]. Patient will require transportation via [place] or a taxi, if DC'd on W/E. Patient she has no friends or family in [place]. Patient declines Rehab or SNF. Patient would benefit PHYSICAL THERAPY services with her HH. Denies being hospitalized within the past 30 days. Patient has applied for "[facility]" services. Voice s no other needs at this time. DCPIA - Discharge Planning Initial Assessment Updated by [email or web address]: Anu Jones on 12/26/19 1:38 pm * Is the patient Alert and Oriented? Yes * How many steps to enter\\exit or inside your home? 17 * PCP PHILOMENA AHN * Pharmacy [facility], [phone] * Preadmission Environment Home Alone * ADLs Independent * Other Equipment DME supplies with [employer]: Trilogy, O2 with portability, RW, Nebulizer, Shower chair. * List name and contact numbers for known caregivers / representatives who currently or will assist patient after discharge: Juliette Amador (sister out of state) [phone] * Verbal permission to speak to the caregivers and representatives has been obtained from the patient. Yes * Community resources currently utilized Home Health * Please name any agencies selected above. [facility] * Additional services required to return to the preadmission environment? No * Can the patient safely return to the preadmission environment? Yes * Has this patient been hospitalized within the prior 30 days at any hospital? No Last DP export: 12/28/19 1:21 p Patient Name: SHARON BLANTON Page 76226 at 0908 All edits/amendments must be made on the electronic document DICTATION DATE: 12/29/19907 PERSONAL PROTECTION SPECIALIST: MAGNO 12/29/19907 RPT#: [id number] DC DATE:12/28/19 STATUS: DIS IN [facility] [address] [place] [address] END OF REPORT
== END 2019-12-28 16:25 | disposition home health service (06) | DRG 177 ==
LOC: D.ER 10:41 → D.M2 12:43
PROVIDERS: Emergency Medicine; Internal Medicine Gastroenterology; Internal Medicine Pulmonary Disease; ADMIT Family Medicine; ATTEND Family Medicine
PROC: 0DB68ZX Excision of Stomach, Via Natural or Artificial Opening Endoscopic, Diagnostic (ICD-10-PCS; 2019-12-19)
PROC: 0DB48ZX Excision of Esophagogastric Junction, Via Natural or Artificial Opening Endoscopic, Diagnostic (ICD-10-PCS; principal; 2019-12-19 05:48)
DX: J15.6 Pneumonia due to other Gram-negative bacteria (principal); J96.22 Acute and chronic respiratory failure with hypercapnia; J96.21 Acute and chronic respiratory failure with hypoxia; K22.10 Ulcer of esophagus without bleeding; J43.9 Emphysema, unspecified; J02.0 Streptococcal pharyngitis; K44.9 Diaphragmatic hernia without obstruction or gangrene; K29.70 Gastritis, unspecified, without bleeding; K29.80 Duodenitis without bleeding; K26.9 Duodenal ulcer, unspecified as acute or chronic, without hemorrhage or perforation; K21.0 Gastro-esophageal reflux disease with esophagitis; R19.7 Diarrhea, unspecified